=== PATIENT | female | born 1950 | race Caucasian/White ===

== ENCOUNTER 2024-08-12 06:55 | Inpatient (IN) | payer MEDICARE, SELFPAY ==
[2024-08-12] VITALS (45 sets, daily range): BP systolic 55–153; BP diastolic 35–93; PULSE 84–143; RESP 19–40; TEMP 36.6–38.4; O2SAT 85–100; BMI 22.1
--- NOTE | ~2024-08-12 | CT_ITS ---
EXAMINATION: CT brain wo con DATE: 08/12/2024 19:10 INDICATION: Septic shock . TECHNIQUE: Computed tomography (CT) of the head was performed without intravenous contrast. The mA wa s adjusted according to patient size. Iterative reconstruction technique was employed. The dose-lengt h product was 605.33 mGy-cm. COMPARISON: None. FINDINGS: No acute intracranial hemorrhage or extra-axial fluid collection. No hydrocephalus, mass, or herniation. No acute ischemic infarct. Unremarkable dural venous sinus attenuation. No acute osseous abnormality. Left craniotomy defect. Right mastoid effusion, the remaining aerated spaces are clear. Moderate atrophy and chronic white matter change. Atherosclerotic intracranial calcification. Bilater al lens replacements. Left frontal and temporal encephalomalacia. IMPRESSION: No acute intracranial process. Reviewed, dictated and finalized at location K. NT EXTERMINATOR
--- NOTE | ~2024-08-12 | XR_ITS ---
Portable chest x-ray Comparison: 08/16/2024 Clinical History: Respiratory failure Findings: There is complete white out of the left hemithorax. Right lung clear. Left IJ line in plac e. Cardiomediastinal silhouette is stable. Bones and soft tissues are unremarkable. Impression: Complete white out of the left hemithorax, likely combination of effusion, consolidation, and atelect asis based on prior radiographs. Left IJ line in place. Reviewed, dictated and finalized at location M. ERICAN SIGN LANGUAGE TEACHER Impression: Complete white out of the left hemithorax, likely combination of effusion, cons olidation, and atelectasis based on prior radiographs. Left IJ line in place.
--- NOTE | ~2024-08-12 | XR_ITS ---
Portable chest x-ray Comparison: 08/15/2024 Clinical History: Respiratory failure Findings: Left-sided IJ line is in place. There is reexpansion of the right upper lobe since prior e xam. Opbge-ij-euufsvil left pleural effusion present with extensive left lung consolidation. Cardiom ediastinal silhouette is stable. Bones and soft tissues are unremarkable. Impression: Rjudn-zc-xjlozend left pleural effusion with extensive left lung consolidation, suspicious for pneumo larry. Reexpansion of right upper lobe since prior exam. Stable support line. Reviewed, dictated and finalized at location M. IER AND SALESPERSON Impression: Oqopo-xx-fsoiokan left pleural effusion with extensive left lung consolidation, suspicious for pneumonia. Reexpansion of right upper lobe since prior exam. Stable support line.
--- NOTE | ~2024-08-12 | CT_ITS ---
Non-contrast CT scan of the Abdomen and Pelvis Clinical indication: Sepsis Technique: 2.5 mm axial scans were obtained through the abdomen and pelvis without intravenous or or al contrast. Dose reduction technique was used on this scan by utilizing automated exposure control a nd iterative reconstruction technique. The dose-length product (DLP) was 221.16 mGy-cm. Findings: Images through the lung bases reveal dense consolidation and volume loss of the visualized left lower lobe. Right lung base clear. There is no evidence of renal or ureteral calculi. The kidneys and the ureters are nondilated. The liver, spleen, pancreas, gallbladder, and adrenals appear normal. There is no aortic aneurysm. There is no evidence of bowel obstruction. Images through the pelvis were performed. There is no evidence of ascites or lymphadenopathy. There i s probably diffuse urinary bladder wall thickening despite decompression with Larsen catheter. Large u rinary bladder stone measures 2.5 cm in diameter, ovoid shaped. Impression: Dense consolidation and volume loss of the visualized left lower lobe. Findings are compatible with a telectasis versus possibly pneumonia. Consider dedicated contrast-enhanced chest CT to better evaluat e for any possibility of central obstructing lesion or other pulmonary/mediastinal pathology. Probable cystitis despite Larsen catheter in place. 2.5 cm oval urinary bladder stone. No definite CT evidence of pyelonephritis, but noncontrast CT scan is insensitive for this diagnosis. Reviewed, dictated and finalized at [facility]. LE CUT OFF SAW OPERATOR Impression: Dense consolidation and volume loss of the visualized left lower lobe. Findings are compatible with atelectasis versus possibly pneumonia. Consider dedicated contrast-enhanced chest CT to better evaluate for any possibility of central ob structing lesion or other pulmonary/mediastinal pathology. Probable cystitis despite Larsen catheter in place. 2.5 cm oval urinary bladder stone. No definite CT evidence of pyelonephritis, but noncontrast CT scan is insensiti ve for this diagnosis.
--- NOTE | ~2024-08-12 | XR_ITS ---
EXAMINATION: XR chest 1V portable DATE: 08/20/2024 06:25 INDICATION: Atelectasis. TECHNIQUE: A single frontal view of the chest was obtained on 2 radiographs. COMPARISON: Chest single view 08/19/2024, chest CT 08/12/2024 FINDINGS: There is mild atelectasis in right midlung zone. There are airspace opacities in left mid a nd lower lung zones. There may be a small left pleural effusion. No pneumothorax. The heart size is n ormal. A left internal jugular central venous catheter is seen with tip in the superior vena cava. IMPRESSION: 1. Mild atelectasis in right midlung zone. 2. Worsened airspace opacities in left mid and lower lung zones, consistent with atelectasis versus p neumonia. 3. Possible small left pleural effusion. Reviewed, dictated and finalized at location A. TINGS RESTORER IMPRESSION: 1. Mild atelectasis in right midlung zone. 2. Worsened airspace opacities in left mid and lower lung zones, consistent wit h atelectasis versus pneumonia. 3. Possible small left pleural effusion.
--- NOTE | ~2024-08-12 | US_ITS ---
EXAMINATION: US renal BI DATE: 08/12/2024 15:01 INDICATION: ACUTE KIDNEY INJURY, R/O HYDRO TECHNIQUE: Multiple grayscale and Doppler ultrasound images of the kidneys were obtained. COMPARISON: CT abdomen and pelvis, same date FINDINGS: The right kidney measures 9.6 x 5.1 x 6.3 cm. The left kidney measures 13.6 x 6.9 x 6.4 cm. The kidne ys demonstrate normal parenchymal echogenicity. There is no hydronephrosis. The bladder is decompress ed and therefore incompletely evaluated. Acoustic shadowing in the region of the bladder likely secon curtis to the bladder stone demonstrated in the prior CT. IMPRESSION: No hydronephrosis. Reviewed, dictated and finalized at location K. ICER IMPRESSION: No hydronephrosis.
--- NOTE | ~2024-08-12 | XR_ITS ---
Portable chest x-ray Comparison: 08/12/2024 Clinical History: Septic shock Findings: Left-sided central venous line is unchanged. Patient's arm obscures portions of the right hemithorax. There is extensive hazy airspace disease in the left upper lobe in particular. Cardiomed iastinal silhouette is probably stable. Bones and soft tissues are unremarkable. Impression: Extensive hazy left upper lobe airspace disease. Correlate for pneumonia or atypical pulmonary edema distribution. Stable right-sided central venous line. Right upper lobe obscured by the patient's arm. Reviewed, dictated and finalized at [facility]. ING SYSTEMS AND EQUIPMENT REPAIRER Impression: Extensive hazy left upper lobe airspace disease. Correlate for pneumonia or aty pical pulmonary edema distribution. Stable right-sided central venous line. Right upper lobe obscured by the patient's arm.
--- NOTE | ~2024-08-12 | XR_ITS ---
Portable chest x-ray Comparison: 08/12/2024 at 7:37 AM Clinical History: Line placed Findings: Left IJ line is in satisfactory position. Lungs remain clear. Possible COPD. No pneumothor ax. Cardiomediastinal silhouette is stable. Bones and soft tissues are unremarkable. Impression: Left-sided central venous line in place, as above. COPD. No pneumothorax. Reviewed, dictated and finalized at location M. CLERK Impression: Left-sided central venous line in place, as above. COPD. No pneumothorax.
--- NOTE | ~2024-08-12 | XR_ITS ---
EXAMINATION: XR chest 1V portable DATE: 08/18/2024 05:44 INDICATION: Respiratory failure TECHNIQUE: frontal view of the chest was obtained. COMPARISON: Chest radiograph dated 08/17/2024 FINDINGS: Near complete opacification of the left hemithorax with air bronchograms throughout the extensive con solidation. There is been slight improvement in aeration at the left apex. Right lung remains clear. No pneumothorax or right-sided pleural effusion. The left side of the cardiomediastinal silhouette re bonifacio obscured. Left internal jugular central venous catheter with distal tip at the cephalad superio r vena cava. IMPRESSION: 1. Extensive consolidation throughout the left hemithorax with slight improvement in aeration at the left apex likely combination of pneumonia and atelectasis possibly also with pleural effusion.. Reviewed, dictated and finalized at location A. ERLESS GRINDER TENDER IMPRESSION: 1. Extensive consolidation throughout the left hemithorax with slight improveme nt in aeration at the left apex likely combination of pneumonia and atelectasis possibly also with pleural effusion..
--- NOTE | ~2024-08-12 | XR_ITS ---
Portable chest x-ray Comparison: 08/13/2024 Clinical History: Pneumonia, lung collapse Findings: Left IJ line is in satisfactory position. There is right upper lobe collapse. There is ext ensive consolidation of the left perihilar region and left lower lobe with possible small left pleura l effusion. Cardiomediastinal silhouette is stable. Bones and soft tissues are unremarkable. Impression: Right upper lobe collapse. Central obstructing mass is not excluded. Extensive left perihilar and left lower lobe consolidation, suspicious for pneumonia. Possible small pleural effusion. Support line, as above. Reviewed, dictated and finalized at location M. TAL SOLUTION ARCHITECT Impression: Right upper lobe collapse. Central obstructing mass is not excluded. Extensive left perihilar and left lower lobe consolidation, suspicious for pneu monia. Possible small pleural effusion. Support line, as above.
--- NOTE | ~2024-08-12 | CT_ITS ---
EXAMINATION: CT diagnostic chest wo con DATE: 08/12/2024 19:10 INDICATION: Evaluate lung parenchyma/pneumonia TECHNIQUE: Computed tomography (CT) of the chest was performed with 100 mL Omnipaque-350 intravenous contrast. Automated exposure control and iterative reconstruction technique were employed. The dose-l ength product was 285.38 mGy-cm. COMPARISON: None. FINDINGS: CHEST: Exam limited by arm down positioning and motion artifact. Thoracic aorta: No significant dilation or calcification. Mild arch calcification. Lung parenchyma and airways: Complete left lung opacification with volume loss. Scattered areas of le ft-sided airway opacification. Thoracic inlet, axillae and chest wall: Left central line, terminating in the SVC. No thyroid or soft tissue mass. No axillary lymphadenopathy. Mediastinum: Calcified subcarinal node. Prominent prevascular and precarinal nodes, not strictly path ologic based on size criteria. No mass or lymphadenopathy. Heart and pericardium: Mild cardiomegaly. No pericardial effusion. Coronary artery calcifications: Moderate. Pleura: No effusion or mass. Upper abdomen: No significant finding. Thoracic bones: No acute osseous finding in the chest. IMPRESSION: Complete left lung opacification with volume loss, likely representing atelectasis. Consider mucous p lugging. Infection not excluded. No definite large obstructing mass is present, although this determination is difficult due to the la ck of contrast and above-mentioned limitations. Reviewed, dictated and finalized at location K. CIPAL IOS DEVELOPER IMPRESSION: Complete left lung opacification with volume loss, likely representing atelecta sis. Consider mucous plugging. Infection not excluded. No definite large obstructing mass is present, although this determination is d ifficult due to the lack of contrast and above-mentioned limitations.
--- NOTE | ~2024-08-12 | XR_ITS ---
EXAMINATION: XR chest 1V portable DATE: 08/19/2024 05:57 INDICATION: Respiratory failure TECHNIQUE: frontal view of the chest was obtained. COMPARISON: Chest radiograph dated 08/18/2024 FINDINGS: Marked improvement in the airspace opacities in the left lung with some residual retrocardiac consoli dation at the lower lung zone. New right upper lobe collapse with volume loss and complete opacificat ion likely related to mucous plugging. No pneumothorax or pleural effusion. Heart size is normal. Lef t internal jugular central venous catheter with distal tip at the cephalad superior vena cava. IMPRESSION: 1. Shifting pattern of atelectasis since the prior study with marked improvement of aeration of the l eft lung and with new right upper lobe collapse. 2. Residual consolidation at the left lung base which could represent atelectasis or pneumonia. Reviewed, dictated and finalized at location A. BOSS IMPRESSION: 1. Shifting pattern of atelectasis since the prior study with marked improvemen t of aeration of the left lung and with new right upper lobe collapse. 2. Residual consolidation at the left lung base which could represent atelectas is or pneumonia.
--- NOTE | ~2024-08-12 | XR_ITS ---
Portable chest x-ray Comparison: None Clinical History: Dyspnea Findings: Lungs are clear, without focal consolidation or pleural effusion. Cardiomediastinal silho uette is stable. Bones and soft tissues are unremarkable. Impression: Clear lungs. Reviewed, dictated and finalized at location M. MAKER Impression: Clear lungs.
--- NOTE | ~2024-08-12 | XR_ITS ---
Portable chest x-ray Comparison: 08/14/2024 Clinical History: Respiratory failure Findings: Left IJ line unchanged. Stable right upper lobe collapse. Stable extensive left lung conso lidation and probable small left pleural effusion. Cardiomediastinal silhouette is stable. Bones and soft tissues are unremarkable. Impression: No interval change. Stable right upper lobe collapse. Stable extensive left lung consolidation with small left pleural effusion. Stable support line. Reviewed, dictated and finalized at location . [employer] Impression: No interval change. Stable right upper lobe collapse. Stable extensive left lung consolidation with small left pleural effusion. Stable support line.
--- NOTE | 2024-08-12 07:04 | ECG_ITS ---
Test Date: 2024-08-12 07:02:22 Measurements Intervals [place] Rate: 146 P: 0 TN: 0 QRS: 19 QRSD: 84 T: 130 QT: 306 QTc: 478 Interpretive Statements ATRIAL FIBRILLATION WITH RAPID VENTRICULAR RESPONSE BASELINE ARTIFACT- I, II, III, AVR, AVL ,AVF, V1-V6 ABNORMAL ECG No previous ECG available for comparison Electronically Signed On 08-12-2024 07:57:43 PROCESS SAFETY MANAGER by Chris Starks D.O.
--- NOTE | 2024-08-12 07:18 | PC.NURSE ---
assumed care of pt. pt laying on stretcher, in distress at this time. dr holt at bedside. awaiting orders
[2024-08-12 07:24] LABS: Alveolar/Arterial O2 Gradient 474.8 mmHg; Carboxyhemoglobin 0.3 % THb (0-2.0); Fractional Inspired Oxygen 100 %; HCO3 ABG 14.3 mEq/l (22.0-26.0); Methemoglobin ABG 0.3 %THb (0-1.5); Oxygen Content ABG 18.3 %vol (16.0-22.0); Oxygen Saturation ABG 99.5 % (95.0-100.0); PO2 ABG 215.9 mmHg (80.0-100.0); PO2 FiO2 Ratio Arterial Blood 2.16 %; Reduced Hemoglobin 0.4 %THb (0-5.0); Total Hemoglobin 12.8 g/dL (12.0-18.0); pH ABG 7.426 (7.350-7.450)
[2024-08-12 07:26] LABS: Modified Allen's Test Pass; PCO2 ABG 22.3 mmHg (35.0-45.0); Site Drawn LEFT BRACHIAL
[2024-08-12 07:27] LABS: Device BIPAP; Expiratory Pressure 6 cmH2O; Inspiratory Pressure 12 cmH2O
--- NOTE | 2024-08-12 08:15 | PC.NURSE ---
spoke with David, son, to give update. states he messaged brothers to give update as well
[2024-08-12] MEDS: SODIUM CHLORIDE 0.9% IV 1,000 ML 999 ML IV CONT ×3 (08:27→09:48)
[2024-08-12] MEDS: NOREPINEPHRINE 8 MG/D5W 250 ML 8 MG/250 ML BAG 9.38 MG IV CONT (08:36)
[2024-08-12] MEDS: ACETAMINOPHEN 650 MG SUPPOSITORY RECTAL (08:36)
[2024-08-12 09:08] LABS: Hematocrit 31.5 % (37.0-47.0); Hemoglobin 10.5 g/dL (12.0-15.0); Mean Corpuscular HGB Conc 33.3 g/dl (32-36); Mean Corpuscular Hemoglobin 32.4 pg (26-34); Mean Corpuscular Volume 97.2 fl (80-100); Mean Platelet Volume 11.5 fl (7.4-10.4); Platelet Count Result 133 k/mm3 (150-375); Red Blood Count 3.24 M/mm3 (4.2-5.4); Red Cell Distribution Width 14.6 % (11.5-14.5)
[2024-08-12 09:16] LABS: Ammonia < 9 umol/L (9-30)
[2024-08-12 09:19] LABS: Lactic Acid Reflex 7.3 mmol/L (0.7-2.0); Magnesium 1.8 mg/dL (1.6-2.3)
[2024-08-12 09:21] LABS: Albumin Level 2.9 g/dL (3.5-5.1); Alkaline Phosphatase 92 U/L (38-126); Anion Gap 17 mmol/L (4-12); Aspartate Amino Transferase 45 U/L (14-36); Bilirubin,Total 0.8 mg/dL (0.2-1.3); Blood Urea Nitrogen 49 mg/dL (7-17); Calcium 7.9 mg/dL (8.4-10.2); Carbon Dioxide 19 mmol/L (22-30); Chloride 101 mmol/L (98-107); Estimated CRCL calculation 14 ml/min; Estimated Glomerular Filt Rate 16; Glucose 84 mg/dL (65-110); Lipase 28 U/L (23-300); Potassium 3.9 mmol/L (3.4-5.0); Sodium 137 mmol/L (137-145)
[2024-08-12 09:22] LABS: INR 1.6; Partial Thromboplastin Time 35.7 Seconds (22.3-36.8); Prothrombin Time 19.4 Seconds (11.1-14.7)
[2024-08-12 09:29] LABS: Band Neutrophils Percent 8 % (0-6); Lymphocytes Absolute Manual 0.45 K/mm3 (1.1-4.5); Monocytes Absolute Manual 1.35 K/mm3 (0.1-0.90); Monocytes Percent Manual 3 % (3-9); Neutrophils Percent Manual 88 % (46-73); Platelet Estimate Decreased (Adequate); Schistocytes None Seen; Total Cells Counted 100
[2024-08-12 09:30] LABS: Large Platelets Present
[2024-08-12 09:34] LABS: NT Pro B Type Natriuretic Pept 22000 pg/mL (19.9-100); Troponin I 0.493 ng/mL (0.000-0.034)
[2024-08-12 09:39] LABS: Alanine Aminotransferase 24 U/L (6-35)
[2024-08-12 09:45] LABS: Add Urine Microscopic? YES; Appearance Urine Turbid (Clear); Bacteria Urine 4+ /hpf; Bilirubin Urine 1+ (Negative); Blood Urine 3+ (Negative); Glucose Urine UA Negative (Negative); Ketones Urine Trace mg/dL (Negative); Leukocyte Esterase Ur 3+ LEU/UL (Negative); Need Manual Microscopic Need Manual; Nitrate Urine Negative (Negative); Non Pathogenic Casts 0-2; Protein Urine 4+ mg/dL (Negative); Specific Grav Ur 1.016 (1.001-1.035); Urobilinogen Urine 0.2 mg/dL (<2.0); WBC Urine >100 /hpf (0-3); pH Urine 6.5 (5.0-9.0)
[2024-08-12 09:48] LABS: Color Urine Other (Yellow); RBC Urine Noted /hpf (0-2)
--- NOTE | 2024-08-12 09:49 | PC.NURSE ---
phlebotomy at bedside to draw 2nd set blood cultures
[2024-08-12] MEDS: levoFLOXacin 750 MG/D5W 150 ML 750 MG/150 ML BAG 100 MG IVPB (10:02)
--- NOTE | 2024-08-12 10:14 | ED_ITS ---
HPI - Fever General Chief Complaint: Fever Stated Complaint: sepsis alert Time Seen by Provider: 08/12/24 07:03 Source: EMS and RN notes reviewed Mode of arrival: EMS Limitations: physical limitation (nonverbal) History of Present Illness HPI Narrative: This is a 73 year old nonverbal, chronic indwelling gonsalez catheter , chronic sacral decubitus ulcer who presents from nursing facility with fever and illness. Patient found to have oxygen saturation 80s per EMS so she was placed on NRB mask. Patient placed on BIPAP on arrival by nocturnal EDP. Patient unable to provide any history. MD elicited complaint: fever Related Data Home Medications Medication Instructions Recorded Confirmed acetaminophen 160 mg/5 mL oral 320 mg feeding tube Q6H PRN Fever 08/12/24 08/12/24 elixir atorvastatin 40 mg tablet 40 mg feeding tube HS 08/12/24 08/12/24 carbidopa 25 mg-levodopa 100 mg 2 tablet feeding tube TID 08/12/24 08/12/24 tablet clopidogrel 75 mg tablet 75 mg feeding tube DAILY 08/12/24 08/12/24 famotidine 20 mg tablet 20 mg feeding tube BID 08/12/24 08/12/24 levetiracetam 100 mg/mL oral 100 mg feeding tube Q12H 08/12/24 08/12/24 solution methimazole 10 mg tablet 10 mg feeding tube DAILY 08/12/24 08/12/24 metoprolol tartrate 25 mg tablet 25 mg feeding tube Q12H 08/12/24 08/12/24 multivitamin [id number]-awvphyzy-luuysxo 1 tablet PO DAILY 08/12/24 08/12/24 fumarate 18 mg-vitamin K 25 mcg tablet sertraline 50 mg tablet 50 mg feeding tube DAILY 08/12/24 08/12/24 Allergies Allergy/AdvReac Type Severity Reaction Status Date / Time cephalexin Allergy Unknown Verified 08/12/24 08:33 Sulfa (Sulfonamide Allergy Unknown Verified 08/12/24 08:33 Antibiotics) Review of Systems Review of Systems: ROS unobtainable: Yes unobtainable due to medical condition [facility] Past Medical History Medical History (Updated 08/12/24 @ 17:41 by Marysol Nguyen MD) Chronic indwelling Gonsalez catheter History of supraventricular tachycardia Hypertension Nonverbal Parkinson disease Sepsis Thyroid disorder Listed as hypothyroidism in [place] paperwork, however is on methimazole Surgical History Surgical History (Updated 08/12/24 @ 16:37 by Karey Manriquez APRN) History of brain surgery S/P percutaneous endoscopic gastrostomy (PEG) tube placement Social History Social History Smoking status: Unknown if ever smoked Spiritual care concerns: No Exam Const: General: diaphoretic and ill appearing Limitations: physical limitations Other: nonverbal HENMT: Head: normal to inspection Mouth: Yes Normal oral and palatal mucosa present, Yes lip normal and Yes moist mucous membranes Eyes: Pupils: Equal, round and reactive pupils present Chest: Chest palpation & inspection: normal inspection of the chest Resp: Effort & Inspection: labored Auscultation: clear to auscultation bilaterally Cardio: Rate: tachycardic Rhythm: abnormal rhythm Heart sounds: Murmur heart sound present GI: Inspection: distended GI Palp: Yes Soft to palpation, No Guarding due to palpation present (GI) and No Rigid due to palpation Auscultation: Hypoactive bowel sounds present Urinary Catheter: Urinary Catheter: urine cloudy Skin: Other: small stage 3 sacral decubitus ulcer with granulation tissue Neuro: Other: patient will look around, contracted Extrem: Other: contracted extremities Psych: Other: calm, patient will look around Course Reevaluation(s) Reevaluation #1: Patient presented in Septic shock. I placed CVL for sepsis and no venous access. She was started on levophed and then vasopressin. She was given 30 mg/kg IV bolus NS with minimal improvement . Rocephin initially ordered by she has allergy to cephalexin. levaquin ordered. Patient was on bipap for increased work of breathing. Considered intubation but patient needed resuscitation first given blood pressure in the 40s and 50s initially. I Spoke with son on the phone. Carlyle and he is POA. He states for now patient is full code. I discussed patient is critically ill and will be admitted to ICU. Date: 08/05/24 Time: 11:00 Consultations Consultation #1: I Discussed case with DR. Dwyer, patient contracted, nonverbal in septic shock. She has increased work of breath. He agrees with levaquin given cephalexin allergy for UTI. Also will add Vanc. I discussed intubation and he states he will assess patient in ICU and intubate if needed. Date: 08/12/24 Time: 12:15 Consultation #2: I Spoke with Tressa with hospitalist and she accepts patient to service in ICU Date: 08/12/24 Time: 12:38 Vital Signs Vital signs: Vital Signs Pulse Rate 143 H 08/12/24 06:55 Respiratory Rate 40 H 08/12/24 06:55 Blood Pressure 67/43 L 08/12/24 06:55 Pulse Oximetry 94 08/12/24 06:55 Oxygen Delivery Non-Rebreather Mask 08/12/24 06:55 Oxygen Flow Rate 15 08/12/24 06:55 Temperature 99.4 F 08/12/24 16:00 Pulse Rate 101 H 08/12/24 16:20 Respiratory Rate 29 H 08/12/24 17:07 Blood Pressure 93/60 L 08/12/24 16:20 Pulse Oximetry 100 08/12/24 17:07 Oxygen Delivery High Flow Therapy with Nasal Cannula 08/12/24 17:07 Oxygen Flow Rate 60 08/12/24 17:07 Fraction of Inspired Oxygen 80 08/12/24 17:07 Procedures Central Line Placement Left IJ: Central Line Date: 08/12/24 Central Line Time: 07:30 Performed Emergently - Given emergent patient condition, temporal constraints may have precluded informed consent.: Yes Time Out Performed: Yes Patient Placed on Monitor/Pulse Ox: Yes Max. Sterile Barrier Technique: Caps, large sterile sheet and hand hygiene Central Line Prep: 2% chlorhexidine scrub and sterile drapes applied Technique: US-Guided Local Anesthetic: lidocaine 1% Amount of anesthesia used (mL): 1 Ultrasound Used for Placement: Yes Central Line Lumen Inserted: triple Post Procedure: sutured in place, good blood return, all ports aspirated, flushed, capped and sterile dressing applied Post Procedure X-Ray: tip of catheter in good position and no pneumothorax seen Patient Tolerated Procedure: well MDM - Fever Differential Diagnosis Differential diagnosis: Likely cellulitis, fever of unknown origin, community acquired pneumonia, pyelonephritis, viral infection and sepsis Lab Data Attestation: I reviewed the patient's lab results. 08/12/24 08:58 08/12/24 08:58 Labs: Lab Results 08/12/24 08/12/24 08/12/24 Range/Units 07:22 08:58 09:56 WBC 45.0 H (4.5-10.0) K/mm3 RBC 3.24 L (4.2-5.4) M/mm3 Hgb 10.5 L (12.0-15.0) g/dL Hct 31.5 L (37.0-47.0) % MCV 97.2 (80-100) fl MCH 32.4 (26-34) pg MCHC 33.3 (32-36) g/dl RDW 14.6 H (11.5-14.5) % Plt Count 133 L (150-375) k/mm3 MPV 11.5 H (7.4-10.4) fl Immature Gran % (Auto) Not Reportable Neut % (Auto) Not Reportable Lymph % (Auto) Not Reportable [place] % (Auto) Not Reportable Eos % (Auto) Not Reportable Baso % (Auto) Not Reportable Lymph # (Auto) Not Reportable [place] # (Auto) Not Reportable Eos # (Auto) Not Reportable Baso # (Auto) Not Reportable Abs Immat Gran (auto) Not Reportable Absolute Neuts (auto) Not Reportable Absolute Nucleated RBC Not Reportable Total Counted 100 Neutrophils % (Manual) 88 H (46-73) % Band Neutrophils % 8 H (0-6) % Lymphocytes % (Manual) 1.0 L (18-44) % Monocytes % (Manual) 3 (3-9) % Nucleated RBC % Not Reportable Abs Neuts (Manual) 43.20 H (1.7-7.2) K/mm3 Abs Lymphs (Manual) 0.45 L (1.1-4.5) K/mm3 Abs Monocytes (Manual) 1.35 H (0.1-0.90) K/mm3 Platelet Estimate Decreased (Adequate) Large Platelets Present Schistocytes None seen PT 19.4 H (11.1-14.7) Seconds INR 1.6 APTT 35.7 (22.3-36.8) Seconds Methemoglobin 0.3 (0-1.5) %THb Expiratory Pressure 6 cmH2O Inspiratory Pressure 12 cmH2O Sodium 137 (137-145) mmol/L Potassium 3.9 (3.4-5.0) mmol/L Chloride 101 (98-107) mmol/L Carbon Dioxide 19 L (22-30) mmol/L Anion Gap 17 H (4-12) mmol/L BUN 49 H (7-17) mg/dL Creatinine 2.90 H (0.7-1.0) mg/dL Estim Creat Clear Calc 14 ml/min Estimated GFR 16 L (59 - ) Glucose 84 (65-110) mg/dL Lactic Acid 7.3 H* (0.7-2.0) mmol/L Calcium 7.9 L (8.4-10.2) mg/dL Magnesium 1.8 (1.6-2.3) mg/dL Total Bilirubin 0.8 (0.2-1.3) mg/dL AST 45 H (14-36) U/L ALT 24 (6-35) U/L Alkaline Phosphatase 92 (38-126) U/L Ammonia < 9 L (9-30) umol/L Troponin I 0.493 H* (0.000-0.034) ng/mL C-Reactive Protein 37.0 H (<1.0) mg/dL NT-Pro-B Natriuret Pep 26334 H (19.9-100) pg/mL Total Protein 6.0 L (6.3-8.2) g/dL Albumin 2.9 L (3.5-5.1) g/dL Lipase 28 (23-300) U/L Procalcitonin > 100.0 ng/mL Urine Color Other (Yellow) Urine Appearance Turbid H (Clear) Urine pH 6.5 (5.0-9.0) Ur Specific [place] 1.016 (1.001-1.035) Urine Protein 4+ H (Negative) mg/dL Urine Glucose (UA) Negative (Negative) mg/dL Urine Ketones Trace H (Negative) mg/dL Ur Blood (Man) 3+ H (Negative) Urine Nitrate Negative (Negative) Urine Bilirubin 1+ H (Negative) Urine Urobilinogen 0.2 (<2.0) mg/dL Add Ur Microanalysis Need manual Leukocyte Esterase Rfl 3+ H (Negative) BARBER/UL Urine RBC Noted (0-2) /hpf Urine WBC >100 H (0-3) /hpf Ur Squamous Epith Cells None seen (Few) /hpf Urine Bacteria 4+ H /hpf Urine Casts 0-2 ABG Data ABG results: 08/12/24 07:22 Puncture Site Left brachial ABG pH 7.426 ABG pCO2 22.3 L* ABG pO2 215.9 H ABG PO2/FiO2 Ratio 2.16 ABG HCO3 14.3 L ABG O2 Saturation 99.5 ABG O2 Content 18.3 ABG Base Excess -8.0 A-a Gradient 474.8 Oxyhemoglobin 99.0 Carboxyhemoglobin 0.3 Reduced Hemoglobin 0.4 Total Hemoglobin 12.8 O2 Delivery Device Bipap O2 Liters/Min Not Reportable FiO2 100 Imaging Data Radiologist's impression: ITS Impressions Chest X-Ray 08/12/24 08:56 Impression: Clear lungs. Chest X-Ray 08/12/24 09:01 Impression: Left-sided central venous line in place, as above. COPD. No pneumothorax. Abdomen/Pelvis CT 08/12/24 11:59 Impression: Dense consolidation and volume loss of the visualized left lower lobe. Findings are compatible with atelectasis versus possibly pneumonia. Consider dedicated contrast-enhanced chest CT to better evaluate for any possibility of central obstructing lesion or other pulmonary/mediastinal pathology. Probable cystitis despite Gonsalez catheter in place. 2.5 cm oval urinary bladder stone. No definite CT evidence of pyelonephritis, but noncontrast CT scan is insensitive for this diagnosis. ECG Data EKG #1: Attestation: I personally reviewed and interpreted this ECG as follows: ECG completion date: 08/12/24 ECG completion time: 07:02 EKG Interpretation: tachycardia (146), atrial fibrillation and NL axis Critical Care Time Critical Care Time Critical Care Time: Yes Total Critical Care Time: 90 Discharge Plan Discharge Clinical Impression: Severe sepsis with septic shock, UTI (urinary tract infection), Acute kidney injury Patient Disposition: Still a Patient Condition: Critical
[2024-08-12] MEDS: VASOPRESSIN INJ 100 UNITS in DEXTROSE 5% 95 ML IV CONT (10:22)
[2024-08-12 10:28] LABS: Squamous Epithelial Cell Urine None seen /hpf (Few)
[2024-08-12 12:04] LABS: Reflex Lactic Acid Yes or No Add Lactic
--- NOTE | 2024-08-12 12:49 | P.HP_ITS ---
H&P: HPI History of Present Illness Date/Time: 08/12/24 12:49 Chief Complaint: Fever Narrative: 73 y/o F presents here with fever, hypotension, and hypoxia with PMH of chronic indwelling Larsen, chronic sacral decubitus ulcer, nonverbal, hypertension, and Parkinson's. The patient presents here from [facility] via EMS for further evaluation of fever, hypotension, and hypoxia. HPI obtained through chart review and provider report, the patient is unable to contribute meaningfully given she is nonverbal. The patient was noted to have a fever of 100? F and a blood pressure of 60/30. EMS was called and upon their arrival it was noted that the patient's O2 saturation was in the 80s which was accompanied by tachypnea with a rate of 30-40 per minute. EMS placed a non-rebreather at 15L which increased her O2 saturation to 93%. She arrived with a temperature of 101.2? F, heart rate 143, respiratory rate 40, 94% on a non-rebreather, and initial blood pressure was 67/43. The patient was transitioned to BiPAP. She was given a 3L bolus and Tylenol for her fever. A left IJ central line was placed and norepinephrine was initiated. BP improved to a systolic of 80 and temp is now 99.8. She remains mildly tachycardic. Lab work is consistent with septic shock. Suspected source UTI and possible pneumonia. Initial VS at presentation: 101.2? F, HR 143, or 40, 167/43, and 94% on NRB. ED workup showed: WBC 45.0, hemoglobin 10.5 (no previous available for comparison), INR 1.6, creatinine 2.9 and GFR 16 (no previous available), lactic 7.3, calcium 7.9, troponin 0.493, CRP 37, BNP 15536, albumin 2.9, and UA significant for UTI. CT of the abdomen/pelvis showed dense consolidation or volume loss of the visualized left lower lobe, probable cystitis despite Larsen catheter in place, 2.5 cm oval urinary bladder stone, no definite evidence of pyelonephritis. CXR showed clear lungs. Review of Systems Review of Systems: ROS unobtainable: Yes unobtainable due to mental status (nonverbal) PMFSH Past Medical History Medical History (Updated 08/12/24 @ 16:40 by Karey Manriquez APRN) Chronic indwelling Larsen catheter History of supraventricular tachycardia Hypertension Nonverbal Parkinson disease Sepsis Thyroid disorder Listed as hypothyroidism in [place] paperwork, however is on methimazole Surgical History Surgical History (Updated 08/12/24 @ 16:37 by Karey Manriquez APRN) History of brain surgery S/P percutaneous endoscopic gastrostomy (PEG) tube placement Social History Social History Smoking status: Unknown if ever smoked Spiritual care concerns: No Meds Home Medications and Allergies Home Medications Medication Instructions Recorded Confirmed Type acetaminophen 160 mg/5 mL oral 320 mg feeding tube Q6H PRN Fever 08/12/24 08/12/24 History elixir atorvastatin 40 mg tablet 40 mg feeding tube HS 08/12/24 08/12/24 History carbidopa 25 mg-levodopa 100 mg 2 tablet feeding tube TID 08/12/24 08/12/24 History tablet clopidogrel 75 mg tablet 75 mg feeding tube DAILY 08/12/24 08/12/24 History famotidine 20 mg tablet 20 mg feeding tube BID 08/12/24 08/12/24 History levetiracetam 100 mg/mL oral 100 mg feeding tube Q12H 08/12/24 08/12/24 History solution methimazole 10 mg tablet 10 mg feeding tube DAILY 08/12/24 08/12/24 History metoprolol tartrate 25 mg tablet 25 mg feeding tube Q12H 08/12/24 08/12/24 History multivitamin g-emwzjsjx-wvfopvt 1 tablet PO DAILY 08/12/24 08/12/24 History fumarate 18 mg-vitamin K 25 mcg tablet sertraline 50 mg tablet 50 mg feeding tube DAILY 08/12/24 08/12/24 History Allergies Allergy/AdvReac Type Severity Reaction Status Date / Time cephalexin Allergy Unknown Verified 08/12/24 08:33 Sulfa (Sulfonamide Allergy Unknown Verified 08/12/24 08:33 Antibiotics) Vital Signs Vital Signs - 24 hr 08/12/24 06:55 08/12/24 08:20 08/12/24 08:30 Temperature Pulse Rate 143 H Respiratory Rate 40 H Blood Pressure 67/43 L Pulse Oximetry 94 95 Oxygen Delivery Non-Rebreather Mask BiPAP BiPAP Oxygen Flow Rate 15 08/12/24 08:36 08/12/24 09:18 08/12/24 09:20 Temperature 101.2 F H Pulse Rate 133 H 116 H 117 H Respiratory Rate 32 H Blood Pressure 55/35 L 65/46 L 65/46 L Pulse Oximetry 98 Oxygen Delivery Oxygen Flow Rate 08/12/24 09:30 08/12/24 09:33 08/12/24 09:36 Temperature 100.5 F H Pulse Rate 115 H 121 H 120 H Respiratory Rate 30 H Blood Pressure 69/39 L 69/41 L 66/42 L Pulse Oximetry 99 Oxygen Delivery Oxygen Flow Rate 08/12/24 09:39 08/12/24 09:46 08/12/24 09:49 Temperature 100.5 F H Pulse Rate 118 H Respiratory Rate Blood Pressure 66/49 L Pulse Oximetry Oxygen Delivery BiPAP Oxygen Flow Rate 08/12/24 10:03 08/12/24 10:07 08/12/24 10:16 Temperature 100.0 F H Pulse Rate 112 H 113 H 108 H Respiratory Rate 31 H Blood Pressure 76/42 L 85/51 L 81/46 L Pulse Oximetry 99 Oxygen Delivery Oxygen Flow Rate 08/12/24 10:22 08/12/24 10:26 08/12/24 10:36 Temperature 99.8 F H Pulse Rate 109 H 106 H 115 H Respiratory Rate 30 H 22 H Blood Pressure 85/55 L 98/65 L 103/57 L Pulse Oximetry 100 100 Oxygen Delivery Oxygen Flow Rate 08/12/24 11:08 08/12/24 07:05 08/12/24 10:52 Temperature Pulse Rate 114 H 127 H 120 H Respiratory Rate 28 H 29 H 30 H Blood Pressure 96/55 L Pulse Oximetry 99 98 Oxygen Delivery BiPAP BiPAP Oxygen Flow Rate 08/12/24 10:54 08/12/24 11:38 08/12/24 11:38 Temperature Pulse Rate 108 H 110 H Respiratory Rate 28 H 35 H Blood Pressure 88/56 L 92/52 L Pulse Oximetry 99 93 93 Oxygen Delivery Nasal Cannula Oxygen Flow Rate 4 08/12/24 11:31 08/12/24 12:16 08/12/24 12:17 Temperature Pulse Rate 111 H 112 H Respiratory Rate 35 H Blood Pressure 81/56 L 81/56 L Pulse Oximetry 94 85 L Oxygen Delivery Nasal Cannula Oxygen Flow Rate 4 08/12/24 12:28 Temperature Pulse Rate Respiratory Rate Blood Pressure Pulse Oximetry 91 Oxygen Delivery BiPAP Oxygen Flow Rate Exam Const: General: comfortable and no acute distress Other: , female, elderly, ill-appearing HENMT: Face/Nose/Sinus: Normal nares present Mouth: Yes dry mucous membranes Other: High-flow nasal cannula in place Eyes: General: appearance normal, both eyes and all related structures Sclera: sclerae normal Pupils: Equal, round and reactive pupils present EOM: EOMs intact bilaterally Resp: Effort & Inspection: normal respiratory effort Other: Diminished breath sounds on left, no adventitious lung sounds on right Cardio: Rate: tachycardic (110-115) Rhythm: regular rhythm Other: S1-S2 present without murmur, rub, ectopy GI: Other: Abdomen soft, nondistended. No particular expression or grimace with palpation. Bowel sounds are distant and hypoactive in all quadrants. Urinary Catheter: Urinary Catheter: patent and draining Skin: General skin exam: normal color and no rashes or lesions noted Other: Decubitus ulcer to buttocks Neuro: Other: Nonverbal. Brief eye opening to noxious stimuli. Contracture to right hand. Does not follow commands or answer questions. Extrem: General: normal to inspection Psych: Other: Poor insight and judgment. Flat affect. H&P: Results Labs Labs: Short CBC 08/12/24 Range/Units 08:58 WBC 45.0 H (4.5-10.0) K/mm3 Hgb 10.5 L (12.0-15.0) g/dL Hct 31.5 L (37.0-47.0) % Plt Count 133 L (150-375) k/mm3 [facility] 08/12/24 08:58 Sodium 137 Potassium 3.9 Chloride 101 Carbon Dioxide 19 L BUN 49 H Creatinine 2.90 H Glucose 84 Calcium 7.9 L Cardiac Enzymes 08/12/24 Range/Units 08:58 Troponin I 0.493 H* (0.000-0.034) ng/mL Liver Function 08/12/24 Range/Units 08:58 Total Bilirubin 0.8 (0.2-1.3) mg/dL AST 45 H (14-36) U/L ALT 24 (6-35) U/L Alkaline Phosphatase 92 (38-126) U/L Albumin 2.9 L (3.5-5.1) g/dL Urine 08/12/24 Range/Units 08:58 Urine Color Other (Yellow) Urine Appearance Turbid H (Clear) Urine pH 6.5 (5.0-9.0) Ur Specific [place] 1.016 (1.001-1.035) Urine Protein 4+ H (Negative) mg/dL Urine Glucose (UA) Negative (Negative) mg/dL Assessment and Plan Assessment and plan (1) Severe sepsis with septic shock: Code(s): A41.9 - Sepsis, unspecified organism; R65.21 - Severe sepsis with septic shock Status: Acute Assessment and Plan: - meets SIRS criteria: HR, RR, Temp. +Hypotension and Hypoxia. - lactic acid: 7.3 -> - lactic elevated, procalcitonin added - 30 mL/kg = 1800, 3L bolus given. - despite adequate fluid resuscitation the patient remained hypotensive, started on norepinephrine and vasopressin. Map goal >65 and systolic 100. If no improvement with to pressors, will add norepinephrine gtt. Albumin ordered. - add steroids, 100 mg Q8H of Solu-Cortef - suspected source: UTI, possible PNA - started on Vancomycin and Levaquin - blood cultures drawn on 08/12 - UA consistent with UTI, see below - CT abdomen/pelvis: 1. Dense consolidation and volume loss of the visualized left lower lobe. Findings are compatible with atelectasis versus possibly pneumonia. Consider dedicated contrast-enhanced chest CT to better evaluate for any possibility of central obstructing lesion or other pulmonary/mediastinal pathology. 2. Probable cystitis despite Larsen catheter in place. 2.5 cm oval urinary bladder stone. 3. No definite CT evidence of pyelonephritis, but noncontrast CT scan is insensitive for this diagnosis. - CT head and CT high res chest ordered - admission to the ICU, v belt builder consulted (2) UTI (urinary tract infection): Qualifiers: Hematuria presence: without hematuria Urinary tract infection type: acute cystitis Qualified Code(s): N30.00 - Acute cystitis without hematuria Code(s): N39.0 - Urinary tract infection, site not specified Status: Acute Assessment and Plan: - UA: Turbid, 4+ protein, trace ketones, 3+ blood, 1+ bilirubin, 3+ leuks, greater than 100 WBC, 4+ bacteria, no epithelial cells - UC pending - previous micro reviewed, none available - started on vancomycin and Levaquin - exchange Chava (3) COVID-19: Code(s): U07.1 - COVID-19 Status: Acute Assessment and Plan: - symptom onset: unknown - tested positive for COVID on: 08/12 - complicating comorbidities: - CXR: clear lungs - Remdesivir 200 mg IVPB x1 then 100 mg x4 for 5 total doses. - started on Solu-Cortef - CRP 37, add tocilizumab IVPB - prophylactic anticoagulation 5,000 units SQ Q8 - currently requiring 60 of HFNC - add ESR/CRP, PT/INR for AM labs (4) Acute kidney injury: Code(s): N17.9 - Acute kidney failure, unspecified Status: Acute Assessment and Plan: - electronic security technician 2.9 and GFR 16 - renal US - add CK and urine lytes - suspect SOFIA baby multifactorial including injury due to shock and end organ damage, pressors infusing and possibility of hypovolemia given diarrhea (3L bolus) - monitor I&Os - trend renal function (5) Diarrhea: Qualifiers: Diarrhea type: presumed infectious Qualified Code(s): R19.7 - Diarrhea, unspecified Code(s): R19.7 - Diarrhea, unspecified Status: Acute Assessment and Plan: - c. diff negative, stool culture pending - FMS placed (6) Pneumonia: Qualifiers: Laterality: left Lung location: lower lobe of lung Pneumonia type: due to unspecified organism Qualified Code(s): J18.9 - Pneumonia, unspecified organism Code(s): J18.9 - Pneumonia, unspecified organism Status: Acute Assessment and Plan: - CXR clear - CT abd/pelvis c/f Dense consolidation and volume loss of the visualized left lower lobe. Findings are compatible with atelectasis versus possibly pneumonia. Consider dedicated contrast-enhanced chest CT to better evaluate for any possibility of central obstructing lesion or other pulmonary/mediastinal pathology. CT chest high res ordered - complicating factors: Severe sepsis, COVID - started on vancomycin, remdesivir, and Levaquin - MRSA PCR pending - Viral PCR: + COVID - continue supplemental O2 Plan Diet: NPO GI Prophylaxis: Pantoprazole IVP DVT Prophylaxis: Heparin 5000 subQ q.8, SCDs Lines: Peripheral, left IJ Code Status: Full code Quality VTE Prophylaxis VTE prophylaxis: mechanical ordered and pharmacologic ordered Hospitalist MIPS Advance Care Plan I have confirmed that the patient's Advanced Care Plan is present, code status is documented, or surrogate decision maker is listed in patient medical record.: Yes Medication Reconciliation I have utilized all available resources to obtain, update and review the patients current medications (includes all prescriptions, OTC, herbals, cannabis, and nutritional supplements).: Yes
--- NOTE | 2024-08-12 13:30 | PC.NURSE ---
This patient, Ivon Andersen, was admitted to Intensive Care Unit-3. Patient/family oriented to hospital policies and general routines including ID bracelet, bed and alarms, visiting hours, pain management, procedures, bathroom and other care routines, personal items, smoking policy, room service/diet, and visiting hours. Information on how to activate the Rapid Response Team has been discussed. Patient/Family are encouraged to report perceived risks to care and to ask questions if they do not understand what they are told or what they should do.
[2024-08-12 13:33] LABS: Procalcitonin > 100.0 ng/mL
--- NOTE | 2024-08-12 13:33 | WPDCNINT ---
Assessment and Plan Assessment and plan (1) Severe sepsis with septic shock: Code(s): A41.9 - Sepsis, unspecified organism; R65.21 - Severe sepsis with septic shock Status: Acute Assessment and Plan: 08/12: Patient presented from the [facility] with hypoxia, fever -likely source urine and or pneumonia -she was hypotensive in the ER despite receiving 30 mL/kg IV fluids, left IJ central line was inserted, -currently on Levophed and vasopressin, will maintain MAP > 65 mmHg for adequate end organ perfusion -initial lactic acid was 7.3 on admission, repeat lactic acid in the ICU is 4.2 -will start stress dose steroids -08/12: Blood cultures have been obtained -08/12: Urine cultures have been obtained -08/12: C diff toxin has been ordered -patient has been started on vancomycin and levofloxacin (08/12) (2) UTI (urinary tract infection): Qualifiers: Urinary tract infection type: acute cystitis Hematuria presence: without hematuria Qualified Code(s): N30.00 - Acute cystitis without hematuria Code(s): N39.0 - Urinary tract infection, site not specified Status: Acute Assessment and Plan: UA reflective of UTI -urine cultures have been obtained -continue antibiotics as above (3) Pneumonia: Code(s): J18.9 - Pneumonia, unspecified organism Status: Acute Assessment and Plan: Patient was initially on BiPAP, patient is contracted and unable to probably pull the mask off if she has emesis, BiPAP likely contraindicated in such patients -placed patient on high-flow therapy, will wean FiO2 to maintain O2 sats greater than 92% -patient is full code, if respiratory status worsens may have to intubate her, -ABGs in the ER were okay Will obtain CT brain and Chest (4) Acute kidney injury: Code(s): N17.9 - Acute kidney failure, unspecified Status: Acute Assessment and Plan: Patient presented with septic shock, acute kidney injury with a creatinine of 2.90 on admission, baseline unknown -adequately fluid-resuscitated in the ER -currently on vasopressors -will obtain CK level, urine eosinophil, urine lytes -check renal ultrasound -continue to monitor urine output, electrolytes and renal function -albumin for volume expansion (5) Diarrhea: Code(s): R19.7 - Diarrhea, unspecified Status: Acute Assessment and Plan: Patient has had severe diarrhea -will send C diff toxin (6) COVID-19: Code(s): U07.1 - COVID-19 Status: Acute Assessment and Plan: Patient was tested positive for SARS-CoV-2 -currently on steroids -will add Remdesivir CRP is 37, pt does qualify for Tocilizumab, will order Plan DVT prophylaxis: Heparin SQ Stress ulcer prophylaxis: Protonix Nutrition: NPO Code Status: Full code Critical Care Time Spent: 51 minutes 08/12: Discussed with patient's son David who is the POA, he stated that the patient has had a brain surgery after she had a fall in the past and at the same time was diagnosed with Parkinson's. She has been nonverbal for the last 2 years and then developed contraction and footdrop. I also explained to him regarding her severe septic shock, likely secondary to pneumonia, UTI. He did state that she has had multiple UTIs over the last 2 years. He is aware that she is on 2 blood pressure support medications, antibiotics. -I also discussed with David the POA regarding code status, he wants patient is a full code, he is going to discuss with his family though Due to a high probability of clinically significant, life threatening deterioration, the patient required my highest level of preparedness to intervene emergently and I personally spent this critical care time directly and personally managing the patient. This critical care time included obtaining a history; examining the patient; pulse oximetry; ordering and review of studies; arranging urgent treatment with development of a management plan; evaluation of patient's response to treatment; frequent reassessment; and discussions with other providers. It was exclusive of separately billable procedures and treating other patients and teaching time. Please see Assessment and Plan section and the rest of the note for further information on patient assessment and treatment This dictation may have been done utilizing a voice recognition system. Attempts have been made to correct errors. However, there may be uncorrected grammatical, spelling, and recognitions errors present. Shift Production Associate Consult Note Consult date: 08/12/24 Reason for consult: Pneumonia, septic shock, acute kidney injury, chronic indwelling Larsen catheter, chronic pressure ulcers HPI: Ivon Andersen is a 73 year old female with significant past medical history of essential hypertension, Parkinson's disease, chronic sacral decubitus ulcers, indwelling Larsen catheter presented [facility] ED from [facility] on 08/12/2024 with complains of fevers and low oxygen saturation. In the ER patient was found to be hypotensive with systolics in the 60s, received 30 mL/kg IV fluids despite which patient was hypotensive, a left IJ central line was inserted and patient was started on Levophed and further required vasopressin to maintain adequate mean arterial pressure. Patient's WBC count is 45, 10% bands, hemoglobin 10.5, platelets 133. Sodium 137, potassium 3.9, CO2 19, BUN 49 and creatinine 2.90. Blood sugars 84. INR of 1.6, lactic acid 7.3, LFTs and bilirubin were within normal limits, ammonia < 9. UA was positive for nitrate, leukocyte esterase and many bacteria and urine wbc's. CT abdomen and pelvis showed dense consolidation and volume loss of the visualized left lower lobe, findings are compatible with atelectasis with possible pneumonia. Probable cystitis despite Larsen catheter in place, 2.5 cm oval urinary bladder stone. No evidence of pyelonephritis Patient received levofloxacin and vancomycin in the ER and was transferred to the ICU further management Patient seen and examined upon arrival ICU, was on BiPAP, patient is nonverbal and contracted, given her current situation I have asked the respiratory therapist to place her on a high-flow therapy, as she may not be able to pull out her mask if she has emesis on the BiPAP and is at high risk for aspiration. Larsen catheter in place, site significant amount of diarrhea. Patient's eyes are open, does not follow commands, does not answer questions, she is nonverbal at baseline. Review of Systems Review of Systems: ROS unobtainable: Yes unobtainable due to endotracheal tube, unobtainable due to medical condition and unobtainable due to mental status PMFSH Past Medical History Medical History Hypertension Parkinson disease Sepsis Surgical History Surgical History Surgical history unknown Social History Social History Smoking status: Smoker, status unknown Meds Home Medications and Allergies Allergies Allergy/AdvReac Type Severity Reaction Status Date / Time cephalexin Allergy Unknown Verified 08/12/24 08:33 Sulfa (Sulfonamide Allergy Unknown Verified 08/12/24 08:33 Antibiotics) Vital Signs Vital Signs - 24 hr 08/12/24 06:55 08/12/24 08:20 08/12/24 08:30 Temperature Pulse Rate 143 H Respiratory Rate 40 H Blood Pressure 67/43 L Pulse Oximetry 94 95 Oxygen Delivery Non-Rebreather Mask BiPAP BiPAP Oxygen Flow Rate 15 08/12/24 08:36 08/12/24 09:18 08/12/24 09:20 Temperature 101.2 F H Pulse Rate 133 H 116 H 117 H Respiratory Rate 32 H Blood Pressure 55/35 L 65/46 L 65/46 L Pulse Oximetry 98 Oxygen Delivery Oxygen Flow Rate 08/12/24 09:30 08/12/24 09:33 08/12/24 09:36 Temperature 100.5 F H Pulse Rate 115 H 121 H 120 H Respiratory Rate 30 H Blood Pressure 69/39 L 69/41 L 66/42 L Pulse Oximetry 99 Oxygen Delivery Oxygen Flow Rate 08/12/24 09:39 08/12/24 09:46 08/12/24 09:49 Temperature 100.5 F H Pulse Rate 118 H Respiratory Rate Blood Pressure 66/49 L Pulse Oximetry Oxygen Delivery BiPAP Oxygen Flow Rate 08/12/24 10:03 08/12/24 10:07 08/12/24 10:16 Temperature 100.0 F H Pulse Rate 112 H 113 H 108 H Respiratory Rate 31 H Blood Pressure 76/42 L 85/51 L 81/46 L Pulse Oximetry 99 Oxygen Delivery Oxygen Flow Rate 08/12/24 10:22 08/12/24 10:26 08/12/24 10:36 Temperature 99.8 F H Pulse Rate 109 H 106 H 115 H Respiratory Rate 30 H 22 H Blood Pressure 85/55 L 98/65 L 103/57 L Pulse Oximetry 100 100 Oxygen Delivery Oxygen Flow Rate 08/12/24 11:08 08/12/24 07:05 08/12/24 10:52 Temperature Pulse Rate 114 H 127 H 120 H Respiratory Rate 28 H 29 H 30 H Blood Pressure 96/55 L Pulse Oximetry 99 98 Oxygen Delivery BiPAP BiPAP Oxygen Flow Rate 08/12/24 10:54 08/12/24 11:38 08/12/24 11:38 Temperature Pulse Rate 108 H 110 H Respiratory Rate 28 H 35 H Blood Pressure 88/56 L 92/52 L Pulse Oximetry 99 93 93 Oxygen Delivery Nasal Cannula Oxygen Flow Rate 4 08/12/24 11:31 08/12/24 12:16 08/12/24 12:17 Temperature Pulse Rate 111 H 112 H Respiratory Rate 35 H Blood Pressure 81/56 L 81/56 L Pulse Oximetry 94 85 L Oxygen Delivery Nasal Cannula Oxygen Flow Rate 4 08/12/24 12:28 Temperature Pulse Rate Respiratory Rate Blood Pressure Pulse Oximetry 91 Oxygen Delivery BiPAP Oxygen Flow Rate Exam Narrative: General: Ill-appearing female currently in no acute distress HEENT:? Pupils equal and reactive, sclerae is clear Neck:? Supple, left IJ central line in place Respiratory:? Coarse breath sounds bilaterally, decreased at bases, no wheeze Cardiac:? tachycardia Abdomen:? Soft, nontender, nondistended, tympanic, hyperactive bowel sounds Extremities:? Trace edema bilaterally, dopplerable pedal pulses bilaterally Neuro:? Patient is nonverbal at baseline, her eyes are open, does not follow commands or answers questions Skin:? Decubitus ulcer on the buttocks Psych:? Unable to assess Results Labs 08/12/24 08:58 08/12/24 08:58 Labs: Short CBC 08/12/24 Range/Units 08:58 WBC 45.0 H (4.5-10.0) K/mm3 Hgb 10.5 L (12.0-15.0) g/dL Hct 31.5 L (37.0-47.0) % Plt Count 133 L (150-375) k/mm3 BMP 08/12/24 08:58 Sodium 137 Potassium 3.9 Chloride 101 Carbon Dioxide 19 L BUN 49 H Creatinine 2.90 H Glucose 84 Calcium 7.9 L Cardiac Enzymes 08/12/24 Range/Units 08:58 Troponin I 0.493 H* (0.000-0.034) ng/mL Liver Function 08/12/24 Range/Units 08:58 Total Bilirubin 0.8 (0.2-1.3) mg/dL AST 45 H (14-36) U/L ALT 24 (6-35) U/L Alkaline Phosphatase 92 (38-126) U/L Albumin 2.9 L (3.5-5.1) g/dL Urine 08/12/24 Range/Units 08:58 Urine Color Other (Yellow) Urine Appearance Turbid H (Clear) Urine pH 6.5 (5.0-9.0) Ur Specific Cushman 1.016 (1.001-1.035) Urine Protein 4+ H (Negative) mg/dL Urine Glucose (UA) Negative (Negative) mg/dL
[2024-08-12] MEDS: SODIUM BICARBONATE 8.4% 50 MEQ/50 ML SYRINGE IV PUSH (14:23)
[2024-08-12 14:29] LABS: Influenza A QL RT-PCR Negative (Negative); Influenza B QL RT-PCR Negative (Negative); RSV RNA, RT-PCR Negative (Negative); SARS-CoV-2 RNA PCR Positive (Negative)
[2024-08-12] MEDS: ALBUMIN HUMAN 25% 25 GM/100 ML 100 ML IVPB ×2 (14:30→17:10)
[2024-08-12] MEDS: PANTOPRAZOLE SODIUM IV 40 MG VIAL IV PUSH (14:31)
[2024-08-12] MEDS: HYDROCORTISONE SODIUM SUCCINATE 100 MG/2 ML VIAL IV PUSH ×2 (14:31→22:11)
[2024-08-12] MEDS: HEPARIN SODIUM 5,000 UNITS/ML VIAL 5000 UNITS SUB-Q ×2 (14:32→22:11)
[2024-08-12] MEDS: VANCOMYCIN 1,000 MG/NS 250 ML BAG 250 MG IVPB (14:35)
[2024-08-12] MEDS: CENTRAL LINE FLUSH 10 ML IV PUSH ×2 (14:36→22:12)
[2024-08-12] MEDS: SODIUM CHLORIDE 0.9% IV 1,000 ML 75 ML IV CONT (14:36)
[2024-08-12 14:44] LABS: Lactic Acid 4.2 mmol/L (0.7-2.0)
[2024-08-12 15:03] LABS: MRSA (PCR) NOT DETECTED (NOT DETECTE)
[2024-08-12 15:05] LABS: Toxigenic C. Diff NEGATIVE (NEGATIVE)
[2024-08-12] MEDS: TOCILIZUMAB IVPB (15:51)
[2024-08-12] MEDS: SODIUM CHLORIDE 0.9% IVPB (15:51)
[2024-08-12 15:57] LABS: Creatine Kinase 795 U/L (30-135)
[2024-08-12] MEDS: NOREPINEPHRINE 8 MG/D5W 250 ML 8 MG/250 ML BAG 35.63 MG IV CONT (16:20)
[2024-08-12 16:21] LABS: Eosinophil Urine Rare % (None Seen); Urine Eos QC 2nd Tech Confirmed
[2024-08-12] MEDS: REMDESIVIR 200 MG/NS 250 ML 200 MG/250 ML BAG 250 MG IVPB (16:21)
[2024-08-12 16:45] LABS: Creatinine Urine 52.9 mg/dL
[2024-08-12 16:49] LABS: Sodium Urine Random 54 meq/L
[2024-08-12 17:12] LABS: Glucose Point of Care 89 mg/dl (65-105)
[2024-08-12] MEDS: CARBIDOPA/LEVODOPA 25/100 MG TABLET 2 TABLET FEED TUBE (18:05)
--- NOTE | 2024-08-12 19:54 | PC.NURSE ---
Carmen Gardiner RT called and expressed concern that patient had Mucomyst ordered without a bronchodilator due to risk for spasms. Dr Dwyer was contacted and is agrees with order for DuoNeb with Mucomyst q6h.
[2024-08-12] MEDS: levETIRAcetam ORAL SOL 500 MG/5 ML UDC 100 MG FEED TUBE (20:03)
[2024-08-12 20:23] LABS: Lactic Acid Reflex 3.1 mmol/L (0.7-2.0)
[2024-08-12] MEDS: BUDESONIDE RESPULE NEB 0.5 MG/2 ML AMP (21:00)
[2024-08-12] MEDS: IPRATROPIUM 0.5 MG/ALBUTEROL SULFATE 2.5 MG AMPUL.NEB 3 ML INHALATION (21:00)
[2024-08-12] MEDS: ACETYLCYSTEINE 20% INHAL SOLN 800 MG/4 ML VIAL 200 MG INHALATION (21:22)
[2024-08-13] VITALS (45 sets, daily range): BP systolic 90–154; BP diastolic 60–126; PULSE 79–122; RESP 19–32; TEMP 37–37.4; O2SAT 92–100; BMI 22.1
[2024-08-13] MEDS: ALBUMIN HUMAN 25% 25 GM/100 ML 100 ML IVPB (00:10)
[2024-08-13 00:34] LABS: Hematocrit 29.7 % (37.0-47.0); Hemoglobin 10.1 g/dL (12.0-15.0); Immature Platelet Fraction Pct 11.2 % (0.9-11.2); Mean Corpuscular Hemoglobin 32.3 pg (26-34); Mean Corpuscular Volume 94.9 fl (80-100); Mean Platelet Volume 11.7 fl (7.4-10.4); Platelet Count Result 123 k/mm3 (150-375); Red Blood Count 3.13 M/mm3 (4.2-5.4); Red Cell Distribution Width 14.6 % (11.5-14.5)
[2024-08-13] MEDS: NOREPINEPHRINE 8 MG/D5W 250 ML 8 MG/250 ML BAG 30 MG IV CONT (00:43)
[2024-08-13 00:45] LABS: Partial Thromboplastin Time 44.9 Seconds (22.3-36.8)
[2024-08-13 00:47] LABS: Lactic Acid Reflex 3.1 mmol/L (0.7-2.0)
[2024-08-13 00:57] LABS: INR 1.7
[2024-08-13 01:06] LABS: Alanine Aminotransferase 12 U/L (6-35); Albumin Level 3.3 g/dL (3.5-5.1); Alkaline Phosphatase 92 U/L (38-126); Anion Gap 14 mmol/L (4-12); Aspartate Amino Transferase 73 U/L (14-36); Blood Urea Nitrogen 45 mg/dL (7-17); Calcium 7.5 mg/dL (8.4-10.2); Carbon Dioxide 22 mmol/L (22-30); Chloride 103 mmol/L (98-107); Creatine Kinase 813 U/L (30-135); Estimated CRCL calculation 22 ml/min; Estimated Glomerular Filt Rate 27; Glucose 148 mg/dL (65-110); Magnesium 1.8 mg/dL (1.6-2.3); Potassium 3.4 mmol/L (3.4-5.0); Sodium 139 mmol/L (137-145)
[2024-08-13 01:08] LABS: Band Neutrophils Percent 9 % (0-6); Metamyelocytes Percent 2 %; Monocytes Absolute Manual 0.28 K/mm3 (0.1-0.90); Monocytes Percent Manual 1 % (3-9); Myelocytes Percent 1 %; Neutrophils Absolute Manual 26.88 K/mm3 (1.7-7.2); Neutrophils Percent Manual 87 % (46-73); Total Cells Counted 100
[2024-08-13 01:10] LABS: Anisocytosis 1+; Giant Platelets Present; Platelet Clumps Present; Schistocytes None Seen
[2024-08-13 01:11] LABS: Platelet Estimate Decreased (Adequate)
[2024-08-13 02:28] LABS: CRP > 45.0 mg/dL (<1.0)
[2024-08-13] MEDS: IPRATROPIUM 0.5 MG/ALBUTEROL SULFATE 2.5 MG AMPUL.NEB 3 ML INHALATION ×4 (02:40→20:45)
[2024-08-13] MEDS: ACETYLCYSTEINE 20% INHAL SOLN 800 MG/4 ML VIAL 200 MG INHALATION ×4 (02:40→20:45)
[2024-08-13 02:55] LABS: Thyroid Stimulating Hormone 0.609 uIU/mL (0.465-4.680)
[2024-08-13 03:30] LABS: Reflex Lactic Acid Yes or No Add Lactic
[2024-08-13] MEDS: HYDROCORTISONE SODIUM SUCCINATE 100 MG/2 ML VIAL IV PUSH ×3 (05:49→21:00)
[2024-08-13] MEDS: HEPARIN SODIUM 5,000 UNITS/ML VIAL 5000 UNITS SUB-Q ×3 (05:49→21:00)
[2024-08-13] MEDS: CENTRAL LINE FLUSH 10 ML IV PUSH ×3 (05:49→21:02)
[2024-08-13 06:34] LABS: Lactic Acid 2.2 mmol/L (0.7-2.0)
[2024-08-13 06:38] LABS: Estimated CRCL calculation 28 ml/min; Estimated Glomerular Filt Rate 37
[2024-08-13 06:42] LABS: Base Excess ABG -2.9 mEq/l (+/-2.0); Carboxyhemoglobin 0.2 % THb (0-2.0); Fractional Inspired Oxygen 85 %; HCO3 ABG 20.8 mEq/l (22.0-26.0); Methemoglobin ABG 0.3 %THb (0-1.5); Oxygen Saturation ABG 90.8 % (95.0-100.0); Oxyhemoglobin 90.3 % THb (90.0-100.0); PCO2 ABG 32.5 mmHg (35.0-45.0); PO2 ABG 57.3 mmHg (80.0-100.0); PO2 FiO2 Ratio Arterial Blood 0.67 %; Reduced Hemoglobin 9.2 %THb (0-5.0); pH ABG 7.424 (7.350-7.450)
[2024-08-13 06:43] LABS: Device HIGH FLOW THERAPY; Modified Allen's Test Pass; Site Drawn LEFT BRACHIAL
[2024-08-13] MEDS: methiMAzole 10 MG TAB FEED TUBE (08:52)
[2024-08-13] MEDS: CARBIDOPA/LEVODOPA 25/100 MG TABLET 2 TABLET FEED TUBE ×3 (08:52→17:21)
[2024-08-13] MEDS: PANTOPRAZOLE SODIUM IV 40 MG VIAL IV PUSH (08:52)
--- NOTE | 2024-08-13 08:59 | WPDINTPN ---
Progress Note: A&P Assessment and Plan (1) Severe sepsis with septic shock: Code(s): A41.9 - Sepsis, unspecified organism; R65.21 - Severe sepsis with septic shock Status: Acute Assessment and Plan: 08/12: Patient presented from the long-term with hypoxia, fever -likely source urine and or pneumonia -she was hypotensive in the ER despite receiving 30 mL/kg IV fluids, left IJ central line was inserted, -off vasopressin -weaning Levophed, maintain MAP > 65 mmHg for adequate end organ perfusion -initial lactic acid was 7.3 on admission, -lactic acid is come down to 2.2 -continue stress dose steroid -08/12: Blood cultures growing Gram-negative bacilli -08/12: Urine cultures pending -08/12: C diff toxin is negative -patient has been started on vancomycin and levofloxacin (08/12) -chest x-ray this morning shows extensive his E left upper lobe airspace disease correlate for pneumonia or atypical pulmonary edema distribution -continue Mucomyst nebulizer and bronchodilators -will add Pulmozyme -chest PT with vest therapy -will place the good lung down 08/12/2024: CT chest Complete left lung opacification with volume loss, likely representing atelectasis. Consider mucous plugging. Infection not excluded. No definite large obstructing mass is present, although this determination is difficult due to the lack of contrast and above-mentioned limitations (2) UTI (urinary tract infection): Qualifiers: Urinary tract infection type: catheter-associated UTI Indwelling urinary catheter type: indwelling urethral catheter Encounter type: initial encounter Qualified Code(s): T83.511A - Infection and inflammatory reaction due to indwelling urethral catheter, initial encounter; N39.0 - Urinary tract infection, site not specified Code(s): N39.0 - Urinary tract infection, site not specified Status: Acute Assessment and Plan: UA reflective of UTI. According the son patient has had multiple UTIs in the past -urine cultures as above -continue antibiotics as above (3) Pneumonia: Qualifiers: Pneumonia type: due to unspecified organism Laterality: left Lung location: lower lobe of lung Qualified Code(s): J18.9 - Pneumonia, unspecified organism Code(s): J18.9 - Pneumonia, unspecified organism Status: Acute Assessment and Plan: Patient was initially on BiPAP, patient is contracted and unable to probably pull the mask off if she has emesis, BiPAP likely contraindicated in such patients -placed patient on high-flow therapy, will wean FiO2 to maintain O2 sats greater than 92% -patient is full code per patient's POA who is David the son, if respiratory status worsens may have to intubate her, -ABGs in the ER were okay (4) Acute kidney injury: Code(s): N17.9 - Acute kidney failure, unspecified Status: Acute Assessment and Plan: Patient presented with septic shock, acute kidney injury with a creatinine of 2.90 on admission, baseline unknown -adequately fluid-resuscitated in the ER -currently on vasopressors -CK levels are slightly elevated, patient received adequate amount of IV fluids -renal ultrasound did not show any hydronephrosis -urine lytes did not show prerenal picture, urine eosinophils were negative -patient did receive albumin for volume expansion -IV fluids were discontinued -urine output has been adequate creatinine improving -1.40 this morning -continue to monitor urine output, electrolytes and renal function (5) Diarrhea: Qualifiers: Diarrhea type: presumed infectious Qualified Code(s): R19.7 - Diarrhea, unspecified Code(s): R19.7 - Diarrhea, unspecified Status: Acute Assessment and Plan: Patient has had severe diarrhea -C diff toxin is negative, -stool cultures are pending (6) COVID-19: Code(s): U07.1 - COVID-19 Status: Acute Assessment and Plan: Patient was tested positive for SARS-CoV-2 -currently on steroids -continue Remdesivir CRP is 37, status post Tocilizumab on 08/12 Plan DVT prophylaxis: Heparin SQ Stress ulcer prophylaxis: Protonix Nutrition: NPO Code Status: Full code Critical Care Time Spent: 38 minutes 08/12: Discussed with patient's son David who is the POA, he stated that the patient has had a brain surgery after she had a fall in the past and at the same time was diagnosed with Parkinson's. She has been nonverbal for the last 2 years and then developed contraction and footdrop. I also explained to him regarding her severe septic shock, likely secondary to pneumonia, UTI. He did state that she has had multiple UTIs over the last 2 years. He is aware that she is on 2 blood pressure support medications, antibiotics. -I also discussed with David the POA regarding code status, he wants patient is a full code, he is going to discuss with his family though Due to a high probability of clinically significant, life threatening deterioration, the patient required my highest level of preparedness to intervene emergently and I personally spent this critical care time directly and personally managing the patient. This critical care time included obtaining a history; examining the patient; pulse oximetry; ordering and review of studies; arranging urgent treatment with development of a management plan; evaluation of patient's response to treatment; frequent reassessment; and discussions with other providers. It was exclusive of separately billable procedures and treating other patients and teaching time. Please see Assessment and Plan section and the rest of the note for further information on patient assessment and treatment This dictation may have been done utilizing a voice recognition system. Attempts have been made to correct errors. However, there may be uncorrected grammatical, spelling, and recognitions errors present. Subjective Date/time seen: 08/13/24 08:59 Interval history: Reason for consult: Pneumonia, septic shock, acute kidney injury, chronic indwelling Larsen catheter, chronic pressure ulcers, COVID positive 08/13/2024: Patient seen and examined the ICU, is on airborne, droplet and contact isolation COVID-19. Patient is on high-flow therapy, 60 L flow rate an 80% FiO2 with adequate O2 sats. Patient is tachypneic, opens her eyes but does not follow simple commands or answers questions. Patient is off vasopressin, Levophed is being weaned down. Urine output has been adequate, lactic acid 2.2 this morning, creatinine is down to 1.40 this morning (from 2.90 on admission). Patient is afebrile Review of Systems Review of Systems: ROS unobtainable: Yes unobtainable due to endotracheal tube, unobtainable due to medical condition and unobtainable due to mental status Exam Narrative: General: Ill-appearing female currently in no acute distress HEENT:? Pupils equal and reactive, sclerae is clear Neck:? Supple, left IJ central line in place Respiratory:? Coarse breath sounds bilaterally, decreased on left side, no wheezing, transmitted breath sounds in her neck but no stridor Cardiac:? tachycardia Abdomen:? Soft, nontender, nondistended, tympanic, hyperactive bowel sounds Extremities:? Trace edema bilaterally, dopplerable pedal pulses bilaterally Neuro:? Patient is nonverbal at baseline, her eyes are open, does not follow commands or answers questions Skin:? Decubitus ulcer on the buttocks Psych:? Unable to assess Objective Data Vital Signs Vital Signs: Vital Signs - 24 hr 08/12/24 09:18 08/12/24 09:20 08/12/24 09:30 Temperature 101.2 F H Pulse Rate 116 H 117 H 115 H Respiratory Rate 32 H Blood Pressure 65/46 L 65/46 L 69/39 L Pulse Oximetry 98 Oxygen Delivery Oxygen Flow Rate Fraction of Inspired Oxygen 08/12/24 09:33 08/12/24 09:36 08/12/24 09:39 Temperature 100.5 F H 100.5 F H Pulse Rate 121 H 120 H Respiratory Rate 30 H Blood Pressure 69/41 L 66/42 L Pulse Oximetry 99 Oxygen Delivery Oxygen Flow Rate Fraction of Inspired Oxygen 08/12/24 09:46 08/12/24 09:49 08/12/24 10:03 Temperature Pulse Rate 118 H 112 H Respiratory Rate Blood Pressure 66/49 L 76/42 L Pulse Oximetry Oxygen Delivery BiPAP Oxygen Flow Rate Fraction of Inspired Oxygen 08/12/24 10:07 08/12/24 10:16 08/12/24 10:22 Temperature 100.0 F H Pulse Rate 113 H 108 H 109 H Respiratory Rate 31 H Blood Pressure 85/51 L 81/46 L 85/55 L Pulse Oximetry 99 Oxygen Delivery Oxygen Flow Rate Fraction of Inspired Oxygen 08/12/24 10:26 08/12/24 10:36 08/12/24 11:08 Temperature 99.8 F H Pulse Rate 106 H 115 H 114 H Respiratory Rate 30 H 22 H 28 H Blood Pressure 98/65 L 103/57 L 96/55 L Pulse Oximetry 100 100 99 Oxygen Delivery Oxygen Flow Rate Fraction of Inspired Oxygen 08/12/24 10:52 08/12/24 10:54 08/12/24 11:38 Temperature Pulse Rate 120 H 108 H 110 H Respiratory Rate 30 H 28 H 35 H Blood Pressure 88/56 L 92/52 L Pulse Oximetry 98 99 93 Oxygen Delivery BiPAP Oxygen Flow Rate Fraction of Inspired Oxygen 08/12/24 11:38 08/12/24 11:31 08/12/24 12:16 Temperature Pulse Rate 111 H Respiratory Rate 35 H Blood Pressure 81/56 L Pulse Oximetry 93 94 85 L Oxygen Delivery Nasal Cannula Nasal Cannula Oxygen Flow Rate 4 4 Fraction of Inspired Oxygen 08/12/24 12:17 08/12/24 12:28 08/12/24 13:39 Temperature 99.3 F Pulse Rate 112 H 114 H Respiratory Rate 32 H Blood Pressure 81/56 L 111/50 L Pulse Oximetry 91 99 Oxygen Delivery BiPAP Oxygen Flow Rate Fraction of Inspired Oxygen 08/12/24 13:46 08/12/24 14:00 08/12/24 13:35 Temperature Pulse Rate 112 H 93 Respiratory Rate 28 H Blood Pressure 90/56 L 113/76 Pulse Oximetry 100 97 Oxygen Delivery High Flow Therapy with Na Oxygen Flow Rate 60 Fraction of Inspired Oxygen 90 08/12/24 14:00 08/12/24 14:00 08/12/24 13:45 Temperature Pulse Rate 112 H 117 H Respiratory Rate 28 H Blood Pressure 108/61 Pulse Oximetry 100 100 Oxygen Delivery High Flow Therapy with Na Oxygen Flow Rate 60 Fraction of Inspired Oxygen 90 08/12/24 14:00 08/12/24 14:15 08/12/24 14:30 Temperature 97.9 F 100.1 F H Pulse Rate 112 H 107 H 106 H Respiratory Rate 24 H 29 H 30 H Blood Pressure 112/52 L 90/56 L 99/60 L Pulse Oximetry 99 100 100 Oxygen Delivery Oxygen Flow Rate Fraction of Inspired Oxygen 08/12/24 14:45 08/12/24 15:00 08/12/24 15:15 Temperature 100.0 F H 99.9 F H 99.7 F H Pulse Rate 101 H 102 H 108 H Respiratory Rate 27 H 29 H 35 H Blood Pressure 104/63 94/64 L 103/56 L Pulse Oximetry 100 100 100 Oxygen Delivery Oxygen Flow Rate Fraction of Inspired Oxygen 08/12/24 13:45 08/12/24 16:20 08/12/24 16:00 Temperature Pulse Rate 118 H 101 H 98 Respiratory Rate 36 H Blood Pressure 93/60 L 99/55 L Pulse Oximetry 97 Oxygen Delivery BiPAP Oxygen Flow Rate Fraction of Inspired Oxygen 08/12/24 16:00 08/12/24 16:00 08/12/24 17:07 Temperature 99.4 F Pulse Rate 105 H Respiratory Rate 39 H 33 H 29 H Blood Pressure 93/60 L Pulse Oximetry 100 100 100 Oxygen Delivery High Flow Therapy with Na High Flow Therapy with Na Oxygen Flow Rate 60 60 Fraction of Inspired Oxygen 85 80 08/12/24 18:00 08/12/24 18:00 08/12/24 18:00 Temperature 99 F Pulse Rate 108 H 100 103 H Respiratory Rate 28 H Blood Pressure 103/62 103/62 103/62 Pulse Oximetry 99 Oxygen Delivery Oxygen Flow Rate Fraction of Inspired Oxygen 08/12/24 16:00 08/12/24 18:00 08/12/24 20:00 Temperature 98.9 F Pulse Rate 104 H 90 88 Respiratory Rate 26 H Blood Pressure 137/79 Pulse Oximetry 99 Oxygen Delivery Oxygen Flow Rate Fraction of Inspired Oxygen 08/12/24 21:00 08/12/24 21:29 08/12/24 20:00 Temperature Pulse Rate 103 H 87 91 Respiratory Rate 23 H 19 Blood Pressure 137/79 Pulse Oximetry Oxygen Delivery Oxygen Flow Rate Fraction of Inspired Oxygen 08/12/24 22:15 08/12/24 20:00 08/12/24 20:00 Temperature Pulse Rate 88 88 110 H Respiratory Rate 19 Blood Pressure 153/93 H Pulse Oximetry 99 Oxygen Delivery High Flow Therapy with Na Oxygen Flow Rate 60 Fraction of Inspired Oxygen 80 08/12/24 22:00 08/12/24 22:00 08/12/24 20:00 Temperature 99.5 F Pulse Rate 95 84 88 Respiratory Rate 33 H Blood Pressure 144/70 H 137/79 Pulse Oximetry 99 Oxygen Delivery Oxygen Flow Rate Fraction of Inspired Oxygen 08/12/24 22:00 08/12/24 23:30 08/13/24 00:00 Temperature 99.3 F Pulse Rate 84 103 H 98 Respiratory Rate 32 H Blood Pressure 144/70 H 136/88 140/95 H Pulse Oximetry 96 Oxygen Delivery Oxygen Flow Rate Fraction of Inspired Oxygen 08/13/24 00:00 08/13/24 00:00 08/13/24 00:00 Temperature Pulse Rate 98 98 90 Respiratory Rate 22 H Blood Pressure 140/95 H 140/95 H Pulse Oximetry 97 Oxygen Delivery High Flow Therapy with Na Oxygen Flow Rate 60 Fraction of Inspired Oxygen 85 08/13/24 00:43 08/13/24 02:40 08/13/24 03:00 Temperature Pulse Rate 99 111 H 122 H Respiratory Rate 24 H 20 Blood Pressure 124/75 Pulse Oximetry Oxygen Delivery Oxygen Flow Rate Fraction of Inspired Oxygen 08/13/24 01:00 08/13/24 02:00 08/13/24 04:00 Temperature Pulse Rate 98 107 H 99 Respiratory Rate Blood Pressure 112/71 128/72 134/82 Pulse Oximetry Oxygen Delivery Oxygen Flow Rate Fraction of Inspired Oxygen 08/13/24 05:45 08/13/24 00:00 08/13/24 02:00 Temperature Pulse Rate 94 94 108 H Respiratory Rate Blood Pressure 132/80 Pulse Oximetry Oxygen Delivery Oxygen Flow Rate Fraction of Inspired Oxygen 08/13/24 04:00 08/13/24 06:00 08/13/24 02:00 Temperature 98.6 F Pulse Rate 106 H 99 108 H Respiratory Rate 26 H Blood Pressure 128/72 Pulse Oximetry 92 Oxygen Delivery Oxygen Flow Rate Fraction of Inspired Oxygen 08/13/24 04:00 08/13/24 06:00 08/13/24 04:00 Temperature 98.8 F 99 F Pulse Rate 106 H 99 106 H Respiratory Rate 31 H 27 H 31 H Blood Pressure 134/82 133/88 Pulse Oximetry 92 97 92 Oxygen Delivery High Flow Therapy with Na Oxygen Flow Rate 60 Fraction of Inspired Oxygen 85 08/13/24 06:00 08/13/24 06:15 08/13/24 06:45 Temperature Pulse Rate 99 115 H 99 Respiratory Rate Blood Pressure 133/88 154/96 H 146/79 H Pulse Oximetry Oxygen Delivery Oxygen Flow Rate Fraction of Inspired Oxygen 08/13/24 08:10 08/13/24 08:18 08/13/24 08:20 Temperature Pulse Rate 106 H 105 H 106 H Respiratory Rate 28 H 30 H 28 H Blood Pressure Pulse Oximetry 100 Oxygen Delivery High Flow Therapy with Na Oxygen Flow Rate 59 Fraction of Inspired Oxygen 88 08/13/24 08:00 08/13/24 08:45 08/13/24 08:50 Temperature 99.2 F Pulse Rate 83 103 H 101 H Respiratory Rate 28 H Blood Pressure 127/74 142/85 H 134/81 Pulse Oximetry 97 Oxygen Delivery Oxygen Flow Rate Fraction of Inspired Oxygen 08/13/24 08:55 Temperature Pulse Rate 101 H Respiratory Rate Blood Pressure 127/79 Pulse Oximetry Oxygen Delivery Oxygen Flow Rate Fraction of Inspired Oxygen Intake/Output Intake/Output: Intake & Output 08/10/24 08/11/24 08/12/24 08/13/24 23:59 23:59 23:59 23:59 Intake Total 3671.6 1167.9 Output Total 775 900 Balance 2896.6 267.9 Meds/Results Medications: Active Medications Generic Name Dose Route Start Last Admin Trade Name Freq PRN Reason Stop Dose Admin Acetaminophen 650 mg 08/12/24 12:40 Acetaminophen 650 Mg Suppository RECTAL Q6H PRN Mild Pain (1-3) or Fever Acetaminophen 325 mg 08/12/24 16:44 Acetaminophen Elixir 325 Mg/10.15 Ml Udc FEED TUBE Q6H PRN Fever Acetylcysteine 200 mg 08/12/24 20:00 08/13/24 08:16 Acetylcysteine 20% Inhal Soln 800 Mg/4 Ml Vial INHALATION 200 mg Q6HRT ALENA Administration Albuterol/Ipratropium 3 ml 08/12/24 20:00 08/13/24 08:16 Ipratropium 0.5 Mg/Albuterol Sulfate 2.5 Mg Ampul.Neb 3 Ml INHALATION 3 ml Q6HRT ALENA Administration Carbidopa/Levodopa 2 tablet 08/12/24 17:00 08/13/24 08:52 Carbidopa/Levodopa 25/100 Mg Tablet FEED TUBE 2 tablet TID ALENA Administration Dornase Alcides 2.5 mg 08/13/24 08:00 Dornase Alcides Inh Soln 1 Mg/Ml 2.5 Ml Amp INHALATION 08/16/24 07:59 Q12HRT [facility] Heparin Sodium (Porcine) 5,000 units 08/12/24 14:00 08/13/24 05:49 Heparin Sodium 5,000 Units/Ml Vial SUB-Q 5,000 units Q8HR ALENA Administration Hydrocortisone Sodium Succinate 100 mg 08/12/24 14:00 08/13/24 05:49 Hydrocortisone Sodium Succinate 100 Mg/2 Ml Vial IV PUSH 100 mg Q8HR ALENA Administration Vasopressin 100 units/ 100 mls @ 0 mls/hr 08/12/24 09:40 08/13/24 00:00 Dextrose IV CONT 0 units/min .Q0M ALENA 0 mls/hr Titration Protocol Levofloxacin/Dextrose 500 mg in 100 mls @ 66.667 mls/hr 08/14/24 10:00 Levaquin 500 Mg/D5w 100 Ml IVPB Q48H [facility] Remdesivir 100 mg in 250 mls @ 250 mls/hr 08/13/24 22:00 IVPB 11/21/24 22:59 Q24H ALENA Norepinephrine Bitartrate 8 mg in 250 mls @ 22.5 mls/hr 08/12/24 16:00 08/13/24 08:55 Levophed 8 Mg/D5w 250 Ml IV CONT 9 mcg/min .Q11H7M ALENA 16.88 mls/hr Titration Protocol 12 MCG/MIN Levetiracetam 100 mg 08/12/24 21:00 08/12/24 20:03 Levetiracetam Oral Moira 500 Mg/5 Ml Udc FEED TUBE 100 mg Q12H ALENA Administration Methimazole 10 mg 08/13/24 09:00 08/13/24 08:52 Methimazole 10 Mg Tab FEED TUBE 10 mg DAILY ALENA Administration Pantoprazole Sodium 40 mg 08/12/24 13:15 08/13/24 08:52 Pantoprazole Sodium Iv 40 Mg Vial IV PUSH 40 mg QAM ALENA Administration Sodium Chloride 10 ml 08/12/24 14:00 08/13/24 05:49 Central Line Flush IV PUSH 10 ml Q8HR ALENA Administration Sodium Chloride 20 ml 08/12/24 08:16 Central Line Flush IV PUSH PRN PRN after blood draws Vancomycin HCl 1 each 08/12/24 15:21 Vancomycin For Acute Kidney Injury IVPB PRN PRN Vancomycin Protocol Radiology Results: ITS Impressions Abdomen/Pelvis CT 08/12/24 11:59 Impression: Dense consolidation and volume loss of the visualized left lower lobe. Findings are compatible with atelectasis versus possibly pneumonia. Consider dedicated contrast-enhanced chest CT to better evaluate for any possibility of central obstructing lesion or other pulmonary/mediastinal pathology. Probable cystitis despite Larsen catheter in place. 2.5 cm oval urinary bladder stone. No definite CT evidence of pyelonephritis, but noncontrast CT scan is insensitive for this diagnosis. Renal Ultrasound 08/12/24 15:05 IMPRESSION: No hydronephrosis. Head CT 08/12/24 19:13 IMPRESSION: No acute intracranial process. Chest CT 08/12/24 19:16 IMPRESSION: Complete left lung opacification with volume loss, likely representing atelectasis. Consider mucous plugging. Infection not excluded. No definite large obstructing mass is present, although this determination is difficult due to the lack of contrast and above-mentioned limitations. Chest X-Ray 11/18/24 06:17 Impression: Extensive hazy left upper lobe airspace disease. Correlate for pneumonia or atypical pulmonary edema distribution. Stable right-sided central venous line. Right upper lobe obscured by the patient's arm. Labs Labs: Laboratory Results - last 24 hr 08/12/24 08/12/24 08/12/24 08:58 09:56 13:47 WBC 45.0 H RBC 3.24 L Hgb 10.5 L Hct 31.5 L MCV 97.2 MCH 32.4 MCHC 33.3 RDW 14.6 H Plt Count 133 L MPV 11.5 H Immature Gran % (Auto) Not Reportable Neut % (Auto) Not Reportable Lymph % (Auto) Not Reportable [place] % (Auto) Not Reportable Eos % (Auto) Not Reportable Baso % (Auto) Not Reportable Lymph # (Auto) Not Reportable [place] # (Auto) Not Reportable Eos # (Auto) Not Reportable Baso # (Auto) Not Reportable Abs Immat Gran (auto) Not Reportable Absolute Neuts (auto) Not Reportable Absolute Nucleated RBC Not Reportable Total Counted 100 Neutrophils % (Manual) 88 H Band Neutrophils % 8 H Lymphocytes % (Manual) 1.0 L Monocytes % (Manual) 3 Metamyelocytes % Myelocytes % Nucleated RBC % Not Reportable Abs Neuts (Manual) 43.20 H Abs Lymphs (Manual) 0.45 L Abs Monocytes (Manual) 1.35 H Platelet Estimate Decreased Clumped Platelets Large Platelets Present Giant Platelets % Immature Plt Fraction Anisocytosis Schistocytes None seen PT 19.4 H INR 1.6 APTT 35.7 Puncture Site ABG pH ABG pCO2 ABG pO2 ABG PO2/FiO2 Ratio ABG HCO3 ABG O2 Saturation ABG O2 Content ABG Base Excess A-a Gradient Oxyhemoglobin Carboxyhemoglobin Methemoglobin Reduced Hemoglobin Total Hemoglobin O2 Delivery Device O2 Liters/Min FiO2 Sodium 137 Potassium 3.9 Chloride 101 Carbon Dioxide 19 L Anion Gap 17 H BUN 49 H Creatinine 2.90 H Estim Creat Clear Calc 14 Estimated GFR 16 L Glucose 84 POC Capillary Glucose Lactic Acid 7.3 H* Calcium 7.9 L Phosphorus Magnesium 1.8 Total Bilirubin 0.8 AST 45 H ALT 24 Alkaline Phosphatase 92 Ammonia < 9 L Total Creatine Kinase Troponin I 0.493 H* C-Reactive Protein 37.0 H NT-Pro-B Natriuret Pep 15319 H Total Protein 6.0 L Albumin 2.9 L Lipase 28 Procalcitonin > 100.0 TSH Urine Color Other Urine Appearance Turbid H Urine pH 6.5 Ur Specific [place] 1.016 Urine Protein 4+ H Urine Glucose (UA) Negative Urine Ketones Trace H Ur Blood (Man) 3+ H Urine Nitrate Negative Urine Bilirubin 1+ H Urine Urobilinogen 0.2 Add Ur Microanalysis Need manual Leukocyte Esterase Rfl 3+ H Urine RBC Noted Urine WBC >100 H Ur Squamous Epith Cells None seen Urine Bacteria 4+ H Urine Casts 0-2 Urine Eosinophils Ur Random Sodium Ur Random Potassium Urine Creatinine Nasal MRSA (PCR) Not detected C. difficile (PCR) Influenza A (RT-PCR) Negative Influenza B (RT-PCR) Negative RSV (RT-PCR) Negative SARS-CoV-2 RNA (RT-PCR) Positive A 08/12/24 08/12/24 08/12/24 14:14 15:42 15:50 WBC RBC Hgb Hct MCV MCH MCHC RDW Plt Count MPV Immature Gran % (Auto) Neut % (Auto) Lymph % (Auto) [place] % (Auto) Eos % (Auto) Baso % (Auto) Lymph # (Auto) [place] # (Auto) Eos # (Auto) Baso # (Auto) Abs Immat Gran (auto) Absolute Neuts (auto) Absolute Nucleated RBC Total Counted Neutrophils % (Manual) Band Neutrophils % Lymphocytes % (Manual) Monocytes % (Manual) Metamyelocytes % Myelocytes % Nucleated RBC % Abs Neuts (Manual) Abs Lymphs (Manual) Abs Monocytes (Manual) Platelet Estimate Clumped Platelets Large Platelets Giant Platelets % Immature Plt Fraction Anisocytosis Schistocytes PT INR APTT Puncture Site ABG pH ABG pCO2 ABG pO2 ABG PO2/FiO2 Ratio ABG HCO3 ABG O2 Saturation ABG O2 Content ABG Base Excess A-a Gradient Oxyhemoglobin Carboxyhemoglobin Methemoglobin Reduced Hemoglobin Total Hemoglobin O2 Delivery Device O2 Liters/Min FiO2 Sodium Potassium Chloride Carbon Dioxide Anion Gap BUN Creatinine Estim Creat Clear Calc Estimated GFR Glucose POC Capillary Glucose Lactic Acid 4.2 H* Calcium Phosphorus Magnesium Total Bilirubin AST ALT Alkaline Phosphatase Ammonia Total Creatine Kinase 795 H Troponin I C-Reactive Protein NT-Pro-B Natriuret Pep Total Protein Albumin Lipase Procalcitonin TSH Urine Color Urine Appearance Urine pH Ur Specific [place] Urine Protein Urine Glucose (UA) Urine Ketones Ur Blood (Man) Urine Nitrate Urine Bilirubin Urine Urobilinogen Add Ur Microanalysis Leukocyte Esterase Rfl Urine RBC Urine WBC Ur Squamous Epith Cells Urine Bacteria Urine Casts Urine Eosinophils Rare Ur Random Sodium 54 Ur Random Potassium 66.0 Urine Creatinine 52.9 Nasal MRSA (PCR) C. difficile (PCR) Negative Influenza A (RT-PCR) Influenza B (RT-PCR) RSV (RT-PCR) SARS-CoV-2 RNA (RT-PCR) 08/12/24 08/12/24 08/13/24 16:56 19:58 00:21 WBC 28.0 H RBC 3.13 L Hgb 10.1 L Hct 29.7 L MCV 94.9 MCH 32.3 MCHC 34.0 RDW 14.6 H Plt Count 123 L MPV 11.7 H Immature Gran % (Auto) Not Reportable Neut % (Auto) Not Reportable Lymph % (Auto) Not Reportable [place] % (Auto) Not Reportable Eos % (Auto) Not Reportable Baso % (Auto) Not Reportable Lymph # (Auto) Not Reportable [place] # (Auto) Not Reportable Eos # (Auto) Not Reportable Baso # (Auto) Not Reportable Abs Immat Gran (auto) Not Reportable Absolute Neuts (auto) Not Reportable Absolute Nucleated RBC Not Reportable Total Counted 100 Neutrophils % (Manual) 87 H Band Neutrophils % 9 H Lymphocytes % (Manual) Monocytes % (Manual) 1 L Metamyelocytes % 2 Myelocytes % 1 Nucleated RBC % Not Reportable Abs Neuts (Manual) 26.88 H Abs Lymphs (Manual) Abs Monocytes (Manual) 0.28 Platelet Estimate Decreased Clumped Platelets Present Large Platelets Giant Platelets Present % Immature Plt Fraction 11.2 Anisocytosis 1+ Schistocytes None seen PT 20.0 H INR 1.7 APTT 44.9 H Puncture Site ABG pH ABG pCO2 ABG pO2 ABG PO2/FiO2 Ratio ABG HCO3 ABG O2 Saturation ABG O2 Content ABG Base Excess A-a Gradient Oxyhemoglobin Carboxyhemoglobin Methemoglobin Reduced Hemoglobin Total Hemoglobin O2 Delivery Device O2 Liters/Min FiO2 Sodium 139 Potassium 3.4 Chloride 103 Carbon Dioxide 22 Anion Gap 14 H BUN 45 H Creatinine 1.80 H Estim Creat Clear Calc 22 Estimated GFR 27 L Glucose 148 H POC Capillary Glucose 89 Lactic Acid 3.1 H 3.1 H Calcium 7.5 L Phosphorus 5.0 H Magnesium 1.8 Total Bilirubin 1.0 AST 73 H ALT 12 Alkaline Phosphatase 92 Ammonia Total Creatine Kinase 813 H Troponin I C-Reactive Protein > 45.0 H NT-Pro-B Natriuret Pep Total Protein 6.0 L Albumin 3.3 L Lipase Procalcitonin TSH 0.609 Urine Color Urine Appearance Urine pH Ur Specific [place] Urine Protein Urine Glucose (UA) Urine Ketones Ur Blood (Man) Urine Nitrate Urine Bilirubin Urine Urobilinogen Add Ur Microanalysis Leukocyte Esterase Rfl Urine RBC Urine WBC Ur Squamous Epith Cells Urine Bacteria Urine Casts Urine Eosinophils Ur Random Sodium Ur Random Potassium Urine Creatinine Nasal MRSA (PCR) C. difficile (PCR) Influenza A (RT-PCR) Influenza B (RT-PCR) RSV (RT-PCR) SARS-CoV-2 RNA (RT-PCR) 08/13/24 08/13/24 06:02 06:36 WBC RBC Hgb Hct MCV MCH MCHC RDW Plt Count MPV Immature Gran % (Auto) Neut % (Auto) Lymph % (Auto) [place] % (Auto) Eos % (Auto) Baso % (Auto) Lymph # (Auto) [place] # (Auto) Eos # (Auto) Baso # (Auto) Abs Immat Gran (auto) Absolute Neuts (auto) Absolute Nucleated RBC Total Counted Neutrophils % (Manual) Band Neutrophils % Lymphocytes % (Manual) Monocytes % (Manual) Metamyelocytes % Myelocytes % Nucleated RBC % Abs Neuts (Manual) Abs Lymphs (Manual) Abs Monocytes (Manual) Platelet Estimate Clumped Platelets Large Platelets Giant Platelets % Immature Plt Fraction Anisocytosis Schistocytes PT INR APTT Puncture Site Left brachial ABG pH 7.424 ABG pCO2 32.5 L ABG pO2 57.3 L ABG PO2/FiO2 Ratio 0.67 ABG HCO3 20.8 L ABG O2 Saturation 90.8 L ABG O2 Content 14.0 L ABG Base Excess -2.9 A-a Gradient 515.0 Oxyhemoglobin 90.3 Carboxyhemoglobin 0.2 Methemoglobin 0.3 Reduced Hemoglobin 9.2 H Total Hemoglobin 11.0 L O2 Delivery Device High flow therapy O2 Liters/Min 60.0 FiO2 85 Sodium Potassium Chloride Carbon Dioxide Anion Gap BUN Creatinine 1.40 H Estim Creat Clear Calc 28 Estimated GFR 37 L Glucose POC Capillary Glucose Lactic Acid 2.2 H Calcium Phosphorus Magnesium Total Bilirubin AST ALT Alkaline Phosphatase Ammonia Total Creatine Kinase Troponin I C-Reactive Protein NT-Pro-B Natriuret Pep Total Protein Albumin Lipase Procalcitonin TSH Urine Color Urine Appearance Urine pH Ur Specific [place] Urine Protein Urine Glucose (UA) Urine Ketones Ur Blood (Man) Urine Nitrate Urine Bilirubin Urine Urobilinogen Add Ur Microanalysis Leukocyte Esterase Rfl Urine RBC Urine WBC Ur Squamous Epith Cells Urine Bacteria Urine Casts Urine Eosinophils Ur Random Sodium Ur Random Potassium Urine Creatinine Nasal MRSA (PCR) C. difficile (PCR) Influenza A (RT-PCR) Influenza B (RT-PCR) RSV (RT-PCR) SARS-CoV-2 RNA (RT-PCR) Quality VTE Prophylaxis VTE prophylaxis: mechanical ordered and pharmacologic ordered
[2024-08-13] MEDS: levETIRAcetam ORAL SOL 500 MG/5 ML UDC 100 MG FEED TUBE ×2 (10:29→21:00)
[2024-08-13] MEDS: DOXYCYCLINE 100 MG/NS 100 ML 100 MG/100 ML BAG IVPB ×2 (10:29→21:01)
[2024-08-13] MEDS: NOREPINEPHRINE 8 MG/D5W 250 ML 8 MG/250 ML BAG 13.13 MG IV CONT (11:39)
[2024-08-13] MEDS: MEROPENEM 1 GM/NS 100 ML 1 GM/100 ML BAG IVPB ×2 (11:42→22:17)
[2024-08-13] MEDS: DORNASE ALFA INH SOLN 1 MG/ML 2.5 ML AMP 2.5 MG INHALATION ×2 (13:56→20:53)
[2024-08-13 14:29] LABS: Thyroid Stimulating Hormone Reflex 0.471 uIU/mL (0.465-4.68)
[2024-08-13] MEDS: REMDESIVIR 100 MG/NS 250 ML 100 MG/250 ML BAG 250 MG IVPB (22:00)
[2024-08-14] VITALS (25 sets, daily range): BP systolic 91–120; BP diastolic 57–88; PULSE 77–109; RESP 21–29; TEMP 36.6–37.3; O2SAT 95–100
[2024-08-14] MEDS: ACETYLCYSTEINE 20% INHAL SOLN 800 MG/4 ML VIAL 200 MG INHALATION ×4 (02:52→19:36)
[2024-08-14] MEDS: IPRATROPIUM 0.5 MG/ALBUTEROL SULFATE 2.5 MG AMPUL.NEB 3 ML INHALATION ×4 (02:52→19:36)
[2024-08-14] MEDS: HEPARIN SODIUM 5,000 UNITS/ML VIAL 5000 UNITS SUB-Q ×2 (05:29→21:02)
[2024-08-14] MEDS: HYDROCORTISONE SODIUM SUCCINATE 100 MG/2 ML VIAL IV PUSH ×3 (05:29→21:02)
[2024-08-14] MEDS: CENTRAL LINE FLUSH 10 ML IV PUSH ×3 (05:30→21:02)
[2024-08-14 05:41] LABS: Base Excess ABG -1.8 mEq/l (+/-2.0); Carboxyhemoglobin 0.3 % THb (0-2.0); Fractional Inspired Oxygen 72 %; HCO3 ABG 21.7 mEq/l (22.0-26.0); Methemoglobin ABG 0.3 %THb (0-1.5); Oxygen Content ABG 13.5 %vol (16.0-22.0); Oxygen Saturation ABG 97.8 % (95.0-100.0); Oxyhemoglobin 96.9 % THb (90.0-100.0); PO2 ABG 98.1 mmHg (80.0-100.0); PO2 FiO2 Ratio Arterial Blood 1.36 %; Reduced Hemoglobin 2.5 %THb (0-5.0); Total Hemoglobin 9.8 g/dL (12.0-18.0); pH ABG 7.449 (7.350-7.450)
[2024-08-14 05:43] LABS: Device HIGH FLOW NASAL CANN; Modified Allen's Test Pass; Site Drawn LEFT RADIAL
[2024-08-14 05:45] LABS: Hematocrit 27.3 % (37.0-47.0); Hemoglobin 9.3 g/dL (12.0-15.0); Immature Platelet Fraction Pct 8.5 % (0.9-11.2); Mean Corpuscular HGB Conc 34.1 g/dl (32-36); Mean Corpuscular Hemoglobin 32.3 pg (26-34); Mean Corpuscular Volume 94.8 fl (80-100); Mean Platelet Volume 11.6 fl (7.4-10.4); Platelet Count Result 76 k/mm3 (150-375); Red Blood Count 2.88 M/mm3 (4.2-5.4); Red Cell Distribution Width 14.6 % (11.5-14.5); White Blood Count 12.6 K/mm3 (4.5-10.0)
[2024-08-14 06:01] LABS: Lactic Acid Reflex 1.2 mmol/L (0.7-2.0)
[2024-08-14 06:16] LABS: Alanine Aminotransferase 11 U/L (6-35); Albumin Level 2.9 g/dL (3.5-5.1); Alkaline Phosphatase 73 U/L (38-126); Anion Gap 10 mmol/L (4-12); Aspartate Amino Transferase 43 U/L (14-36); Bilirubin,Total 0.6 mg/dL (0.2-1.3); Blood Urea Nitrogen 47 mg/dL (7-17); CRP > 9.0 mg/dL (<1.0); Calcium 8.2 mg/dL (8.4-10.2); Carbon Dioxide 26 mmol/L (22-30); Chloride 108 mmol/L (98-107); Estimated CRCL calculation 48 ml/min; Estimated Glomerular Filt Rate > 60; Glucose 98 mg/dL (65-110); Magnesium 2.1 mg/dL (1.6-2.3); Potassium 2.6 mmol/L (3.4-5.0); Sodium 144 mmol/L (137-145)
[2024-08-14] MEDS: KCL 40 MEQ/WATER 100 ML 100 ML 25 ML IVPB (06:52)
[2024-08-14 06:59] LABS: Band Neutrophils Percent 11 % (0-6); Lymphocytes Absolute Manual 0.12 K/mm3 (1.1-4.5); Lymphocytes Percent Manual 1 % (18-44); Monocytes Absolute Manual 0.37 K/mm3 (0.1-0.90); Monocytes Percent Manual 3 % (3-9); Neutrophils Absolute Manual 12.09 K/mm3 (1.7-7.2); Neutrophils Percent Manual 85 % (46-73); Total Cells Counted 100
[2024-08-14 07:00] LABS: Anisocytosis 1+; Large Platelets Present; Platelet Estimate Decreased (Adequate); Schistocytes None Seen
[2024-08-14] MEDS: CARBIDOPA/LEVODOPA 25/100 MG TABLET 2 TABLET FEED TUBE ×3 (07:59→16:01)
[2024-08-14] MEDS: levETIRAcetam ORAL SOL 500 MG/5 ML UDC 100 MG FEED TUBE ×2 (07:59→20:54)
[2024-08-14] MEDS: methiMAzole 10 MG TAB FEED TUBE (07:59)
[2024-08-14] MEDS: PANTOPRAZOLE SODIUM IV 40 MG VIAL IV PUSH (07:59)
[2024-08-14] MEDS: DOXYCYCLINE 100 MG/NS 100 ML 100 MG/100 ML BAG IVPB ×2 (08:00→20:55)
[2024-08-14] MEDS: DORNASE ALFA INH SOLN 1 MG/ML 2.5 ML AMP 2.5 MG INHALATION ×2 (09:02→21:20)
[2024-08-14] MEDS: POTASSIUM CHLORIDE 20 MEQ PACKET (FOR LIQUID) 40 MEQ FEED TUBE (09:42)
--- NOTE | 2024-08-14 10:37 | P.PNINT_ITS ---
Progress Note: A&P Assessment and Plan (1) Severe sepsis with septic shock: Code(s): A41.9 - Sepsis, unspecified organism; R65.21 - Severe sepsis with septic shock Status: Acute Assessment and Plan: 08/12: Patient presented from the [facility] with hypoxia, fever Septic shock secondary to UTI and pneumonia -she was hypotensive in the ER despite receiving 30 mL/kg IV fluids, left IJ central line was inserted, -off vasopressin yesterday and now on Levophed weaned off overnight -off of further IV fluids -continue stress dose steroid -08/12: Blood cultures growing E coli, Klebsiella pneumoniae, Staphylococcus capitis and Proteus mirabilis -08/12: Urine cultures negative till now -08/12: C diff toxin is negative -patient has been started on vancomycin and levofloxacin (08/12) switched to meropenem and doxycycline -DC doxycycline continue meropenem 08/12/2024: CT chest Complete left lung opacification with volume loss, likely representing atelectasis. Consider mucous plugging. Infection not excluded. No definite large obstructing mass is present, although this determination is difficult due to the lack of contrast and above-mentioned limitations CT abdomen pelvis Dense consolidation and volume loss of the visualized left lower lobe. Findings are compatible with atelectasis versus possibly pneumonia. Consider dedicated contrast-enhanced chest CT to better evaluate for any possibility of central obstructing lesion or other pulmonary/mediastinal pathology. Probable cystitis despite Larsen catheter in place. 2.5 cm oval urinary bladder stone. No definite CT evidence of pyelonephritis, but noncontrast CT scan is insensitive for this diagnosis (2) Acute respiratory failure: Code(s): J96.00 - Acute respiratory failure, unspecified whether with hypoxia or hypercapnia Status: Acute Assessment and Plan: Acute respiratory failure secondary to pneumonia, atelectasis and COVID infection. Although imaging is more suggestive of bacterial pneumonia and mucus plugging rather than COVID pneumonia. Patient initially placed on BiPAP but BiPAP had to be removed as patient was deemed not a candidate for BiPAP 08/12 CT chest Complete left lung opacification with volume loss, likely representing atelectasis. Consider mucous plugging. Infection not excluded. No definite large obstructing mass is present, although this determination is difficult due to the lack of contrast and above-mentioned limitations Chest x-ray08/14 Impression: Right upper lobe collapse. Central obstructing mass is not excluded. Extensive left perihilar and left lower lobe consolidation, suspicious for pneumonia. Possible small pleural effusion. Support line, as above. -continue Mucomyst nebulizer and bronchodilators -continue Pulmozyme -chest PT with vest therapy -continue bronchodilators Will discuss with Pulmonary regarding option of bronchoscopy (3) UTI (urinary tract infection): Qualifiers: Urinary tract infection type: catheter-associated UTI Indwelling urinary catheter type: indwelling urethral catheter Encounter type: initial encounter Qualified Code(s): T83.511A - Infection and inflammatory reaction due to indwelling urethral catheter, initial encounter; N39.0 - Urinary tract infection, site not specified Code(s): N39.0 - Urinary tract infection, site not specified Status: Acute Assessment and Plan: UA reflective of UTI. According the son patient has had multiple UTIs in the past Large stone and bladder CT findings suggestive of cystitis Cultures as above Continue antibiotics as above (4) Pneumonia: Qualifiers: Pneumonia type: due to unspecified organism Laterality: left Lung location: lower lobe of lung Qualified Code(s): J18.9 - Pneumonia, unspecified organism Code(s): J18.9 - Pneumonia, unspecified organism Status: Acute Assessment and Plan: Patient was initially on BiPAP, patient is contracted and unable to probably pull the mask off if she has emesis, BiPAP likely contraindicated in such patients -placed patient on high-flow therapy, will wean FiO2 to maintain O2 sats greater than 92% -patient is full code per patient's POA who is David the son, if respiratory status worsens may have to intubate her, -ABGs in the ER were okay (5) Acute kidney injury: Code(s): N17.9 - Acute kidney failure, unspecified Status: Acute Assessment and Plan: Patient presented with septic shock, acute kidney injury with a creatinine of 2.90 on admission, baseline unknown -adequately fluid-resuscitated in the ER -creatinine has normalized -off vasopressors -CK levels are slightly elevated, patient received adequate amount of IV fluids -continue to monitor urine output, electrolytes and renal function (6) Diarrhea: Qualifiers: Diarrhea type: presumed infectious Qualified Code(s): R19.7 - Diarrhea, unspecified Code(s): R19.7 - Diarrhea, unspecified Status: Acute Assessment and Plan: Patient has had severe diarrhea -C diff toxin is negative, -stool cultures are pending (7) COVID-19: Code(s): U07.1 - COVID-19 Status: Acute Assessment and Plan: Patient was tested positive for SARS-CoV-2 although the imaging does not appear suggestive of COVID pneumonia She currently on hydrocortisone and Remdesivir CRP is 37, status post Tocilizumab on 08/12 (8) Electrolyte abnormality: Code(s): E87.8 - Other disorders of electrolyte and fluid balance, not elsewhere classified Status: Acute Assessment and Plan: Potassium replacement Plan DVT prophylaxis: Heparin SQ Stress ulcer prophylaxis: Protonix Nutrition: Start tube feeds Code Status: Full code 08/12: Dr. Dwyer discussed with patient's son David who is the POA, he stated that the patient has had a brain surgery after she had a fall in the past and at the same time was diagnosed with Parkinson's. She has been nonverbal for the last 2 years and then developed contraction and footdrop. I also explained to him regarding her severe septic shock, likely secondary to pneumonia, UTI. He did state that she has had multiple UTIs over the last 2 years. He is aware that she is on 2 blood pressure support medications, antibiotics. He also discussed with David the POA regarding code status, he wants patient is a full code, he is going to discuss with his family though Critical Care Time Spent: 38 minutes Due to a high probability of clinically significant, life threatening deterioration, the patient required my highest level of preparedness to intervene emergently and I personally spent this critical care time directly and personally managing the patient. This critical care time included obtaining a history; examining the patient; pulse oximetry; ordering and review of studies; arranging urgent treatment with development of a management plan; evaluation of patient's response to treatment; frequent reassessment; and discussions with other providers. It was exclusive of separately billable procedures and treating other patients and teaching time. Please see Assessment and Plan section and the rest of the note for further information on patient assessment and treatment This dictation may have been done utilizing a voice recognition system. Attempts have been made to correct errors. However, there may be uncorrected grammatical, spelling, and recognitions errors present. Subjective Date/time seen: 11/19/24 Overnight events reviewed with no significant change. Patient is Afebrile Levophed weaned off this morning Continues to be on Airvo at 65% FiO2 and 50 L flow. Continues to be nonverbal and unresponsive to examiner. She is awake and does not not follow any commands. Other Vitals acceptable Urine is adequate. Blood pressure is adequate. Sinus rhythm on the monitor. Interval history: Reason for consult: Pneumonia, septic shock, acute kidney injury, chronic indwelling Larsen catheter, chronic pressure ulcers, COVID positive Review of Systems Review of Systems: ROS unobtainable: Yes unobtainable due to medical condition and unobtainable due to mental status Exam Narrative: General: Ill-appearing female currently in no acute distress HEENT:? Pupils equal and reactive, sclerae is clear Neck:? Supple, left IJ central line in place Respiratory:? Coarse breath sounds bilaterally, decreased on left side, no wheezing, transmitted breath sounds in her neck but no stridor Cardiac:? Regular rate and rhythm Abdomen:? Soft, nontender, nondistended, tympanic, hyperactive bowel sounds Extremities:? Trace edema bilaterally, dopplerable pedal pulses bilaterally Neuro:? Patient is nonverbal at baseline, her eyes are open, does not follow commands or answers questions Skin:? Decubitus ulcer on the buttocks Psych:? Unable to assess Objective Data Vital Signs Vital Signs: Vital Signs - 24 hr 08/13/24 10:55 08/13/24 11:00 08/13/24 11:33 Temperature Pulse Rate 101 H 105 H 100 Respiratory Rate Blood Pressure 127/83 119/73 103/63 Pulse Oximetry Oxygen Delivery Oxygen Flow Rate Fraction of Inspired Oxygen 08/13/24 11:39 08/13/24 12:00 08/13/24 12:00 Temperature Pulse Rate 100 98 98 Respiratory Rate Blood Pressure 103/63 102/66 102/66 Pulse Oximetry Oxygen Delivery Oxygen Flow Rate Fraction of Inspired Oxygen 08/13/24 12:00 08/13/24 12:00 08/13/24 12:00 Temperature 37.2 C Pulse Rate 99 81 97 Respiratory Rate 23 H 19 Blood Pressure 102/66 Pulse Oximetry 100 99 Oxygen Delivery High Flow Therapy with Na Oxygen Flow Rate 60 Fraction of Inspired Oxygen 88 08/13/24 14:00 08/13/24 14:00 08/13/24 14:00 Temperature Pulse Rate 94 102 H 99 Respiratory Rate 26 H Blood Pressure 117/69 117/69 Pulse Oximetry 96 Oxygen Delivery Oxygen Flow Rate Fraction of Inspired Oxygen 08/13/24 14:00 08/13/24 16:00 08/13/24 16:00 Temperature 37.2 C Pulse Rate 99 98 89 Respiratory Rate 29 H 29 H Blood Pressure 117/69 123/79 Pulse Oximetry 97 96 Oxygen Delivery High Flow Therapy with Na Oxygen Flow Rate 60 Fraction of Inspired Oxygen 78 08/13/24 16:00 08/13/24 13:55 08/13/24 13:55 Temperature Pulse Rate 95 101 H 101 H Respiratory Rate 26 H 26 H Blood Pressure Pulse Oximetry 95 Oxygen Delivery High Flow Therapy with Na Oxygen Flow Rate 55 Fraction of Inspired Oxygen 75 08/13/24 14:05 08/13/24 17:20 08/13/24 17:36 Temperature Pulse Rate 104 H 87 101 H Respiratory Rate 28 H Blood Pressure 132/89 129/89 Pulse Oximetry Oxygen Delivery Oxygen Flow Rate Fraction of Inspired Oxygen 08/13/24 17:45 08/13/24 18:00 08/13/24 18:00 Temperature Pulse Rate 98 97 107 H Respiratory Rate 28 H 24 H Blood Pressure 117/82 117/71 Pulse Oximetry 97 99 Oxygen Delivery Oxygen Flow Rate Fraction of Inspired Oxygen 08/13/24 16:00 08/13/24 18:00 08/13/24 16:00 Temperature Pulse Rate 97 95 99 Respiratory Rate Blood Pressure 123/79 117/71 123/77 Pulse Oximetry Oxygen Delivery Oxygen Flow Rate Fraction of Inspired Oxygen 08/13/24 18:00 08/13/24 20:00 08/13/24 20:00 Temperature 37.3 C Pulse Rate 98 92 92 Respiratory Rate 25 H Blood Pressure 117/71 110/82 110/82 Pulse Oximetry 99 Oxygen Delivery Oxygen Flow Rate Fraction of Inspired Oxygen 08/13/24 20:45 08/13/24 21:00 08/13/24 20:46 Temperature Pulse Rate 97 100 97 Respiratory Rate 28 H Blood Pressure 127/78 141/126 H Pulse Oximetry 98 Oxygen Delivery High Flow Therapy with Na Oxygen Flow Rate 46 Fraction of Inspired Oxygen 80 08/13/24 20:46 08/13/24 20:53 08/13/24 21:05 Temperature Pulse Rate 98 93 Respiratory Rate 28 H 26 H Blood Pressure Pulse Oximetry 97 Oxygen Delivery High Flow Therapy with Na Oxygen Flow Rate 46 Fraction of Inspired Oxygen 80 08/13/24 21:05 08/13/24 20:00 08/13/24 20:00 Temperature Pulse Rate 90 90 Respiratory Rate 24 H Blood Pressure Pulse Oximetry 99 Oxygen Delivery High Flow Therapy with Na Oxygen Flow Rate 60 Fraction of Inspired Oxygen 80 08/13/24 22:00 08/13/24 22:00 08/13/24 22:00 Temperature 37.2 C Pulse Rate 91 93 88 Respiratory Rate 25 H Blood Pressure 101/76 101/66 Pulse Oximetry 98 Oxygen Delivery Oxygen Flow Rate Fraction of Inspired Oxygen 08/13/24 22:28 08/13/24 22:45 08/13/24 23:30 Temperature Pulse Rate 98 94 92 Respiratory Rate Blood Pressure 108/74 98/83 L 106/74 Pulse Oximetry Oxygen Delivery Oxygen Flow Rate Fraction of Inspired Oxygen 08/13/24 23:25 08/13/24 23:45 08/14/24 00:00 Temperature 37.2 C Pulse Rate 79 94 105 H Respiratory Rate 28 H 29 H Blood Pressure 90/60 L 103/58 L Pulse Oximetry 97 95 Oxygen Delivery High Flow Therapy with Na Oxygen Flow Rate 46 Fraction of Inspired Oxygen 80 08/14/24 00:00 08/14/24 00:00 08/14/24 00:00 Temperature Pulse Rate 105 H 100 Respiratory Rate Blood Pressure 103/58 L Pulse Oximetry 95 Oxygen Delivery High Flow Therapy with Na Oxygen Flow Rate 55 Fraction of Inspired Oxygen 72 08/14/24 02:00 08/14/24 02:20 08/14/24 02:00 Temperature 37.3 C Pulse Rate 79 99 79 Respiratory Rate 25 H Blood Pressure 104/67 110/88 104/67 Pulse Oximetry 98 Oxygen Delivery Oxygen Flow Rate Fraction of Inspired Oxygen 08/14/24 02:00 08/14/24 02:52 08/14/24 02:52 Temperature Pulse Rate 79 88 88 Respiratory Rate 25 H 25 H Blood Pressure Pulse Oximetry 96 Oxygen Delivery High Flow Therapy with Na Oxygen Flow Rate 46 Fraction of Inspired Oxygen 80 08/14/24 03:21 08/14/24 03:03 08/14/24 03:30 Temperature Pulse Rate 98 82 95 Respiratory Rate 27 H Blood Pressure 107/77 106/67 Pulse Oximetry Oxygen Delivery Oxygen Flow Rate Fraction of Inspired Oxygen 08/14/24 04:00 08/14/24 04:00 08/14/24 04:00 Temperature 37.1 C Pulse Rate 90 90 Respiratory Rate 27 H Blood Pressure 101/72 101/72 Pulse Oximetry 97 97 Oxygen Delivery High Flow Therapy with Na Oxygen Flow Rate 55 Fraction of Inspired Oxygen 72 08/14/24 05:38 08/14/24 06:00 08/14/24 06:00 Temperature 36.9 C Pulse Rate 89 89 Respiratory Rate 26 H Blood Pressure 105/65 105/65 Pulse Oximetry 98 97 Oxygen Delivery High Flow Therapy with Na Oxygen Flow Rate 55 Fraction of Inspired Oxygen 72 08/14/24 04:00 08/14/24 06:00 08/14/24 08:00 Temperature Pulse Rate 93 89 Respiratory Rate Blood Pressure Pulse Oximetry 95 Oxygen Delivery High Flow Therapy with Na Oxygen Flow Rate 55 Fraction of Inspired Oxygen 70 08/14/24 08:00 08/14/24 09:03 08/14/24 08:50 Temperature Pulse Rate 87 79 Respiratory Rate 23 H Blood Pressure 120/84 Pulse Oximetry 98 Oxygen Delivery High Flow Therapy with Na Oxygen Flow Rate 50 Fraction of Inspired Oxygen 65 08/14/24 09:06 08/14/24 08:00 08/14/24 08:00 Temperature Pulse Rate 77 92 87 Respiratory Rate 23 H 26 H Blood Pressure 120/84 Pulse Oximetry 99 Oxygen Delivery Oxygen Flow Rate Fraction of Inspired Oxygen Intake/Output Intake/Output: Intake & Output 08/11/24 08/12/24 08/13/24 08/14/24 23:59 23:59 23:59 23:59 Intake Total 3671.6 2125.7 41.7 Output Total 775 1725 705 Balance 2896.6 400.7 -663.3 Meds/Results Medications: Active Medications Generic Name Dose Route Start Last Admin Trade Name Freq PRN Reason Stop Dose Admin Acetaminophen 650 mg 08/12/24 12:40 Acetaminophen 650 Mg Suppository RECTAL Q6H PRN Mild Pain (1-3) or Fever Acetaminophen 325 mg 08/12/24 16:44 Acetaminophen Elixir 325 Mg/10.15 Ml Udc FEED TUBE Q6H PRN Fever Acetylcysteine 200 mg 08/12/24 20:00 08/14/24 09:02 Acetylcysteine 20% Inhal Soln 800 Mg/4 Ml Vial INHALATION 200 mg Q6HRT ALENA Administration Albuterol/Ipratropium 3 ml 08/12/24 20:00 08/14/24 09:02 Ipratropium 0.5 Mg/Albuterol Sulfate 2.5 Mg Ampul.Neb 3 Ml INHALATION 3 ml Q6HRT ALENA Administration Carbidopa/Levodopa 2 tablet 08/12/24 17:00 08/14/24 07:59 Carbidopa/Levodopa 25/100 Mg Tablet FEED TUBE 2 tablet TID ALENA Administration Dornase Alcides 2.5 mg 08/13/24 08:00 08/14/24 09:02 Dornase Alcides Inh Soln 1 Mg/Ml 2.5 Ml Amp INHALATION 08/16/24 07:59 2.5 mg Q12HRT ALENA Administration Heparin Sodium (Porcine) 5,000 units 08/12/24 14:00 08/14/24 05:29 Heparin Sodium 5,000 Units/Ml Vial SUB-Q 5,000 units Q8HR ALENA Administration Hydrocortisone Sodium Succinate 100 mg 08/12/24 14:00 08/14/24 05:29 Hydrocortisone Sodium Succinate 100 Mg/2 Ml Vial IV PUSH 100 mg Q8HR ALENA Administration Remdesivir 100 mg in 250 mls @ 250 mls/hr 08/13/24 22:00 08/13/24 23:00 IVPB 08/16/24 22:59 Infused Q24H ALENA Infusion Norepinephrine Bitartrate 8 mg in 250 mls @ 0 mls/hr 08/12/24 16:00 08/14/24 08:00 Levophed 8 Mg/D5w 250 Ml IV CONT 0 mcg/min .Q0M ALENA 0 mls/hr Titration Protocol 0 MCG/MIN Doxycycline Hyclate 100 mg in 100 mls @ 100 mls/hr 08/13/24 21:00 08/14/24 08:00 Vibramycin 100 Mg/Ns 100 Ml IVPB 100 mls/hr Q12H ALENA Administration Meropenem 1 gm in 100 mls @ 200 mls/hr 08/13/24 11:00 08/13/24 22:47 IVPB Infused Q12H ALENA Infusion Potassium Chloride 100 mls @ 25 mls/hr 08/14/24 06:44 08/14/24 06:52 Kcl 40 Meq/Water 100 Ml IVPB 08/14/24 10:43 25 mls/hr ONCE ONE Administration Levetiracetam 100 mg 08/12/24 21:00 08/14/24 07:59 Levetiracetam Oral Moira 500 Mg/5 Ml Udc FEED TUBE 100 mg Q12H ALENA Administration Methimazole 10 mg 08/13/24 09:00 08/14/24 07:59 Methimazole 10 Mg Tab FEED TUBE 10 mg DAILY ALENA Administration Pantoprazole Sodium 40 mg 08/12/24 13:15 08/14/24 07:59 Pantoprazole Sodium Iv 40 Mg Vial IV PUSH 40 mg QAM ALENA Administration Sodium Chloride 10 ml 08/12/24 14:00 08/14/24 05:30 Central Line Flush IV PUSH 10 ml Q8HR ALENA Administration Sodium Chloride 20 ml 08/12/24 08:16 Central Line Flush IV PUSH PRN PRN after blood draws Radiology Results: ITS Impressions Abdomen/Pelvis CT 08/12/24 11:59 Impression: Dense consolidation and volume loss of the visualized left lower lobe. Findings are compatible with atelectasis versus possibly pneumonia. Consider dedicated contrast-enhanced chest CT to better evaluate for any possibility of central obstructing lesion or other pulmonary/mediastinal pathology. Probable cystitis despite Larsen catheter in place. 2.5 cm oval urinary bladder stone. No definite CT evidence of pyelonephritis, but noncontrast CT scan is insen sitive for this diagnosis. Renal Ultrasound 08/12/24 15:05 IMPRESSION: No hydronephrosis. Head CT 08/12/24 19:13 IMPRESSION: No acute intracranial process. Chest CT 08/12/24 19:16 IMPRESSION: Complete left lung opacification with volume loss, likely representing atelectasis. Consider mucous plugging. Infection not excluded. No definite large obstructing mass is present, although this determination is difficult due to the lack of contrast and above-mentioned limitations. Chest X-Ray 08/14/24 06:15 Impression: Right upper lobe collapse. Central obstructing mass is not excluded. Extensive left perihilar and left lower lobe consolidation, suspicious for pneumonia. Possible small pleural effusion. Support line, as above. Labs Labs: Laboratory Results - last 24 hr 08/13/24 08/14/24 08/14/24 06:02 05:24 05:29 WBC 12.6 H RBC 2.88 L Hgb 9.3 L Hct 27.3 L MCV 94.8 MCH 32.3 MCHC 34.1 RDW 14.6 H Plt Count 76 L MPV 11.6 H Immature Gran % (Auto) Not Reportable Neut % (Auto) Not Reportable Lymph % (Auto) Not Reportable [place] % (Auto) Not Reportable Eos % (Auto) Not Reportable Baso % (Auto) Not Reportable Lymph # (Auto) Not Reportable [place] # (Auto) Not Reportable Eos # (Auto) Not Reportable Baso # (Auto) Not Reportable Abs Immat Gran (auto) Not Reportable Absolute Neuts (auto) Not Reportable Absolute Nucleated RBC Not Reportable Total Counted 100 Neutrophils % (Manual) 85 H Band Neutrophils % 11 H Lymphocytes % (Manual) 1 L Monocytes % (Manual) 3 Nucleated RBC % Not Reportable Abs Neuts (Manual) 12.09 H Abs Lymphs (Manual) 0.12 L Abs Monocytes (Manual) 0.37 Platelet Estimate Decreased Large Platelets Present % Immature Plt Fraction 8.5 Anisocytosis 1+ Schistocytes None seen Puncture Site Left radial ABG pH 7.449 ABG pCO2 32.0 L ABG pO2 98.1 ABG PO2/FiO2 Ratio 1.36 ABG HCO3 21.7 L ABG O2 Saturation 97.8 ABG O2 Content 13.5 L ABG Base Excess -1.8 A-a Gradient 381.0 Oxyhemoglobin 96.9 Carboxyhemoglobin 0.3 Methemoglobin 0.3 Reduced Hemoglobin 2.5 Total Hemoglobin 9.8 L O2 Delivery Device High flow nasal beatrice O2 Liters/Min 55.0 FiO2 72 Sodium 144 Potassium 2.6 L* Chloride 108 H Carbon Dioxide 26 Anion Gap 10 BUN 47 H Creatinine 0.80 Estim Creat Clear Calc 48 Estimated GFR > 60 Glucose 98 Lactic Acid 1.2 Calcium 8.2 L Phosphorus 3.0 Magnesium 2.1 Total Bilirubin 0.6 AST 43 H ALT 11 Alkaline Phosphatase 73 C-Reactive Protein > 9.0 H Total Protein 6.0 L Albumin 2.9 L TSH (Reflex) 0.471 Quality VTE Prophylaxis VTE prophylaxis: mechanical ordered and pharmacologic ordered
--- NOTE | 2024-08-14 11:17 | PCNFU ---
Nutrition Follow-Up Complete: Inadequate energy intake related to NPO, sepsis, covid as evidenced by current orders goal: Meet estimated protein energy needs Patient is progressing towards goal. We will continue current goal. Pt current nutrition is Jevity 1.5. Nutrition recommendation: Tube feeding started at 20 ml/hr advance by 10 ml q 4hours to goal rate at 55 ml/hr. Last recorded weight is 61.3 kg, up from 60.4 kg on admit. Bowel Motility: FMS Labs Reviewed: BUN 47, K 2.6, Alb 2.9, Hct 27.3, Hgb 9.3 Meds Noted:Remdesivir, Keppra, Protonix. Skin: Stage III-coccyx. Additional Notes: Patient has PEG. Shrimp Packer ordered tube feedings of Jevity 1.5 at 20 ml/hr advance by 10 ml q 4 hours to goal rate 55 ml/hr. Tube feedings providing 1815 kcal/77 gm protein/ 919 ml water. Flush 100 ml q 4 hours. Agree with diet orders. Recommend starting Bon BID for would healing. Monitoring diet orders, plan of care, meds, weights, labs, stool pattern. Daily in rounds, follow up Tuesdays and Fridays
[2024-08-14] MEDS: MEROPENEM 1 GM/NS 100 ML 1 GM/100 ML BAG IVPB ×2 (11:25→22:14)
[2024-08-14 11:48] LABS: Glucose Point of Care 93 mg/dl (65-105)
[2024-08-14 11:55] LABS: Anion Gap 7 mmol/L (4-12); Blood Urea Nitrogen 46 mg/dL (7-17); Calcium 8.5 mg/dL (8.4-10.2); Carbon Dioxide 26 mmol/L (22-30); Chloride 114 mmol/L (98-107); Estimated CRCL calculation 48 ml/min; Estimated Glomerular Filt Rate > 60; Glucose 88 mg/dL (65-110); Potassium 4.3 mmol/L (3.4-5.0); Sodium 147 mmol/L (137-145)
[2024-08-14 12:20] LABS: Chloride Rand Ur 63 mmol/L (32-290); Chloride/Creatinine Rand Ur 107 (38-318); Creatinine Random Urine 59 mg/dL (20-275)
[2024-08-14 17:56] LABS: Glucose Point of Care 124 mg/dl (65-105)
[2024-08-14] MEDS: REMDESIVIR 100 MG/NS 250 ML 100 MG/250 ML BAG 250 MG IVPB (22:14)
[2024-08-14 22:52] LABS: Magnesium 2.1 mg/dL (1.6-2.3)
[2024-08-15] VITALS (25 sets, daily range): BP systolic 81–143; BP diastolic 57–97; PULSE 72–108; RESP 18–31; TEMP 36.7–37.1; O2SAT 89–98
[2024-08-15] MEDS: IPRATROPIUM 0.5 MG/ALBUTEROL SULFATE 2.5 MG AMPUL.NEB 3 ML INHALATION ×4 (01:58→21:00)
[2024-08-15] MEDS: CENTRAL LINE FLUSH 10 ML IV PUSH ×3 (05:26→20:36)
[2024-08-15] MEDS: HYDROCORTISONE SODIUM SUCCINATE 100 MG/2 ML VIAL IV PUSH ×3 (05:26→20:30)
[2024-08-15] MEDS: HEPARIN SODIUM 5,000 UNITS/ML VIAL 5000 UNITS SUB-Q ×3 (05:26→20:30)
[2024-08-15 05:53] LABS: Hematocrit 28.7 % (37.0-47.0); Hemoglobin 9.6 g/dL (12.0-15.0); Immature Platelet Fraction Pct 8.4 % (0.9-11.2); Mean Corpuscular HGB Conc 33.4 g/dl (32-36); Mean Corpuscular Volume 95.7 fl (80-100); Mean Platelet Volume 12.2 fl (7.4-10.4); Platelet Count Result 89 k/mm3 (150-375); Red Cell Distribution Width 14.8 % (11.5-14.5); White Blood Count 13.2 K/mm3 (4.5-10.0)
[2024-08-15 06:01] LABS: Alanine Aminotransferase 12 U/L (6-35); Albumin Level 2.7 g/dL (3.5-5.1); Alkaline Phosphatase 84 U/L (38-126); Anion Gap 4 mmol/L (4-12); Aspartate Amino Transferase 29 U/L (14-36); Bilirubin,Total 0.6 mg/dL (0.2-1.3); Blood Urea Nitrogen 47 mg/dL (7-17); Calcium 8.3 mg/dL (8.4-10.2); Carbon Dioxide 27 mmol/L (22-30); Chloride 116 mmol/L (98-107); Estimated CRCL calculation 62 ml/min; Estimated Glomerular Filt Rate > 60; Glucose 201 mg/dL (65-110); Magnesium 2.1 mg/dL (1.6-2.3); Potassium 3.3 mmol/L (3.4-5.0); Sodium 147 mmol/L (137-145)
[2024-08-15] MEDS: ACETYLCYSTEINE 20% INHAL SOLN 800 MG/4 ML VIAL 200 MG INHALATION ×3 (08:34→21:00)
[2024-08-15] MEDS: DORNASE ALFA INH SOLN 1 MG/ML 2.5 ML AMP 2.5 MG INHALATION ×2 (08:45→21:00)
[2024-08-15] MEDS: levETIRAcetam ORAL SOL 500 MG/5 ML UDC 100 MG FEED TUBE ×2 (09:54→20:30)
[2024-08-15] MEDS: CARBIDOPA/LEVODOPA 25/100 MG TABLET 2 TABLET FEED TUBE ×3 (09:54→17:46)
[2024-08-15] MEDS: DOXYCYCLINE 100 MG/NS 100 ML 100 MG/100 ML BAG IVPB ×2 (09:54→20:28)
[2024-08-15] MEDS: methiMAzole 10 MG TAB FEED TUBE (09:55)
[2024-08-15] MEDS: PANTOPRAZOLE SODIUM IV 40 MG VIAL IV PUSH (09:56)
[2024-08-15] MEDS: POTASSIUM CHLORIDE 20 MEQ PACKET (FOR LIQUID) 40 MEQ FEED TUBE (09:56)
--- NOTE | 2024-08-15 10:22 | PCFNICU ---
ICU Rounding Note: Pt current nutrition is Jevity 1.5 @ 50ml/hr, goal rate of 55ml/hr. Nutrition recommendation: Advance to goal rate of 55ml/hr, Add ARLYN BID for wound healing Last recorded weight is 59.5 kg. Bowel Motility: +BM 08/15 Labs Reviewed: Hgb:9.6, HCT:28.7, NA:147, K:3.3, BUN:47, Cr:0.6, Glu:201 Meds Noted: levophed, doxy, heparin Skin: Stage III to coccyx Additional Notes: Pt continues on a tube feedings of Jevity 1.5 @ 50ml/hr, to advance to 55ml/hr goal rate. Pt tolerating well. Will add ARLYN for wound healing. Following daily in ICU rounds. Monitoring diet orders, plan of care, meds, weights, labs, stool pattern. Daily in rounds, follow up Tuesdays and Fridays.
--- NOTE | 2024-08-15 10:47 | WPDINTPN ---
Progress Note: A&P Assessment and Plan (1) Severe sepsis with septic shock: Code(s): A41.9 - Sepsis, unspecified organism; R65.21 - Severe sepsis with septic shock Status: Acute Assessment and Plan: 08/12: [facility], fever Septic shock secondary to UTI and pneumonia -she was hypotensive in the ER despite receiving 30 mL/kg IV fluids, left IJ central line was inserted, -off vasopressin yesterday and now on Levophed weaned off overnight -off of further IV fluids -continue stress dose steroid -08/12: Blood cultures growing E coli, Klebsiella pneumoniae, Staphylococcus capitis and Proteus mirabilis. All sensitive to meropenem -08/12: Urine cultures negative till now -08/12: C diff toxin is negative -patient has been started on vancomycin and levofloxacin (08/12) switched to meropenem and doxycycline -DC doxycycline continue meropenem - 08/15: Will send repeat blood cultures 08/12/2024: CT chest Complete left lung opacification with volume loss, likely representing atelectasis. Consider mucous plugging. Infection not excluded. No definite large obstructing mass is present, although this determination is difficult due to the lack of contrast and above-mentioned limitations CT abdomen pelvis Dense consolidation and volume loss of the visualized left lower lobe. Findings are compatible with atelectasis versus possibly pneumonia. Consider dedicated contrast-enhanced chest CT to better evaluate for any possibility of central obstructing lesion or other pulmonary/mediastinal pathology. Probable cystitis despite Larsen catheter in place. 2.5 cm oval urinary bladder stone. No definite CT evidence of pyelonephritis, but noncontrast CT scan is insensitive for this diagnosis (2) Acute respiratory failure: Code(s): J96.00 - Acute respiratory failure, unspecified whether with hypoxia or hypercapnia Status: Acute Assessment and Plan: Acute respiratory failure secondary to pneumonia, atelectasis and COVID infection. Although imaging is more suggestive of bacterial pneumonia and mucus plugging rather than COVID pneumonia. Patient initially placed on BiPAP but BiPAP had to be removed as patient was deemed not a candidate for BiPAP 08/12 CT chest Complete left lung opacification with volume loss, likely representing atelectasis. Consider mucous plugging. Infection not excluded. No definite large obstructing mass is present, although this determination is difficult due to the lack of contrast and above-mentioned limitations Chest x-ray08/14 Impression: Right upper lobe collapse. Central obstructing mass is not excluded. Extensive left perihilar and left lower lobe consolidation, suspicious for pneumonia. Possible small pleural effusion. Support line, as above. CXR 08/15 reviewed and shows persistent right upper lobe collapse -continue Mucomyst nebulizer and bronchodilators -continue Pulmozyme -chest PT with vest therapy -continue bronchodilators I spoke to Dr. Jaffe with Pulmonary regarding option of bronchoscopy and he feels the patient may need intubation for bronchoscopy. (3) UTI (urinary tract infection): Qualifiers: Encounter type: initial encounter Indwelling urinary catheter type: indwelling urethral catheter Urinary tract infection type: catheter-associated UTI Qualified Code(s): T83.511A - Infection and inflammatory reaction due to indwelling urethral catheter, initial encounter; N39.0 - Urinary tract infection, site not specified Code(s): N39.0 - Urinary tract infection, site not specified Status: Acute Assessment and Plan: UA reflective of UTI. According the son patient has had multiple UTIs in the past Large stone and bladder CT findings suggestive of cystitis Cultures as above Continue antibiotics as above (4) Pneumonia: Qualifiers: Laterality: left Lung location: lower lobe of lung Pneumonia type: due to unspecified organism Qualified Code(s): J18.9 - Pneumonia, unspecified organism Code(s): J18.9 - Pneumonia, unspecified organism Status: Acute Assessment and Plan: Patient was initially on BiPAP, patient is contracted and unable to probably pull the mask off if she has emesis, BiPAP likely contraindicated in such patients -placed patient on high-flow therapy, will wean FiO2 to maintain O2 sats greater than 92% -patient is full code per patient's POA who is David the son, if respiratory status worsens may have to intubate her, -ABGs in the ER were okay (5) Acute kidney injury: Code(s): N17.9 - Acute kidney failure, unspecified Status: Acute Assessment and Plan: Patient presented with septic shock, acute kidney injury with a creatinine of 2.90 on admission, baseline unknown -adequately fluid-resuscitated in the ER -creatinine has normalized -off vasopressors -CK levels are slightly elevated, patient received adequate amount of IV fluids -continue to monitor urine output, electrolytes and renal function (6) Diarrhea: Qualifiers: Diarrhea type: presumed infectious Qualified Code(s): R19.7 - Diarrhea, unspecified Code(s): R19.7 - Diarrhea, unspecified Status: Acute Assessment and Plan: Patient has had severe diarrhea -C diff toxin is negative, -stool cultures are pending (7) COVID-19: Code(s): U07.1 - COVID-19 Status: Acute Assessment and Plan: Patient was tested positive for SARS-CoV-2 although the imaging does not appear suggestive of COVID pneumonia She currently on hydrocortisone and Remdesivir CRP is 37, status post Tocilizumab on 08/12 (8) Electrolyte abnormality: Code(s): E87.8 - Other disorders of electrolyte and fluid balance, not elsewhere classified Status: Acute Assessment and Plan: Potassium replacement ordered Increase free water flush showed Plan DVT prophylaxis: Heparin SQ Stress ulcer prophylaxis: Protonix Nutrition: Start tube feeds Code Status: Full code 08/12: Dr. Dwyer discussed with patient's son David who is the POA, he stated that the patient has had a brain surgery after she had a fall in the past and at the same time was diagnosed with Parkinson's. She has been nonverbal for the last 2 years and then developed contraction and footdrop. I also explained to him regarding her severe septic shock, likely secondary to pneumonia, UTI. He did state that she has had multiple UTIs over the last 2 years. He is aware that she is on 2 blood pressure support medications, antibiotics. He also discussed with David the POA regarding code status, he wants patient is a full code, he is going to discuss with his family though 08/15 I spoke to patient's son David again today and updated him with patient's status including continued respiratory failure requiring significant amount of oxygen, pneumonia, atelectasis, UTI, bacteremia and current plan of care. I again revisited the topical goals of care and code status as to whether patient would want intubation at this point. Patient is 73-year-old nonverbal bedbound in jail with chronic indwelling Larsen catheter and feeding through PEG tube for last 2 years. He told me that he has not had time to discuss with his other brothers. I emphasized the importance of this discussion. I discussed options of DNR DNI. I offered to speak to other children if they were interested off or had any questions. Critical Care Time Spent: 40 minutes Due to a high probability of clinically significant, life threatening deterioration, the patient required my highest level of preparedness to intervene emergently and I personally spent this critical care time directly and personally managing the patient. This critical care time included obtaining a history; examining the patient; pulse oximetry; ordering and review of studies; arranging urgent treatment with development of a management plan; evaluation of patient's response to treatment; frequent reassessment; and discussions with other providers. It was exclusive of separately billable procedures and treating other patients and teaching time. Please see Assessment and Plan section and the rest of the note for further information on patient assessment and treatment This dictation may have been done utilizing a voice recognition system. Attempts have been made to correct errors. However, there may be uncorrected grammatical, spelling, and recognitions errors present. Subjective Date/time seen: 08/15/24 No significant change in patient's status. Patient continues to be on Airvo and was weaned down to 40 L and 50% this morning. She is off of pressors any other continuous infusions. She continues to be nonverbal and unresponsive. Continues to have tube feeds through her PEG tube. She is afebrile. Interval history: Reason for consult: Pneumonia, septic shock, acute kidney injury, chronic indwelling Larsen catheter, chronic pressure ulcers, COVID positive Review of Systems Review of Systems: ROS unobtainable: Yes unobtainable due to endotracheal tube, unobtainable due to medical condition and unobtainable due to mental status Exam Narrative: General: Ill-appearing female currently in no acute distress HEENT:? Pupils equal and reactive, sclerae is clear Neck:? Supple, left IJ central line in place Respiratory:? Coarse breath sounds bilaterally, decreased on left side, no wheezing, transmitted breath sounds in her neck but no stridor Cardiac:? Regular rate and rhythm Abdomen:? Soft, nontender, nondistended, tympanic, hyperactive bowel sounds Extremities:? Trace edema bilaterally, dopplerable pedal pulses bilaterally Neuro:? Patient is nonverbal at baseline, her eyes are open, does not follow commands or answers questions Skin:? Decubitus ulcer on the buttocks Psych:? Unable to assess Objective Data Vital Signs Vital Signs: Vital Signs - 24 hr 08/14/24 12:00 08/14/24 12:00 08/14/24 12:00 Temperature 36.7 C Pulse Rate 102 H 102 H Respiratory Rate 29 H Blood Pressure 100/67 Pulse Oximetry 100 100 Oxygen Delivery High Flow Therapy with Na Oxygen Flow Rate 50 Fraction of Inspired Oxygen 65 08/14/24 14:00 08/14/24 14:00 08/14/24 12:00 Temperature Pulse Rate 98 83 102 H Respiratory Rate 23 H Blood Pressure 95/81 L Pulse Oximetry 97 Oxygen Delivery Oxygen Flow Rate Fraction of Inspired Oxygen 08/14/24 14:00 08/14/24 16:00 08/14/24 16:00 Temperature 36.6 C Pulse Rate 90 102 H Respiratory Rate 26 H Blood Pressure 101/70 Pulse Oximetry 97 97 Oxygen Delivery High Flow Therapy with Na Oxygen Flow Rate 40 Fraction of Inspired Oxygen 60 08/14/24 16:00 08/14/24 14:30 08/14/24 14:45 Temperature Pulse Rate 97 82 86 Respiratory Rate 21 H 21 H Blood Pressure Pulse Oximetry Oxygen Delivery Oxygen Flow Rate Fraction of Inspired Oxygen 08/14/24 18:00 08/14/24 16:00 08/14/24 18:00 Temperature Pulse Rate 83 102 H 105 H Respiratory Rate Blood Pressure Pulse Oximetry Oxygen Delivery Oxygen Flow Rate Fraction of Inspired Oxygen 08/14/24 18:00 08/14/24 19:40 08/14/24 19:40 Temperature Pulse Rate 103 H 99 Respiratory Rate 26 H 29 H Blood Pressure 94/69 L Pulse Oximetry 98 97 Oxygen Delivery High Flow Therapy with Na Oxygen Flow Rate 45 Fraction of Inspired Oxygen 60 08/14/24 19:49 08/14/24 20:00 08/14/24 20:00 Temperature 36.9 C Pulse Rate 98 109 H Respiratory Rate 25 H 26 H Blood Pressure 96/66 L Pulse Oximetry 97 97 Oxygen Delivery High Flow Therapy with Na Oxygen Flow Rate 40 Fraction of Inspired Oxygen 65 08/14/24 20:00 08/14/24 22:00 08/14/24 20:00 Temperature 36.9 C Pulse Rate 109 H 80 109 H Respiratory Rate 27 H Blood Pressure 96/66 L 91/57 L Pulse Oximetry 98 Oxygen Delivery Oxygen Flow Rate Fraction of Inspired Oxygen 08/14/24 22:00 08/15/24 01:58 08/15/24 02:03 Temperature Pulse Rate 80 82 84 Respiratory Rate 31 H 25 H Blood Pressure Pulse Oximetry Oxygen Delivery Oxygen Flow Rate Fraction of Inspired Oxygen 08/15/24 00:00 08/15/24 00:00 08/15/24 02:00 Temperature 36.9 C 37.1 C Pulse Rate 96 94 85 Respiratory Rate 26 H 29 H Blood Pressure 81/61 L 96/69 L Pulse Oximetry 97 97 Oxygen Delivery Oxygen Flow Rate Fraction of Inspired Oxygen 08/15/24 00:00 08/15/24 02:00 08/14/24 22:00 Temperature Pulse Rate 90 80 Respiratory Rate Blood Pressure 91/57 L Pulse Oximetry Oxygen Delivery CPAP Oxygen Flow Rate Fraction of Inspired Oxygen 65 08/15/24 00:00 08/15/24 02:00 08/15/24 04:00 Temperature Pulse Rate 94 85 81 Respiratory Rate Blood Pressure 81/61 L 96/69 L Pulse Oximetry Oxygen Delivery Oxygen Flow Rate Fraction of Inspired Oxygen 08/15/24 04:00 08/15/24 04:00 08/15/24 06:00 Temperature 37.1 C 37.0 C Pulse Rate 80 85 Respiratory Rate 25 H 30 H Blood Pressure 88/57 L 116/68 Pulse Oximetry 98 97 Oxygen Delivery CPAP Oxygen Flow Rate Fraction of Inspired Oxygen 65 08/15/24 06:00 08/15/24 04:00 08/15/24 06:00 Temperature Pulse Rate 85 80 85 Respiratory Rate Blood Pressure 88/57 L 116/68 Pulse Oximetry Oxygen Delivery Oxygen Flow Rate Fraction of Inspired Oxygen 08/15/24 08:00 08/15/24 08:34 08/15/24 08:52 Temperature 37.0 C Pulse Rate 89 85 82 Respiratory Rate 30 H 26 H 26 H Blood Pressure 114/69 Pulse Oximetry 97 Oxygen Delivery Oxygen Flow Rate Fraction of Inspired Oxygen 08/15/24 08:34 08/15/24 09:32 Temperature Pulse Rate Respiratory Rate Blood Pressure Pulse Oximetry 97 94 Oxygen Delivery High Flow Therapy with Na High Flow Therapy with Na Oxygen Flow Rate 45 40 Fraction of Inspired Oxygen 60 50 Intake/Output Intake/Output: Intake & Output 08/12/24 08/13/24 08/14/24 08/15/24 23:59 23:59 23:59 23:59 Intake Total 3671.6 2125.7 914.7 660 Output Total 775 1725 1230 445 Balance 2896.6 400.7 -315.3 215 Meds/Results Medications: Active Medications Generic Name Dose Route Start Last Admin Trade Name Freq PRN Reason Stop Dose Admin Acetaminophen 650 mg 08/12/24 12:40 Acetaminophen 650 Mg Suppository RECTAL Q6H PRN Mild Pain (1-3) or Fever Acetaminophen 325 mg 08/12/24 16:44 Acetaminophen Elixir 325 Mg/10.15 Ml Udc FEED TUBE Q6H PRN Fever Acetylcysteine 200 mg 08/12/24 20:00 08/15/24 10:11 Acetylcysteine 20% Inhal Soln 800 Mg/4 Ml Vial INHALATION Not Given Q6HRT ALENA Albuterol/Ipratropium 3 ml 08/12/24 20:00 08/15/24 08:34 Ipratropium 0.5 Mg/Albuterol Sulfate 2.5 Mg Ampul.Neb 3 Ml INHALATION 3 ml Q6HRT ALENA Administration Carbidopa/Levodopa 2 tablet 08/12/24 17:00 08/15/24 09:54 Carbidopa/Levodopa 25/100 Mg Tablet FEED TUBE 2 tablet TID ALENA Administration Dornase Alcides 2.5 mg 08/13/24 08:00 08/15/24 08:45 Dornase Alcides Inh Soln 1 Mg/Ml 2.5 Ml Amp INHALATION 08/16/24 07:59 2.5 mg Q12HRT ALENA Administration Heparin Sodium (Porcine) 5,000 units 08/12/24 14:00 08/15/24 05:26 Heparin Sodium 5,000 Units/Ml Vial SUB-Q 5,000 units Q8HR ALENA Administration Hydrocortisone Sodium Succinate 100 mg 08/12/24 14:00 08/15/24 05:26 Hydrocortisone Sodium Succinate 100 Mg/2 Ml Vial IV PUSH 100 mg Q8HR ALENA Administration Remdesivir 100 mg in 250 mls @ 250 mls/hr 08/13/24 22:00 08/14/24 23:14 IVPB 08/16/24 22:59 Infused Q24H ALENA Infusion Norepinephrine Bitartrate 8 mg in 250 mls @ 0 mls/hr 08/12/24 16:00 08/15/24 06:00 Levophed 8 Mg/D5w 250 Ml IV CONT 0 mcg/min .Q0M ALENA 0 mls/hr Titration Protocol 0 MCG/MIN Doxycycline Hyclate 100 mg in 100 mls @ 100 mls/hr 08/13/24 21:00 08/15/24 09:54 Vibramycin 100 Mg/Ns 100 Ml IVPB 100 mls/hr Q12H ALENA Administration Meropenem 1 gm in 100 mls @ 200 mls/hr 08/13/24 11:00 08/14/24 22:44 IVPB Infused Q12H ALENA Infusion Levetiracetam 100 mg 08/12/24 21:00 08/15/24 09:54 Levetiracetam Oral Moira 500 Mg/5 Ml Udc FEED TUBE 100 mg Q12H ALENA Administration Methimazole 10 mg 08/13/24 09:00 08/15/24 09:55 Methimazole 10 Mg Tab FEED TUBE 10 mg DAILY ALENA Administration Pantoprazole Sodium 40 mg 08/12/24 13:15 08/15/24 09:56 Pantoprazole Sodium Iv 40 Mg Vial IV PUSH 40 mg QAM ALENA Administration Sodium Chloride 10 ml 08/12/24 14:00 08/15/24 05:26 Central Line Flush IV PUSH 10 ml Q8HR ALENA Administration Sodium Chloride 20 ml 08/12/24 08:16 Central Line Flush IV PUSH PRN PRN after blood draws Radiology Results: ITS Impressions Abdomen/Pelvis CT 08/12/24 11:59 Impression: Dense consolidation and volume loss of the visualized left lower lobe. Findings are compatible with atelectasis versus possibly pneumonia. Consider dedicated contrast-enhanced chest CT to better evaluate for any possibility of central obstructing lesion or other pulmonary/mediastinal pathology. Probable cystitis despite Larsen catheter in place. 2.5 cm oval urinary bladder stone. No definite CT evidence of pyelonephritis, but noncontrast CT scan is insensitive for this diagnosis. Renal Ultrasound 08/12/24 15:05 IMPRESSION: No hydronephrosis. Head CT 08/12/24 19:13 IMPRESSION: No acute intracranial process. Chest CT 08/12/24 19:16 IMPRESSION: Complete left lung opacification with volume loss, likely representing atelectasis. Consider mucous plugging. Infection not excluded. No definite large obstructing mass is present, although this determination is difficult due to the lack of contrast and above-mentioned limitations. Chest X-Ray 08/15/24 05:55 Impression: No interval change. Stable right upper lobe collapse. Stable extensive left lung consolidation with small left pleural effusion. Stable support line. Labs Labs: Laboratory Results - last 24 hr 08/12/24 08/14/24 08/14/24 15:50 11:26 11:28 WBC RBC Hgb Hct MCV MCH MCHC RDW Plt Count MPV % Immature Plt Fraction Sodium 147 H Potassium 4.3 Chloride 114 H Carbon Dioxide 26 Anion Gap 7 BUN 46 H Creatinine 0.80 Estim Creat Clear Calc 48 Estimated GFR > 60 Glucose 88 POC Capillary Glucose 93 Calcium 8.5 Magnesium Total Bilirubin AST ALT Alkaline Phosphatase Total Protein Albumin Ur Random Creatinine 59 Ur Random Chloride 63 U Random Chloride/Creat 107 08/14/24 08/14/24 08/15/24 17:47 22:22 05:45 WBC 13.2 H RBC 3.00 L Hgb 9.6 L Hct 28.7 L MCV 95.7 MCH 32.0 MCHC 33.4 RDW 14.8 H Plt Count 89 L MPV 12.2 H % Immature Plt Fraction 8.4 Sodium 147 H Potassium 3.3 L Chloride 116 H Carbon Dioxide 27 Anion Gap 4 BUN 47 H Creatinine 0.60 L Estim Creat Clear Calc 62 Estimated GFR > 60 Glucose 201 H POC Capillary Glucose 124 H Calcium 8.3 L Magnesium 2.1 2.1 Total Bilirubin 0.6 AST 29 ALT 12 Alkaline Phosphatase 84 Total Protein 5.0 L Albumin 2.7 L Ur Random Creatinine Ur Random Chloride U Random Chloride/Creat Quality VTE Prophylaxis VTE prophylaxis: mechanical ordered and pharmacologic ordered
[2024-08-15] MEDS: MEROPENEM 1 GM/NS 100 ML 1 GM/100 ML BAG IVPB ×2 (13:50→20:30)
[2024-08-15] MEDS: REMDESIVIR 100 MG/NS 250 ML 100 MG/250 ML BAG 250 MG IVPB (20:36)
[2024-08-15 21:38] LABS: Legionella pneumophila Ag Ur NOT DETECTED
[2024-08-16] VITALS (23 sets, daily range): BP systolic 112–146; BP diastolic 68–100; PULSE 71–101; RESP 21–32; TEMP 36.9–37.3; O2SAT 92–96
[2024-08-16] MEDS: IPRATROPIUM 0.5 MG/ALBUTEROL SULFATE 2.5 MG AMPUL.NEB 3 ML INHALATION ×4 (02:15→20:42)
[2024-08-16] MEDS: ACETYLCYSTEINE 20% INHAL SOLN 800 MG/4 ML VIAL 200 MG INHALATION ×4 (02:15→20:42)
[2024-08-16 03:48] LABS: Hematocrit 29.3 % (37.0-47.0); Hemoglobin 9.5 g/dL (12.0-15.0); Immature Platelet Fraction Pct 7.5 % (0.9-11.2); Mean Corpuscular HGB Conc 32.4 g/dl (32-36); Mean Corpuscular Hemoglobin 31.5 pg (26-34); Mean Platelet Volume 11.6 fl (7.4-10.4); Platelet Count Result 92 k/mm3 (150-375); Red Blood Count 3.02 M/mm3 (4.2-5.4); Red Cell Distribution Width 15.3 % (11.5-14.5); White Blood Count 10.2 K/mm3 (4.5-10.0)
[2024-08-16 03:56] LABS: Alanine Aminotransferase 16 U/L (6-35); Albumin Level 2.7 g/dL (3.5-5.1); Alkaline Phosphatase 85 U/L (38-126); Anion Gap 4 mmol/L (4-12); Aspartate Amino Transferase 20 U/L (14-36); Bilirubin,Total 0.4 mg/dL (0.2-1.3); Blood Urea Nitrogen 45 mg/dL (7-17); Calcium 8.4 mg/dL (8.4-10.2); Carbon Dioxide 28 mmol/L (22-30); Chloride 119 mmol/L (98-107); Estimated CRCL calculation 73 ml/min; Estimated Glomerular Filt Rate > 60; Glucose 179 mg/dL (65-110); Magnesium 1.7 mg/dL (1.6-2.3); Potassium 3.5 mmol/L (3.4-5.0); Sodium 151 mmol/L (137-145)
[2024-08-16] MEDS: MEROPENEM 1 GM/NS 100 ML 1 GM/100 ML BAG IVPB ×3 (05:11→21:01)
[2024-08-16] MEDS: HYDROCORTISONE SODIUM SUCCINATE 100 MG/2 ML VIAL IV PUSH ×3 (05:11→21:01)
[2024-08-16] MEDS: HEPARIN SODIUM 5,000 UNITS/ML VIAL 5000 UNITS SUB-Q ×3 (05:11→21:01)
[2024-08-16] MEDS: CENTRAL LINE FLUSH 10 ML IV PUSH ×3 (05:12→22:35)
[2024-08-16] MEDS: DEXTROSE 5% IN WATER 500 ML 100 ML IV CONT (09:28)
[2024-08-16] MEDS: PANTOPRAZOLE SODIUM IV 40 MG VIAL IV PUSH (09:29)
[2024-08-16] MEDS: methiMAzole 10 MG TAB FEED TUBE (09:29)
[2024-08-16] MEDS: levETIRAcetam ORAL SOL 500 MG/5 ML UDC 100 MG FEED TUBE ×2 (09:29→21:01)
[2024-08-16] MEDS: CARBIDOPA/LEVODOPA 25/100 MG TABLET 2 TABLET FEED TUBE ×3 (09:29→17:17)
--- NOTE | 2024-08-16 09:43 | WPDINTPN ---
Progress Note: A&P Assessment and Plan (1) Severe sepsis with septic shock: Code(s): A41.9 - Sepsis, unspecified organism; R65.21 - Severe sepsis with septic shock Status: Acute Assessment and Plan: 08/12: [facility], fever Septic shock secondary to UTI and pneumonia -she was hypotensive in the ER despite receiving 30 mL/kg IV fluids, left IJ central line was inserted, -off off all vasopressors -off of further IV fluids -continue stress dose steroid -08/12: Blood cultures growing E coli, Klebsiella pneumoniae, Staphylococcus capitis and Proteus mirabilis. All sensitive to meropenem. Which will be can -08/12: Urine cultures negative till now -08/12: C diff toxin is negative -patient has been started on vancomycin and levofloxacin (08/12) switched to meropenem and doxycycline -DC doxycycline continue meropenem - 08/15: Repeat blood culture sent 08/12/2024: CT chest Complete left lung opacification with volume loss, likely representing atelectasis. Consider mucous plugging. Infection not excluded. No definite large obstructing mass is present, although this determination is difficult due to the lack of contrast and above-mentioned limitations CT abdomen pelvis Dense consolidation and volume loss of the visualized left lower lobe. Findings are compatible with atelectasis versus possibly pneumonia. Consider dedicated contrast-enhanced chest CT to better evaluate for any possibility of central obstructing lesion or other pulmonary/mediastinal pathology. Probable cystitis despite Larsen catheter in place. 2.5 cm oval urinary bladder stone. No definite CT evidence of pyelonephritis, but noncontrast CT scan is insensitive for this diagnosis (2) Acute respiratory failure: Code(s): J96.00 - Acute respiratory failure, unspecified whether with hypoxia or hypercapnia Status: Acute Assessment and Plan: Acute respiratory failure secondary to pneumonia, atelectasis and COVID infection. Although imaging is more suggestive of bacterial pneumonia and mucus plugging rather than COVID pneumonia. Patient initially placed on BiPAP but BiPAP had to be removed as patient was deemed not a candidate for BiPAP 08/12 CT chest Complete left lung opacification with volume loss, likely representing atelectasis. Consider mucous plugging. Infection not excluded. No definite large obstructing mass is present, although this determination is difficult due to the lack of contrast and above-mentioned limitations Chest x-ray08/14 Impression: Right upper lobe collapse. Central obstructing mass is not excluded. Extensive left perihilar and left lower lobe consolidation, suspicious for pneumonia. Possible small pleural effusion. Support line, as above. CXR 08/15 reviewed and shows persistent right upper lobe collapse -continue I spoke to Dr. Jaffe with Pulmonary regarding option of bronchoscopy and he feels the patient may need intubation for bronchoscopy. 08/16 -chest x-ray reviewed and shows improvement in atelectasis on the right upper lobe. Although in consolidation of left lower lobe persists. - Continue Mucomyst nebulizer and bronchodilators -continue Pulmozyme -chest PT with vest therapy -continue bronchodilators (3) UTI (urinary tract infection): Qualifiers: Urinary tract infection type: catheter-associated UTI Indwelling urinary catheter type: indwelling urethral catheter Encounter type: initial encounter Qualified Code(s): T83.511A - Infection and inflammatory reaction due to indwelling urethral catheter, initial encounter; N39.0 - Urinary tract infection, site not specified Code(s): N39.0 - Urinary tract infection, site not specified Status: Acute Assessment and Plan: UA reflective of UTI. According the son patient has had multiple UTIs in the past Large stone and bladder CT findings suggestive of cystitis Cultures as above Continue antibiotics as above (4) Pneumonia: Qualifiers: Pneumonia type: due to unspecified organism Laterality: left Lung location: lower lobe of lung Qualified Code(s): J18.9 - Pneumonia, unspecified organism Code(s): J18.9 - Pneumonia, unspecified organism Status: Acute Assessment and Plan: Patient was initially on BiPAP, patient is contracted and unable to probably pull the mask off if she has emesis, BiPAP likely contraindicated in such patients -placed patient on high-flow therapy, will wean FiO2 to maintain O2 sats greater than 92% -patient is full code per patient's POA who is David the son, if respiratory status worsens may have to intubate her, (5) Acute kidney injury: Code(s): N17.9 - Acute kidney failure, unspecified Status: Acute Assessment and Plan: Patient presented with septic shock, acute kidney injury with a creatinine of 2.90 on admission, baseline unknown -adequately fluid-resuscitated in the ER -creatinine has normalized -off vasopressors -CK levels are slightly elevated, patient received adequate amount of IV fluids -continue to monitor urine output, electrolytes and renal function (6) Diarrhea: Qualifiers: Diarrhea type: presumed infectious Qualified Code(s): R19.7 - Diarrhea, unspecified Code(s): R19.7 - Diarrhea, unspecified Status: Acute Assessment and Plan: Patient has had severe diarrhea -C diff toxin is negative, -stool cultures are pending (7) COVID-19: Code(s): U07.1 - COVID-19 Status: Acute Assessment and Plan: Patient was tested positive for SARS-CoV-2 although the imaging does not appear suggestive of COVID pneumonia She currently on hydrocortisone and Remdesivir CRP is 37, status post Tocilizumab on 08/12 (8) Electrolyte abnormality: Code(s): E87.8 - Other disorders of electrolyte and fluid balance, not elsewhere classified Status: Acute Assessment and Plan: Potassium replacement ordered Increase free water flush Will give 500 mL of D5 water Plan DVT prophylaxis: Heparin SQ Stress ulcer prophylaxis: Protonix Nutrition: continue tube feeds Code Status: Full code 08/12: Dr. Dwyer discussed with patient's son David who is the POA, he stated that the patient has had a brain surgery after she had a fall in the past and at the same time was diagnosed with Parkinson's. She has been nonverbal for the last 2 years and then developed contraction and footdrop. I also explained to him regarding her severe septic shock, likely secondary to pneumonia, UTI. He did state that she has had multiple UTIs over the last 2 years. He is aware that she is on 2 blood pressure support medications, antibiotics. He also discussed with David the POA regarding code status, he wants patient is a full code, he is going to discuss with his family though 08/15 I spoke to patient's son David again today and updated him with patient's status including continued respiratory failure requiring significant amount of oxygen, pneumonia, atelectasis, UTI, bacteremia and current plan of care. I again revisited the topical goals of care and code status as to whether patient would want intubation at this point. Patient is 73-year-old nonverbal bedbound in jail with chronic indwelling Larsen catheter and feeding through PEG tube for last 2 years. He told me that he has not had time to discuss with his other brothers. I emphasized the importance of this discussion. I discussed options of DNR DNI. I offered to speak to other children if they were interested off or had any questions. 08/16 I spoke to patient's son David again today by phone. He told me that he had discussion with his brothers and father and they all believe the patient would not want resuscitation at this time considering her medical problems and current quality of life. He has requested the patient be made DNR with no resuscitation or CPR in the event of cardiac arrest however he would like patient to be intubated for respiratory issues so that the family can visit her 1 last time. He states the patient's would like to visit her 1 time before she passes away. Due to her COVID isolation he is unable to come right now. He feels that once his father is able to see her they may not want intubation in the event of respiratory failure. Critical Care Time Spent: 35 minutes Due to a high probability of clinically significant, life threatening deterioration, the patient required my highest level of preparedness to intervene emergently and I personally spent this critical care time directly and personally managing the patient. This critical care time included obtaining a history; examining the patient; pulse oximetry; ordering and review of studies; arranging urgent treatment with development of a management plan; evaluation of patient's response to treatment; frequent reassessment; and discussions with other providers. It was exclusive of separately billable procedures and treating other patients and teaching time. Please see Assessment and Plan section and the rest of the note for further information on patient assessment and treatment This dictation may have been done utilizing a voice recognition system. Attempts have been made to correct errors. However, there may be uncorrected grammatical, spelling, and recognitions errors present. Subjective Date/time seen: 08/16/24 09:43 Interval history: Reason for consult: Pneumonia, septic shock, acute kidney injury, chronic indwelling Larsen catheter, chronic pressure ulcers, COVID positive Review of Systems Review of Systems: ROS unobtainable: Yes unobtainable due to endotracheal tube, unobtainable due to medical condition and unobtainable due to mental status Exam Narrative: General: Ill-appearing female currently in no acute distress HEENT:? Pupils equal and reactive, sclerae is clear Neck:? Supple, left IJ central line in place Respiratory:? Coarse breath sounds bilaterally, decreased on left side, no wheezing, transmitted breath sounds in her neck but no stridor Cardiac:? Regular rate and rhythm Abdomen:? Soft, nontender, nondistended, tympanic, hyperactive bowel sounds Extremities:? Trace edema bilaterally, dopplerable pedal pulses bilaterally Neuro:? Patient is nonverbal at baseline, her eyes are open, does not follow commands or answers questions Skin:? Decubitus ulcer on the buttocks Psych:? Unable to assess Objective Data Vital Signs Vital Signs: Vital Signs - 24 hr 08/15/24 10:00 08/15/24 10:00 08/15/24 13:02 Temperature Pulse Rate 103 H 103 H 94 Respiratory Rate 22 H 25 H Blood Pressure 143/81 H Pulse Oximetry 95 Oxygen Delivery Oxygen Flow Rate Fraction of Inspired Oxygen 08/15/24 13:12 08/15/24 13:16 08/15/24 13:52 Temperature Pulse Rate 92 Respiratory Rate 25 H Blood Pressure Pulse Oximetry 97 89 L Oxygen Delivery High Flow Therapy with Na High Flow Therapy with Na Oxygen Flow Rate 40 40 Fraction of Inspired Oxygen 50 40 08/15/24 13:55 08/15/24 12:00 08/15/24 12:00 Temperature 36.7 C Pulse Rate 101 H 101 H Respiratory Rate 21 H Blood Pressure 124/94 H Pulse Oximetry 93 98 Oxygen Delivery High Flow Therapy with Na Oxygen Flow Rate 40 Fraction of Inspired Oxygen 50 08/15/24 14:00 08/15/24 12:00 08/15/24 14:00 Temperature 37.1 C 36.7 C Pulse Rate 101 H 101 H 101 H Respiratory Rate 25 H 18 Blood Pressure 119/79 124/94 H Pulse Oximetry 93 98 Oxygen Delivery Oxygen Flow Rate Fraction of Inspired Oxygen 08/15/24 16:00 08/15/24 18:00 08/15/24 18:00 Temperature 36.8 C Pulse Rate 74 80 80 Respiratory Rate 25 H 24 H Blood Pressure 112/73 119/79 Pulse Oximetry 93 94 Oxygen Delivery Oxygen Flow Rate Fraction of Inspired Oxygen 08/15/24 16:00 08/15/24 20:00 08/15/24 20:00 Temperature 36.8 C Pulse Rate 78 78 78 Respiratory Rate 24 H 24 H Blood Pressure 116/83 Pulse Oximetry 95 95 Oxygen Delivery High Flow Therapy with Na Oxygen Flow Rate 40 Fraction of Inspired Oxygen 50 08/15/24 20:00 08/15/24 21:07 08/15/24 21:00 Temperature Pulse Rate 108 H 86 Respiratory Rate 26 H Blood Pressure Pulse Oximetry 96 Oxygen Delivery High Flow Therapy with Na Oxygen Flow Rate 40 Fraction of Inspired Oxygen 55 08/15/24 21:16 08/15/24 22:00 08/15/24 22:00 Temperature 36.9 C Pulse Rate 80 102 H 72 Respiratory Rate 25 H 24 H Blood Pressure 128/97 H Pulse Oximetry 93 Oxygen Delivery Oxygen Flow Rate Fraction of Inspired Oxygen 08/16/24 00:00 08/16/24 00:00 08/16/24 00:00 Temperature 36.9 C Pulse Rate 72 101 H 101 H Respiratory Rate 24 H 24 H Blood Pressure 130/94 H Pulse Oximetry 93 94 Oxygen Delivery High Flow Therapy with Na Oxygen Flow Rate 40 Fraction of Inspired Oxygen 55 08/16/24 02:00 08/16/24 02:00 08/16/24 02:17 Temperature 37.1 C Pulse Rate 101 H 101 H 89 Respiratory Rate 24 H 30 H Blood Pressure 130/78 Pulse Oximetry 93 Oxygen Delivery Oxygen Flow Rate Fraction of Inspired Oxygen 08/16/24 02:27 08/16/24 03:58 08/16/24 04:00 Temperature 37.2 C Pulse Rate 82 82 83 Respiratory Rate 30 H 30 H 25 H Blood Pressure 135/76 Pulse Oximetry 93 92 Oxygen Delivery High Flow Therapy with Na Oxygen Flow Rate 40 Fraction of Inspired Oxygen 55 08/16/24 04:00 08/16/24 06:00 08/16/24 06:00 Temperature 37.3 C Pulse Rate 74 85 87 Respiratory Rate 25 H Blood Pressure 127/71 Pulse Oximetry 93 Oxygen Delivery Oxygen Flow Rate Fraction of Inspired Oxygen 08/16/24 07:55 08/16/24 07:55 08/16/24 08:14 Temperature Pulse Rate 92 83 Respiratory Rate 25 H 25 H Blood Pressure Pulse Oximetry 95 Oxygen Delivery High Flow Therapy with Na Oxygen Flow Rate 40 Fraction of Inspired Oxygen 54 Intake/Output Intake/Output: Intake & Output 08/13/24 08/14/24 08/15/24 08/16/24 23:59 23:59 23:59 23:59 Intake Total 2125.7 1014.7 2071 1106 Output Total 1725 1230 995 675 Balance 400.7 -215.3 1076 431 Meds/Results Medications: Active Medications Generic Name Dose Route Start Last Admin Trade Name Freq PRN Reason Stop Dose Admin Acetaminophen 650 mg 08/12/24 12:40 Acetaminophen 650 Mg Suppository RECTAL Q6H PRN Mild Pain (1-3) or Fever Acetaminophen 325 mg 08/12/24 16:44 Acetaminophen Elixir 325 Mg/10.15 Ml Udc FEED TUBE Q6H PRN Fever Acetylcysteine 200 mg 08/12/24 20:00 08/16/24 07:55 Acetylcysteine 20% Inhal Soln 800 Mg/4 Ml Vial INHALATION 200 mg Q6HRT ALENA Administration Albuterol/Ipratropium 3 ml 08/12/24 20:00 08/16/24 07:55 Ipratropium 0.5 Mg/Albuterol Sulfate 2.5 Mg Ampul.Neb 3 Ml INHALATION 3 ml Q6HRT ALENA Administration Carbidopa/Levodopa 2 tablet 08/12/24 17:00 08/16/24 09:29 Carbidopa/Levodopa 25/100 Mg Tablet FEED TUBE 2 tablet TID ALENA Administration Heparin Sodium (Porcine) 5,000 units 08/12/24 14:00 08/16/24 05:11 Heparin Sodium 5,000 Units/Ml Vial SUB-Q 5,000 units Q8HR ALENA Administration Hydrocortisone Sodium Succinate 100 mg 08/12/24 14:00 08/16/24 05:11 Hydrocortisone Sodium Succinate 100 Mg/2 Ml Vial IV PUSH 100 mg Q8HR ALENA Administration Remdesivir 100 mg in 250 mls @ 250 mls/hr 08/13/24 22:00 08/15/24 21:36 IVPB 08/16/24 22:59 Infused Q24H ALENA Infusion Meropenem 1 gm in 100 mls @ 200 mls/hr 08/15/24 13:00 08/16/24 05:41 IVPB Infused Q8HR ALENA Infusion Dextrose 500 mls @ 100 mls/hr 08/16/24 08:35 08/16/24 09:28 Dextrose 5% In Water IV CONT 08/16/24 13:34 100 mls/hr .Q5H ALENA Administration Levetiracetam 100 mg 08/12/24 21:00 08/16/24 09:29 Levetiracetam Oral Moira 500 Mg/5 Ml Udc FEED TUBE 100 mg Q12H ALENA Administration Methimazole 10 mg 08/13/24 09:00 08/16/24 09:29 Methimazole 10 Mg Tab FEED TUBE 10 mg DAILY ALENA Administration Pantoprazole Sodium 40 mg 08/12/24 13:15 08/16/24 09:29 Pantoprazole Sodium Iv 40 Mg Vial IV PUSH 40 mg QAM ALENA Administration Sodium Chloride 10 ml 08/12/24 14:00 08/16/24 05:12 Central Line Flush IV PUSH 10 ml Q8HR ALENA Administration Sodium Chloride 20 ml 08/12/24 08:16 Central Line Flush IV PUSH PRN PRN after blood draws Radiology Results: ITS Impressions Abdomen/Pelvis CT 08/12/24 11:59 Impression: Dense consolidation and volume loss of the visualized left lower lobe. Findings are compatible with atelectasis versus possibly pneumonia. Consider dedicated contrast-enhanced chest CT to better evaluate for any possibility of central obstructing lesion or other pulmonary/mediastinal pathology. Probable cystitis despite Larsen catheter in place. 2.5 cm oval urinary bladder stone. No definite CT evidence of pyelonephritis, but noncontrast CT scan is insensitive for this diagnosis. Renal Ultrasound 08/12/24 15:05 IMPRESSION: No hydronephrosis. Head CT 08/12/24 19:13 IMPRESSION: No acute intracranial process. Chest CT 08/12/24 19:16 IMPRESSION: Complete left lung opacification with volume loss, likely representing atelectasis. Consider mucous plugging. Infection not excluded. No definite large obstructing mass is present, although this determination is difficult due to the lack of contrast and above-mentioned limitations. Chest X-Ray 08/16/24 06:38 Impression: [id number] left pleural effusion with extensive left lung consolidation, suspicious for pneumonia. Reexpansion of right upper lobe since prior exam. Stable support line. Labs Labs: Laboratory Results - last 24 hr 08/12/24 08/16/24 15:50 03:41 WBC 10.2 H RBC 3.02 L Hgb 9.5 L Hct 29.3 L MCV 97.0 MCH 31.5 MCHC 32.4 RDW 15.3 H Plt Count 92 L MPV 11.6 H % Immature Plt Fraction 7.5 Sodium 151 H Potassium 3.5 Chloride 119 H Carbon Dioxide 28 Anion Gap 4 BUN 45 H Creatinine 0.50 L Estim Creat Clear Calc 73 Estimated GFR > 60 Glucose 179 H Calcium 8.4 Magnesium 1.7 Total Bilirubin 0.4 AST 20 ALT 16 Alkaline Phosphatase 85 Total Protein 5.0 L Albumin 2.7 L Ur L.pneumophila Ag Not detected Quality VTE Prophylaxis VTE prophylaxis: mechanical ordered and pharmacologic ordered
--- NOTE | 2024-08-16 11:02 | PCFNICU ---
ICU Rounding Note: Pt current nutrition is Jevity 1.5 at 55 ml/hr. Nutrition recommendation: Bon BID for would healing. Last recorded weight is 61.9 kg, up from 61.9 kg on admit. Bowel Motility: FMS Labs Reviewed: Glu 179,Cr 0.5, BUN 45, Na 151, Alb 2.7, Hct 29.3,Hgb 9.5 Meds Noted:Heparin,Keppra, Remdesivir Skin: Stage III-coccyx. Additional Notes: Patient current with tube feedings of Jevity 1.5 at 55ml/hr. Flush increased to 250 ml q 4 hours due to elevated Na lab. Tube feedings providing 1815 kcal/77 gm protein/919 ml water. Agree with diet orders. Discussions regarding code status and plan of care today. Patient made been made a Modified Code today and discussions between Prosthetic Lab Technician and family. Following daily in ICU rounds. Monitoring diet orders, plan of care, meds, weights, labs, stool pattern. Daily in rounds, follow up Tuesdays and Fridays.
[2024-08-16 17:53] LABS: Pneumococcal Antigen Urine NOT DETECTED
[2024-08-16] MEDS: REMDESIVIR 100 MG/NS 250 ML 100 MG/250 ML BAG 250 MG IVPB (21:04)
[2024-08-17] VITALS (27 sets, daily range): BP systolic 107–141; BP diastolic 61–91; PULSE 69–97; RESP 20–25; TEMP 37.1–37.4; O2SAT 90–94
[2024-08-17] MEDS: ACETYLCYSTEINE 20% INHAL SOLN 800 MG/4 ML VIAL 200 MG INHALATION ×4 (02:27→20:49)
[2024-08-17] MEDS: IPRATROPIUM 0.5 MG/ALBUTEROL SULFATE 2.5 MG AMPUL.NEB 3 ML INHALATION ×4 (02:28→20:49)
[2024-08-17] MEDS: MEROPENEM 1 GM/NS 100 ML 1 GM/100 ML BAG IVPB ×3 (04:52→21:19)
[2024-08-17] MEDS: HYDROCORTISONE SODIUM SUCCINATE 100 MG/2 ML VIAL IV PUSH (04:52)
[2024-08-17] MEDS: HEPARIN SODIUM 5,000 UNITS/ML VIAL 5000 UNITS SUB-Q ×3 (04:52→21:21)
[2024-08-17] MEDS: CENTRAL LINE FLUSH 10 ML IV PUSH ×3 (04:52→21:21)
[2024-08-17 05:09] LABS: Hemoglobin 9.3 g/dL (12.0-15.0); Immature Platelet Fraction Pct 8.6 % (0.9-11.2); Mean Corpuscular HGB Conc 33.2 g/dl (32-36); Mean Corpuscular Hemoglobin 31.6 pg (26-34); Mean Corpuscular Volume 95.2 fl (80-100); Platelet Count Result 101 k/mm3 (150-375); Red Blood Count 2.94 M/mm3 (4.2-5.4); White Blood Count 12.6 K/mm3 (4.5-10.0)
[2024-08-17 05:18] LABS: Alanine Aminotransferase 17 U/L (6-35); Albumin Level 2.5 g/dL (3.5-5.1); Alkaline Phosphatase 76 U/L (38-126); Anion Gap 5 mmol/L (4-12); Aspartate Amino Transferase 19 U/L (14-36); Bilirubin,Total 0.7 mg/dL (0.2-1.3); Blood Urea Nitrogen 35 mg/dL (7-17); Calcium 7.7 mg/dL (8.4-10.2); Carbon Dioxide 29 mmol/L (22-30); Chloride 113 mmol/L (98-107); Estimated CRCL calculation 89 ml/min; Estimated Glomerular Filt Rate > 60; Glucose 121 mg/dL (65-110); Magnesium 1.6 mg/dL (1.6-2.3); Potassium 3.3 mmol/L (3.4-5.0); Sodium 147 mmol/L (137-145)
--- NOTE | 2024-08-17 08:36 | WPDINTPN ---
Progress Note: A&P Assessment and Plan (1) Severe sepsis with septic shock: Code(s): A41.9 - Sepsis, unspecified organism; R65.21 - Severe sepsis with septic shock Status: Acute Assessment and Plan: 08/12: Patient [facility] from the [facility] with hypoxia, fever Septic shock secondary to UTI and pneumonia -she was hypotensive in the ER despite receiving 30 mL/kg IV fluids, left IJ central line was inserted, -off off all vasopressors -off of further IV fluids -continue stress dose steroid -08/12: Blood cultures growing E coli, Klebsiella pneumoniae, Staphylococcus capitis and Proteus mirabilis. All sensitive to meropenem. Which will be can -08/12: Urine cultures negative till now -08/12: C diff toxin is negative -patient has been started on vancomycin and levofloxacin (08/12) and was switched to switched to meropenem and doxycycline -DC doxycycline continue meropenem - 08/15: Repeat blood culture sent and negative till now 08/12/2024: CT chest Complete left lung opacification with volume loss, likely representing atelectasis. Consider mucous plugging. Infection not excluded. No definite large obstructing mass is present, although this determination is difficult due to the lack of contrast and above-mentioned limitations CT abdomen pelvis Dense consolidation and volume loss of the visualized left lower lobe. Findings are compatible with atelectasis versus possibly pneumonia. Consider dedicated contrast-enhanced chest CT to better evaluate for any possibility of central obstructing lesion or other pulmonary/mediastinal pathology. Probable cystitis despite Larsen catheter in place. 2.5 cm oval urinary bladder stone. No definite CT evidence of pyelonephritis, but noncontrast CT scan is insensitive for this diagnosis (2) Acute respiratory failure: Code(s): J96.00 - Acute respiratory failure, unspecified whether with hypoxia or hypercapnia Status: Acute Assessment and Plan: Acute respiratory failure secondary to pneumonia, atelectasis and COVID infection. Although imaging is more suggestive of bacterial pneumonia and mucus plugging rather than COVID pneumonia. Patient initially placed on BiPAP but BiPAP had to be removed as patient was deemed not a candidate for BiPAP 08/12 CT chest Complete left lung opacification with volume loss, likely representing atelectasis. Consider mucous plugging. Infection not excluded. No definite large obstructing mass is present, although this determination is difficult due to the lack of contrast and above-mentioned limitations Chest x-ray08/14 Impression: Right upper lobe collapse. Central obstructing mass is not excluded. Extensive left perihilar and left lower lobe consolidation, suspicious for pneumonia. Possible small pleural effusion. Support line, as above. CXR 08/15 reviewed and shows persistent right upper lobe collapse I spoke to Dr. Jaffe with Pulmonary regarding option of bronchoscopy and he feels the patient may need intubation for bronchoscopy. 08/16 -chest x-ray reviewed and shows improvement in atelectasis on the right upper lobe. Although in consolidation of left lower lobe persists. 08/17 -chest x-ray reviewed and shows recurrence of atelectasis in the left side. Patient is weak and debilitated she does have cough reflex but it is very weak and she is not able to cough secretions out. I have requested nursing staff to NT suction her frequently. I will continue chest physical therapy. Intubating at this point considering patient is maintaining a saturation and not in respiratory distress would not fix the long-term issue of her inability to clear secretions and once intubated she may not come off of ventilator since she does not follow commands or does not respond to the examiner. At this point considering the clinical situation I will continue with noninvasive and conservative measures with aggressive chest physical therapy, bronchodilators, frequent suctioning and Mucomyst (3) UTI (urinary tract infection): Qualifiers: Urinary tract infection type: catheter-associated UTI Indwelling urinary catheter type: indwelling urethral catheter Encounter type: initial encounter Qualified Code(s): T83.511A - Infection and inflammatory reaction due to indwelling urethral catheter, initial encounter; N39.0 - Urinary tract infection, site not specified Code(s): N39.0 - Urinary tract infection, site not specified Status: Acute Assessment and Plan: UA reflective of UTI. According the son patient has had multiple UTIs in the past Large stone and bladder CT findings suggestive of cystitis Cultures as above Continue antibiotics as above (4) Pneumonia: Qualifiers: Pneumonia type: due to unspecified organism Laterality: left Lung location: lower lobe of lung Qualified Code(s): J18.9 - Pneumonia, unspecified organism Code(s): J18.9 - Pneumonia, unspecified organism Status: Acute Assessment and Plan: Patient was initially on BiPAP, patient is contracted and unable to probably pull the mask off if she has emesis, BiPAP likely contraindicated in such patients -placed patient on high-flow therapy, will wean FiO2 to maintain O2 sats greater than 92% (5) Acute kidney injury: Code(s): N17.9 - Acute kidney failure, unspecified Status: Acute Assessment and Plan: Patient presented with septic shock, acute kidney injury with a creatinine of 2.90 on admission, baseline unknown -adequately fluid-resuscitated in the ER -creatinine has normalized -off vasopressors -CK levels are slightly elevated, patient received adequate amount of IV fluids -continue to monitor urine output, electrolytes and renal function (6) Diarrhea: Qualifiers: Diarrhea type: presumed infectious Qualified Code(s): R19.7 - Diarrhea, unspecified Code(s): R19.7 - Diarrhea, unspecified Status: Acute Assessment and Plan: Patient has had severe diarrhea -C diff toxin is negative, -stool cultures are negative (7) COVID-19: Code(s): U07.1 - COVID-19 Status: Acute Assessment and Plan: Patient was tested positive for SARS-CoV-2 although the imaging does not appear suggestive of COVID pneumonia She currently on hydrocortisone and Remdesivir Switch hydrocortisone to dexamethasone CRP is 37, status post Tocilizumab on 08/12 (8) Electrolyte abnormality: Code(s): E87.8 - Other disorders of electrolyte and fluid balance, not elsewhere classified Status: Acute Assessment and Plan: Potassium replacement ordered Continue increased free water flush Plan DVT prophylaxis: Heparin SQ Stress ulcer prophylaxis: Protonix Nutrition: continue tube feeds Code Status: Full code 08/12: Dr. Dwyer discussed with patient's son David who is the POA, he stated that the patient has had a brain surgery after she had a fall in the past and at the same time was diagnosed with Parkinson's. She has been nonverbal for the last 2 years and then developed contraction and footdrop. I also explained to him regarding her severe septic shock, likely secondary to pneumonia, UTI. He did state that she has had multiple UTIs over the last 2 years. He is aware that she is on 2 blood pressure support medications, antibiotics. He also discussed with David the POA regarding code status, he wants patient is a full code, he is going to discuss with his family though 08/15 I spoke to patient's son David again today and updated him with patient's status including continued respiratory failure requiring significant amount of oxygen, pneumonia, atelectasis, UTI, bacteremia and current plan of care. I again revisited the topical goals of care and code status as to whether patient would want intubation at this point. Patient is 73-year-old nonverbal bedbound in [facility] with chronic indwelling Larsen catheter and feeding through PEG tube for last 2 years. He told me that he has not had time to discuss with his other brothers. I emphasized the importance of this discussion. I discussed options of DNR DNI. I offered to speak to other children if they were interested off or had any questions. 08/16 I spoke to patient's son David again today by phone. He told me that he had discussion with his brothers and father and they all believe the patient would not want resuscitation at this time considering her medical problems and current quality of life. He has requested the patient be made DNR with no resuscitation or CPR in the event of cardiac arrest however he would like patient to be intubated for respiratory issues so that the family can visit her 1 last time. He states the patient's would like to visit her 1 time before she passes away. Due to her COVID isolation he is unable to come right now. He feels that once his father is able to see her they may not want intubation in the event of respiratory failure. Critical Care Time Spent: 32 minutes Due to a high probability of clinically significant, life threatening deterioration, the patient required my highest level of preparedness to intervene emergently and I personally spent this critical care time directly and personally managing the patient. This critical care time included obtaining a history; examining the patient; pulse oximetry; ordering and review of studies; arranging urgent treatment with development of a management plan; evaluation of patient's response to treatment; frequent reassessment; and discussions with other providers. It was exclusive of separately billable procedures and treating other patients and teaching time. Please see Assessment and Plan section and the rest of the note for further information on patient assessment and treatment This dictation may have been done utilizing a voice recognition system. Attempts have been made to correct errors. However, there may be uncorrected grammatical, spelling, and recognitions errors present. Subjective Date/time seen: 08/17/24 Overnight events reviewed. Afebrile Continues to be on Airvo at 40 L and 45% Not on a infusions No change in neurological status. Patient awake but unresponsive to commands and does not communicate. Tolerating tube feeds Vitals acceptable Interval history: Reason for consult: Pneumonia, septic shock, acute kidney injury, chronic indwelling Larsen catheter, chronic pressure ulcers, COVID positive Review of Systems Review of Systems: ROS unobtainable: Yes unobtainable due to endotracheal tube, unobtainable due to medical condition and unobtainable due to mental status Exam Narrative: General: Ill-appearing female currently in no acute distress HEENT:? Pupils equal and reactive, sclerae is clear Neck:? Supple, left IJ central line in place Respiratory:? Coarse breath sounds bilaterally, decreased on left side, no wheezing, t Cardiac:? Regular rate and rhythm Abdomen:? Soft, nontender, nondistended, tympanic, hyperactive bowel sounds Extremities:? Trace edema bilaterally, dopplerable pedal pulses bilaterally Neuro:? Patient is nonverbal at baseline, her eyes are open, does not follow commands or answers questions Skin:? Decubitus ulcer on the buttocks Psych:? Unable to assess Objective Data Vital Signs Vital Signs: Vital Signs - 24 hr 08/16/24 13:10 08/16/24 13:10 08/16/24 13:24 Temperature Pulse Rate 84 85 Respiratory Rate 23 H 22 H Blood Pressure Pulse Oximetry 96 Oxygen Delivery High Flow Therapy with Na Oxygen Flow Rate 40 Fraction of Inspired Oxygen 54 08/16/24 14:36 08/16/24 10:00 08/16/24 12:00 Temperature 37.0 C 36.9 C Pulse Rate 71 85 Respiratory Rate 23 H 31 H Blood Pressure 135/70 146/80 H Pulse Oximetry 94 95 96 Oxygen Delivery High Flow Therapy with Na Oxygen Flow Rate 40 Fraction of Inspired Oxygen 45 08/16/24 14:00 08/16/24 12:00 08/16/24 10:00 Temperature 36.9 C Pulse Rate 76 71 Respiratory Rate 21 H Blood Pressure 126/69 Pulse Oximetry 93 96 Oxygen Delivery High Flow Therapy with Na Oxygen Flow Rate 40 Fraction of Inspired Oxygen 45 08/16/24 12:00 08/16/24 14:00 08/16/24 16:00 Temperature Pulse Rate 82 76 72 Respiratory Rate Blood Pressure Pulse Oximetry Oxygen Delivery Oxygen Flow Rate Fraction of Inspired Oxygen 08/16/24 16:00 08/16/24 16:00 08/16/24 18:00 Temperature 37.0 C Pulse Rate 72 83 Respiratory Rate 23 H Blood Pressure 112/68 Pulse Oximetry 94 94 Oxygen Delivery High Flow Therapy with Na Oxygen Flow Rate 40 Fraction of Inspired Oxygen 45 08/16/24 18:00 08/16/24 20:00 08/16/24 20:00 Temperature 37.1 C 37.2 C Pulse Rate 74 82 82 Respiratory Rate 21 H 25 H 25 H Blood Pressure 122/80 136/74 Pulse Oximetry 92 92 92 Oxygen Delivery High Flow Therapy with Na Oxygen Flow Rate 40 Fraction of Inspired Oxygen 45 08/16/24 20:42 08/16/24 20:42 08/16/24 20:59 Temperature Pulse Rate 75 75 93 Respiratory Rate 25 H 25 H 24 H Blood Pressure Pulse Oximetry 92 Oxygen Delivery High Flow Therapy with Na Oxygen Flow Rate 40 Fraction of Inspired Oxygen 45 08/16/24 20:00 08/16/24 22:00 08/16/24 22:00 Temperature 37.3 C Pulse Rate 82 95 89 Respiratory Rate 24 H Blood Pressure 137/80 Pulse Oximetry 92 Oxygen Delivery Oxygen Flow Rate Fraction of Inspired Oxygen 08/16/24 23:31 08/17/24 00:00 08/17/24 00:00 Temperature 37.3 C Pulse Rate 74 72 72 Respiratory Rate 23 H 23 H Blood Pressure 137/79 Pulse Oximetry 92 92 Oxygen Delivery High Flow Therapy with Na Oxygen Flow Rate 40 Fraction of Inspired Oxygen 45 08/17/24 00:30 08/17/24 02:28 08/17/24 02:28 Temperature Pulse Rate 72 83 84 Respiratory Rate 23 H 25 H 25 H Blood Pressure Pulse Oximetry 92 92 Oxygen Delivery High Flow Therapy with Na High Flow Therapy with Na Oxygen Flow Rate 40 40 Fraction of Inspired Oxygen 45 45 08/17/24 02:40 08/17/24 02:00 08/17/24 02:00 Temperature 37.4 C Pulse Rate 90 82 83 Respiratory Rate 25 H 24 H Blood Pressure 125/75 Pulse Oximetry 92 Oxygen Delivery Oxygen Flow Rate Fraction of Inspired Oxygen 08/17/24 04:45 08/17/24 04:00 08/17/24 04:00 Temperature 37.3 C Pulse Rate 90 84 84 Respiratory Rate 25 H 25 H Blood Pressure 139/80 Pulse Oximetry 92 93 Oxygen Delivery High Flow Therapy with Na Oxygen Flow Rate 40 Fraction of Inspired Oxygen 45 08/17/24 06:00 08/17/24 06:00 08/17/24 07:45 Temperature 37.3 C Pulse Rate 71 72 79 Respiratory Rate 24 H 24 H Blood Pressure 128/66 Pulse Oximetry 91 91 Oxygen Delivery High Flow Therapy with Na Oxygen Flow Rate 40 Fraction of Inspired Oxygen 45 08/17/24 07:45 08/17/24 08:00 Temperature Pulse Rate 79 87 Respiratory Rate 24 H 24 H Blood Pressure Pulse Oximetry Oxygen Delivery Oxygen Flow Rate Fraction of Inspired Oxygen Intake/Output Intake/Output: Intake & Output 08/14/24 08/15/24 08/16/24 08/17/24 23:59 23:59 23:59 23:59 Intake Total 1014.7 2071 3228 1522 Output Total 7486 470 8172 700 Balance -215.3 1076 1928 822 Meds/Results Medications: Active Medications Generic Name Dose Route Start Last Admin Trade Name Freq PRN Reason Stop Dose Admin Acetaminophen 650 mg 08/12/24 12:40 Acetaminophen 650 Mg Suppository RECTAL Q6H PRN Mild Pain (1-3) or Fever Acetaminophen 325 mg 08/12/24 16:44 Acetaminophen Elixir 325 Mg/10.15 Ml Udc FEED TUBE Q6H PRN Fever Acetylcysteine 200 mg 08/12/24 20:00 08/17/24 07:42 Acetylcysteine 20% Inhal Soln 800 Mg/4 Ml Vial INHALATION 200 mg Q6HRT ALENA Administration Albuterol/Ipratropium 3 ml 08/12/24 20:00 08/17/24 07:41 Ipratropium 0.5 Mg/Albuterol Sulfate 2.5 Mg Ampul.Neb 3 Ml INHALATION 3 ml Q6HRT ALENA Administration Carbidopa/Levodopa 2 tablet 08/12/24 17:00 08/16/24 17:17 Carbidopa/Levodopa 25/100 Mg Tablet FEED TUBE 2 tablet TID ALENA Administration Dexamethasone Sodium Phosphate 6 mg 08/17/24 09:00 Dexamethasone Sod Phos Inj 10 Mg/Ml 1 Ml Vial IV PUSH 08/21/24 09:01 DAILY ALENA Heparin Sodium (Porcine) 5,000 units 08/12/24 14:00 08/17/24 04:52 Heparin Sodium 5,000 Units/Ml Vial SUB-Q 5,000 units Q8HR ALENA Administration Meropenem 1 gm in 100 mls @ 200 mls/hr 08/15/24 13:00 08/17/24 05:22 IVPB Infused Q8HR ALENA Infusion Magnesium Sulfate 2 gm in 50 mls @ 25 mls/hr 08/17/24 08:01 Magnesium Sulf 2 Gm/Water 50ml IVPB 08/17/24 10:00 ONCE ONE Calcium Gluconate 2,000 mg in 100 mls @ 100 mls/hr 08/17/24 08:01 Calcium Gluc 2,000 Mg/Ns 100ml IVPB 08/17/24 09:00 ONCE ONE Levetiracetam 100 mg 08/12/24 21:00 08/16/24 21:01 Levetiracetam Oral Moira 500 Mg/5 Ml Udc FEED TUBE 100 mg Q12H ALENA Administration Methimazole 10 mg 08/13/24 09:00 08/16/24 09:29 Methimazole 10 Mg Tab FEED TUBE 10 mg DAILY ALENA Administration Pantoprazole Sodium 40 mg 08/12/24 13:15 08/16/24 09:29 Pantoprazole Sodium Iv 40 Mg Vial IV PUSH 40 mg QAM ALENA Administration Sodium Chloride 10 ml 08/12/24 14:00 08/17/24 04:52 Central Line Flush IV PUSH 10 ml Q8HR ALENA Administration Sodium Chloride 20 ml 08/12/24 08:16 Central Line Flush IV PUSH PRN PRN after blood draws Radiology Results: ITS Impressions Abdomen/Pelvis CT 08/12/24 11:59 Impression: Dense consolidation and volume loss of the visualized left lower lobe. Findings are compatible with atelectasis versus possibly pneumonia. Consider dedicated contrast-enhanced chest CT to better evaluate for any possibility of central obstructing lesion or other pulmonary/mediastinal pathology. Probable cystitis despite Larsen catheter in place. 2.5 cm oval urinary bladder stone. No definite CT evidence of pyelonephritis, but noncontrast CT scan is insensitive for this diagnosis. Renal Ultrasound 08/12/24 15:05 IMPRESSION: No hydronephrosis. Head CT 08/12/24 19:13 IMPRESSION: No acute intracranial process. Chest CT 08/12/24 19:16 IMPRESSION: Complete left lung opacification with volume loss, likely representing atelectasis. Consider mucous plugging. Infection not excluded. No definite large obstructing mass is present, although this determination is difficult due to the lack of contrast and above-mentioned limitations. Chest X-Ray 08/17/24 06:31 Impression: Complete white out of the left hemithorax, likely combination of effusion, consolidation, and atelectasis based on prior radiographs. Left IJ line in place. Labs Labs: Laboratory Results - last 24 hr 08/12/24 08/17/24 15:50 04:58 WBC 12.6 H RBC 2.94 L Hgb 9.3 L Hct 28.0 L MCV 95.2 MCH 31.6 MCHC 33.2 RDW 15.0 H Plt Count 101 L MPV 12.0 H % Immature Plt Fraction 8.6 Sodium 147 H Potassium 3.3 L Chloride 113 H Carbon Dioxide 29 Anion Gap 5 BUN 35 H D Creatinine 0.40 L Estim Creat Clear Calc 89 Estimated GFR > 60 Glucose 121 H Calcium 7.7 L Magnesium 1.6 Total Bilirubin 0.7 AST 19 ALT 17 Alkaline Phosphatase 76 Total Protein 5.0 L Albumin 2.5 L Urine Pneumococcal Ag Not detected Quality VTE Prophylaxis VTE prophylaxis: mechanical ordered and pharmacologic ordered
[2024-08-17] MEDS: MAGNESIUM SULF 2 GM/WATER 50ML 2 GM/50 ML BAG IVPB (08:48)
[2024-08-17] MEDS: PANTOPRAZOLE SODIUM IV 40 MG VIAL IV PUSH (08:48)
[2024-08-17] MEDS: POTASSIUM BICARBONATE 25 MEQ TABEF 50 MEQ FEED TUBE (08:48)
[2024-08-17] MEDS: levETIRAcetam ORAL SOL 500 MG/5 ML UDC 100 MG FEED TUBE ×2 (08:48→21:22)
[2024-08-17] MEDS: methiMAzole 10 MG TAB FEED TUBE (08:49)
[2024-08-17] MEDS: CALCIUM GLUC 2,000 MG/NS 100ML 2,000 MG/100 ML BAG 100 MG IVPB (08:49)
[2024-08-17] MEDS: dexAMETHasone SOD PHOS INJ 10 MG/ML 1 ML VIAL 6 MG IV PUSH (08:49)
[2024-08-17] MEDS: CARBIDOPA/LEVODOPA 25/100 MG TABLET 2 TABLET FEED TUBE ×3 (08:49→16:29)
--- NOTE | 2024-08-17 10:19 | PCNFU ---
Nutrition Follow-Up Complete: Inadequate energy intake related to NPO, sepsis, covid as evidenced by current orders Meet estimated protein energy needs - meeting needs with tube feeding. This is home tube feeding rate, PEG Goal: Pt current nutrition is Jevity 1.5 @ 55 ml/h to provide 1815 kcal, 77 g protein, 919 ml free water. 250 ml flushes q 4 hours. 2419 ml total free water. Nutrition recommendation: Bon BID added to flushes for wound healing Last recorded weight is 61.7 kg. Bowel Motility: Liquid stool output per [facility] Labs Reviewed: Hgb 9.3, Hct 28.0, alb 2.5, Na 147, K+ 3.3, BUN 35, Cre 0.4, Glu 121 Meds Noted: No sedation. Keppra, herpatin, doxycycline Skin: Stage 3 coccyx Additional Notes: Tolerating tube feeding. Remains on Airvo. Not sedated. Nonverbal , contracted at baseline. Monitoring diet orders, plan of care, meds, weights, labs, stool pattern. Daily in rounds, follow up Tuesdays and Fridays
--- NOTE | 2024-08-17 14:43 | P.PNCROSS_ITS ---
Event Note Event Note Event Note: Patient came to visit patient. He was with his caregiver. I spoke to both of them and updated them with patient's status including respiratory failure, recurrent atelectasis, pneumonia, bacteremia, UTI along with his baseline nonverbal state. I also explained them her hospital course and current treatment plan. I answered all their questions. They wanted to visit the patient considering her poor prognosis and the fact that she may not survive. He also needed to seizure to get a closure before making any further decisions regarding goals of care. I explained to both than the patient is positive for COVID infection and they both have risk of catching infection if they go to the room even with a PPE and infection could be life threatening to hurt them. The caregiver told me that she and patient's are both vaccinated against COVID-19. Explained them that despite vaccination and PPE there is still risk of catching COVID infection by going into the room as patient is currently in isolation. And the infection, if severe, could be life-threatening. They both verbalized understanding of accepting the risk and agreed to proceed to visit patient. [facility] does not allow visits to patients with COVID infection but in this sce viniciusmer as patient's family is considering hospice and comfort measures and may not survive the hospitalization it was allowed under compassionate grounds.
[2024-08-18] VITALS (26 sets, daily range): BP systolic 96–132; BP diastolic 59–85; PULSE 65–92; RESP 19–33; TEMP 36.9–37.4; O2SAT 91–99
[2024-08-18] MEDS: ACETYLCYSTEINE 20% INHAL SOLN 800 MG/4 ML VIAL 200 MG INHALATION ×4 (03:10→19:33)
[2024-08-18] MEDS: IPRATROPIUM 0.5 MG/ALBUTEROL SULFATE 2.5 MG AMPUL.NEB 3 ML INHALATION ×4 (03:10→19:34)
[2024-08-18] MEDS: CENTRAL LINE FLUSH 10 ML IV PUSH ×3 (05:13→21:01)
[2024-08-18] MEDS: MEROPENEM 1 GM/NS 100 ML 1 GM/100 ML BAG IVPB ×3 (05:13→22:00)
[2024-08-18] MEDS: HEPARIN SODIUM 5,000 UNITS/ML VIAL 5000 UNITS SUB-Q ×3 (05:13→21:00)
[2024-08-18 06:32] LABS: Hematocrit 32.5 % (37.0-47.0); Hemoglobin 10.8 g/dL (12.0-15.0); Mean Corpuscular HGB Conc 33.2 g/dl (32-36); Mean Corpuscular Volume 96.4 fl (80-100); Platelet Count Result 108 k/mm3 (150-375); Red Blood Count 3.37 M/mm3 (4.2-5.4); Red Cell Distribution Width 14.9 % (11.5-14.5); White Blood Count 15.8 K/mm3 (4.5-10.0)
[2024-08-18 06:50] LABS: Alanine Aminotransferase 21 U/L (6-35); Albumin Level 2.6 g/dL (3.5-5.1); Alkaline Phosphatase 81 U/L (38-126); Anion Gap 3 mmol/L (4-12); Aspartate Amino Transferase 29 U/L (14-36); Bilirubin,Total 0.9 mg/dL (0.2-1.3); Blood Urea Nitrogen 30 mg/dL (7-17); Calcium 7.7 mg/dL (8.4-10.2); Carbon Dioxide 32 mmol/L (22-30); Chloride 109 mmol/L (98-107); Estimated CRCL calculation 113 ml/min; Estimated Glomerular Filt Rate > 60; Glucose 87 mg/dL (65-110); Potassium 3.8 mmol/L (3.4-5.0); Sodium 144 mmol/L (137-145)
--- NOTE | 2024-08-18 07:36 | P.PNINT_ITS ---
Progress Note: A&P Assessment and Plan (1) Severe sepsis with septic shock: Code(s): A41.9 - Sepsis, unspecified organism; R65.21 - Severe sepsis with septic shock Status: Acute Assessment and Plan: 08/12: Patient presented from the intermediate with hypoxia, fever Septic shock secondary to UTI and pneumonia -she was hypotensive in the ER despite receiving 30 mL/kg IV fluids, left IJ central line was inserted, -off off all vasopressors -off of further IV fluids -continue stress dose steroid -08/12: Blood cultures growing E coli, Klebsiella pneumoniae, Staphylococcus capitis and Proteus mirabilis. All sensitive to meropenem. Which will be can -08/12: Urine cultures negative till now -08/12: C diff toxin is negative -patient has been started on vancomycin and levofloxacin (08/12) and was switched to switched to meropenem and doxycycline -DC doxycycline continue meropenem - 08/15: Repeat blood culture sent and negative till now 08/12/2024: CT chest Complete left lung opacification with volume loss, likely representing atelectasis. Consider mucous plugging. Infection not excluded. No definite large obstructing mass is present, although this determination is difficult due to the lack of contrast and above-mentioned limitations CT abdomen pelvis Dense consolidation and volume loss of the visualized left lower lobe. Findings are compatible with atelectasis versus possibly pneumonia. Consider dedicated contrast-enhanced chest CT to better evaluate for any possibility of central obstructing lesion or other pulmonary/mediastinal pathology. Probable cystitis despite Larsen catheter in place. 2.5 cm oval urinary bladder stone. No definite CT evidence of pyelonephritis, but noncontrast CT scan is insensitive for this diagnosis (2) Acute respiratory failure: Code(s): J96.00 - Acute respiratory failure, unspecified whether with hypoxia or hypercapnia Status: Acute Assessment and Plan: Acute respiratory failure secondary to pneumonia, atelectasis and COVID infection. Although imaging is more suggestive of bacterial pneumonia and mucus plugging rather than COVID pneumonia. Patient initially placed on BiPAP but BiPAP had to be removed as patient was deemed not a candidate for BiPAP 08/12 CT chest Complete left lung opacification with volume loss, likely representing atelectasis. Consider mucous plugging. Infection not excluded. No definite large obstructing mass is present, although this determination is difficult due to the lack of contrast and above-mentioned limitations Chest x-ray08/14 Impression: Right upper lobe collapse. Central obstructing mass is not excluded. Extensive left perihilar and left lower lobe consolidation, suspicious for pneumonia. Possible small pleural effusion. Support line, as above. CXR 08/15 reviewed and shows persistent right upper lobe collapse I spoke to Dr. Jaffe with Pulmonary regarding option of bronchoscopy and he feels the patient may need intubation for bronchoscopy. 08/16 -chest x-ray reviewed and shows improvement in atelectasis on the right upper lobe. Although in consolidation of left lower lobe persists. 08/17 -chest x-ray reviewed and shows recurrence of atelectasis in the left side. Patient is weak and debilitated she does have cough reflex but it is very weak and she is not able to cough secretions out. I have requested nursing staff to NT suction her frequently. I will continue chest physical therapy. Intubating at this point considering patient is maintaining a saturation and not in respiratory distress would not fix the long-term issue of her inability to clear secretions and once intubated she may not come off of ventilator since she does not follow commands or does not respond to the examiner. At this point considering the clinical situation I will continue with noninvasive and conservative measures with aggressive chest physical therapy, bronchodilators, frequent suctioning and Mucomyst 08/18 -chest x-ray shows persistent atelectasis of the left side. Continue CPT, add schedule NT suctioning, bronchodilators, Mucomyst. I will discuss with patient's son regarding further plan of action. (3) UTI (urinary tract infection): Qualifiers: Urinary tract infection type: catheter-associated UTI Indwelling urinary catheter type: indwelling urethral catheter Encounter type: initial encounter Qualified Code(s): T83.511A - Infection and inflammatory reaction due to indwelling urethral catheter, initial encounter; N39.0 - Urinary tract infection, site not specified Code(s): N39.0 - Urinary tract infection, site not specified Status: Acute Assessment and Plan: UA reflective of UTI. According the son patient has had multiple UTIs in the past Large stone and bladder CT findings suggestive of cystitis Cultures as above Continue antibiotics as above (4) Pneumonia: Qualifiers: Pneumonia type: due to unspecified organism Laterality: left Lung location: lower lobe of lung Qualified Code(s): J18.9 - Pneumonia, unspecified organism Code(s): J18.9 - Pneumonia, unspecified organism Status: Acute Assessment and Plan: Patient was initially on BiPAP, patient is contracted and unable to probably pull the mask off if she has emesis, BiPAP likely contraindicated in such patients -placed patient on high-flow therapy, will wean FiO2 to maintain O2 sats greater than 92% (5) Acute kidney injury: Code(s): N17.9 - Acute kidney failure, unspecified Status: Acute Assessment and Plan: Patient presented with septic shock, acute kidney injury with a creatinine of 2.90 on admission, baseline unknown -adequately fluid-resuscitated in the ER -creatinine has normalized -off vasopressors -CK levels are slightly elevated, patient received adequate amount of IV fluids -continue to monitor urine output, electrolytes and renal function (6) Diarrhea: Qualifiers: Diarrhea type: presumed infectious Qualified Code(s): R19.7 - Diarrhea, unspecified Code(s): R19.7 - Diarrhea, unspecified Status: Acute Assessment and Plan: Patient has had severe diarrhea -C diff toxin is negative, -stool cultures are negative -diarrhea improved (7) COVID-19: Code(s): U07.1 - COVID-19 Status: Acute Assessment and Plan: Patient was tested positive for SARS-CoV-2 although the imaging does not appear suggestive of COVID pneumonia She currently on hydrocortisone and Remdesivir 08/17 Switch hydrocortisone to dexamethasone CRP is 37, status post Tocilizumab on 08/12 (8) Electrolyte abnormality: Code(s): E87.8 - Other disorders of electrolyte and fluid balance, not elsewhere classified Status: Acute Assessment and Plan: Continue current free water flush Plan DVT prophylaxis: Heparin SQ Stress ulcer prophylaxis: Protonix Nutrition: continue tube feeds Code Status: No CPR 08/12: Dr. Dwyer discussed with patient's son David who is the POA, he stated that the patient has had a brain surgery after she had a fall in the past and at the same time was diagnosed with Parkinson's. She has been nonverbal for the last 2 years and then developed contraction and footdrop. I also explained to him regarding her severe septic shock, likely secondary to pneumonia, UTI. He did state that she has had multiple UTIs over the last 2 years. He is aware that she is on 2 blood pressure support medications, antibiotics. He also discussed with David the POA regarding code status, he wants patient is a full code, he is going to discuss with his family though 08/15 I spoke to patient's son David again today and updated him with patient's status including continued respiratory failure requiring significant amount of oxygen, pneumonia, atelectasis, UTI, bacteremia and current plan of care. I again revisited the topical goals of care and code status as to whether patient would want intubation at this point. Patient is 73-year-old nonverbal bedbound in intermediate with chronic indwelling Larsen catheter and feeding through PEG tube for last 2 years. He told me that he has not had time to discuss with his other brothers. I emphasized the importance of this discussion. I discussed options of DNR DNI. I offered to speak to other children if they were interested off or had any questions. 08/16 I spoke to patient's son David again today by phone. He told me that he had discussion with his brothers and father and they all believe the patient would not want resuscitation at this time considering her medical problems and current quality of life. He has requested the patient be made DNR with no resuscitation or CPR in the event of cardiac arrest however he would like patient to be intubated for respiratory issues so that the family can visit her 1 last time. He states the patient's would like to visit her 1 time before she passes away. Due to her COVID isolation he is unable to come right now. He feels that once his father is able to see her they may not want intubation in the event of respiratory failure. 08/17 Patient came to visit patient. He was with his caregiver. I spoke to both of them and updated them with patient's status including respiratory failure, recurrent atelectasis, pneumonia, bacteremia, UTI along with his baseline nonverbal state. I also explained them her hospital course and current treatment plan. I answered all their questions. They wanted to visit the patient considering her poor prognosis and the fact that she may not survive. He also needed to seizure to get a closure before making any further decisions regarding goals of care. I explained to both than the patient is positive for COVID infection and they both have risk of catching infection if they go to the room even with a PPE and infection could be life threatening to hurt them. The caregiver told me that she and patient's are both vaccinated against COVID-19. Explained them that despite vaccination and PPE there is still risk of catching COVID infection by going into the room as patient is currently in isolation. And the infection, if severe, could be life-threatening. They both verbalized understanding of accepting the risk and agreed to proceed to visit patient. [facility] does not allow visits to patients with COVID infection but in this scenario as patient's family is considering hospice and comfort measures and may not survive the hospitalization it was allowed under compassionate grounds. Critical Care Time Spent: 32 minutes Due to a high probability of clinically significant, life threatening deterioration, the patient required my highest level of preparedness to intervene emergently and I personally spent this critical care time directly and personally managing the patient. This critical care time included obtaining a history; examining the patient; pulse oximetry; ordering and review of studies; arranging urgent treatment with development of a management plan; evaluation of patient's response to treatment; frequent reassessment; and discussions with other providers. It was exclusive of separately billable procedures and treating other patients and teaching time. Please see Assessment and Plan section and the rest of the note for further information on patient assessment and treatment This dictation may have been done utilizing a voice recognition system. Attempts have been made to correct errors. However, there may be uncorrected grammatical, spelling, and recognitions errors present. Subjective Date/time seen: 08/18/24 Overnight events reviewed. No major change overnight except increased oxygen requirement. Afebrile Continues to be on Airvo but now at 60 L and 70% Not on any in use infusions No change in neurological status. Patient awake but unresponsive to commands and does not communicate. Tolerating tube feeds Vitals acceptable Interval history: Reason for consult: Pneumonia, septic shock, acute kidney injury, chronic indwelling Larsen catheter, chronic pressure ulcers, COVID positive Review of Systems Review of Systems: ROS unobtainable: Yes unobtainable due to endotracheal tube, unobtainable due to medical condition and unobtainable due to mental status Exam Narrative: General: Ill-appearing female currently in no acute distress HEENT:? Pupils equal and reactive, sclerae is clear Neck:? Supple, left IJ central line in place Respiratory:? Coarse breath sounds bilaterally, decreased on left side, no wheezing, t Cardiac:? Regular rate and rhythm Abdomen:? Soft, nontender, nondistended, tympanic, hyperactive bowel sounds Extremities:? Trace edema bilaterally, dopplerable pedal pulses bilaterally Neuro:? Patient is nonverbal at baseline, her eyes are open, does not follow commands or answers questions Skin:? Decubitus ulcer on the buttocks Psych:? Unable to assess Objective Data Vital Signs Vital Signs: Vital Signs - 24 hr 08/17/24 07:45 08/17/24 07:45 08/17/24 08:00 Temperature Pulse Rate 79 79 87 Respiratory Rate 24 H 24 H 24 H Blood Pressure Pulse Oximetry 91 Oxygen Delivery High Flow Therapy with Na Oxygen Flow Rate 40 Fraction of Inspired Oxygen 45 08/17/24 08:00 08/17/24 09:07 08/17/24 08:00 Temperature 37.3 C Pulse Rate 80 80 79 Respiratory Rate 20 20 Blood Pressure 128/72 Pulse Oximetry 91 91 Oxygen Delivery High Flow Therapy with Na Oxygen Flow Rate 40 Fraction of Inspired Oxygen 45 08/17/24 10:00 08/17/24 10:00 08/17/24 11:11 Temperature 37.2 C Pulse Rate 77 78 81 Respiratory Rate 22 H 22 H Blood Pressure 141/72 H Pulse Oximetry 90 90 Oxygen Delivery High Flow Therapy with Na Oxygen Flow Rate 40 Fraction of Inspired Oxygen 45 08/17/24 12:00 08/17/24 12:00 08/17/24 13:48 Temperature 37.2 C Pulse Rate 79 79 79 Respiratory Rate 24 H 20 Blood Pressure 108/64 Pulse Oximetry 92 91 Oxygen Delivery High Flow Therapy with Na Oxygen Flow Rate 40 Fraction of Inspired Oxygen 45 08/17/24 13:48 08/17/24 14:00 08/17/24 14:00 Temperature 37.1 C Pulse Rate 79 80 78 Respiratory Rate 20 20 Blood Pressure 107/91 H Pulse Oximetry 91 Oxygen Delivery Oxygen Flow Rate Fraction of Inspired Oxygen 08/17/24 14:09 08/17/24 15:44 08/17/24 16:00 Temperature 37.2 C Pulse Rate 81 94 76 Respiratory Rate 20 20 23 H Blood Pressure 119/68 Pulse Oximetry 92 91 Oxygen Delivery High Flow Therapy with Na Oxygen Flow Rate 40 Fraction of Inspired Oxygen 45 08/17/24 16:00 08/17/24 18:00 08/17/24 18:00 Temperature 37.3 C Pulse Rate 75 72 70 Respiratory Rate 20 Blood Pressure 111/61 Pulse Oximetry 92 Oxygen Delivery Oxygen Flow Rate Fraction of Inspired Oxygen 08/17/24 20:00 08/17/24 20:00 08/17/24 20:49 Temperature 37.3 C Pulse Rate 76 76 97 Respiratory Rate 24 H 24 H 20 Blood Pressure 137/76 Pulse Oximetry 92 92 Oxygen Delivery High Flow Therapy with Na Oxygen Flow Rate 40 Fraction of Inspired Oxygen 45 08/17/24 21:03 08/17/24 21:05 08/17/24 21:23 Temperature Pulse Rate 97 97 97 Respiratory Rate 20 20 20 Blood Pressure Pulse Oximetry 91 91 Oxygen Delivery High Flow Therapy with Na High Flow Therapy with Na Oxygen Flow Rate 40 40 Fraction of Inspired Oxygen 45 65 08/17/24 20:00 08/17/24 22:00 08/17/24 22:00 Temperature 37.4 C Pulse Rate 75 69 69 Respiratory Rate 23 H Blood Pressure 132/67 Pulse Oximetry 94 Oxygen Delivery Oxygen Flow Rate Fraction of Inspired Oxygen 08/17/24 23:57 08/18/24 00:00 08/18/24 00:00 Temperature 37.3 C Pulse Rate 69 69 68 Respiratory Rate 23 H 24 H Blood Pressure 123/81 Pulse Oximetry 94 94 Oxygen Delivery High Flow Therapy with Na Oxygen Flow Rate 40 Fraction of Inspired Oxygen 65 08/18/24 02:00 08/18/24 02:00 08/18/24 03:10 Temperature 37.4 C Pulse Rate 72 74 78 Respiratory Rate 21 H 20 Blood Pressure 127/69 Pulse Oximetry 91 Oxygen Delivery Oxygen Flow Rate Fraction of Inspired Oxygen 08/18/24 03:34 08/18/24 04:35 08/18/24 04:00 Temperature 37.3 C Pulse Rate 77 77 80 Respiratory Rate 20 25 H Blood Pressure 131/77 Pulse Oximetry 92 92 92 Oxygen Delivery High Flow Therapy with Tr High Flow Therapy with Tr Oxygen Flow Rate 40 40 Fraction of Inspired Oxygen 67 67 08/18/24 05:26 08/18/24 04:00 08/18/24 06:00 Temperature Pulse Rate 77 77 80 Respiratory Rate 20 Blood Pressure Pulse Oximetry 92 Oxygen Delivery High Flow Therapy with Tr Oxygen Flow Rate 60 Fraction of Inspired Oxygen 70 08/18/24 06:00 Temperature 37.2 C Pulse Rate 77 Respiratory Rate 24 H Blood Pressure 132/85 Pulse Oximetry 93 Oxygen Delivery Oxygen Flow Rate Fraction of Inspired Oxygen Intake/Output Intake/Output: Intake & Output 11/20/24 11/21/24 11/22/24 11/23/24 23:59 23:59 23:59 23:59 Intake Total 2071 6038 3007 1254 Output Total 995 1300 1625 775 Balance 1076 8493 1382 479 Meds/Results Medications: Active Medications Generic Name Dose Route Start Last Admin Trade Name Freq PRN Reason Stop Dose Admin Acetaminophen 650 mg 08/12/24 12:40 Acetaminophen 650 Mg Suppository RECTAL Q6H PRN Mild Pain (1-3) or Fever Acetaminophen 325 mg 08/12/24 16:44 Acetaminophen Elixir 325 Mg/10.15 Ml Udc FEED TUBE Q6H PRN Fever Acetylcysteine 200 mg 08/12/24 20:00 08/18/24 03:10 Acetylcysteine 20% Inhal Soln 800 Mg/4 Ml Vial INHALATION 200 mg Q6HRT ALENA Administration Albuterol/Ipratropium 3 ml 08/12/24 20:00 08/18/24 03:10 Ipratropium 0.5 Mg/Albuterol Sulfate 2.5 Mg Ampul.Neb 3 Ml INHALATION 3 ml Q6HRT ALENA Administration Carbidopa/Levodopa 2 tablet 08/12/24 17:00 08/17/24 16:29 Carbidopa/Levodopa 25/100 Mg Tablet FEED TUBE 2 tablet TID ALENA Administration Dexamethasone Sodium Phosphate 6 mg 08/17/24 09:00 08/17/24 08:49 Dexamethasone Sod Phos Inj 10 Mg/Ml 1 Ml Vial IV PUSH 08/21/24 09:01 6 mg DAILY ALENA Administration Heparin Sodium (Porcine) 5,000 units 08/12/24 14:00 08/18/24 05:13 Heparin Sodium 5,000 Units/Ml Vial SUB-Q 5,000 units Q8HR ALENA Administration Meropenem 1 gm in 100 mls @ 200 mls/hr 08/15/24 13:00 08/18/24 05:13 IVPB 08/22/24 23:59 200 mls/hr Q8HR ALENA Administration Levetiracetam 100 mg 08/12/24 21:00 08/17/24 21:22 Levetiracetam Oral Moira 500 Mg/5 Ml Udc FEED TUBE 100 mg Q12H ALENA Administration Methimazole 10 mg 08/13/24 09:00 08/17/24 08:49 Methimazole 10 Mg Tab FEED TUBE 10 mg DAILY ALENA Administration Pantoprazole Sodium 40 mg 08/12/24 13:15 08/17/24 08:48 Pantoprazole Sodium Iv 40 Mg Vial IV PUSH 40 mg QAM ALENA Administration Sodium Chloride 10 ml 08/12/24 14:00 08/18/24 05:13 Central Line Flush IV PUSH 10 ml Q8HR ALENA Administration Sodium Chloride 20 ml 08/12/24 08:16 Central Line Flush IV PUSH PRN PRN after blood draws Radiology Results: ITS Impressions Abdomen/Pelvis CT 08/12/24 11:59 Impression: Dense consolidation and volume loss of the visualized left lower lobe. Findings are compatible with atelectasis versus possibly pneumonia. Consider dedicated contrast-enhanced chest CT to better evaluate for any possibility of central obstructing lesion or other pulmonary/mediastinal pathology. Probable cystitis despite Larsen catheter in place. 2.5 cm oval urinary bladder stone. No definite CT evidence of pyelonephritis, but noncontrast CT scan is insensitive for this diagnosis. Renal Ultrasound 08/12/24 15:05 IMPRESSION: No hydronephrosis. Head CT 08/12/24 19:13 IMPRESSION: No acute intracranial process. Chest CT 08/12/24 19:16 IMPRESSION: Complete left lung opacification with volume loss, likely representing atelectasis. Consider mucous plugging. Infection not excluded. No definite large obstructing mass is present, although this determination is difficult due to the lack of contrast and above-mentioned limitations. Chest X-Ray 08/18/24 06:28 IMPRESSION: 1. Extensive consolidation throughout the left hemithorax with slight improvement in aeration at the left apex likely combination of pneumonia and atelectasis possibly also with pleural effusion.. Labs Labs: Laboratory Results - last 24 hr 08/18/24 06:27 WBC 15.8 H RBC 3.37 L Hgb 10.8 L Hct 32.5 L MCV 96.4 MCH 32.0 MCHC 33.2 RDW 14.9 H Plt Count 108 L MPV 12.0 H Sodium 144 Potassium 3.8 Chloride 109 H Carbon Dioxide 32 H Anion Gap 3 L BUN 30 H Creatinine 0.30 L Estim Creat Clear Calc 113 Estimated GFR > 60 Glucose 87 Calcium 7.7 L Magnesium 2.0 Total Bilirubin 0.9 AST 29 ALT 21 Alkaline Phosphatase 81 Total Protein 5.0 L Albumin 2.6 L Quality VTE Prophylaxis VTE prophylaxis: mechanical ordered and pharmacologic ordered
[2024-08-18] MEDS: PANTOPRAZOLE SODIUM IV 40 MG VIAL IV PUSH (09:08)
[2024-08-18] MEDS: dexAMETHasone SOD PHOS INJ 10 MG/ML 1 ML VIAL 6 MG IV PUSH (09:08)
[2024-08-18] MEDS: levETIRAcetam ORAL SOL 500 MG/5 ML UDC 100 MG FEED TUBE ×2 (09:08→20:55)
[2024-08-18] MEDS: CARBIDOPA/LEVODOPA 25/100 MG TABLET 2 TABLET FEED TUBE ×3 (09:08→17:21)
[2024-08-18] MEDS: methiMAzole 10 MG TAB FEED TUBE (09:09)
--- NOTE | 2024-08-18 12:22 | WPDGICN ---
Assessment and Plan Assessment and plan (1) PEG tube malfunction: Code(s): K94.23 - Gastrostomy malfunction Status: Acute Assessment and Plan: Pre existent PEG tube clogged, easily pulled out of the patient. Replacement 16 F placed, balloon inflated and dressings placed. GI Consult Note Consult date/time: 08/18/24 12:22 Reason for consult: PEG malfunction HPI: Ivon Andersen is a 73 year old female who is currently intubated in the ICU for multiple acute and chronic exacerbated conditions. She is dependent on PEG feedings and the nurse called because her tube is clogged and could not be flushed despite multiple attempts. The reason the the consultation : PEG replacement. Review of Systems Review of Systems: All systems reviewed & are unremarkable except as noted in HPI and below PMFSH Past Medical History Medical History (Updated 08/18/24 @ 12:24 by Santiago Graham MD) Chronic indwelling Larsen catheter History of supraventricular tachycardia Hypertension Nonverbal Parkinson disease Sepsis Thyroid disorder Listed as hypothyroidism in [place] paperwork, however is on methimazole Surgical History Surgical History (Updated 08/12/24 @ 16:37 by Karey Manriquez APRN) History of brain surgery S/P percutaneous endoscopic gastrostomy (PEG) tube placement Social History Social History Smoking status: Unknown if ever smoked Spiritual care concerns: No Meds Home Medications and Allergies Home Medications Medication Instructions Recorded Confirmed Type acetaminophen 160 mg/5 mL oral 320 mg feeding tube Q6H PRN Fever 08/12/24 08/12/24 History elixir atorvastatin 40 mg tablet 40 mg feeding tube HS 08/12/24 08/12/24 History carbidopa 25 mg-levodopa 100 mg 2 tablet feeding tube TID 08/12/24 08/12/24 History tablet clopidogrel 75 mg tablet 75 mg feeding tube DAILY 08/12/24 08/12/24 History famotidine 20 mg tablet 20 mg feeding tube BID 08/12/24 08/12/24 History levetiracetam 100 mg/mL oral 100 mg feeding tube Q12H 08/12/24 08/12/24 History solution methimazole 10 mg tablet 10 mg feeding tube DAILY 08/12/24 08/12/24 History metoprolol tartrate 25 mg tablet 25 mg feeding tube Q12H 08/12/24 08/12/24 History multivitamin [id number] 1 tablet PO DAILY 08/12/24 08/12/24 History fumarate 18 mg-vitamin K 25 mcg tablet sertraline 50 mg tablet 50 mg feeding tube DAILY 08/12/24 08/12/24 History Allergies Allergy/AdvReac Type Severity Reaction Status Date / Time cephalexin Allergy Unknown Verified 08/12/24 08:33 Sulfa (Sulfonamide Allergy Unknown Verified 08/12/24 08:33 Antibiotics) Vital Signs Vital Signs - 24 hr 08/17/24 13:48 08/17/24 13:48 08/17/24 14:00 Temperature Pulse Rate 79 79 80 Respiratory Rate 20 20 Blood Pressure Pulse Oximetry 91 Oxygen Delivery High Flow Therapy with Na Oxygen Flow Rate 40 Fraction of Inspired Oxygen 45 08/17/24 14:00 08/17/24 14:09 08/17/24 15:44 Temperature 98.8 F Pulse Rate 78 81 94 Respiratory Rate 20 20 20 Blood Pressure 107/91 H Pulse Oximetry 91 92 Oxygen Delivery High Flow Therapy with Na Oxygen Flow Rate 40 Fraction of Inspired Oxygen 45 08/17/24 16:00 08/17/24 16:00 08/17/24 18:00 Temperature 98.9 F Pulse Rate 76 75 72 Respiratory Rate 23 H Blood Pressure 119/68 Pulse Oximetry 91 Oxygen Delivery Oxygen Flow Rate Fraction of Inspired Oxygen 08/17/24 18:00 08/17/24 20:00 08/17/24 20:00 Temperature 99.1 F 99.1 F Pulse Rate 70 76 76 Respiratory Rate 20 24 H 24 H Blood Pressure 111/61 137/76 Pulse Oximetry 92 92 92 Oxygen Delivery High Flow Therapy with Na Oxygen Flow Rate 40 Fraction of Inspired Oxygen 45 08/17/24 20:49 08/17/24 21:03 08/17/24 21:05 Temperature Pulse Rate 97 97 97 Respiratory Rate 20 20 20 Blood Pressure Pulse Oximetry 91 Oxygen Delivery High Flow Therapy with Na Oxygen Flow Rate 40 Fraction of Inspired Oxygen 45 08/17/24 21:23 08/17/24 20:00 08/17/24 22:00 Temperature Pulse Rate 97 75 69 Respiratory Rate 20 Blood Pressure Pulse Oximetry 91 Oxygen Delivery High Flow Therapy with Na Oxygen Flow Rate 40 Fraction of Inspired Oxygen 65 08/17/24 22:00 08/17/24 23:57 08/18/24 00:00 Temperature 99.3 F 99.2 F Pulse Rate 69 69 69 Respiratory Rate 23 H 23 H 24 H Blood Pressure 132/67 123/81 Pulse Oximetry 94 94 94 Oxygen Delivery High Flow Therapy with Na Oxygen Flow Rate 40 Fraction of Inspired Oxygen 65 08/18/24 00:00 08/18/24 02:00 08/18/24 02:00 Temperature 99.3 F Pulse Rate 68 72 74 Respiratory Rate 21 H Blood Pressure 127/69 Pulse Oximetry 91 Oxygen Delivery Oxygen Flow Rate Fraction of Inspired Oxygen 08/18/24 03:10 08/18/24 03:34 08/18/24 04:35 Temperature Pulse Rate 78 77 77 Respiratory Rate 20 20 Blood Pressure Pulse Oximetry 92 92 Oxygen Delivery High Flow Therapy with Tr High Flow Therapy with Tr Oxygen Flow Rate 40 40 Fraction of Inspired Oxygen 67 67 08/18/24 04:00 08/18/24 05:26 08/18/24 04:00 Temperature 99.2 F Pulse Rate 80 77 77 Respiratory Rate 25 H 20 Blood Pressure 131/77 Pulse Oximetry 92 92 Oxygen Delivery High Flow Therapy with Tr Oxygen Flow Rate 60 Fraction of Inspired Oxygen 70 08/18/24 06:00 08/18/24 06:00 08/18/24 07:43 Temperature 98.9 F Pulse Rate 80 77 Respiratory Rate 24 H Blood Pressure 132/85 Pulse Oximetry 93 95 Oxygen Delivery High Flow Therapy with Na Oxygen Flow Rate 60 Fraction of Inspired Oxygen 75 08/18/24 07:43 08/18/24 07:52 08/18/24 08:00 Temperature 99.1 F Pulse Rate 83 78 78 Respiratory Rate 21 H 20 23 H Blood Pressure 121/77 Pulse Oximetry 95 Oxygen Delivery Oxygen Flow Rate Fraction of Inspired Oxygen 08/18/24 10:00 08/18/24 10:57 Temperature 98.9 F Pulse Rate 75 Respiratory Rate 23 H Blood Pressure 101/62 Pulse Oximetry 97 98 Oxygen Delivery High Flow Therapy with Na Oxygen Flow Rate 60 Fraction of Inspired Oxygen 75 Exam Narrative: General: Ill-appearing female currently in no acute distress HEENT:? Pupils equal and reactive, sclerae is clear Neck:? Supple, left IJ central line in place Respiratory:? Coarse breath sounds bilaterally, decreased on left side, no wheezing, t Cardiac:? Regular rate and rhythm Abdomen:? Soft, nontender, nondistended, tympanic, hyperactive bowel sounds Extremities:? Trace edema bilaterally, dopplerable pedal pulses bilaterally Neuro:? Patient is nonverbal at baseline, her eyes are open, does not follow commands or answers questions Skin:? Decubitus ulcer on the buttocks Psych:? Unable to assess Results Labs 08/18/24 06:27 08/18/24 06:27 Labs: Short CBC 08/18/24 Range/Units 06:27 WBC 15.8 H (4.5-10.0) K/mm3 Hgb 10.8 L (12.0-15.0) g/dL Hct 32.5 L (37.0-47.0) % Plt Count 108 L (150-375) k/mm3 BMP 08/18/24 06:27 Sodium 144 Potassium 3.8 Chloride 109 H Carbon Dioxide 32 H BUN 30 H Creatinine 0.30 L Glucose 87 Calcium 7.7 L Liver Function 08/18/24 Range/Units 06:27 Total Bilirubin 0.9 (0.2-1.3) mg/dL AST 29 (14-36) U/L ALT 21 (6-35) U/L Alkaline Phosphatase 81 (38-126) U/L Albumin 2.6 L (3.5-5.1) g/dL
[2024-08-18 14:48] LABS: Glucose Point of Care 108 mg/dl (65-105)
--- NOTE | 2024-08-18 15:03 | PM.IMPN ---
Progress Note: A&P Assessment and Plan (1) Severe sepsis with septic shock: Code(s): A41.9 - Sepsis, unspecified organism; R65.21 - Severe sepsis with septic shock Status: Acute Assessment and Plan: 08/12: Patient presented from the senior living with hypoxia, fever Septic shock secondary to UTI and pneumonia -she was hypotensive in the ER despite receiving 30 mL/kg IV fluids, left IJ central line was inserted, -off off all vasopressors -off of further IV fluids -continue stress dose steroid -08/12: Blood cultures growing E coli, Klebsiella pneumoniae, Staphylococcus capitis and Proteus mirabilis. All sensitive to meropenem. Which will be can -08/12: Urine cultures negative till now -08/12: C diff toxin is negative -patient has been started on vancomycin and levofloxacin (08/12) and was switched to switched to meropenem and doxycycline -DC doxycycline continue meropenem - 08/15: Repeat blood culture sent and negative till now 08/12/2024: CT chest Complete left lung opacification with volume loss, likely representing atelectasis. Consider mucous plugging. Infection not excluded. No definite large obstructing mass is present, although this determination is difficult due to the lack of contrast and above-mentioned limitations CT abdomen pelvis Dense consolidation and volume loss of the visualized left lower lobe. Findings are compatible with atelectasis versus possibly pneumonia. Consider dedicated contrast-enhanced chest CT to better evaluate for any possibility of central obstructing lesion or other pulmonary/mediastinal pathology. Probable cystitis despite Larsen catheter in place. 2.5 cm oval urinary bladder stone. No definite CT evidence of pyelonephritis, but noncontrast CT scan is insensitive for this diagnosis (2) Acute respiratory failure: Code(s): J96.00 - Acute respiratory failure, unspecified whether with hypoxia or hypercapnia Status: Acute Assessment and Plan: Acute respiratory failure secondary to pneumonia, atelectasis and COVID infection. Although imaging is more suggestive of bacterial pneumonia and mucus plugging rather than COVID pneumonia. Patient initially placed on BiPAP but BiPAP had to be removed as patient was deemed not a candidate for BiPAP 08/12 CT chest Complete left lung opacification with volume loss, likely representing atelectasis. Consider mucous plugging. Infection not excluded. No definite large obstructing mass is present, although this determination is difficult due to the lack of contrast and above-mentioned limitations Chest x-ray08/14 Impression: Right upper lobe collapse. Central obstructing mass is not excluded. Extensive left perihilar and left lower lobe consolidation, suspicious for pneumonia. Possible small pleural effusion. Support line, as above. CXR 08/15 reviewed and shows persistent right upper lobe collapse I spoke to Dr. Jaffe with Pulmonary regarding option of bronchoscopy and he feels the patient may need intubation for bronchoscopy. 08/16 -chest x-ray reviewed and shows improvement in atelectasis on the right upper lobe. Although in consolidation of left lower lobe persists. 08/17 -chest x-ray reviewed and shows recurrence of atelectasis in the left side. Patient is weak and debilitated she does have cough reflex but it is very weak and she is not able to cough secretions out. I have requested nursing staff to NT suction her frequently. I will continue chest physical therapy. Intubating at this point considering patient is maintaining a saturation and not in respiratory distress would not fix the long-term issue of her inability to clear secretions and once intubated she may not come off of ventilator since she does not follow commands or does not respond to the examiner. At this point considering the clinical situation I will continue with noninvasive and conservative measures with aggressive chest physical therapy, bronchodilators, frequent suctioning and Mucomyst 08/18 -chest x-ray shows persistent atelectasis of the left side. Continue CPT, add schedule NT suctioning, bronchodilators, Mucomyst. I will discuss with patient's son regarding further plan of action. (3) UTI (urinary tract infection): Qualifiers: Encounter type: initial encounter Indwelling urinary catheter type: indwelling urethral catheter Urinary tract infection type: catheter-associated UTI Qualified Code(s): T83.511A - Infection and inflammatory reaction due to indwelling urethral catheter, initial encounter; N39.0 - Urinary tract infection, site not specified Code(s): N39.0 - Urinary tract infection, site not specified Status: Acute Assessment and Plan: UA reflective of UTI. According the son patient has had multiple UTIs in the past Large stone and bladder CT findings suggestive of cystitis Cultures as above Continue antibiotics as above (4) Pneumonia: Qualifiers: Laterality: left Lung location: lower lobe of lung Pneumonia type: due to unspecified organism Qualified Code(s): J18.9 - Pneumonia, unspecified organism Code(s): J18.9 - Pneumonia, unspecified organism Status: Acute Assessment and Plan: Patient was initially on BiPAP, patient is contracted and unable to probably pull the mask off if she has emesis, BiPAP likely contraindicated in such patients -placed patient on high-flow therapy, will wean FiO2 to maintain O2 sats greater than 92% (5) Acute kidney injury: Code(s): N17.9 - Acute kidney failure, unspecified Status: Acute Assessment and Plan: Patient presented with septic shock, acute kidney injury with a creatinine of 2.90 on admission, baseline unknown -adequately fluid-resuscitated in the ER -creatinine has normalized -off vasopressors -CK levels are slightly elevated, patient received adequate amount of IV fluids -continue to monitor urine output, electrolytes and renal function (6) Diarrhea: Qualifiers: Diarrhea type: presumed infectious Qualified Code(s): R19.7 - Diarrhea, unspecified Code(s): R19.7 - Diarrhea, unspecified Status: Acute Assessment and Plan: Patient has had severe diarrhea -C diff toxin is negative, -stool cultures are negative -diarrhea improved (7) COVID-19: Code(s): U07.1 - COVID-19 Status: Acute Assessment and Plan: Patient was tested positive for SARS-CoV-2 although the imaging does not appear suggestive of COVID pneumonia She currently on hydrocortisone and Remdesivir 08/17 Switch hydrocortisone to dexamethasone CRP is 37, status post Tocilizumab on 08/12 (8) Electrolyte abnormality: Code(s): E87.8 - Other disorders of electrolyte and fluid balance, not elsewhere classified Status: Acute Assessment and Plan: Continue current free water flush Subjective Date/time seen: 08/18/24 15:03 Interval history: Today her G-tube has been replaced by clinical data abstractor. Patient has poor prognosis. Exam Narrative: General: Ill-appearing female currently in no acute distress HEENT:? Pupils equal and reactive, sclerae is clear Neck:? Supple, left IJ central line in place Respiratory:? Coarse breath sounds bilaterally, decreased on left side, no wheezing, t Cardiac:? Regular rate and rhythm Abdomen:? Soft, nontender, nondistended, tympanic, hyperactive bowel sounds Extremities:? Trace edema bilaterally, dopplerable pedal pulses bilaterally Neuro:? Patient is nonverbal at baseline, her eyes are open, does not follow commands or answers questions Skin:? Decubitus ulcer on the buttocks Psych:? Unable to assess Const: General: comfortable and no acute distress Other: , female, elderly, ill-appearing HENMT: Face/Nose/Sinus: Normal nares present Mouth: Yes dry mucous membranes Other: High-flow nasal cannula in place Eyes: General: appearance normal, both eyes and all related structures Sclera: sclerae normal Pupils: Equal, round and reactive pupils present EOM: EOMs intact bilaterally Resp: Effort & Inspection: normal respiratory effort Other: Diminished breath sounds on left, no adventitious lung sounds on right Cardio: Rate: tachycardic (110-115) Rhythm: regular rhythm Other: S1-S2 present without murmur, rub, ectopy GI: Other: Abdomen soft, nondistended. No particular expression or grimace with palpation. Bowel sounds are distant and hypoactive in all quadrants. Urinary Catheter: Urinary Catheter: patent and draining Skin: General skin exam: normal color and no rashes or lesions noted Other: Decubitus ulcer to buttocks Neuro: Cranial nerves: Yes Equal, round and reactive pupils present Other: Nonverbal. Brief eye opening to noxious stimuli. Contracture to right hand. Does not follow commands or answer questions. Extrem: General: normal to inspection Psych: Other: Poor insight and judgment. Flat affect. Objective Data Vital Signs Vital Signs: Vital Signs - 24 hr 08/17/24 15:44 08/17/24 16:00 08/17/24 16:00 Temperature 98.9 F Pulse Rate 94 76 75 Respiratory Rate 20 23 H Blood Pressure 119/68 Pulse Oximetry 92 91 Oxygen Delivery High Flow Therapy with Na Oxygen Flow Rate 40 Fraction of Inspired Oxygen 45 08/17/24 18:00 08/17/24 18:00 08/17/24 20:00 Temperature 99.1 F 99.1 F Pulse Rate 72 70 76 Respiratory Rate 20 24 H Blood Pressure 111/61 137/76 Pulse Oximetry 92 92 Oxygen Delivery Oxygen Flow Rate Fraction of Inspired Oxygen 08/17/24 20:00 08/17/24 20:49 08/17/24 21:03 Temperature Pulse Rate 76 97 97 Respiratory Rate 24 H 20 20 Blood Pressure Pulse Oximetry 92 91 Oxygen Delivery High Flow Therapy with Na High Flow Therapy with Na Oxygen Flow Rate 40 40 Fraction of Inspired Oxygen 45 45 08/17/24 21:05 08/17/24 21:23 08/17/24 20:00 Temperature Pulse Rate 97 97 75 Respiratory Rate 20 20 Blood Pressure Pulse Oximetry 91 Oxygen Delivery High Flow Therapy with Na Oxygen Flow Rate 40 Fraction of Inspired Oxygen 65 08/17/24 22:00 08/17/24 22:00 08/17/24 23:57 Temperature 99.3 F Pulse Rate 69 69 69 Respiratory Rate 23 H 23 H Blood Pressure 132/67 Pulse Oximetry 94 94 Oxygen Delivery High Flow Therapy with Na Oxygen Flow Rate 40 Fraction of Inspired Oxygen 65 08/18/24 00:00 08/18/24 00:00 08/18/24 02:00 Temperature 99.2 F Pulse Rate 69 68 72 Respiratory Rate 24 H Blood Pressure 123/81 Pulse Oximetry 94 Oxygen Delivery Oxygen Flow Rate Fraction of Inspired Oxygen 08/18/24 02:00 08/18/24 03:10 08/18/24 03:34 Temperature 99.3 F Pulse Rate 74 78 77 Respiratory Rate 21 H 20 Blood Pressure 127/69 Pulse Oximetry 91 92 Oxygen Delivery High Flow Therapy with Tr Oxygen Flow Rate 40 Fraction of Inspired Oxygen 67 08/18/24 04:35 08/18/24 04:00 08/18/24 05:26 Temperature 99.2 F Pulse Rate 77 80 77 Respiratory Rate 20 25 H 20 Blood Pressure 131/77 Pulse Oximetry 92 92 92 Oxygen Delivery High Flow Therapy with Tr High Flow Therapy with Tr Oxygen Flow Rate 40 60 Fraction of Inspired Oxygen 67 70 08/18/24 04:00 08/18/24 06:00 08/18/24 06:00 Temperature 98.9 F Pulse Rate 77 80 77 Respiratory Rate 24 H Blood Pressure 132/85 Pulse Oximetry 93 Oxygen Delivery Oxygen Flow Rate Fraction of Inspired Oxygen 08/18/24 07:43 08/18/24 07:43 08/18/24 07:52 Temperature Pulse Rate 83 78 Respiratory Rate 21 H 20 Blood Pressure Pulse Oximetry 95 Oxygen Delivery High Flow Therapy with Na Oxygen Flow Rate 60 Fraction of Inspired Oxygen 75 08/18/24 08:00 08/18/24 10:00 08/18/24 10:57 Temperature 99.1 F 98.9 F Pulse Rate 78 75 Respiratory Rate 23 H 23 H Blood Pressure 121/77 101/62 Pulse Oximetry 95 97 98 Oxygen Delivery High Flow Therapy with Na Oxygen Flow Rate 60 Fraction of Inspired Oxygen 75 08/18/24 12:00 08/18/24 13:28 08/18/24 13:28 Temperature 98.8 F Pulse Rate 79 65 Respiratory Rate 22 H 24 H Blood Pressure 111/83 Pulse Oximetry 98 96 Oxygen Delivery High Flow Therapy with Na Oxygen Flow Rate 60 Fraction of Inspired Oxygen 75 08/18/24 13:38 08/18/24 14:00 Temperature 98.6 F Pulse Rate 80 76 Respiratory Rate 24 H 19 Blood Pressure 98/63 L Pulse Oximetry 99 Oxygen Delivery Oxygen Flow Rate Fraction of Inspired Oxygen Intake/Output Intake/Output: Intake & Output 08/15/24 08/16/24 08/17/24 08/18/24 23:59 23:59 23:59 23:59 Intake Total 2071 3228 3007 1254 Output Total 995 1300 1625 775 Balance 1076 1928 1382 479 Meds/Results Medications: Active Medications Generic Name Dose Route Start Last Admin Trade Name Freq PRN Reason Stop Dose Admin Acetaminophen 650 mg 08/12/24 12:40 Acetaminophen 650 Mg Suppository RECTAL Q6H PRN Mild Pain (1-3) or Fever Acetaminophen 325 mg 08/12/24 16:44 Acetaminophen Elixir 325 Mg/10.15 Ml Udc FEED TUBE Q6H PRN Fever Acetylcysteine 200 mg 08/12/24 20:00 08/18/24 13:26 Acetylcysteine 20% Inhal Soln 800 Mg/4 Ml Vial INHALATION 200 mg Q6HRT ALENA Administration Albuterol/Ipratropium 3 ml 08/12/24 20:00 08/18/24 13:26 Ipratropium 0.5 Mg/Albuterol Sulfate 2.5 Mg Ampul.Neb 3 Ml INHALATION 3 ml Q6HRT ALENA Administration Alteplase, Recombinant 2 mg 08/18/24 14:42 Alteplase 2 Mg Vial (Cathflo) IV PUSH ONCE PRN Line Occlusion Carbidopa/Levodopa 2 tablet 08/12/24 17:00 08/18/24 14:00 Carbidopa/Levodopa 25/100 Mg Tablet FEED TUBE 2 tablet TID ALENA Administration Dexamethasone Sodium Phosphate 6 mg 08/17/24 09:00 08/18/24 09:08 Dexamethasone Sod Phos Inj 10 Mg/Ml 1 Ml Vial IV PUSH 08/21/24 09:01 6 mg DAILY ALENA Administration Heparin Sodium (Porcine) 5,000 units 08/12/24 14:00 08/18/24 14:37 Heparin Sodium 5,000 Units/Ml Vial SUB-Q 5,000 units Q8HR ALENA Administration Meropenem 1 gm in 100 mls @ 200 mls/hr 08/15/24 13:00 08/18/24 05:13 IVPB 08/22/24 23:59 200 mls/hr Q8HR ALENA Administration Levetiracetam 100 mg 08/12/24 21:00 08/18/24 09:08 Levetiracetam Oral Moira 500 Mg/5 Ml Udc FEED TUBE 100 mg Q12H ALENA Administration Methimazole 10 mg 08/13/24 09:00 08/18/24 09:09 Methimazole 10 Mg Tab FEED TUBE 10 mg DAILY ALENA Administration Pantoprazole Sodium 40 mg 08/12/24 13:15 08/18/24 09:08 Pantoprazole Sodium Iv 40 Mg Vial IV PUSH 40 mg QAM ALENA Administration Sodium Chloride 10 ml 08/12/24 14:00 08/18/24 14:38 Central Line Flush IV PUSH 10 ml Q8HR ALENA Administration Sodium Chloride 20 ml 08/12/24 08:16 Central Line Flush IV PUSH PRN PRN after blood draws Radiology Results: ITS Impressions Abdomen/Pelvis CT 08/12/24 11:59 Impression: Dense consolidation and volume loss of the visualized left lower lobe. Findings are compatible with atelectasis versus possibly pneumonia. Consider dedicated contrast-enhanced chest CT to better evaluate for any possibility of central obstructing lesion or other pulmonary/mediastinal pathology. Probable cystitis despite Larsen catheter in place. 2.5 cm oval urinary bladder stone. No definite CT evidence of pyelonephritis, but noncontrast CT scan is insensitive for this diagnosis. Renal Ultrasound 08/12/24 15:05 IMPRESSION: No hydronephrosis. Head CT 08/12/24 19:13 IMPRESSION: No acute intracranial process. Chest CT 08/12/24 19:16 IMPRESSION: Complete left lung opacification with volume loss, likely representing atelectasis. Consider mucous plugging. Infection not excluded. No definite large obstructing mass is present, although this determination is difficult due to the lack of contrast and above-mentioned limitations. Chest X-Ray 08/18/24 06:28 IMPRESSION: 1. Extensive consolidation throughout the left hemithorax with slight improvement in aeration at the left apex likely combination of pneumonia and atelectasis possibly also with pleural effusion.. Labs Labs: Laboratory Results - last 24 hr 08/18/24 08/18/24 06:27 12:22 WBC 15.8 H RBC 3.37 L Hgb 10.8 L Hct 32.5 L MCV 96.4 MCH 32.0 MCHC 33.2 RDW 14.9 H Plt Count 108 L MPV 12.0 H Sodium 144 Potassium 3.8 Chloride 109 H Carbon Dioxide 32 H Anion Gap 3 L BUN 30 H Creatinine 0.30 L Estim Creat Clear Calc 113 Estimated GFR > 60 Glucose 87 POC Capillary Glucose 108 H Calcium 7.7 L Magnesium 2.0 Total Bilirubin 0.9 AST 29 ALT 21 Alkaline Phosphatase 81 Total Protein 5.0 L Albumin 2.6 L Hospitalist MIPS Advance Care Plan I have confirmed that the patient's Advanced Care Plan is present, code status is documented, or surrogate decision maker is listed in patient medical record.: Yes Medication Reconciliation I have utilized all available resources to obtain, update and review the patients current medications (includes all prescriptions, OTC, herbals, cannabis, and nutritional supplements).: Yes
[2024-08-19] VITALS (27 sets, daily range): BP systolic 94–122; BP diastolic 56–76; PULSE 65–92; RESP 15–30; TEMP 36.9–37.4; O2SAT 94–98
[2024-08-19] MEDS: IPRATROPIUM 0.5 MG/ALBUTEROL SULFATE 2.5 MG AMPUL.NEB 3 ML INHALATION ×4 (01:26→20:26)
[2024-08-19] MEDS: ACETYLCYSTEINE 20% INHAL SOLN 800 MG/4 ML VIAL 200 MG INHALATION ×4 (01:26→20:26)
[2024-08-19] MEDS: CENTRAL LINE FLUSH 10 ML IV PUSH ×3 (06:18→20:16)
[2024-08-19] MEDS: MEROPENEM 1 GM/NS 100 ML 1 GM/100 ML BAG IVPB ×3 (06:18→20:35)
[2024-08-19] MEDS: HEPARIN SODIUM 5,000 UNITS/ML VIAL 5000 UNITS SUB-Q ×3 (06:18→20:16)
[2024-08-19 06:32] LABS: Hematocrit 27.4 % (37.0-47.0); Hemoglobin 9.1 g/dL (12.0-15.0); Immature Platelet Fraction Pct 7.9 % (0.9-11.2); Mean Corpuscular HGB Conc 33.2 g/dl (32-36); Mean Corpuscular Hemoglobin 31.7 pg (26-34); Mean Corpuscular Volume 95.5 fl (80-100); Mean Platelet Volume 11.3 fl (7.4-10.4); Platelet Count Result 124 k/mm3 (150-375); Red Blood Count 2.87 M/mm3 (4.2-5.4); Red Cell Distribution Width 14.6 % (11.5-14.5); White Blood Count 16.4 K/mm3 (4.5-10.0)
[2024-08-19 06:41] LABS: Alanine Aminotransferase 18 U/L (6-35); Albumin Level 2.3 g/dL (3.5-5.1); Alkaline Phosphatase 90 U/L (38-126); Anion Gap 2 mmol/L (4-12); Aspartate Amino Transferase 24 U/L (14-36); Bilirubin,Total 0.7 mg/dL (0.2-1.3); Blood Urea Nitrogen 22 mg/dL (7-17); Calcium 7.5 mg/dL (8.4-10.2); Carbon Dioxide 34 mmol/L (22-30); Chloride 103 mmol/L (98-107); Estimated CRCL calculation 113 ml/min; Estimated Glomerular Filt Rate > 60; Glucose 97 mg/dL (65-110); Magnesium 1.7 mg/dL (1.6-2.3); Potassium 3.7 mmol/L (3.4-5.0); Sodium 139 mmol/L (137-145)
--- NOTE | 2024-08-19 08:11 | P.PNINT_ITS ---
Progress Note: A&P Assessment and Plan (1) Severe sepsis with septic shock: Code(s): A41.9 - Sepsis, unspecified organism; R65.21 - Severe sepsis with septic shock Status: Acute Assessment and Plan: 08/12: Patient presented from the shelter with hypoxia, fever Septic shock secondary to UTI and pneumonia -she was hypotensive in the ER despite receiving 30 mL/kg IV fluids, left IJ central line was inserted, -off off all vasopressors -off of further IV fluids -continue stress dose steroid -08/12: Blood cultures growing E coli, Klebsiella pneumoniae, Staphylococcus capitis and Proteus mirabilis. All sensitive to meropenem. Which will be can -08/12: Urine cultures negative till now -08/12: C diff toxin is negative -patient has been started on vancomycin and levofloxacin (08/12) and was switched to switched to meropenem and doxycycline -DC doxycycline continue meropenem - 08/15: Repeat blood culture sent and negative till now 08/12/2024: CT chest Complete left lung opacification with volume loss, likely representing atelectasis. Consider mucous plugging. Infection not excluded. No definite large obstructing mass is present, although this determination is difficult due to the lack of contrast and above-mentioned limitations CT abdomen pelvis Dense consolidation and volume loss of the visualized left lower lobe. Findings are compatible with atelectasis versus possibly pneumonia. Consider dedicated contrast-enhanced chest CT to better evaluate for any possibility of central obstructing lesion or other pulmonary/mediastinal pathology. Probable cystitis despite Larsen catheter in place. 2.5 cm oval urinary bladder stone. No definite CT evidence of pyelonephritis, but noncontrast CT scan is insensitive for this diagnosis (2) Acute respiratory failure: Code(s): J96.00 - Acute respiratory failure, unspecified whether with hypoxia or hypercapnia Status: Acute Assessment and Plan: Acute respiratory failure secondary to pneumonia, atelectasis and COVID infection. Although imaging is more suggestive of bacterial pneumonia and mucus plugging rather than COVID pneumonia. Patient initially placed on BiPAP but BiPAP had to be removed as patient was deemed not a candidate for BiPAP 08/12 CT chest Complete left lung opacification with volume loss, likely representing atelectasis. Consider mucous plugging. Infection not excluded. No definite large obstructing mass is present, although this determination is difficult due to the lack of contrast and above-mentioned limitations Chest x-ray08/14 Impression: Right upper lobe collapse. Central obstructing mass is not excluded. Extensive left perihilar and left lower lobe consolidation, suspicious for pneumonia. Possible small pleural effusion. Support line, as above. CXR 08/15 reviewed and shows persistent right upper lobe collapse I spoke to Dr. Jaffe with Pulmonary regarding option of bronchoscopy and he feels the patient may need intubation for bronchoscopy. 08/16 -chest x-ray reviewed and shows improvement in atelectasis on the right upper lobe. Although in consolidation of left lower lobe persists. 08/17 -chest x-ray reviewed and shows recurrence of atelectasis in the left side. Patient is weak and debilitated she does have cough reflex but it is very weak and she is not able to cough secretions out. I have requested nursing staff to NT suction her frequently. I will continue chest physical therapy. Intubating at this point considering patient is maintaining a saturation and not in respiratory distress would not fix the long-term issue of her inability to clear secretions and once intubated she may not come off of ventilator since she does not follow commands or does not respond to the examiner. At this point considering the clinical situation I will continue with noninvasive and conservative measures with aggressive chest physical therapy, bronchodilators, frequent suctioning and Mucomyst 08/18 -chest x-ray shows persistent atelectasis of the left side. 08/19-patient continues to require similar amount of oxygen although there is minimal improvement and she is down to 60%. Chest x-ray reviewed and shows improvement in atelectasis of left side but recurrence of atelectasis of right upper lobe. Continue CPT, frequent repositioning, scheduled NT suctioning, bronchodilators, Mucomyst. I will discuss with patient's son regarding further plan of action. (3) UTI (urinary tract infection): Qualifiers: Urinary tract infection type: catheter-associated UTI Indwelling urinary catheter type: indwelling urethral catheter Encounter type: initial encounter Qualified Code(s): T83.511A - Infection and inflammatory reaction due to indwelling urethral catheter, initial encounter; N39.0 - Urinary tract infection, site not specified Code(s): N39.0 - Urinary tract infection, site not specified Status: Acute Assessment and Plan: UA reflective of UTI. According the son patient has had multiple UTIs in the past Large stone and bladder CT findings suggestive of cystitis Cultures as above Continue antibiotics as above (4) Pneumonia: Qualifiers: Pneumonia type: due to unspecified organism Laterality: left Lung location: lower lobe of lung Qualified Code(s): J18.9 - Pneumonia, unspecified organism Code(s): J18.9 - Pneumonia, unspecified organism Status: Acute Assessment and Plan: Patient was initially on BiPAP, patient is contracted and unable to probably pull the mask off if she has emesis, BiPAP likely contraindicated in such patients -placed patient on high-flow therapy, will wean FiO2 to maintain O2 sats greater than 92% (5) Acute kidney injury: Code(s): N17.9 - Acute kidney failure, unspecified Status: Acute Assessment and Plan: Patient presented with septic shock, acute kidney injury with a creatinine of 2.90 on admission, baseline unknown -adequately fluid-resuscitated in the ER -creatinine has normalized -off vasopressors -CK levels are slightly elevated, patient received adequate amount of IV fluids -continue to monitor urine output, electrolytes and renal function (6) Diarrhea: Qualifiers: Diarrhea type: presumed infectious Qualified Code(s): R19.7 - Diarrhea, unspecified Code(s): R19.7 - Diarrhea, unspecified Status: Acute Assessment and Plan: Patient has had severe diarrhea -C diff toxin is negative, -stool cultures are negative -diarrhea improved (7) COVID-19: Code(s): U07.1 - COVID-19 Status: Acute Assessment and Plan: Patient was tested positive for SARS-CoV-2 although the imaging does not appear suggestive of COVID pneumonia She currently on hydrocortisone and Remdesivir 08/17 Switch hydrocortisone to dexamethasone CRP is 37, status post Tocilizumab on 08/12 (8) Electrolyte abnormality: Code(s): E87.8 - Other disorders of electrolyte and fluid balance, not elsewhere classified Status: Acute Assessment and Plan: Sodium now decreasing Continue with decreased free water flush Plan DVT prophylaxis: Heparin SQ Stress ulcer prophylaxis: Protonix Nutrition: continue tube feeds Code Status: No CPR 08/12: Dr. Dwyer discussed with patient's son David who is the POA, he stated that the patient has had a brain surgery after she had a fall in the past and at the same time was diagnosed with Parkinson's. She has been nonverbal for the last 2 years and then developed contraction and footdrop. I also explained to him regarding her severe septic shock, likely secondary to pneumonia, UTI. He did state that she has had multiple UTIs over the last 2 years. He is aware that she is on 2 blood pressure support medications, antibiotics. He also discussed with David the POA regarding code status, he wants patient is a full code, he is going to discuss with his family though 08/15 I spoke to patient's son David again today and updated him with patient's status including continued respiratory failure requiring significant amount of oxygen, pneumonia, atelectasis, UTI, bacteremia and current plan of care. I again revisited the topical goals of care and code status as to whether patient would want intubation at this point. Patient is 73-year-old nonverbal bedbound in shelter with chronic indwelling Larsen catheter and feeding through PEG tube for last 2 years. He told me that he has not had time to discuss with his other brothers. I emphasized the importance of this discussion. I discussed options of DNR DNI. I offered to speak to other children if they were interested off or had any questions. 08/16 I spoke to patient's son David again today by phone. He told me that he had discussion with his brothers and father and they all believe the patient would not want resuscitation at this time considering her medical problems and current quality of life. He has requested the patient be made DNR with no resuscitation or CPR in the event of cardiac arrest however he would like pat ient to be intubated for respiratory issues so that the family can visit her 1 last time. He states the patient's would like to visit her 1 time before she passes away. Due to her COVID isolation he is unable to come right now. He feels that once his father is able to see her they may not want intubation in the event of respiratory failure. 08/17 Patient came to visit patient. He was with his caregiver. I spoke to both of them and updated them with patient's status including respiratory failure, recurrent atelectasis, pneumonia, bacteremia, UTI along with his baseline nonverbal state. I also explained them her hospital course and current treatment plan. I answered all their questions. They wanted to visit the patient considering her poor prognosis and the fact that she may not survive. He also needed to seizure to get a closure before making any further decisions regarding goals of care. I explained to both than the patient is positive for COVID infection and they both have risk of catching infection if they go to the room even with a PPE and infection could be life threatening to hurt them. The caregiver told me that she and patient's are both vaccinated against COVID-19. Explained them that despite vaccination and PPE there is still risk of catching COVID infection by going into the room as patient is currently in isolation. And the infection, if severe, could be life-threatening. They both verbalized understanding of accepting the risk and agreed to proceed to visit patient. [facility] does not allow visits to patients with COVID infection but in this scenario as patient's family is considering hospice and comfort measures and may not survive the hospitalization it was allowed under compassionate grounds. Critical Care Time Spent: 32 minutes Due to a high probability of clinically significant, life threatening deterioration, the patient required my highest level of preparedness to intervene emergently and I personally spent this critical care time directly and personally managing the patient. This critical care time included obtaining a history; examining the patient; pulse oximetry; ordering and review of studies; arranging urgent treatment with development of a management plan; evaluation of patient's response to treatment; frequent reassessment; and discussions with other providers. It was exclusive of separately billable procedures and treating other patients and teaching time. Please see Assessment and Plan section and the rest of the note for further information on patient assessment and treatment This dictation may have been done utilizing a voice recognition system. Attempts have been made to correct errors. However, there may be uncorrected grammatical, spelling, and recognitions errors present. Subjective Date/time seen: 08/19/24 Overnight events reviewed. No major change overnight except increased oxygen requirement. Afebrile Continues to be on Airvo but now at 60 L and 60% Not on any in use infusions No change in neurological status. Patient awake but unresponsive to commands and does not communicate. Tolerating tube feeds Vitals acceptable Patient's PEG tube was changed by GI yesterday Interval history: Reason for consult: Pneumonia, septic shock, acute kidney injury, chronic indwelling Larsen catheter, chronic pressure ulcers, COVID positive Review of Systems Review of Systems: ROS unobtainable: Yes unobtainable due to medical condition and unobtainable due to mental status Exam Narrative: General: Ill-appearing female currently in no acute distress HEENT:? Pupils equal and reactive, sclerae is clear Neck:? Supple, left IJ central line in place Respiratory:? Coarse breath sounds bilaterally, decreased on left side, no wheezing, Cardiac:? Regular rate and rhythm Abdomen:? Soft, nontender, nondistended, tympanic, hyperactive bowel sounds, peg tube in place Extremities:? Trace edema bilaterally, dopplerable pedal pulses bilaterally Neuro:? Patient is nonverbal at baseline, her eyes are open, does not follow commands or answers questions Skin:? Decubitus ulcer on the buttocks Psych:? Unable to assess Objective Data Vital Signs Vital Signs: Vital Signs - 24 hr 08/18/24 10:00 08/18/24 10:57 08/18/24 12:00 Temperature 37.2 C 37.1 C Pulse Rate 75 79 Respiratory Rate 23 H 22 H Blood Pressure 101/62 111/83 Pulse Oximetry 97 98 98 Oxygen Delivery High Flow Therapy with Na Oxygen Flow Rate 60 Fraction of Inspired Oxygen 75 08/18/24 13:28 08/18/24 13:28 08/18/24 13:38 Temperature Pulse Rate 65 80 Respiratory Rate 24 H 24 H Blood Pressure Pulse Oximetry 96 Oxygen Delivery High Flow Therapy with Na Oxygen Flow Rate 60 Fraction of Inspired Oxygen 75 08/18/24 14:00 08/18/24 10:00 08/18/24 12:00 Temperature 37.0 C Pulse Rate 76 74 71 Respiratory Rate 19 Blood Pressure 98/63 L Pulse Oximetry 99 Oxygen Delivery Oxygen Flow Rate Fraction of Inspired Oxygen 08/18/24 14:00 08/18/24 16:54 08/18/24 16:54 Temperature Pulse Rate 68 77 Respiratory Rate 28 H Blood Pressure Pulse Oximetry 99 Oxygen Delivery High Flow Therapy with Na Oxygen Flow Rate 60 Fraction of Inspired Oxygen 75 08/18/24 16:00 08/18/24 12:00 08/18/24 16:00 Temperature 36.9 C Pulse Rate 70 Respiratory Rate 19 Blood Pressure 123/76 Pulse Oximetry 99 95 98 Oxygen Delivery High Flow Therapy with Na High Flow Therapy with Na Oxygen Flow Rate 60 60 Fraction of Inspired Oxygen 70 59 08/18/24 16:00 08/18/24 18:00 08/18/24 18:00 Temperature 36.9 C Pulse Rate 72 72 72 Respiratory Rate 25 H Blood Pressure 103/65 Pulse Oximetry 98 Oxygen Delivery Oxygen Flow Rate Fraction of Inspired Oxygen 08/18/24 19:34 08/18/24 19:34 08/18/24 19:44 Temperature Pulse Rate 85 85 Respiratory Rate 27 H 29 H Blood Pressure Pulse Oximetry 98 Oxygen Delivery High Flow Therapy with Na Oxygen Flow Rate 60 Fraction of Inspired Oxygen 75 08/18/24 20:00 08/18/24 20:00 08/18/24 19:00 Temperature 36.9 C Pulse Rate 71 75 Respiratory Rate 33 H Blood Pressure 104/63 Pulse Oximetry 98 98 Oxygen Delivery High Flow Therapy with Na Oxygen Flow Rate 60 Fraction of Inspired Oxygen 59 08/18/24 20:00 08/18/24 21:00 08/18/24 22:00 Temperature 37.1 C 37.2 C 37.2 C Pulse Rate 73 92 75 Respiratory Rate 21 H 24 H 24 H Blood Pressure 96/59 L 118/75 126/59 L Pulse Oximetry 98 98 97 Oxygen Delivery Oxygen Flow Rate Fraction of Inspired Oxygen 08/18/24 22:00 08/19/24 00:00 08/19/24 00:00 Temperature 37.2 C Pulse Rate 75 74 Respiratory Rate 20 Blood Pressure 103/57 L Pulse Oximetry 98 98 Oxygen Delivery High Flow Therapy with Na Oxygen Flow Rate 60 Fraction of Inspired Oxygen 59 08/19/24 00:00 08/19/24 01:27 08/19/24 01:36 Temperature Pulse Rate 75 78 74 Respiratory Rate 21 H 19 Blood Pressure Pulse Oximetry Oxygen Delivery Oxygen Flow Rate Fraction of Inspired Oxygen 08/19/24 02:00 08/19/24 02:00 08/19/24 04:00 Temperature 37.1 C 37.3 C Pulse Rate 76 76 80 Respiratory Rate 15 26 H Blood Pressure 122/62 107/56 L Pulse Oximetry 96 98 Oxygen Delivery Oxygen Flow Rate Fraction of Inspired Oxygen 08/19/24 04:00 08/19/24 04:00 08/19/24 06:22 Temperature 37.4 C Pulse Rate 84 85 Respiratory Rate 30 H Blood Pressure 121/76 Pulse Oximetry 97 95 Oxygen Delivery High Flow Therapy with Na Oxygen Flow Rate 60 Fraction of Inspired Oxygen 59 08/19/24 06:00 Temperature Pulse Rate 80 Respiratory Rate Blood Pressure Pulse Oximetry Oxygen Delivery Oxygen Flow Rate Fraction of Inspired Oxygen Intake/Output Intake/Output: Intake & Output 1108/17/24 08/18/24 08/19/24 23:59 23:59 23:59 23:59 Intake Total 1149 3364 6345 1231 Output Total 0450 1625 1725 1125 Balance 1928 1382 963 106 Meds/Results Medications: Active Medications Generic Name Dose Route Start Last Admin Trade Name Freq PRN Reason Stop Dose Admin Acetaminophen 650 mg 08/12/24 12:40 Acetaminophen 650 Mg Suppository RECTAL Q6H PRN Mild Pain (1-3) or Fever Acetaminophen 325 mg 08/12/24 16:44 Acetaminophen Elixir 325 Mg/10.15 Ml Udc FEED TUBE Q6H PRN Fever Acetylcysteine 200 mg 08/12/24 20:00 08/19/24 01:26 Acetylcysteine 20% Inhal Soln 800 Mg/4 Ml Vial INHALATION 200 mg Q6HRT ALENA Administration Albuterol/Ipratropium 3 ml 08/12/24 20:00 08/19/24 01:26 Ipratropium 0.5 Mg/Albuterol Sulfate 2.5 Mg Ampul.Neb 3 Ml INHALATION 3 ml Q6HRT ALENA Administration Alteplase, Recombinant 2 mg 08/18/24 14:42 Alteplase 2 Mg Vial (Cathflo) IV PUSH ONCE PRN Line Occlusion Carbidopa/Levodopa 2 tablet 08/12/24 17:00 08/18/24 17:21 Carbidopa/Levodopa 25/100 Mg Tablet FEED TUBE 2 tablet TID ALENA Administration Dexamethasone Sodium Phosphate 6 mg 08/17/24 09:00 08/18/24 09:08 Dexamethasone Sod Phos Inj 10 Mg/Ml 1 Ml Vial IV PUSH 08/21/24 09:01 6 mg DAILY ALENA Administration Heparin Sodium (Porcine) 5,000 units 08/12/24 14:00 08/19/24 06:18 Heparin Sodium 5,000 Units/Ml Vial SUB-Q 5,000 units Q8HR ALENA Administration Meropenem 1 gm in 100 mls @ 200 mls/hr 08/15/24 13:00 08/19/24 06:45 IVPB 08/22/24 23:59 Infused Q8HR ALENA Infusion Levetiracetam 100 mg 08/12/24 21:00 08/18/24 20:55 Levetiracetam Oral Moira 500 Mg/5 Ml Udc FEED TUBE 100 mg Q12H ALENA Administration Methimazole 10 mg 08/13/24 09:00 08/18/24 09:09 Methimazole 10 Mg Tab FEED TUBE 10 mg DAILY ALENA Administration Pantoprazole Sodium 40 mg 08/12/24 13:15 08/18/24 09:08 Pantoprazole Sodium Iv 40 Mg Vial IV PUSH 40 mg QAM ALENA Administration Sodium Chloride 10 ml 08/12/24 14:00 08/19/24 06:18 Central Line Flush IV PUSH 10 ml Q8HR ALENA Administration Sodium Chloride 20 ml 08/12/24 08:16 Central Line Flush IV PUSH PRN PRN after blood draws Radiology Results: ITS Impressions Abdomen/Pelvis CT 08/12/24 11:59 Impression: Dense consolidation and volume loss of the visualized left lower lobe. Findings are compatible with atelectasis versus possibly pneumonia. Consider dedicated contrast-enhanced chest CT to better evaluate for any possibility of central obstructing lesion or other pulmonary/mediastinal pathology. Probable cystitis despite Larsen catheter in place. 2.5 cm oval urinary bladder stone. No definite CT evidence of pyelonephritis, but noncontrast CT scan is insensitive for this diagnosis. Renal Ultrasound 08/12/24 15:05 IMPRESSION: No hydronephrosis. Head CT 08/12/24 19:13 IMPRESSION: No acute intracranial process. Chest CT 08/12/24 19:16 IMPRESSION: Complete left lung opacification with volume loss, likely representing atelectasis. Consider mucous plugging. Infection not excluded. No definite large obstructing mass is present, although this determination is difficult due to the lack of contrast and above-mentioned limitations. Chest X-Ray 08/19/24 06:38 IMPRESSION: 1. Shifting pattern of atelectasis since the prior study with marked improvement of aeration of the left lung and with new right upper lobe collapse. 2. Residual consolidation at the left lung base which could represent atelectasis or pneumonia. Labs Labs: Laboratory Results - last 24 hr 08/18/24 08/19/24 12:22 06:20 WBC 16.4 H RBC 2.87 L Hgb 9.1 L Hct 27.4 L MCV 95.5 MCH 31.7 MCHC 33.2 RDW 14.6 H Plt Count 124 L MPV 11.3 H % Immature Plt Fraction 7.9 Sodium 139 Potassium 3.7 Chloride 103 Carbon Dioxide 34 H Anion Gap 2 L BUN 22 H Creatinine 0.30 L Estim Creat Clear Calc 113 Estimated GFR > 60 Glucose 97 POC Capillary Glucose 108 H Calcium 7.5 L Magnesium 1.7 Total Bilirubin 0.7 AST 24 ALT 18 Alkaline Phosphatase 90 Total Protein 5.0 L Albumin 2.3 L Quality VTE Prophylaxis VTE prophylaxis: mechanical ordered and pharmacologic ordered
[2024-08-19] MEDS: CARBIDOPA/LEVODOPA 25/100 MG TABLET 2 TABLET FEED TUBE ×3 (08:59→16:29)
[2024-08-19] MEDS: methiMAzole 10 MG TAB FEED TUBE (08:59)
[2024-08-19] MEDS: PANTOPRAZOLE SODIUM IV 40 MG VIAL IV PUSH (08:59)
[2024-08-19] MEDS: levETIRAcetam ORAL SOL 500 MG/5 ML UDC 100 MG FEED TUBE ×2 (08:59→20:16)
[2024-08-19] MEDS: dexAMETHasone SOD PHOS INJ 10 MG/ML 1 ML VIAL 6 MG IV PUSH (08:59)
--- NOTE | 2024-08-19 15:07 | P.PNIM_ITS ---
Progress Note: A&P Assessment and Plan (1) Severe sepsis with septic shock: Code(s): A41.9 - Sepsis, unspecified organism; R65.21 - Severe sepsis with septic shock Status: Acute Assessment and Plan: 08/12: Patient presented from the correction with hypoxia, fever Septic shock secondary to UTI and pneumonia -she was hypotensive in the ER despite receiving 30 mL/kg IV fluids, left IJ central line was inserted, -off off all vasopressors -off of further IV fluids -continue stress dose steroid -08/12: Blood cultures growing E coli, Klebsiella pneumoniae, Staphylococcus capitis and Proteus mirabilis. All sensitive to meropenem. Which will be can -08/12: Urine cultures negative till now -08/12: C diff toxin is negative -patient has been started on vancomycin and levofloxacin (08/12) and was switched to switched to meropenem and doxycycline -DC doxycycline continue meropenem - 08/15: Repeat blood culture sent and negative till now 08/12/2024: CT chest Complete left lung opacification with volume loss, likely representing atelectasis. Consider mucous plugging. Infection not excluded. No definite large obstructing mass is present, although this determination is difficult due to the lack of contrast and above-mentioned limitations CT abdomen pelvis Dense consolidation and volume loss of the visualized left lower lobe. Findings are compatible with atelectasis versus possibly pneumonia. Consider dedicated contrast-enhanced chest CT to better evaluate for any possibility of central obstructing lesion or other pulmonary/mediastinal pathology. Probable cystitis despite Larsen catheter in place. 2.5 cm oval urinary bladder stone. No definite CT evidence of pyelonephritis, but noncontrast CT scan is insensitive for this diagnosis (2) Acute respiratory failure: Code(s): J96.00 - Acute respiratory failure, unspecified whether with hypoxia or hypercapnia Status: Acute Assessment and Plan: Acute respiratory failure secondary to pneumonia, atelectasis and COVID infection. Although imaging is more suggestive of bacterial pneumonia and mucus plugging rather than COVID pneumonia. Patient initially placed on BiPAP but BiPAP had to be removed as patient was deemed not a candidate for BiPAP 08/12 CT chest Complete left lung opacification with volume loss, likely representing atelectasis. Consider mucous plugging. Infection not excluded. No definite large obstructing mass is present, although this determination is difficult due to the lack of contrast and above-mentioned limitations Chest x-ray08/14 Impression: Right upper lobe collapse. Central obstructing mass is not excluded. Extensive left perihilar and left lower lobe consolidation, suspicious for pneumonia. Possible small pleural effusion. Support line, as above. CXR 08/15 reviewed and shows persistent right upper lobe collapse I spoke to Dr. Jaffe with Pulmonary regarding option of bronchoscopy and he feels the patient may need intubation for bronchoscopy. 08/16 -chest x-ray reviewed and shows improvement in atelectasis on the right upper lobe. Although in consolidation of left lower lobe persists. 08/17 -chest x-ray reviewed and shows recurrence of atelectasis in the left side. Patient is weak and debilitated she does have cough reflex but it is very weak and she is not able to cough secretions out. I have requested nursing staff to NT suction her frequently. I will continue chest physical therapy. Intubating at this point considering patient is maintaining a saturation and not in respiratory distress would not fix the long-term issue of her inability to clear secretions and once intubated she may not come off of ventilator since she does not follow commands or does not respond to the examiner. At this point considering the clinical situation I will continue with noninvasive and conservative measures with aggressive chest physical therapy, bronchodilators, frequent suctioning and Mucomyst 08/18 -chest x-ray shows persistent atelectasis of the left side. 08/19-patient continues to require similar amount of oxygen although there is minimal improvement and she is down to 60%. Chest x-ray reviewed and shows improvement in atelectasis of left side but recurrence of atelectasis of right upper lobe. Continue CPT, frequent repositioning, scheduled NT suctioning, bronchodilators, Mucomyst. I will discuss with patient's son regarding further plan of action. (3) UTI (urinary tract infection): Qualifiers: Encounter type: initial encounter Indwelling urinary catheter type: indwelling urethral catheter Urinary tract infection type: catheter-associated UTI Qualified Code(s): T83.511A - Infection and inflammatory reaction due to indwelling urethral catheter, initial encounter; N39.0 - Urinary tract infection, site not specified Code(s): N39.0 - Urinary tract infection, site not specified Status: Acute Assessment and Plan: UA reflective of UTI. According the son patient has had multiple UTIs in the past Large stone and bladder CT findings suggestive of cystitis Cultures as above Continue antibiotics as above (4) Pneumonia: Qualifiers: Laterality: left Lung location: lower lobe of lung Pneumonia type: due to unspecified organism Qualified Code(s): J18.9 - Pneumonia, unspecified organism Code(s): J18.9 - Pneumonia, unspecified organism Status: Acute Assessment and Plan: Patient was initially on BiPAP, patient is contracted and unable to probably pull the mask off if she has emesis, BiPAP likely contraindicated in such patients -placed patient on high-flow therapy, will wean FiO2 to maintain O2 sats greater than 92% (5) Acute kidney injury: Code(s): N17.9 - Acute kidney failure, unspecified Status: Acute Assessment and Plan: Patient presented with septic shock, acute kidney injury with a creatinine of 2.90 on admission, baseline unknown -adequately fluid-resuscitated in the ER -creatinine has normalized -off vasopressors -CK levels are slightly elevated, patient received adequate amount of IV fluids -continue to monitor urine output, electrolytes and renal function (6) Diarrhea: Qualifiers: Diarrhea type: presumed infectious Qualified Code(s): R19.7 - Diarrhea, unspecified Code(s): R19.7 - Diarrhea, unspecified Status: Acute Assessment and Plan: Patient has had severe diarrhea -C diff toxin is negative, -stool cultures are negative -diarrhea improved (7) COVID-19: Code(s): U07.1 - COVID-19 Status: Acute Assessment and Plan: Patient was tested positive for SARS-CoV-2 although the imaging does not appear suggestive of COVID pneumonia She currently on hydrocortisone and Remdesivir 08/17 Switch hydrocortisone to dexamethasone CRP is 37, status post Tocilizumab on 08/12 (8) Electrolyte abnormality: Code(s): E87.8 - Other disorders of electrolyte and fluid balance, not elsewhere classified Status: Acute Assessment and Plan: Sodium now decreasing Continue with decreased free water flush Subjective Date/time seen: 08/19/24 15:07 Interval history: As mentioned previously patient has poor prognosis. Multiple comorbid conditions. Review of Systems Review of Systems: ROS unobtainable: Yes unobtainable due to endotracheal tube, unobtainable due to medical condition and unobtainable due to mental status Exam 2 Narrative: General: Ill-appearing female currently in no acute distress HEENT:? Pupils equal and reactive, sclerae is clear Neck:? Supple, left IJ central line in place Respiratory:? Coarse breath sounds bilaterally, decreased on left side, no wheezing, Cardiac:? Regular rate and rhythm Abdomen:? Soft, nontender, nondistended, tympanic, hyperactive bowel sounds, peg tube in place Extremities:? Trace edema bilaterally, dopplerable pedal pulses bilaterally Neuro:? Patient is nonverbal at baseline, her eyes are open, does not follow commands or answers questions Skin:? Decubitus ulcer on the buttocks Psych:? Unable to assess Const: General: comfortable and no acute distress Other: , female, elderly, ill-appearing HENMT: Face/Nose/Sinus: Normal nares present Mouth: Yes dry mucous membranes Other: High-flow nasal cannula in place Eyes: General: appearance normal, both eyes and all related structures Sclera: sclerae normal Pupils: Equal, round and reactive pupils present EOM: EOMs intact bilaterally Resp: Effort & Inspection: normal respiratory effort Other: Diminished breath sounds on left, no adventitious lung sounds on right Cardio: Rate: tachycardic (110-115) Rhythm: regular rhythm Other: S1-S2 present without murmur, rub, ectopy GI: Other: Abdomen soft, nondistended. No particular expression or grimace with palpation. Bowel sounds are distant and hypoactive in all quadrants. Urinary Catheter: Urinary Catheter: patent and draining Skin: General skin exam: normal color and no rashes or lesions noted Other: Decubitus ulcer to buttocks Neuro: Cranial nerves: Yes Equal, round and reactive pupils present Other: Nonverbal. Brief eye opening to noxious stimuli. Contracture to right hand. Does not follow commands or answer questions. Extrem: General: normal to inspection Psych: Other: Poor insight and judgment. Flat affect. Objective Data Vital Signs Vital Signs: Vital Signs - 24 hr 08/18/24 16:54 08/18/24 16:54 08/18/24 16:00 Temperature 98.4 F Pulse Rate 77 70 Respiratory Rate 28 H 19 Blood Pressure 123/76 Pulse Oximetry 99 99 Oxygen Delivery High Flow Therapy with Na Oxygen Flow Rate 60 Fraction of Inspired Oxygen 75 08/18/24 16:00 08/18/24 16:00 08/18/24 18:00 Temperature Pulse Rate 72 72 Respiratory Rate Blood Pressure Pulse Oximetry 98 Oxygen Delivery High Flow Therapy with Na Oxygen Flow Rate 60 Fraction of Inspired Oxygen 59 08/18/24 18:00 08/18/24 19:34 08/18/24 19:34 Temperature 98.4 F Pulse Rate 72 85 Respiratory Rate 25 H 27 H Blood Pressure 103/65 Pulse Oximetry 98 98 Oxygen Delivery High Flow Therapy with Na Oxygen Flow Rate 60 Fraction of Inspired Oxygen 75 08/18/24 19:44 08/18/24 20:00 08/18/24 20:00 Temperature Pulse Rate 85 71 Respiratory Rate 29 H Blood Pressure Pulse Oximetry 98 Oxygen Delivery High Flow Therapy with Na Oxygen Flow Rate 60 Fraction of Inspired Oxygen 59 08/18/24 19:00 08/18/24 20:00 08/18/24 21:00 Temperature 98.4 F 98.7 F 98.9 F Pulse Rate 75 73 92 Respiratory Rate 33 H 21 H 24 H Blood Pressure 104/63 96/59 L 118/75 Pulse Oximetry 98 98 98 Oxygen Delivery Oxygen Flow Rate Fraction of Inspired Oxygen 08/18/24 22:00 08/18/24 22:00 08/19/24 00:00 Temperature 98.9 F 99.0 F Pulse Rate 75 75 74 Respiratory Rate 24 H 20 Blood Pressure 126/59 L 103/57 L Pulse Oximetry 97 98 Oxygen Delivery Oxygen Flow Rate Fraction of Inspired Oxygen 08/19/24 00:00 08/19/24 00:00 08/19/24 01:27 Temperature Pulse Rate 75 78 Respiratory Rate 21 H Blood Pressure Pulse Oximetry 98 Oxygen Delivery High Flow Therapy with Na Oxygen Flow Rate 60 Fraction of Inspired Oxygen 59 08/19/24 01:36 08/19/24 02:00 08/19/24 02:00 Temperature 98.7 F Pulse Rate 74 76 76 Respiratory Rate 19 15 Blood Pressure 122/62 Pulse Oximetry 96 Oxygen Delivery Oxygen Flow Rate Fraction of Inspired Oxygen 08/19/24 04:00 08/19/24 04:00 08/19/24 04:00 Temperature 99.1 F Pulse Rate 80 84 Respiratory Rate 26 H Blood Pressure 107/56 L Pulse Oximetry 98 97 Oxygen Delivery High Flow Therapy with Na Oxygen Flow Rate 60 Fraction of Inspired Oxygen 59 08/19/24 06:22 08/19/24 06:00 08/19/24 08:20 Temperature 99.3 F Pulse Rate 85 80 Respiratory Rate 30 H Blood Pressure 121/76 Pulse Oximetry 95 96 Oxygen Delivery High Flow Therapy with Na Oxygen Flow Rate 60 Fraction of Inspired Oxygen 60 08/19/24 08:20 08/19/24 08:40 08/19/24 08:00 Temperature 99 F Pulse Rate 81 82 82 Respiratory Rate 22 H 19 22 H Blood Pressure 102/64 Pulse Oximetry 96 Oxygen Delivery Oxygen Flow Rate Fraction of Inspired Oxygen 08/19/24 09:28 08/19/24 08:00 08/19/24 08:00 Temperature Pulse Rate 84 Respiratory Rate Blood Pressure Pulse Oximetry 94 97 Oxygen Delivery High Flow Therapy with Na High Flow Therapy with Na Oxygen Flow Rate 60 60 Fraction of Inspired Oxygen 55 58 08/19/24 10:00 08/19/24 10:00 08/19/24 12:00 Temperature 99.1 F 99.4 F Pulse Rate 81 89 77 Respiratory Rate 22 H 25 H Blood Pressure 105/68 114/61 Pulse Oximetry 95 95 Oxygen Delivery Oxygen Flow Rate Fraction of Inspired Oxygen 08/19/24 12:00 08/19/24 13:20 08/19/24 12:00 Temperature Pulse Rate 77 Respiratory Rate Blood Pressure Pulse Oximetry 96 97 Oxygen Delivery High Flow Therapy with Na High Flow Therapy with Na Oxygen Flow Rate 60 60 Fraction of Inspired Oxygen 47 44 08/19/24 13:50 08/19/24 13:50 08/19/24 14:15 Temperature Pulse Rate 73 72 Respiratory Rate 19 20 Blood Pressure Pulse Oximetry 96 Oxygen Delivery High Flow Therapy with Na Oxygen Flow Rate 50 Fraction of Inspired Oxygen 45 08/19/24 14:24 Temperature Pulse Rate Respiratory Rate Blood Pressure Pulse Oximetry 95 Oxygen Delivery High Flow Therapy with Na Oxygen Flow Rate 50 Fraction of Inspired Oxygen 45 Intake/Output Intake/Output: Intake & Output 08/16/24 08/17/24 08/18/24 08/19/24 23:59 23:59 23:59 23:59 Intake Total 0891 3007 2688 1231 Output Total 1300 1625 1725 1125 Balance 1928 1382 963 106 Meds/Results Medications: Active Medications Generic Name Dose Route Start Last Admin Trade Name Freq PRN Reason Stop Dose Admin Acetaminophen 650 mg 08/12/24 12:40 Acetaminophen 650 Mg Suppository RECTAL Q6H PRN Mild Pain (1-3) or Fever Acetaminophen 325 mg 08/12/24 16:44 Acetaminophen Elixir 325 Mg/10.15 Ml Udc FEED TUBE Q6H PRN Fever Acetylcysteine 200 mg 08/12/24 20:00 08/19/24 13:49 Acetylcysteine 20% Inhal Soln 800 Mg/4 Ml Vial INHALATION 200 mg Q6HRT ALENA Administration Albuterol/Ipratropium 3 ml 08/12/24 20:00 08/19/24 13:49 Ipratropium 0.5 Mg/Albuterol Sulfate 2.5 Mg Ampul.Neb 3 Ml INHALATION 3 ml Q6HRT ALENA Administration Alteplase, Recombinant 2 mg 08/18/24 14:42 Alteplase 2 Mg Vial (Cathflo) IV PUSH ONCE PRN Line Occlusion Carbidopa/Levodopa 2 tablet 08/12/24 17:00 08/19/24 12:07 Carbidopa/Levodopa 25/100 Mg Tablet FEED TUBE 2 tablet TID ALENA Administration Dexamethasone Sodium Phosphate 6 mg 08/17/24 09:00 08/19/24 08:59 Dexamethasone Sod Phos Inj 10 Mg/Ml 1 Ml Vial IV PUSH 08/21/24 09:01 6 mg DAILY ALENA Administration Heparin Sodium (Porcine) 5,000 units 08/12/24 14:00 08/19/24 13:21 Heparin Sodium 5,000 Units/Ml Vial SUB-Q 5,000 units Q8HR ALENA Administration Meropenem 1 gm in 100 mls @ 200 mls/hr 08/15/24 13:00 08/19/24 13:21 IVPB 08/22/24 23:59 200 mls/hr Q8HR ALENA Administration Levetiracetam 100 mg 08/12/24 21:00 08/19/24 08:59 Levetiracetam Oral Moira 500 Mg/5 Ml Udc FEED TUBE 100 mg Q12H ALENA Administration Methimazole 10 mg 08/13/24 09:00 08/19/24 08:59 Methimazole 10 Mg Tab FEED TUBE 10 mg DAILY ALENA Administration Pantoprazole Sodium 40 mg 08/12/24 13:15 08/19/24 08:59 Pantoprazole Sodium Iv 40 Mg Vial IV PUSH 40 mg QAM ALENA Administration Sodium Chloride 10 ml 08/12/24 14:00 08/19/24 13:21 Central Line Flush IV PUSH 10 ml Q8HR AELNA Administration Sodium Chloride 20 ml 08/12/24 08:16 Central Line Flush IV PUSH PRN PRN after blood draws Radiology Results: ITS Impressions Abdomen/Pelvis CT 08/12/24 11:59 Impression: Dense consolidation and volume loss of the visualized left lower lobe. Findings are compatible with atelectasis versus possibly pneumonia. Consider dedicated contrast-enhanced chest CT to better evaluate for any possibility of central obstructing lesion or other pulmonary/mediastinal pathology. Probable cystitis despite Larsen catheter in place. 2.5 cm oval urinary bladder stone. No definite CT evidence of pyelonephritis, but noncontrast CT scan is insensitive for this diagnosis. Renal Ultrasound 08/12/24 15:05 IMPRESSION: No hydronephrosis. Head CT 08/12/24 19:13 IMPRESSION: No acute intracranial process. Chest CT 08/12/24 19:16 IMPRESSION: Complete left lung opacification with volume loss, likely representing atelectasis. Consider mucous plugging. Infection not excluded. No definite large obstructing mass is present, although this determination is difficult due to the lack of contrast and above-mentioned limitations. Chest X-Ray 08/19/24 06:38 IMPRESSION: 1. Shifting pattern of atelectasis since the prior study with marked improvement of aeration of the left lung and with new right upper lobe collapse. 2. Residual consolidation at the left lung base which could represent atelectasis or pneumonia. Labs Labs: Laboratory Results - last 24 hr 08/19/24 06:20 WBC 16.4 H RBC 2.87 L Hgb 9.1 L Hct 27.4 L MCV 95.5 MCH 31.7 MCHC 33.2 RDW 14.6 H Plt Count 124 L MPV 11.3 H % Immature Plt Fraction 7.9 Sodium 139 Potassium 3.7 Chloride 103 Carbon Dioxide 34 H Anion Gap 2 L BUN 22 H Creatinine 0.30 L Estim Creat Clear Calc 113 Estimated GFR > 60 Glucose 97 Calcium 7.5 L Magnesium 1.7 Total Bilirubin 0.7 AST 24 ALT 18 Alkaline Phosphatase 90 Total Protein 5.0 L Albumin 2.3 L Quality VTE Prophylaxis VTE prophylaxis: mechanical ordered and pharmacologic ordered Hospitalist [facility] Advance Care Plan I have confirmed that the patient's Advanced Care Plan is present, code status is documented, or surrogate decision maker is listed in patient medical record.: Yes Medication Reconciliation I have utilized all available resources to obtain, update and review the patients current medications (includes all prescriptions, OTC, herbals, cannabis, and nutritional supplements).: Yes
[2024-08-20] VITALS (26 sets, daily range): BP systolic 105–149; BP diastolic 52–98; PULSE 69–96; RESP 17–25; TEMP 36.8–37.4; O2SAT 89–98
[2024-08-20] MEDS: IPRATROPIUM 0.5 MG/ALBUTEROL SULFATE 2.5 MG AMPUL.NEB 3 ML INHALATION ×4 (02:39→20:58)
[2024-08-20] MEDS: ACETYLCYSTEINE 20% INHAL SOLN 800 MG/4 ML VIAL 200 MG INHALATION ×4 (02:39→20:58)
[2024-08-20] MEDS: HEPARIN SODIUM 5,000 UNITS/ML VIAL 5000 UNITS SUB-Q ×3 (05:13→21:39)
[2024-08-20] MEDS: MEROPENEM 1 GM/NS 100 ML 1 GM/100 ML BAG IVPB ×3 (05:13→21:38)
[2024-08-20] MEDS: CENTRAL LINE FLUSH 20 ML IV PUSH (05:17)
[2024-08-20] MEDS: CENTRAL LINE FLUSH 10 ML IV PUSH ×3 (05:17→23:36)
[2024-08-20 05:28] LABS: Basophils Percent Auto 0.3 % (0.2-1.2); Eosinophils Absolute Auto 0.3 K/mm3 (0-0.3); Eosinophils Percent Auto 1.8 % (0-4.4); Hematocrit 26.9 % (37.0-47.0); Hemoglobin 8.9 g/dL (12.0-15.0); Immature Granulocyte Absolute 0.77 K/mm3 (0.00-0.031); Immature Granulocyte Percent A 5.3 % (0-0.5); Immature Platelet Fraction Pct 7.2 % (0.9-11.2); Lymphocytes Absolute Auto 2.94 K/mm3 (0.9-3.2); Lymphocytes Percent Auto 20.2 % (18.3-44.2); Mean Corpuscular HGB Conc 33.1 g/dl (32-36); Mean Corpuscular Hemoglobin 31.7 pg (26-34); Mean Corpuscular Volume 95.7 fl (80-100); Mean Platelet Volume 11.1 fl (7.4-10.4); Monocytes Absolute Auto 0.8 K/mm3 (0.1-0.6); Monocytes Percent Auto 5.4 % (2.6-8.5); Neutrophils Absolute Auto 9.8 K/mm3 (1.3-6.7); Platelet Count Result 122 k/mm3 (150-375); Red Blood Count 2.81 M/mm3 (4.2-5.4); Red Cell Distribution Width 14.5 % (11.5-14.5); White Blood Count 14.6 K/mm3 (4.5-10.0)
[2024-08-20 05:35] LABS: Alanine Aminotransferase 21 U/L (6-35); Albumin Level 2.4 g/dL (3.5-5.1); Alkaline Phosphatase 83 U/L (38-126); Anion Gap 1 mmol/L (4-12); Aspartate Amino Transferase 26 U/L (14-36); Bilirubin,Total 0.6 mg/dL (0.2-1.3); Blood Urea Nitrogen 18 mg/dL (7-17); Calcium 7.9 mg/dL (8.4-10.2); Carbon Dioxide 34 mmol/L (22-30); Chloride 103 mmol/L (98-107); Estimated CRCL calculation 89 ml/min; Estimated Glomerular Filt Rate > 60; Glucose 85 mg/dL (65-110); Potassium 3.6 mmol/L (3.4-5.0); Sodium 138 mmol/L (137-145)
[2024-08-20] MEDS: levETIRAcetam ORAL SOL 500 MG/5 ML UDC 100 MG FEED TUBE ×2 (08:34→20:06)
[2024-08-20] MEDS: POTASSIUM CHLORIDE 20 MEQ PACKET (FOR LIQUID) 40 MEQ FEED TUBE (08:34)
[2024-08-20] MEDS: CARBIDOPA/LEVODOPA 25/100 MG TABLET 2 TABLET FEED TUBE ×3 (08:34→17:51)
[2024-08-20] MEDS: methiMAzole 10 MG TAB FEED TUBE (08:34)
[2024-08-20] MEDS: PANTOPRAZOLE SODIUM IV 40 MG VIAL IV PUSH (08:34)
[2024-08-20] MEDS: dexAMETHasone SOD PHOS INJ 10 MG/ML 1 ML VIAL 6 MG IV PUSH (08:34)
--- NOTE | 2024-08-20 09:46 | P.PNINT_ITS ---
Progress Note: A&P Assessment and Plan (1) Severe sepsis with septic shock: Code(s): A41.9 - Sepsis, unspecified organism; R65.21 - Severe sepsis with septic shock Status: Acute Assessment and Plan: 08/12: [facility] with hypoxia, fever Septic shock secondary to UTI and pneumonia -she was hypotensive in the ER despite receiving 30 mL/kg IV fluids, left IJ central line was inserted, -off off all vasopressors -off of further IV fluids -continue stress dose steroid -08/12: Blood cultures growing E coli, Klebsiella pneumoniae, Staphylococcus capitis and Proteus mirabilis. All sensitive to meropenem. Which will be can -08/12: Urine cultures negative till now -08/12: C diff toxin is negative -patient has been started on vancomycin and levofloxacin (08/12) and was switched to switched to meropenem and doxycycline -DC doxycycline continue meropenem - 08/15: Repeat blood culture sent and negative till now -08/20 plan to continue meropenem for 10 days 08/12/2024: CT chest Complete left lung opacification with volume loss, likely representing atelectasis. Consider mucous plugging. Infection not excluded. No definite large obstructing mass is present, although this determination is difficult due to the lack of contrast and above-mentioned limitations CT abdomen pelvis Dense consolidation and volume loss of the visualized left lower lobe. Findings are compatible with atelectasis versus possibly pneumonia. Consider dedicated contrast-enhanced chest CT to better evaluate for any possibility of central obstructing lesion or other pulmonary/mediastinal pathology. Probable cystitis despite Larsen catheter in place. 2.5 cm oval urinary bladder stone. No definite CT evidence of pyelonephritis, but noncontrast CT scan is insensitive for this diagnosis (2) Acute respiratory failure: Code(s): J96.00 - Acute respiratory failure, unspecified whether with hypoxia or hypercapnia Status: Acute Assessment and Plan: Acute respiratory failure secondary to pneumonia, atelectasis and COVID infection. Although imaging is more suggestive of bacterial pneumonia and mucus plugging rather than COVID pneumonia. Patient initially placed on BiPAP but BiPAP had to be removed as patient was deemed not a candidate for BiPAP 08/12 CT chest Complete left lung opacification with volume loss, likely representing atelectasis. Consider mucous plugging. Infection not excluded. No definite large obstructing mass is present, although this determination is difficult due to the lack of contrast and above-mentioned limitations Chest x-ray08/14 Impression: Right upper lobe collapse. Central obstructing mass is not excluded. Extensive left perihilar and left lower lobe consolidation, suspicious for pneumonia. Possible small pleural effusion. Support line, as above. CXR 08/15 reviewed and shows persistent right upper lobe collapse I spoke to Dr. Jaffe with Pulmonary regarding option of bronchoscopy and he feels the patient may need intubation for bronchoscopy. 08/16 -chest x-ray reviewed and shows improvement in atelectasis on the right upper lobe. Although in consolidation of left lower lobe persists. 08/17 -chest x-ray reviewed and shows recurrence of atelectasis in the left side. Patient is weak and debilitated she does have cough reflex but it is very weak and she is not able to cough secretions out. I have requested nursing staff to NT suction her frequently. I will continue chest physical therapy. Intubating at this point considering patient is maintaining a saturation and not in respiratory distress would not fix the long-term issue of her inability to clear secretions and once intubated she may not come off of ventilator since she does not follow commands or does not respond to the examiner. At this point considering the clinical situation I will continue with noninvasive and conservative measures with aggressive chest physical therapy, bronchodilators, frequent suctioning and Mucomyst 08/18 -chest x-ray shows persistent atelectasis of the left side. 08/19-patient continues to require similar amount of oxygen although there is minimal improvement and she is down to 60%. 08/20 Chest x-ray reviewed and shows improvement in atelectasis. Continue CPT, frequent repositioning, scheduled NT suctioning, bronchodilators, Mucomyst. (3) UTI (urinary tract infection): Qualifiers: Encounter type: initial encounter Indwelling urinary catheter type: indwelling urethral catheter Urinary tract infection type: catheter-associated UTI Qualified Code(s): T83.511A - Infection and inflammatory reaction due to indwelling urethral catheter, initial encounter; N39.0 - Urinary tract infection, site not specified Code(s): N39.0 - Urinary tract infection, site not specified Status: Acute Assessment and Plan: UA reflective of UTI. According the son patient has had multiple UTIs in the past Large stone and bladder CT findings suggestive of cystitis Cultures as above Continue antibiotics as above (4) Pneumonia: Qualifiers: Laterality: left Lung location: lower lobe of lung Pneumonia type: due to unspecified organism Qualified Code(s): J18.9 - Pneumonia, unspecified organism Code(s): J18.9 - Pneumonia, unspecified organism Status: Acute Assessment and Plan: Patient was initially on BiPAP, patient is contracted and unable to probably pull the mask off if she has emesis, BiPAP likely contraindicated in such patients -placed patient on high-flow therapy, will wean FiO2 to maintain O2 sats greater than 92% (5) Acute kidney injury: Code(s): N17.9 - Acute kidney failure, unspecified Status: Acute Assessment and Plan: Patient presented with septic shock, acute kidney injury with a creatinine of 2.90 on admission, baseline unknown -adequately fluid-resuscitated in the ER -creatinine has normalized -off vasopressors -CK levels are slightly elevated, patient received adequate amount of IV fluids -continue to monitor urine output, electrolytes and renal function (6) Diarrhea: Qualifiers: Diarrhea type: presumed infectious Qualified Code(s): R19.7 - Diarrhea, unspecified Code(s): R19.7 - Diarrhea, unspecified Status: Acute Assessment and Plan: Patient has had severe diarrhea -C diff toxin is negative, -stool cultures are negative -diarrhea improved (7) COVID-19: Code(s): U07.1 - COVID-19 Status: Acute Assessment and Plan: Patient was tested positive for SARS-CoV-2 although the imaging does not appear suggestive of COVID pneumonia She currently on hydrocortisone and Remdesivir 08/17 Switch hydrocortisone to dexamethasone CRP is 37, status post Tocilizumab on 08/12 (8) Electrolyte abnormality: Code(s): E87.8 - Other disorders of electrolyte and fluid balance, not elsewhere classified Status: Acute Assessment and Plan: Sodium now decreasing Continue with decreased free water flush Plan DVT prophylaxis: Heparin SQ Stress ulcer prophylaxis: Protonix Nutrition: continue tube feeds Code Status: No CPR 08/12: Dr. Dwyer discussed with patient's son David who is the POA, he stated that the patient has had a brain surgery after she had a fall in the past and at the same time was diagnosed with Parkinson's. She has been nonverbal for the last 2 years and then developed contraction and footdrop. I also explained to him regarding her severe septic shock, likely secondary to pneumonia, UTI. He did state that she has had multiple UTIs over the last 2 years. He is aware that she is on 2 blood pressure support medications, antibiotics. He also discussed with David the POA regarding code status, he wants patient is a full code, he is going to discuss with his family though 08/15 I spoke to patient's son David again today and updated him with patient's status including continued respiratory failure requiring significant amount of oxygen, pneumonia, atelectasis, UTI, bacteremia and current plan of care. I again revisited the topical goals of care and code status as to whether patient would want intubation at this point. Patient is 73-year-old nonverbal bedbound in [facility] with chronic indwelling Larsen catheter and feeding through PEG tube for last 2 years. He told me that he has not had time to discuss with his other brothers. I emphasized the importance of this discussion. I discussed options of DNR DNI. I offered to speak to other children if they were interested off or had any questions. 08/16 I spoke to patient's son David again today by phone. He told me that he had discussion with his brothers and father and they all believe the patient would not want resuscitation at this time considering her medical problems and current quality of life. He has requested the patient be made DNR with no resuscitation or CPR in the event of cardiac arrest however he would like patient to be intubated for respiratory issues so that the family can visit her 1 last time. He states the patient's would like to visit her 1 time before she passes away. Due to her COVID isolation he is unable to come right now. He feels that once his father is able to see her they may not want intubation in the event of respiratory failure. 08/17 Patient came to visit patient. He was with his caregiver. I spoke to both of them and updated them with patient's status including respiratory failure, recurrent atelectasis, pneumonia, bacteremia, UTI along with his baseline nonverbal state. I also explained them her hospital course and current treatment plan. I answered all their questions. They wanted to visit the patient considering her poor prognosis and the fact that she may not survive. He also needed to seizure to get a closure before making any further decisions regarding goals of care. I explained to both than the patient is positive for COVID infection and they both have risk of catching infection if they go to the room even with a PPE and infection could be life threatening to hurt them. The caregiver told me that she and patient's are both vaccinated against COVID-19. Explained them that despite vaccination and PPE there is still risk of catching COVID infection by going into the room as patient is currently in isolation. And the infection, if severe, could be life-threatening. They both verbalized understanding of accepting the risk and agreed to proceed to visit patient. [facility] does not allow visits to patients with COVID infection but in this scenario as patient's family is considering hospice and comfort measures and may not survive the hospitalization it was allowed under compassionate grounds. Critical Care Time Spent: 32 minutes Due to a high probability of clinically significant, life threatening deterioration, the patient required my highest level of preparedness to intervene emergently and I personally spent this critical care time directly and personally managing the patient. This critical care time included obtaining a history; examining the patient; pulse oximetry; ordering and review of studies; arranging urgent treatment with development of a management plan; evaluation of patient's response to treatment; frequent reassessment; and discussions with other providers. It was exclusive of separately billable procedures and treating other patients and teaching time. Please see Assessment and Plan section and the rest of the note for further information on patient assessment and treatment This dictation may have been done utilizing a voice recognition system. Attempts have been made to correct errors. However, there may be uncorrected grammatical, spelling, and recognitions errors present. Subjective Date/time seen: 08/20/24 Overnight events reviewed. No major change overnight Afebrile Continues to be on Airvo but now at 35 L and 40% Not on any continues infusions No change in neurological status. Patient awake but unresponsive to commands and does not communicate. Tolerating tube feeds other Vitals acceptable Good urine output Interval history: Reason for consult: Pneumonia, septic shock, acute kidney injury, chronic indwelling Larsen catheter, chronic pressure ulcers, COVID positive Review of Systems Review of Systems: ROS unobtainable: Yes unobtainable due to medical condition and unobtainable due to mental status Exam Narrative: General: Ill-appearing female currently in no acute distress HEENT:? Pupils equal and reactive, sclerae is clear Neck:? Supple, left IJ central line in place Respiratory:? Coarse breath sounds bilaterally, decreased on left side, no wheezing, Cardiac:? Regular rate and rhythm Abdomen:? Soft, nontender, nondistended, tympanic, hyperactive bowel sounds, peg tube in place Extremities:? Trace edema bilaterally, dopplerable pedal pulses bilaterally Neuro:? Patient is nonverbal at baseline, her eyes are open, does not follow commands or answers questions Skin:? Decubitus ulcer on the buttocks Psych:? Unable to assess Objective Data Vital Signs Vital Signs: Vital Signs - 24 hr 08/19/24 10:00 08/19/24 10:00 08/19/24 12:00 Temperature 37.3 C 37.4 C Pulse Rate 81 89 77 Respiratory Rate 22 H 25 H Blood Pressure 105/68 114/61 Pulse Oximetry 95 95 Oxygen Delivery Oxygen Flow Rate Fraction of Inspired Oxygen 08/19/24 12:00 08/19/24 13:20 08/19/24 12:00 Temperature Pulse Rate 77 Respiratory Rate Blood Pressure Pulse Oximetry 96 97 Oxygen Delivery High Flow Therapy with Na High Flow Therapy with Na Oxygen Flow Rate 60 60 Fraction of Inspired Oxygen 47 44 08/19/24 13:50 08/19/24 13:50 08/19/24 14:15 Temperature Pulse Rate 73 72 Respiratory Rate 19 20 Blood Pressure Pulse Oximetry 96 Oxygen Delivery High Flow Therapy with Na Oxygen Flow Rate 50 Fraction of Inspired Oxygen 45 08/19/24 14:24 08/19/24 14:00 08/19/24 16:00 Temperature 36.9 C 36.9 C Pulse Rate 72 70 Respiratory Rate 21 H 20 Blood Pressure 116/62 94/60 L Pulse Oximetry 95 97 97 Oxygen Delivery High Flow Therapy with Na Oxygen Flow Rate 50 Fraction of Inspired Oxygen 45 08/19/24 16:00 08/19/24 14:00 08/19/24 16:00 Temperature Pulse Rate 72 70 Respiratory Rate Blood Pressure Pulse Oximetry 97 Oxygen Delivery High Flow Therapy with Na Oxygen Flow Rate 50 Fraction of Inspired Oxygen 45 08/19/24 18:00 08/19/24 18:00 08/19/24 20:14 Temperature 36.9 C 37.1 C Pulse Rate 71 70 71 Respiratory Rate 19 23 H Blood Pressure 107/63 118/67 Pulse Oximetry 96 95 Oxygen Delivery Oxygen Flow Rate Fraction of Inspired Oxygen 08/19/24 20:00 08/19/24 20:26 08/19/24 20:49 Temperature Pulse Rate 69 80 85 Respiratory Rate 23 H 20 21 H Blood Pressure Pulse Oximetry 96 Oxygen Delivery High Flow Therapy with Na Oxygen Flow Rate 50 Fraction of Inspired Oxygen 45 08/19/24 20:49 08/19/24 20:00 08/19/24 20:24 Temperature Pulse Rate 92 73 Respiratory Rate Blood Pressure Pulse Oximetry 96 Oxygen Delivery High Flow Therapy with Na Oxygen Flow Rate 50 Fraction of Inspired Oxygen 45 08/19/24 22:12 08/19/24 22:00 08/20/24 00:00 Temperature 37.1 C Pulse Rate 68 65 70 Respiratory Rate 22 H 23 H Blood Pressure 105/73 123/75 Pulse Oximetry 96 97 Oxygen Delivery Oxygen Flow Rate Fraction of Inspired Oxygen 08/20/24 00:00 08/20/24 00:40 08/20/24 02:00 Temperature Pulse Rate 75 78 76 Respiratory Rate 20 Blood Pressure Pulse Oximetry 96 Oxygen Delivery High Flow Therapy with Na Oxygen Flow Rate 40 Fraction of Inspired Oxygen 45 08/20/24 02:00 08/20/24 02:39 08/20/24 00:30 Temperature Pulse Rate 73 78 Respiratory Rate 22 H 24 H Blood Pressure 114/78 Pulse Oximetry 98 97 Oxygen Delivery High Flow Therapy with Na Oxygen Flow Rate 40 Fraction of Inspired Oxygen 45 08/20/24 02:48 08/20/24 03:51 08/20/24 03:51 Temperature 36.9 C Pulse Rate 69 73 73 Respiratory Rate 22 H 20 20 Blood Pressure 143/66 H Pulse Oximetry 96 96 Oxygen Delivery High Flow Therapy with Na Oxygen Flow Rate 35 Fraction of Inspired Oxygen 44 08/20/24 04:00 08/20/24 05:34 08/20/24 06:00 Temperature Pulse Rate 70 74 85 Respiratory Rate 21 H Blood Pressure Pulse Oximetry 98 Oxygen Delivery High Flow Therapy with Na Oxygen Flow Rate 35 Fraction of Inspired Oxygen 39 08/20/24 06:00 08/20/24 08:00 08/20/24 09:05 Temperature 37.0 C 37.0 C Pulse Rate 69 84 Respiratory Rate 17 25 H Blood Pressure 125/57 L 149/98 H Pulse Oximetry 96 97 93 Oxygen Delivery High Flow Therapy with Na Oxygen Flow Rate 35 Fraction of Inspired Oxygen 40 08/20/24 09:05 08/20/24 08:00 08/20/24 08:00 Temperature Pulse Rate 80 84 84 Respiratory Rate 24 H 25 H Blood Pressure Pulse Oximetry 97 Oxygen Delivery High Flow Therapy with Na Oxygen Flow Rate 35 Fraction of Inspired Oxygen 39 08/20/24 09:14 Temperature Pulse Rate 74 Respiratory Rate 24 H Blood Pressure Pulse Oximetry Oxygen Delivery Oxygen Flow Rate Fraction of Inspired Oxygen Intake/Output Intake/Output: Intake & Output 08/17/24 08/18/24 08/19/24 08/20/24 23:59 23:59 23:59 23:59 Intake Total 3007 2688 2573 982 Output Total 1625 1725 6005 1250 Balance 1382 963 -1002 -268 Meds/Results Medications: Active Medications Generic Name Dose Route Start Last Admin Trade Name Freq PRN Reason Stop Dose Admin Acetaminophen 650 mg 08/12/24 12:40 Acetaminophen 650 Mg Suppository RECTAL Q6H PRN Mild Pain (1-3) or Fever Acetaminophen 325 mg 08/12/24 16:44 Acetaminophen Elixir 325 Mg/10.15 Ml Udc FEED TUBE Q6H PRN Fever Acetylcysteine 200 mg 08/12/24 20:00 08/20/24 09:04 Acetylcysteine 20% Inhal Soln 800 Mg/4 Ml Vial INHALATION 200 mg Q6HRT ALENA Administration Albuterol/Ipratropium 3 ml 08/12/24 20:00 08/20/24 09:04 Ipratropium 0.5 Mg/Albuterol Sulfate 2.5 Mg Ampul.Neb 3 Ml INHALATION 3 ml Q6HRT ALENA Administration Alteplase, Recombinant 2 mg 08/18/24 14:42 Alteplase 2 Mg Vial (Cathflo) IV PUSH ONCE PRN Line Occlusion Carbidopa/Levodopa 2 tablet 08/12/24 17:00 08/20/24 08:34 Carbidopa/Levodopa 25/100 Mg Tablet FEED TUBE 2 tablet TID ALENA Administration Dexamethasone Sodium Phosphate 6 mg 08/17/24 09:00 08/20/24 08:34 Dexamethasone Sod Phos Inj 10 Mg/Ml 1 Ml Vial IV PUSH 08/21/24 09:01 6 mg DAILY ALENA Administration Heparin Sodium (Porcine) 5,000 units 08/12/24 14:00 08/20/24 05:13 Heparin Sodium 5,000 Units/Ml Vial SUB-Q 5,000 units Q8HR ALENA Administration Meropenem 1 gm in 100 mls @ 200 mls/hr 08/15/24 13:00 08/20/24 05:56 IVPB 08/22/24 23:59 Infused Q8HR ALENA Infusion Levetiracetam 100 mg 08/12/24 21:00 08/20/24 08:34 Levetiracetam Oral Moira 500 Mg/5 Ml Udc FEED TUBE 100 mg Q12H ALENA Administration Methimazole 10 mg 08/13/24 09:00 08/20/24 08:34 Methimazole 10 Mg Tab FEED TUBE 10 mg DAILY ALENA Administration Pantoprazole Sodium 40 mg 08/12/24 13:15 08/20/24 08:34 Pantoprazole Sodium Iv 40 Mg Vial IV PUSH 40 mg QAM ALENA Administration Sodium Chloride 10 ml 08/12/24 14:00 08/20/24 05:17 Central Line Flush IV PUSH 10 ml Q8HR ALENA Administration Sodium Chloride 20 ml 08/12/24 08:16 08/20/24 05:17 Central Line Flush IV PUSH 20 ml PRN PRN Administration after blood draws Radiology Results: ITS Impressions Abdomen/Pelvis CT 08/12/24 11:59 Impression: Dense consolidation and volume loss of the visualized left lower lobe. Findings are compatible with atelectasis versus possibly pneumonia. Consider dedicated contrast-enhanced chest CT to better evaluate for any possibility of central obstructing lesion or other pulmonary/mediastinal pathology. Probable cystitis despite Larsen catheter in place. 2.5 cm oval urinary bladder stone. No definite CT evidence of pyelonephritis, but noncontrast CT scan is insensitive for this diagnosis. Renal Ultrasound 08/12/24 15:05 IMPRESSION: No hydronephrosis. Head CT 08/12/24 19:13 IMPRESSION: No acute intracranial process. Chest CT 08/12/24 19:16 IMPRESSION: Complete left lung opacification with volume loss, likely representing atelectasis. Consider mucous plugging. Infection not excluded. No definite large obstructing mass is present, although this determination is difficult due to the lack of contrast and above-mentioned limitations. Chest X-Ray 08/20/24 06:28 IMPRESSION: 1. Mild atelectasis in right midlung zone. 2. Worsened airspace opacities in left mid and lower lung zones, consistent with atelectasis versus pneumonia. 3. Possible small left pleural effusion. Labs Labs: Laboratory Results - last 24 hr 08/20/24 05:18 WBC 14.6 H RBC 2.81 L Hgb 8.9 L Hct 26.9 L MCV 95.7 MCH 31.7 MCHC 33.1 RDW 14.5 Plt Count 122 L MPV 11.1 H Immature Gran % (Auto) 5.3 H Neut % (Auto) 67.0 Lymph % (Auto) 20.2 [place] % (Auto) 5.4 Eos % (Auto) 1.8 Baso % (Auto) 0.3 Lymph # (Auto) 2.94 [place] # (Auto) 0.8 H Eos # (Auto) 0.3 Baso # (Auto) 0.0 Abs Immat Gran (auto) 0.77 H Absolute Neuts (auto) 9.8 H Absolute Nucleated RBC 0.000 Nucleated RBC % 0.0 % Immature Plt Fraction 7.2 Sodium 138 Potassium 3.6 Chloride 103 Carbon Dioxide 34 H Anion Gap 1 L BUN 18 H Creatinine 0.40 L Estim Creat Clear Calc 89 Estimated GFR > 60 Glucose 85 Calcium 7.9 L Total Bilirubin 0.6 AST 26 ALT 21 Alkaline Phosphatase 83 Total Protein 5.0 L Albumin 2.4 L Quality VTE Prophylaxis VTE prophylaxis: mechanical ordered and pharmacologic ordered
--- NOTE | 2024-08-20 10:39 | PCFNICU ---
ICU Rounding Note: Pt current nutrition is Jevity 1.5 @ 55 ml/h goal rate, providing 1815 kcal (100% EER), 77 g protein (100% estimated protein needs), 920 ml free water. Nutrition recommendation: Add Bon BID mixed with flushed for additional 90 kcal and 2.5 g protein to support wounds Last recorded weight is 63.2 kg. Bowel Motility: Liquid stool output per FMS Labs Reviewed: Hgb 8.9, Hct 26.9, Alb 2.4, BUN 18, Cre 0.4 Meds Noted: mayi [place] Skin: Stage 3 pressure ulcer to coccyx. Spoke to RN who said it is not open and looks more like deep tissue injury Additional Notes: Adding Bon to flushes BID Following daily in ICU rounds. Monitoring diet orders, plan of care, meds, weights, labs, stool pattern. Daily in rounds, follow up Tuesdays and Fridays.
--- NOTE | 2024-08-20 16:20 | P.PNIM_ITS ---
Progress Note: A&P Assessment and Plan (1) Severe sepsis with septic shock: Code(s): A41.9 - Sepsis, unspecified organism; R65.21 - Severe sepsis with septic shock Status: Acute Assessment and Plan: 08/12: Patient presented from the retirement with hypoxia, fever Septic shock secondary to UTI and pneumonia -she was hypotensive in the ER despite receiving 30 mL/kg IV fluids, left IJ central line was inserted, -off off all vasopressors -off of further IV fluids -continue stress dose steroid -08/12: Blood cultures growing E coli, Klebsiella pneumoniae, Staphylococcus capitis and Proteus mirabilis. All sensitive to meropenem. Which will be can -08/12: Urine cultures negative till now -08/12: C diff toxin is negative -patient has been started on vancomycin and levofloxacin (08/12) and was switched to switched to meropenem and doxycycline -DC doxycycline continue meropenem - 08/15: Repeat blood culture sent and negative till now 08/12/2024: CT chest Complete left lung opacification with volume loss, likely representing atelectasis. Consider mucous plugging. Infection not excluded. No definite large obstructing mass is present, although this determination is difficult due to the lack of contrast and above-mentioned limitations CT abdomen pelvis Dense consolidation and volume loss of the visualized left lower lobe. Findings are compatible with atelectasis versus possibly pneumonia. Consider dedicated contrast-enhanced chest CT to better evaluate for any possibility of central obstructing lesion or other pulmonary/mediastinal pathology. Probable cystitis despite Larsen catheter in place. 2.5 cm oval urinary bladder stone. No definite CT evidence of pyelonephritis, but noncontrast CT scan is insensitive for this diagnosis (2) Acute respiratory failure: Code(s): J96.00 - Acute respiratory failure, unspecified whether with hypoxia or hypercapnia Status: Acute Assessment and Plan: Acute respiratory failure secondary to pneumonia, atelectasis and COVID infection. Although imaging is more suggestive of bacterial pneumonia and mucus plugging rather than COVID pneumonia. Patient initially placed on BiPAP but BiPAP had to be removed as patient was deemed not a candidate for BiPAP 08/12 CT chest Complete left lung opacification with volume loss, likely representing atelectasis. Consider mucous plugging. Infection not excluded. No definite large obstructing mass is present, although this determination is difficult due to the lack of contrast and above-mentioned limitations Chest x-ray08/14 Impression: Right upper lobe collapse. Central obstructing mass is not excluded. Extensive left perihilar and left lower lobe consolidation, suspicious for pneumonia. Possible small pleural effusion. Support line, as above. CXR 08/15 reviewed and shows persistent right upper lobe collapse Continuous [employer] spoke to Dr. Jaffe with Pulmonary regarding option of bronchoscopy and he feels the patient may need intubation for bronchoscopy. 08/16 -chest x-ray reviewed and shows improvement in atelectasis on the right upper lobe. Although in consolidation of left lower lobe persists. 08/17 -chest x-ray reviewed and shows recurrence of atelectasis in the left side. Patient is weak and debilitated she does have cough reflex but it is very weak and she is not able to cough secretions out. Continuous [employer]visor have requested nursing staff to NT suction her frequently. We will continue chest physical therapy. Intubating at this point considering patient is maintaining a saturation and not in respiratory distress would not fix the long-term issue of her inability to clear secretions and once intubated she may not come off of ventilator since she does not follow commands or does not respond to the examiner. At this point considering the clinical situation will continue with noninvasive and conservative measures with aggressive chest physical therapy, bronchodilators, frequent suctioning and Mucomyst 08/18 -chest x-ray shows persistent atelectasis of the left side. 08/19-patient continues to require similar amount of oxygen although there is minimal improvement and she is down to 60%. Chest x-ray reviewed and shows improvement in atelectasis of left side but recurrence of atelectasis of right upper lobe. Continue CPT, frequent repositioning, scheduled NT suctioning, bronchodilators, Mucomyst. Need to discuss with patient's son regarding further plan of action. (3) UTI (urinary tract infection): Qualifiers: Encounter type: initial encounter Indwelling urinary catheter type: indwelling urethral catheter Urinary tract infection type: catheter-associated UTI Qualified Code(s): T83.511A - Infection and inflammatory reaction due to indwelling urethral catheter, initial encounter; N39.0 - Urinary tract infection, site not specified Code(s): N39.0 - Urinary tract infection, site not specified Status: Acute Assessment and Plan: UA reflective of UTI. According the son patient has had multiple UTIs in the past Large stone and bladder CT findings suggestive of cystitis Cultures as above Continue antibiotics as above (4) Pneumonia: Qualifiers: Laterality: left Lung location: lower lobe of lung Pneumonia type: due to unspecified organism Qualified Code(s): J18.9 - Pneumonia, unspecified organism Code(s): J18.9 - Pneumonia, unspecified organism Status: Acute Assessment and Plan: Patient was initially on BiPAP, patient is contracted and unable to probably pull the mask off if she has emesis, BiPAP likely contraindicated in such patients -placed patient on high-flow therapy, will wean FiO2 to maintain O2 sats greater than 92% (5) Acute kidney injury: Code(s): N17.9 - Acute kidney failure, unspecified Status: Acute Assessment and Plan: Patient presented with septic shock, acute kidney injury with a creatinine of 2.90 on admission, baseline unknown -adequately fluid-resuscitated in the ER -creatinine has normalized -off vasopressors -CK levels are slightly elevated, patient received adequate amount of IV fluids -continue to monitor urine output, electrolytes and renal function (6) Diarrhea: Qualifiers: Diarrhea type: presumed infectious Qualified Code(s): R19.7 - Diarrhea, unspecified Code(s): R19.7 - Diarrhea, unspecified Status: Acute Assessment and Plan: Patient has had severe diarrhea -C diff toxin is negative, -stool cultures are negative -diarrhea improved (7) COVID-19: Code(s): U07.1 - COVID-19 Status: Acute Assessment and Plan: Patient was tested positive for SARS-CoV-2 although the imaging does not appear suggestive of COVID pneumonia She currently on hydrocortisone and Remdesivir 08/17 Switch hydrocortisone to dexamethasone CRP is 37, status post Tocilizumab on 08/12 (8) Electrolyte abnormality: Code(s): E87.8 - Other disorders of electrolyte and fluid balance, not elsewhere classified Status: Acute Assessment and Plan: Sodium now decreasing Continue with decreased free water flush Subjective Date/time seen: 08/20/24 16:20 Interval history: No acute events overnight. Patient still modified code, in the event of acute respiratory distress patient still needs to be intubated. Currently high-flow nasal cannula 40 L and 55% O2. Patient is downgraded from ICU. Review of Systems Review of Systems: ROS unobtainable: Yes unobtainable due to endotracheal tube, unobtainable due to medical condition and unobtainable due to mental status Exam Narrative: General: Ill-appearing female currently in no acute distress HEENT:? Pupils equal and reactive, sclerae is clear Neck:? Supple, left IJ central line in place Respiratory:? Coarse breath sounds bilaterally, decreased on left side, no wheezing, Cardiac:? Regular rate and rhythm Abdomen:? Soft, nontender, nondistended, tympanic, hyperactive bowel sounds, peg tube in place Extremities:? Trace edema bilaterally, dopplerable pedal pulses bilaterally Neuro:? Patient is nonverbal at baseline, her eyes are open, does not follow commands or answers questions Skin:? Decubitus ulcer on the buttocks Psych:? Unable to assess Const: General: comfortable and no acute distress Other: , female, elderly, ill-appearing HENMT: Face/Nose/Sinus: Normal nares present Mouth: Yes dry mucous membranes Other: High-flow nasal cannula in place Eyes: General: appearance normal, both eyes and all related structures Sclera: sclerae normal Pupils: Equal, round and reactive pupils present EOM: EOMs intact bilaterally Resp: Effort & Inspection: normal respiratory effort Other: Diminished breath sounds on left, no adventitious lung sounds on right Cardio: Rate: tachycardic (110-115) Rhythm: regular rhythm Other: S1-S2 present without murmur, rub, ectopy GI: Other: Abdomen soft, nondistended. No particular expression or grimace with palpation. Bowel sounds are distant and hypoactive in all quadrants. Urinary Catheter: Urinary Catheter: patent and draining Skin: General skin exam: normal color and no rashes or lesions noted Other: Decubitus ulcer to buttocks Neuro: Cranial nerves: Yes Equal, round and reactive pupils present Other: Nonverbal. Brief eye opening to noxious stimuli. Contracture to right hand. Does not follow commands or answer questions. Extrem: General: normal to inspection Psych: Other: Poor insight and judgment. Flat affect. Objective Data Vital Signs Vital Signs: Vital Signs - 24 hr 08/19/24 18:00 08/19/24 18:00 08/19/24 20:14 Temperature 98.5 F 98.7 F Pulse Rate 71 70 71 Respiratory Rate 19 23 H Blood Pressure 107/63 118/67 Pulse Oximetry 96 95 Oxygen Delivery Oxygen Flow Rate Fraction of Inspired Oxygen 08/19/24 20:00 08/19/24 20:26 08/19/24 20:49 Temperature Pulse Rate 69 80 85 Respiratory Rate 23 H 20 21 H Blood Pressure Pulse Oximetry 96 Oxygen Delivery High Flow Therapy with Na Oxygen Flow Rate 50 Fraction of Inspired Oxygen 45 08/19/24 20:49 08/19/24 20:00 08/19/24 20:24 Temperature Pulse Rate 92 73 Respiratory Rate Blood Pressure Pulse Oximetry 96 Oxygen Delivery High Flow Therapy with Na Oxygen Flow Rate 50 Fraction of Inspired Oxygen 45 08/19/24 22:12 08/19/24 22:00 08/20/24 00:00 Temperature 98.7 F Pulse Rate 68 65 70 Respiratory Rate 22 H 23 H Blood Pressure 105/73 123/75 Pulse Oximetry 96 97 Oxygen Delivery Oxygen Flow Rate Fraction of Inspired Oxygen 08/20/24 00:00 08/20/24 00:40 08/20/24 02:00 Temperature Pulse Rate 75 78 76 Respiratory Rate 20 Blood Pressure Pulse Oximetry 96 Oxygen Delivery High Flow Therapy with Na Oxygen Flow Rate 40 Fraction of Inspired Oxygen 45 08/20/24 02:00 08/20/24 02:39 08/20/24 00:30 Temperature Pulse Rate 73 78 Respiratory Rate 22 H 24 H Blood Pressure 114/78 Pulse Oximetry 98 97 Oxygen Delivery High Flow Therapy with Na Oxygen Flow Rate 40 Fraction of Inspired Oxygen 45 08/20/24 02:48 08/20/24 03:51 08/20/24 03:51 Temperature 98.5 F Pulse Rate 69 73 73 Respiratory Rate 22 H 20 20 Blood Pressure 143/66 H Pulse Oximetry 96 96 Oxygen Delivery High Flow Therapy with Na Oxygen Flow Rate 35 Fraction of Inspired Oxygen 44 08/20/24 04:00 08/20/24 05:34 08/20/24 06:00 Temperature Pulse Rate 70 74 85 Respiratory Rate 21 H Blood Pressure Pulse Oximetry 98 Oxygen Delivery High Flow Therapy with Na Oxygen Flow Rate 35 Fraction of Inspired Oxygen 39 08/20/24 06:00 08/20/24 08:00 08/20/24 09:05 Temperature 98.6 F 98.6 F Pulse Rate 69 84 Respiratory Rate 17 25 H Blood Pressure 125/57 L 149/98 H Pulse Oximetry 96 97 93 Oxygen Delivery High Flow Therapy with Na Oxygen Flow Rate 35 Fraction of Inspired Oxygen 40 08/20/24 09:05 08/20/24 08:00 08/20/24 08:00 Temperature Pulse Rate 80 84 84 Respiratory Rate 24 H 25 H Blood Pressure Pulse Oximetry 97 Oxygen Delivery High Flow Therapy with Na Oxygen Flow Rate 35 Fraction of Inspired Oxygen 39 08/20/24 09:14 08/20/24 10:00 08/20/24 10:00 Temperature 98.3 F Pulse Rate 74 87 75 Respiratory Rate 24 H 24 H Blood Pressure 122/62 Pulse Oximetry 89 L Oxygen Delivery Oxygen Flow Rate Fraction of Inspired Oxygen 08/20/24 10:30 08/20/24 12:00 08/20/24 12:00 Temperature 98.6 F Pulse Rate 72 Respiratory Rate 21 H Blood Pressure 105/52 L Pulse Oximetry 97 91 92 Oxygen Delivery High Flow Therapy with Na High Flow Therapy with Na Oxygen Flow Rate 40 40 Fraction of Inspired Oxygen 56 56 08/20/24 12:00 08/20/24 14:00 08/20/24 14:38 Temperature 98.4 F Pulse Rate 73 80 84 Respiratory Rate 20 22 H Blood Pressure 105/61 Pulse Oximetry 91 Oxygen Delivery Oxygen Flow Rate Fraction of Inspired Oxygen 08/20/24 14:53 08/20/24 14:00 Temperature Pulse Rate 75 80 Respiratory Rate 22 H Blood Pressure Pulse Oximetry Oxygen Delivery Oxygen Flow Rate Fraction of Inspired Oxygen Intake/Output Intake/Output: Intake & Output 08/17/24 08/18/24 08/19/24 08/20/24 23:59 23:59 23:59 23:59 Intake Total 3007 2688 2573 982 Output Total 1625 1725 3575 1250 Balance 1382 963 -1002 -268 Meds/Results Medications: Active Medications Generic Name Dose Route Start Last Admin Trade Name Freq PRN Reason Stop Dose Admin Acetaminophen 650 mg 08/12/24 12:40 Acetaminophen 650 Mg Suppository RECTAL Q6H PRN Mild Pain (1-3) or Fever Acetaminophen 325 mg 08/12/24 16:44 Acetaminophen Elixir 325 Mg/10.15 Ml Udc FEED TUBE Q6H PRN Fever Acetylcysteine 200 mg 08/12/24 20:00 08/20/24 14:37 Acetylcysteine 20% Inhal Soln 800 Mg/4 Ml Vial INHALATION 200 mg Q6HRT ALENA Administration Albuterol/Ipratropium 3 ml 08/12/24 20:00 08/20/24 14:37 Ipratropium 0.5 Mg/Albuterol Sulfate 2.5 Mg Ampul.Neb 3 Ml INHALATION 3 ml Q6HRT ALENA Administration Alteplase, Recombinant 2 mg 08/18/24 14:42 Alteplase 2 Mg Vial (Cathflo) IV PUSH ONCE PRN Line Occlusion Carbidopa/Levodopa 2 tablet 08/12/24 17:00 08/20/24 12:33 Carbidopa/Levodopa 25/100 Mg Tablet FEED TUBE 2 tablet TID ALENA Administration Dexamethasone Sodium Phosphate 6 mg 08/17/24 09:00 08/20/24 08:34 Dexamethasone Sod Phos Inj 10 Mg/Ml 1 Ml Vial IV PUSH 08/21/24 09:01 6 mg DAILY ALENA Administration Heparin Sodium (Porcine) 5,000 units 08/12/24 14:00 08/20/24 14:37 Heparin Sodium 5,000 Units/Ml Vial SUB-Q 5,000 units Q8HR ALENA Administration Meropenem 1 gm in 100 mls @ 200 mls/hr 08/15/24 13:00 08/20/24 14:37 IVPB 08/22/24 23:59 100 mls/hr Q8HR ALENA Administration Levetiracetam 100 mg 08/12/24 21:00 08/20/24 08:34 Levetiracetam Oral Moira 500 Mg/5 Ml Udc FEED TUBE 100 mg Q12H ALENA Administration Methimazole 10 mg 08/13/24 09:00 08/20/24 08:34 Methimazole 10 Mg Tab FEED TUBE 10 mg DAILY ALENA Administration Pantoprazole Sodium 40 mg 08/12/24 13:15 08/20/24 08:34 Pantoprazole Sodium Iv 40 Mg Vial IV PUSH 40 mg QAM ALENA Administration Sodium Chloride 10 ml 08/12/24 14:00 08/20/24 14:39 Central Line Flush IV PUSH 10 ml Q8HR ALENA Administration Sodium Chloride 20 ml 08/12/24 08:16 08/20/24 05:17 Central Line Flush IV PUSH 20 ml PRN PRN Administration after blood draws Radiology Results: ITS Impressions Abdomen/Pelvis CT 08/12/24 11:59 Impression: Dense consolidation and volume loss of the visualized left lower lobe. Findings are compatible with atelectasis versus possibly pneumonia. Consider dedicated contrast-enhanced chest CT to better evaluate for any possibility of central obstructing lesion or other pulmonary/mediastinal pathology. Probable cystitis despite Larsen catheter in place. 2.5 cm oval urinary bladder stone. No definite CT evidence of pyelonephritis, but noncontrast CT scan is insensitive for this diagnosis. Renal Ultrasound 08/12/24 15:05 IMPRESSION: No hydronephrosis. Head CT 08/12/24 19:13 IMPRESSION: No acute intracranial process. Chest CT 08/12/24 19:16 IMPRESSION: Complete left lung opacification with volume loss, likely representing atelectasis. Consider mucous plugging. Infection not excluded. No definite large obstructing mass is present, although this determination is difficult due to the lack of contrast and above-mentioned limitations. Chest X-Ray 08/20/24 06:28 IMPRESSION: 1. Mild atelectasis in right midlung zone. 2. Worsened airspace opacities in left mid and lower lung zones, consistent with atelectasis versus pneumonia. 3. Possible small left pleural effusion. Labs Labs: Laboratory Results - last 24 hr 08/20/24 05:18 WBC 14.6 H RBC 2.81 L Hgb 8.9 L Hct 26.9 L MCV 95.7 MCH 31.7 MCHC 33.1 RDW 14.5 Plt Count 122 L MPV 11.1 H Immature Gran % (Auto) 5.3 H Neut % (Auto) 67.0 Lymph % (Auto) 20.2 [place] % (Auto) 5.4 Eos % (Auto) 1.8 Baso % (Auto) 0.3 Lymph # (Auto) 2.94 [place] # (Auto) 0.8 H Eos # (Auto) 0.3 Baso # (Auto) 0.0 Abs Immat Gran (auto) 0.77 H Absolute Neuts (auto) 9.8 H Absolute Nucleated RBC 0.000 Nucleated RBC % 0.0 % Immature Plt Fraction 7.2 Sodium 138 Potassium 3.6 Chloride 103 Carbon Dioxide 34 H Anion Gap 1 L BUN 18 H Creatinine 0.40 L Estim Creat Clear Calc 89 Estimated GFR > 60 Glucose 85 Calcium 7.9 L Total Bilirubin 0.6 AST 26 ALT 21 Alkaline Phosphatase 83 Total Protein 5.0 L Albumin 2.4 L Quality VTE Prophylaxis VTE prophylaxis: mechanical ordered and pharmacologic ordered Hospitalist [facility] Advance Care Plan I have confirmed that the patient's Advanced Care Plan is present, code status is documented, or surrogate decision maker is listed in patient medical record.: Yes Medication Reconciliation I have utilized all available resources to obtain, update and review the patients current medications (includes all prescriptions, OTC, herbals, cannabis, and nutritional supplements).: Yes
--- NOTE | 2024-08-20 20:23 | PC.NURSE ---
Notified pt's son/POA, David ([phone]), that pt will be transffering to IMU room 207. Pt will be on camera for safety purposes. Verbalized understanding.
[2024-08-21] VITALS (22 sets, daily range): BP systolic 93–138; BP diastolic 49–88; PULSE 69–98; RESP 14–24; TEMP 36.9–37.9; O2SAT 94–100
[2024-08-21] MEDS: ACETYLCYSTEINE 20% INHAL SOLN 800 MG/4 ML VIAL 200 MG INHALATION ×4 (01:42→20:58)
[2024-08-21] MEDS: IPRATROPIUM 0.5 MG/ALBUTEROL SULFATE 2.5 MG AMPUL.NEB 3 ML INHALATION ×4 (01:42→20:58)
[2024-08-21] MEDS: MEROPENEM 1 GM/NS 100 ML 1 GM/100 ML BAG IVPB ×3 (05:18→20:54)
[2024-08-21] MEDS: HEPARIN SODIUM 5,000 UNITS/ML VIAL 5000 UNITS SUB-Q ×3 (05:18→20:56)
[2024-08-21] MEDS: CENTRAL LINE FLUSH 10 ML IV PUSH ×3 (05:18→20:57)
[2024-08-21 05:19] LABS: Hemoglobin 9.5 g/dL (12.0-15.0); Immature Platelet Fraction Pct 8.5 % (0.9-11.2); Mean Corpuscular HGB Conc 32.8 g/dl (32-36); Mean Corpuscular Hemoglobin 31.4 pg (26-34); Mean Corpuscular Volume 95.7 fl (80-100); Mean Platelet Volume 11.1 fl (7.4-10.4); Platelet Count Result 131 k/mm3 (150-375); Red Blood Count 3.03 M/mm3 (4.2-5.4); Red Cell Distribution Width 14.9 % (11.5-14.5); White Blood Count 13.1 K/mm3 (4.5-10.0)
[2024-08-21 05:29] LABS: Alanine Aminotransferase 24 U/L (6-35); Albumin Level 2.8 g/dL (3.5-5.1); Alkaline Phosphatase 97 U/L (38-126); Anion Gap 1 mmol/L (4-12); Aspartate Amino Transferase 32 U/L (14-36); Bilirubin,Total 0.7 mg/dL (0.2-1.3); Blood Urea Nitrogen 22 mg/dL (7-17); Calcium 8.3 mg/dL (8.4-10.2); Carbon Dioxide 32 mmol/L (22-30); Chloride 102 mmol/L (98-107); Estimated CRCL calculation 89 ml/min; Estimated Glomerular Filt Rate > 60; Glucose 73 mg/dL (65-110); Potassium 4.1 mmol/L (3.4-5.0); Sodium 135 mmol/L (137-145)
[2024-08-21] MEDS: CARBIDOPA/LEVODOPA 25/100 MG TABLET 2 TABLET FEED TUBE ×3 (09:15→17:23)
[2024-08-21] MEDS: methiMAzole 10 MG TAB FEED TUBE (09:15)
[2024-08-21] MEDS: levETIRAcetam ORAL SOL 500 MG/5 ML UDC FEED TUBE ×2 (09:16→20:56)
[2024-08-21] MEDS: PANTOPRAZOLE SODIUM IV 40 MG VIAL IV PUSH (09:16)
[2024-08-21] MEDS: dexAMETHasone SOD PHOS INJ 10 MG/ML 1 ML VIAL 6 MG IV PUSH (09:16)
--- NOTE | 2024-08-21 10:05 | PCNFU ---
Nutrition Follow-Up Complete: Inadequate energy intake related to NPO, sepsis, covid as evidenced by current orders goal: Meet estimated protein energy needs Patient is meeting goal. No new goal. Pt current nutrition is Jevity 1.5 at 55 ml/hr with Bon BID. Last recorded weight is 61 kg, stable Bowel Motility: FMS Labs Reviewed:Cr 0.4, BUN 22, Na 135, Alb 2.58, Hct 29.0,Hgb 9.5 Meds Noted: Heparin, Protonix, Keppra. Skin: spoke with wound care. Deep Tissue reported. Bon added today. Additional Notes: Patient remains on tube feedings via PEG of Jevity 1.5 at 55 ml/hr and tolerating per nursing. Bon BID to start via flush for wound healing. Flush remains at 100 ml q 4 hours. Total Nutrition: 1975 kcal/82 gm protein/920 ml water. Agree with diet orders. Monitoring diet orders, plan of care, meds, weights, labs, stool pattern. Daily in rounds, follow up Tuesdays and Fridays
[2024-08-21 12:29] LABS: Glucose Point of Care 143 mg/dl (65-105)
[2024-08-21] MEDS: SODIUM CHLORIDE 0.9% IV 500 ML 10 ML (13:39)
--- NOTE | 2024-08-21 15:50 | P.PNIM_ITS ---
Progress Note: A&P Assessment and Plan (1) Severe sepsis with septic shock: Code(s): A41.9 - Sepsis, unspecified organism; R65.21 - Severe sepsis with septic shock Status: Acute Assessment and Plan: 08/12: Patient presented from the [place] [facility] with hypoxia, fever Septic shock secondary to UTI and pneumonia -she was hypotensive in the ER despite receiving 30 mL/kg IV fluids, left IJ central line was inserted, -off off all vasopressors -off of further IV fluids -continue stress dose steroid -08/12: Blood cultures growing E coli, Klebsiella pneumoniae, Staphylococcus capitis and Proteus mirabilis. All sensitive to meropenem. Which will be can -08/12: Urine cultures negative till now -08/12: C diff toxin is negative -patient has been started on vancomycin and levofloxacin (08/12) and was switched to switched to meropenem and doxycycline -DC doxycycline continue meropenem - 08/15: Repeat blood culture sent and negative till now - Patient to complete antibiotics tomorrow 08/12/2024: CT chest Complete left lung opacification with volume loss, likely representing atelectasis. Consider mucous plugging. Infection not excluded. No definite large obstructing mass is present, although this determination is difficult due to the lack of contrast and above-mentioned limitations CT abdomen pelvis Dense consolidation and volume loss of the visualized left lower lobe. Findings are compatible with atelectasis versus possibly pneumonia. Consider dedicated contrast-enhanced chest CT to better evaluate for any possibility of central obstructing lesion or other pulmonary/mediastinal pathology. Probable cystitis despite Larsen catheter in place. 2.5 cm oval urinary bladder stone. No definite CT evidence of pyelonephritis, but noncontrast CT scan is insensitive for this diagnosis (2) Acute respiratory failure: Code(s): J96.00 - Acute respiratory failure, unspecified whether with hypoxia or hypercapnia Status: Acute Assessment and Plan: Acute respiratory failure secondary to pneumonia, atelectasis and COVID infection. Although imaging is more suggestive of bacterial pneumonia and mucus plugging rather than COVID pneumonia. Patient initially placed on BiPAP but BiPAP had to be removed as patient was deemed not a candidate for BiPAP 08/12 CT chest Complete left lung opacification with volume loss, likely representing atelectasis. Consider mucous plugging. Infection not excluded. No definite large obstructing mass is present, although this determination is difficult due to the lack of contrast and above-mentioned limitations Chest x-ray08/14 Impression: Right upper lobe collapse. Central obstructing mass is not excluded. Extensive left perihilar and left lower lobe consolidation, suspicious for pneumonia. Possible small pleural effusion. Support line, as above. CXR 08/15 reviewed and shows persistent right upper lobe collapse Quarter Seamer spoke to Dr. Jaffe with Pulmonary regarding option of bronchoscopy and he feels the patient may need intubation for bronchoscopy. 08/16 -chest x-ray reviewed and shows improvement in atelectasis on the right upper lobe. Although in consolidation of left lower lobe persists. 08/17 -chest x-ray reviewed and shows recurrence of atelectasis in the left side. Patient is weak and debilitated she does have cough reflex but it is very weak and she is not able to cough secretions out. Quarter Seamer have requested nursing staff to NT suction her frequently. We will continue chest physical therapy. Intubating at this point considering patient is maintaining a saturation and not in respiratory distress would not fix the long-term issue of her inability to clear secretions and once intubated she may not come off of ventilator since she does not follow commands or does not respond to the examiner. At this point considering the clinical situation will continue with noninvasive and conservative measures with aggressive chest physical therapy, bronchodilators, frequent suctioning and Mucomyst 08/18 -chest x-ray shows persistent atelectasis of the left side. 08/19-patient continues to require similar amount of oxygen although there is minimal improvement and she is down to 60%. Chest x-ray reviewed and shows i mprovement in atelectasis of left side but recurrence of atelectasis of right upper lobe. Continue CPT, frequent repositioning, scheduled NT suctioning, bronchodilators, Mucomyst. Need to discuss with patient's son regarding further plan of action. (3) UTI (urinary tract infection): Qualifiers: Urinary tract infection type: catheter-associated UTI Indwelling urinary catheter type: indwelling urethral catheter Encounter type: initial encounter Qualified Code(s): T83.511A - Infection and inflammatory reaction due to indwelling urethral catheter, initial encounter; N39.0 - Urinary tract infection, site not specified Code(s): N39.0 - Urinary tract infection, site not specified Status: Acute Assessment and Plan: UA reflective of UTI. According the son patient has had multiple UTIs in the past Large stone and bladder CT findings suggestive of cystitis Cultures as above Continue antibiotics as above (4) Pneumonia: Qualifiers: Pneumonia type: due to unspecified organism Laterality: left Lung location: lower lobe of lung Qualified Code(s): J18.9 - Pneumonia, unspecified organism Code(s): J18.9 - Pneumonia, unspecified organism Status: Acute Assessment and Plan: Patient was initially on BiPAP, patient is contracted and unable to probably pull the mask off if she has emesis, BiPAP likely contraindicated in such patients -placed patient on high-flow therapy, will wean FiO2 to maintain O2 sats greater than 92% (5) Acute kidney injury: Code(s): N17.9 - Acute kidney failure, unspecified Status: Acute Assessment and Plan: Patient presented with septic shock, acute kidney injury with a creatinine of 2.90 on admission, baseline unknown -adequately fluid-resuscitated in the ER -creatinine has normalized -off vasopressors -CK levels are slightly elevated, patient received adequate amount of IV fluids -continue to monitor urine output, electrolytes and renal function (6) Diarrhea: Qualifiers: Diarrhea type: presumed infectious Qualified Code(s): R19.7 - Diarrhea, unspecified Code(s): R19.7 - Diarrhea, unspecified Status: Acute Assessment and Plan: Patient has had severe diarrhea -C diff toxin is negative, -stool cultures are negative -diarrhea improved (7) COVID-19: Code(s): U07.1 - COVID-19 Status: Acute Assessment and Plan: Patient was tested positive for SARS-CoV-2 although the imaging does not appear suggestive of COVID pneumonia She currently on hydrocortisone and Remdesivir 08/17 Switch hydrocortisone to dexamethasone CRP is 37, status post Tocilizumab on 08/12 (8) Electrolyte abnormality: Code(s): E87.8 - Other disorders of electrolyte and fluid balance, not elsewhere classified Status: Acute Assessment and Plan: Sodium now decreasing Continue with decreased free water flush Plan DVT prophylaxis on Sq Lovenox Subjective Date/time seen: 08/21/24 15:50 Interval history: Patient comfortable at bedside Oxygen titrated down to 30% from 40% Review of Systems Review of Systems: ROS unobtainable: Yes unobtainable due to endotracheal tube, unobtainable due to medical condition and unobtainable due to mental status Exam Narrative: General: Ill-appearing female currently in no acute distress HEENT:? Pupils equal and reactive, sclerae is clear Neck:? Supple, left IJ central line in place Respiratory:? Coarse breath sounds bilaterally, decreased on left side, no wheezing, Cardiac:? Regular rate and rhythm Abdomen:? Soft, nontender, nondistended, tympanic, hyperactive bowel sounds, peg tube in place Extremities:? Trace edema bilaterally, dopplerable pedal pulses bilaterally Neuro:? Patient is nonverbal at baseline, her eyes are open, does not follow commands or answers questions Skin:? Decubitus ulcer on the buttocks Psych:? Unable to assess Const: General: comfortable and no acute distress Other: , female, elderly, ill-appearing HENMT: Face/Nose/Sinus: Normal nares present Mouth: Yes dry mucous membranes Other: High-flow nasal cannula in place Eyes: General: appearance normal, both eyes and all related structures Sclera: sclerae normal Pupils: Equal, round and reactive pupils present EOM: EOMs intact bilaterally Resp: Effort & Inspection: normal respiratory effort Other: Diminished breath sounds on left, no adventitious lung sounds on right Cardio: Rate: tachycardic (110-115) Rhythm: regular rhythm Other: S1-S2 present without murmur, rub, ectopy GI: Other: Abdomen soft, nondistended. No particular expression or grimace with palpation. Bowel sounds are distant and hypoactive in all quadrants. Urinary Catheter: Urinary Catheter: patent and draining Skin: General skin exam: normal color and no rashes or lesions noted Other: Decubitus ulcer to buttocks Neuro: Cranial nerves: Yes Equal, round and reactive pupils present Other: Nonverbal. Brief eye opening to noxious stimuli. Contracture to right hand. Does not follow commands or answer questions. Extrem: General: normal to inspection Psych: Other: Poor insight and judgment. Flat affect. Objective Data Vital Signs Vital Signs: Vital Signs - 24 hr 08/20/24 16:00 08/20/24 16:00 08/20/24 16:00 Temperature 98.7 F Pulse Rate 75 75 Respiratory Rate 24 H Blood Pressure 115/54 L Pulse Oximetry 94 94 Oxygen Delivery High Flow Therapy with Na Oxygen Flow Rate 40 Fraction of Inspired Oxygen 56 08/20/24 18:00 08/20/24 18:00 08/20/24 20:00 Temperature 98.8 F 99.4 F Pulse Rate 76 76 85 Respiratory Rate 21 H 21 H Blood Pressure 120/72 109/68 Pulse Oximetry 95 97 Oxygen Delivery Oxygen Flow Rate Fraction of Inspired Oxygen 08/20/24 20:00 08/20/24 20:58 08/20/24 20:58 Temperature Pulse Rate 85 95 95 Respiratory Rate 20 20 Blood Pressure Pulse Oximetry 98 Oxygen Delivery High Flow Therapy with Na Oxygen Flow Rate 40 Fraction of Inspired Oxygen 56 08/20/24 20:00 08/20/24 21:16 08/20/24 21:16 Temperature Pulse Rate 96 Respiratory Rate 20 Blood Pressure Pulse Oximetry 97 98 Oxygen Delivery High Flow Therapy with Na Oxygen Flow Rate 40 Fraction of Inspired Oxygen 56 08/20/24 23:10 08/20/24 22:00 08/20/24 22:00 Temperature 99.2 F Pulse Rate 78 94 74 Respiratory Rate 21 H 22 H Blood Pressure 122/65 Pulse Oximetry 98 98 Oxygen Delivery High Flow Therapy with Na Oxygen Flow Rate 40 Fraction of Inspired Oxygen 56 08/21/24 00:05 08/21/24 01:42 08/21/24 01:55 Temperature 99.0 F Pulse Rate 96 97 98 Respiratory Rate 19 20 20 Blood Pressure 138/88 Pulse Oximetry 97 Oxygen Delivery Oxygen Flow Rate Fraction of Inspired Oxygen 08/21/24 02:00 08/21/24 04:00 08/21/24 04:00 Temperature 98.4 F Pulse Rate 95 84 77 Respiratory Rate 18 Blood Pressure 138/82 Pulse Oximetry 98 Oxygen Delivery Oxygen Flow Rate Fraction of Inspired Oxygen 08/21/24 06:00 08/21/24 08:12 08/21/24 09:00 Temperature 99.3 F Pulse Rate 69 78 Respiratory Rate 14 Blood Pressure 114/64 Pulse Oximetry 99 99 Oxygen Delivery High Flow Therapy with Na Oxygen Flow Rate 40 Fraction of Inspired Oxygen 56 08/21/24 09:00 08/21/24 09:34 08/21/24 09:58 Temperature Pulse Rate 92 96 Respiratory Rate 20 20 Blood Pressure Pulse Oximetry 94 Oxygen Delivery High Flow Therapy with Na Oxygen Flow Rate 30 Fraction of Inspired Oxygen 40 08/21/24 08:00 08/21/24 12:00 08/21/24 12:00 Temperature 100.3 F H Pulse Rate 74 83 85 Respiratory Rate 16 Blood Pressure 93/49 L Pulse Oximetry 97 Oxygen Delivery Oxygen Flow Rate Fraction of Inspired Oxygen 08/21/24 14:08 08/21/24 14:08 08/21/24 14:28 Temperature Pulse Rate 82 80 Respiratory Rate 20 20 Blood Pressure Pulse Oximetry 94 Oxygen Delivery High Flow Therapy with Na Oxygen Flow Rate 30 Fraction of Inspired Oxygen 40 08/21/24 14:00 Temperature Pulse Rate 91 Respiratory Rate Blood Pressure Pulse Oximetry Oxygen Delivery Oxygen Flow Rate Fraction of Inspired Oxygen Intake/Output Intake/Output: Intake & Output 08/18/24 08/19/24 08/20/24 08/21/24 23:59 23:59 23:59 23:59 Intake Total 2688 2573 2158 816 Output Total 1720 2752 3108 3346 Balance 311 -5424 -[phone] -9496 Meds/Results Medications: Active Medications Generic Name Dose Route Start Last Admin Trade Name Freq PRN Reason Stop Dose Admin Acetaminophen 650 mg 08/12/24 12:40 Acetaminophen 650 Mg Suppository RECTAL Q6H PRN Mild Pain (1-3) or Fever Acetaminophen 325 mg 08/12/24 16:44 Acetaminophen Elixir 325 Mg/10.15 Ml Udc FEED TUBE Q6H PRN Fever Acetylcysteine 200 mg 08/12/24 20:00 08/21/24 14:07 Acetylcysteine 20% Inhal Soln 800 Mg/4 Ml Vial INHALATION 200 mg Q6HRT ALENA Administration Albuterol/Ipratropium 3 ml 08/12/24 20:00 08/21/24 14:07 Ipratropium 0.5 Mg/Albuterol Sulfate 2.5 Mg Ampul.Neb 3 Ml INHALATION 3 ml Q6HRT ALENA Administration Alteplase, Recombinant 2 mg 08/18/24 14:42 Alteplase 2 Mg Vial (Cathflo) IV PUSH ONCE PRN Line Occlusion Carbidopa/Levodopa 2 tablet 08/12/24 17:00 08/21/24 13:40 Carbidopa/Levodopa 25/100 Mg Tablet FEED TUBE 2 tablet TID ALENA Administration Dextrose 12.5 gm 08/21/24 05:47 Dextrose 50% 25 Gm/50 Ml Syringe IV PUSH PRN PRN Hypoglycemia Protocol Glucagon 1 mg 08/21/24 05:47 Glucagon For Inj 1 Mg Vial IM PRN PRN Hypoglycemia Protocol Glucose 15 gm 08/21/24 05:47 Glucose Oral Gel 15 Gm Of Glucse In 37.5 Gm Tube PO PRN PRN Hypoglycemia Protocol Heparin Sodium (Porcine) 5,000 units 08/12/24 14:00 08/21/24 13:39 Heparin Sodium 5,000 Units/Ml Vial SUB-Q 5,000 units Q8HR ALENA Administration Meropenem 1 gm in 100 mls @ 200 mls/hr 08/15/24 13:00 08/21/24 13:40 IVPB 08/22/24 23:59 200 mls/hr Q8HR ALENA Administration Dextrose 1,000 mls @ 100 mls/hr 08/21/24 05:47 Dextrose 5% 1,000 Ml IVPB PRN PRN Hypoglycemia Protocol Levetiracetam 500 mg 08/21/24 09:00 08/21/24 09:16 Levetiracetam Oral Moira 500 Mg/5 Ml Udc FEED TUBE 500 mg Q12H ALENA Administration Methimazole 10 mg 08/13/24 09:00 08/21/24 09:15 Methimazole 10 Mg Tab FEED TUBE 10 mg DAILY ALNEA Administration Sodium Chloride 10 ml 08/12/24 14:00 08/21/24 13:39 Central Line Flush IV PUSH 10 ml Q8HR ALENA Administration Sodium Chloride 20 ml 08/12/24 08:16 08/20/24 05:17 Central Line Flush IV PUSH 20 ml PRN PRN Administration after blood draws Radiology Results: ITS Impressions Abdomen/Pelvis CT 08/12/24 11:59 Impression: Dense consolidation and volume loss of the visualized left lower lobe. Findings are compatible with atelectasis versus possibly pneumonia. Consider dedicated contrast-enhanced chest CT to better evaluate for any possibility of central obstructing lesion or other pulmonary/mediastinal pathology. Probable cystitis despite Larsen catheter in place. 2.5 cm oval urinary bladder stone. No definite CT evidence of pyelonephritis, but noncontrast CT scan is insensitive for this diagnosis. Renal Ultrasound 08/12/24 15:05 IMPRESSION: No hydronephrosis. Head CT 08/12/24 19:13 IMPRESSION: No acute intracranial process. Chest CT 08/12/24 19:16 IMPRESSION: Complete left lung opacification with volume loss, likely representing atelectasis. Consider mucous plugging. Infection not excluded. No definite large obstructing mass is present, although this determination is difficult due to the lack of contrast and above-mentioned limitations. Chest X-Ray 08/20/24 06:28 IMPRESSION: 1. Mild atelectasis in right midlung zone. 2. Worsened airspace opacities in left mid and lower lung zones, consistent with atelectasis versus pneumonia. 3. Possible small left pleural effusion. Labs Labs: Laboratory Results - last 24 hr 08/21/24 08/21/24 05:12 12:24 WBC 13.1 H RBC 3.03 L Hgb 9.5 L Hct 29.0 L MCV 95.7 MCH 31.4 MCHC 32.8 RDW 14.9 H Plt Count 131 L MPV 11.1 H % Immature Plt Fraction 8.5 Sodium 135 L Potassium 4.1 Chloride 102 Carbon Dioxide 32 H Anion Gap 1 L BUN 22 H Creatinine 0.40 L Estim Creat Clear Calc 89 Estimated GFR > 60 Glucose 73 POC Capillary Glucose 143 H Calcium 8.3 L Total Bilirubin 0.7 AST 32 ALT 24 Alkaline Phosphatase 97 Total Protein 6.0 L Albumin 2.8 L Quality VTE Prophylaxis VTE prophylaxis: mechanical ordered and pharmacologic ordered
[2024-08-21 17:28] LABS: Glucose Point of Care 168 mg/dl (65-105)
[2024-08-22] VITALS (24 sets, daily range): BP systolic 94–119; BP diastolic 48–66; PULSE 72–107; RESP 18–24; TEMP 37.1–37.3; O2SAT 91–100
[2024-08-22 00:26] LABS: Glucose Point of Care 117 mg/dl (65-105)
[2024-08-22] MEDS: IPRATROPIUM 0.5 MG/ALBUTEROL SULFATE 2.5 MG AMPUL.NEB 3 ML INHALATION ×4 (02:33→20:15)
[2024-08-22] MEDS: ACETYLCYSTEINE 20% INHAL SOLN 800 MG/4 ML VIAL 200 MG INHALATION ×4 (02:33→20:16)
[2024-08-22] MEDS: MEROPENEM 1 GM/NS 100 ML 1 GM/100 ML BAG IVPB ×3 (05:12→22:15)
[2024-08-22] MEDS: HEPARIN SODIUM 5,000 UNITS/ML VIAL 5000 UNITS SUB-Q (05:13)
[2024-08-22] MEDS: CENTRAL LINE FLUSH 10 ML IV PUSH ×3 (05:13→20:06)
[2024-08-22 05:45] LABS: Basophils Percent Auto 0.3 % (0.2-1.2); Eosinophils Absolute Auto 0.1 K/mm3 (0-0.3); Eosinophils Percent Auto 0.4 % (0-4.4); Hematocrit 27.5 % (37.0-47.0); Immature Granulocyte Absolute 0.37 K/mm3 (0.00-0.031); Immature Granulocyte Percent A 3.2 % (0-0.5); Immature Platelet Fraction Pct 7.5 % (0.9-11.2); Lymphocytes Absolute Auto 2.51 K/mm3 (0.9-3.2); Lymphocytes Percent Auto 21.5 % (18.3-44.2); Mean Corpuscular HGB Conc 32.7 g/dl (32-36); Mean Corpuscular Volume 97.9 fl (80-100); Mean Platelet Volume 11.4 fl (7.4-10.4); Monocytes Absolute Auto 0.9 K/mm3 (0.1-0.6); Monocytes Percent Auto 7.6 % (2.6-8.5); Neutrophils Absolute Auto 7.8 K/mm3 (1.3-6.7); Nucleated Red Blood Cells Perc 0.2 % (0.0-0.2); Platelet Count Result 134 k/mm3 (150-375); Red Blood Count 2.81 M/mm3 (4.2-5.4); Red Cell Distribution Width 15.5 % (11.5-14.5); White Blood Count 11.7 K/mm3 (4.5-10.0)
[2024-08-22 05:53] LABS: Alanine Aminotransferase 32 U/L (6-35); Albumin Level 2.8 g/dL (3.5-5.1); Alkaline Phosphatase 89 U/L (38-126); Anion Gap -1 mmol/L (4-12); Aspartate Amino Transferase 30 U/L (14-36); Bilirubin,Total 0.6 mg/dL (0.2-1.3); Blood Urea Nitrogen 33 mg/dL (7-17); Calcium 8.2 mg/dL (8.4-10.2); Carbon Dioxide 33 mmol/L (22-30); Chloride 105 mmol/L (98-107); Estimated CRCL calculation 113 ml/min; Estimated Glomerular Filt Rate > 60; Glucose 69 mg/dL (65-110); Lactic Acid Reflex 1.3 mmol/L (0.7-2.0); Potassium 3.6 mmol/L (3.4-5.0); Sodium 137 mmol/L (137-145)
[2024-08-22] MEDS: ENOXAPARIN 40 MG/0.4 ML SYRINGE SUB-Q (08:47)
[2024-08-22] MEDS: levETIRAcetam ORAL SOL 500 MG/5 ML UDC FEED TUBE ×2 (08:48→20:06)
[2024-08-22] MEDS: CARBIDOPA/LEVODOPA 25/100 MG TABLET 2 TABLET FEED TUBE ×3 (08:48→17:26)
[2024-08-22] MEDS: methiMAzole 10 MG TAB FEED TUBE (08:48)
[2024-08-22 13:21] LABS: Glucose Point of Care 108 mg/dl (65-105)
--- NOTE | 2024-08-22 14:00 | P.PNIM_ITS ---
Progress Note: A&P Assessment and Plan (1) Severe sepsis with septic shock: Code(s): A41.9 - Sepsis, unspecified organism; R65.21 - Severe sepsis with septic shock Status: Acute Assessment and Plan: 08/12: Patient presented from the alf with hypoxia, fever Septic shock secondary to UTI and pneumonia -she was hypotensive in the ER despite receiving 30 mL/kg IV fluids, left IJ central line was inserted, -off off all vasopressors -off of further IV fluids -continue stress dose steroid -08/12: Blood cultures growing E coli, Klebsiella pneumoniae, Staphylococcus capitis and Proteus mirabilis. All sensitive to meropenem. Which will be can -08/12: Urine cultures negative till now -08/12: C diff toxin is negative -patient has been started on vancomycin and levofloxacin (08/12) and was switched to switched to meropenem and doxycycline -DC doxycycline continue meropenem - 08/15: Repeat blood culture sent and negative till now - Patient to complete antibiotics tomorrow 08/12/2024: CT chest Complete left lung opacification with volume loss, likely representing atelectasis. Consider mucous plugging. Infection not excluded. No definite large obstructing mass is present, although this determination is difficult due to the lack of contrast and above-mentioned limitations CT abdomen pelvis Dense consolidation and volume loss of the visualized left lower lobe. Findings are compatible with atelectasis versus possibly pneumonia. Consider dedicated contrast-enhanced chest CT to better evaluate for any possibility of central obstructing lesion or other pulmonary/mediastinal pathology. Probable cystitis despite Larsen catheter in place. 2.5 cm oval urinary bladder stone. No definite CT evidence of pyelonephritis, but noncontrast CT scan is insensitive for this diagnosis (2) Acute respiratory failure: Code(s): J96.00 - Acute respiratory failure, unspecified whether with hypoxia or hypercapnia Status: Acute Assessment and Plan: Acute respiratory failure secondary to pneumonia, atelectasis and COVID infection. Although imaging is more suggestive of bacterial pneumonia and mucus plugging rather than COVID pneumonia. Patient initially placed on BiPAP but BiPAP had to be removed as patient was deemed not a candidate for BiPAP 08/12 CT chest Complete left lung opacification with volume loss, likely representing atelectasis. Consider mucous plugging. Infection not excluded. No definite large obstructing mass is present, although this determination is difficult due to the lack of contrast and above-mentioned limitations Chest x-ray08/14 Impression: Right upper lobe collapse. Central obstructing mass is not excluded. Extensive left perihilar and left lower lobe consolidation, suspicious for pneumonia. Possible small pleural effusion. Support line, as above. CXR 08/15 reviewed and shows persistent right upper lobe collapse oxygen improving and patient now on 4 liters oxygen completing Meropenem today continue monitoring (3) UTI (urinary tract infection): Qualifiers: Urinary tract infection type: catheter-associated UTI Indwelling urinary catheter type: indwelling urethral catheter Encounter type: initial encounter Qualified Code(s): T83.511A - Infection and inflammatory reaction due to indwelling urethral catheter, initial encounter; N39.0 - Urinary tract infection, site not specified Code(s): N39.0 - Urinary tract infection, site not specified Status: Acute Assessment and Plan: UA reflective of UTI. According the son patient has had multiple UTIs in the past CT findings suggestive of cystitis and 2.5 cm oval urinary bladder stone. Urine culture positive for ESBL e coli On Meropenem Urology consulted (4) Pneumonia: Qualifiers: Pneumonia type: due to unspecified organism Laterality: left Lung location: lower lobe of lung Qualified Code(s): J18.9 - Pneumonia, unspecified organism Code(s): J18.9 - Pneumonia, unspecified organism Status: Acute Assessment and Plan: Patient was initially on BiPAP, patient is contracted and unable to probably pull the mask off if she has emesis, BiPAP likely contraindicated in such patients -placed patient on high-flow therapy, will wean FiO2 to maintain O2 sats greater than 92% Completing Meropenem today (5) Acute kidney injury: Code(s): N17.9 - Acute kidney failure, unspecified Status: Acute Assessment and Plan: Patient presented with septic shock, acute kidney injury with a creatinine of 2.90 on admission, baseline unknown -adequately fluid-resuscitated in the ER -creatinine has normalized -off vasopressors resolved Cr 0.3 (6) Diarrhea: Qualifiers: Diarrhea type: presumed infectious Qualified Code(s): R19.7 - Diarrhea, unspecified Code(s): R19.7 - Diarrhea, unspecified Status: Acute Assessment and Plan: Patient has had severe diarrhea -C diff toxin is negative, -stool cultures are negative -diarrhea improved (7) COVID-19: Code(s): U07.1 - COVID-19 Status: Acute Assessment and Plan: Patient was tested positive for SARS-CoV-2 although the imaging does not appear suggestive of COVID pneumonia She currently on hydrocortisone and Remdesivir 08/17 Switch hydrocortisone to dexamethasone CRP is 37, status post Tocilizumab on 08/12 (8) Electrolyte abnormality: Code(s): E87.8 - Other disorders of electrolyte and fluid balance, not elsewhere classified Status: Acute Assessment and Plan: Sodium now decreasing Continue with decreased free water flush Plan DVT prophylaxis on Sq Lovenox Subjective Date/time seen: 08/22/24 14:00 Interval history: Patient comfortable at bedside now on 4 liters oxygen Review of Systems Review of Systems: ROS unobtainable: Yes unobtainable due to endotracheal tube, unobtainable due to medical condition and unobtainable due to mental status Exam 2 Narrative: General: Ill-appearing female currently in no acute distress HEENT:? Pupils equal and reactive, sclerae is clear Neck:? Supple, left IJ central line in place Respiratory:? Coarse breath sounds bilaterally, decreased on left side, no wheezing, Cardiac:? Regular rate and rhythm Abdomen:? Soft, nontender, nondistended, tympanic, hyperactive bowel sounds, peg tube in place Extremities:? Trace edema bilaterally, dopplerable pedal pulses bilaterally Neuro:? Patient is nonverbal at baseline, her eyes are open, does not follow commands or answers questions Skin:? Decubitus ulcer on the buttocks Psych:? Unable to assess Const: General: comfortable and no acute distress Other: , female, elderly, ill-appearing HENMT: Face/Nose/Sinus: Normal nares present Mouth: Yes dry mucous membranes Other: High-flow nasal cannula in place Eyes: General: appearance normal, both eyes and all related structures Sclera: sclerae normal Pupils: Equal, round and reactive pupils present EOM: EOMs intact bilaterally Resp: Effort & Inspection: normal respiratory effort Other: Diminished breath sounds on left, no adventitious lung sounds on right Cardio: Rate: tachycardic (110-115) Rhythm: regular rhythm Other: S1-S2 present without murmur, rub, ectopy GI: Other: Abdomen soft, nondistended. No particular expression or grimace with palpation. Bowel sounds are distant and hypoactive in all quadrants. Urinary Catheter: Urinary Catheter: patent and draining Skin: General skin exam: normal color and no rashes or lesions noted Other: Decubitus ulcer to buttocks Neuro: Cranial nerves: Yes Equal, round and reactive pupils present Other: Nonverbal. Brief eye opening to noxious stimuli. Contracture to right hand. Does not follow commands or answer questions. Extrem: General: normal to inspection Psych: Other: Poor insight and judgment. Flat affect. Objective Data Vital Signs Vital Signs: Vital Signs - 24 hr 08/21/24 14:08 08/21/24 14:08 08/21/24 14:28 Temperature Pulse Rate 82 80 Respiratory Rate 20 20 Blood Pressure Pulse Oximetry 94 Oxygen Delivery High Flow Therapy with Na Oxygen Flow Rate 30 Fraction of Inspired Oxygen 40 08/21/24 16:00 08/21/24 16:00 08/21/24 18:00 Temperature 99.7 F H Pulse Rate 89 89 90 Respiratory Rate 24 H Blood Pressure 93/60 L Pulse Oximetry 99 Oxygen Delivery Oxygen Flow Rate Fraction of Inspired Oxygen 08/21/24 20:00 08/21/24 20:00 08/21/24 20:58 Temperature 99.1 F Pulse Rate 96 78 Respiratory Rate 20 20 Blood Pressure 107/59 L Pulse Oximetry 100 98 Oxygen Delivery High Flow Therapy with Na Oxygen Flow Rate 30 Fraction of Inspired Oxygen 40 08/21/24 21:44 08/21/24 21:15 08/21/24 20:00 Temperature Pulse Rate 73 82 Respiratory Rate 20 Blood Pressure Pulse Oximetry 97 Oxygen Delivery High Flow Therapy with Na Oxygen Flow Rate 30 Fraction of Inspired Oxygen 40 08/21/24 22:00 08/22/24 00:00 08/22/24 00:00 Temperature Pulse Rate 75 72 Respiratory Rate Blood Pressure Pulse Oximetry 91 Oxygen Delivery High Flow Therapy with Na Oxygen Flow Rate 30 Fraction of Inspired Oxygen 40 08/22/24 00:27 08/22/24 02:00 08/22/24 02:35 Temperature 98.8 F Pulse Rate 87 75 89 Respiratory Rate 20 20 Blood Pressure 119/63 Pulse Oximetry 100 Oxygen Delivery Oxygen Flow Rate Fraction of Inspired Oxygen 08/22/24 04:09 08/22/24 04:00 08/22/24 04:00 Temperature 98.7 F Pulse Rate 93 93 Respiratory Rate 20 Blood Pressure 116/53 L Pulse Oximetry 97 97 Oxygen Delivery High Flow Therapy with Na Oxygen Flow Rate 30 Fraction of Inspired Oxygen 40 08/22/24 06:00 08/22/24 07:49 08/22/24 07:49 Temperature Pulse Rate 78 80 Respiratory Rate 18 Blood Pressure Pulse Oximetry 96 Oxygen Delivery High Flow Therapy with Na Oxygen Flow Rate 30 Fraction of Inspired Oxygen 40 08/22/24 08:02 08/22/24 08:30 08/22/24 08:00 Temperature Pulse Rate 77 96 Respiratory Rate 18 Blood Pressure Pulse Oximetry 95 Oxygen Delivery High Flow Therapy with Na Oxygen Flow Rate 25 Fraction of Inspired Oxygen 35 08/22/24 10:00 08/22/24 12:00 08/22/24 12:00 Temperature 98.7 F Pulse Rate 94 78 95 Respiratory Rate 20 Blood Pressure 94/48 L Pulse Oximetry 100 Oxygen Delivery Oxygen Flow Rate Fraction of Inspired Oxygen 08/22/24 08:00 08/22/24 13:45 08/22/24 13:34 Temperature 98.8 F Pulse Rate 88 82 Respiratory Rate 22 H 18 Blood Pressure 109/52 L Pulse Oximetry 99 97 Oxygen Delivery High Flow Therapy with Na Oxygen Flow Rate 25 Fraction of Inspired Oxygen 35 08/22/24 13:45 08/22/24 13:55 Temperature Pulse Rate 84 Respiratory Rate 18 Blood Pressure Pulse Oximetry 97 Oxygen Delivery Nasal Cannula Oxygen Flow Rate 4 Fraction of Inspired Oxygen 36 Intake/Output Intake/Output: Intake & Output 08/19/24 08/20/24 08/21/24 08/22/24 23:59 23:59 23:59 23:59 Intake Total 2573 2158 1776 718 Output Total 3575 3100 2400 800 [employer] [facility] [phone] Meds/Results Medications: Active Medications Generic Name Dose Route Start Last Admin Trade Name Freq PRN Reason Stop Dose Admin Acetaminophen 650 mg 08/12/24 12:40 Acetaminophen 650 Mg Suppository RECTAL Q6H PRN Mild Pain (1-3) or Fever Acetaminophen 325 mg 08/12/24 16:44 Acetaminophen Elixir 325 Mg/10.15 Ml Udc FEED TUBE Q6H PRN Fever Acetylcysteine 200 mg 08/12/24 20:00 08/22/24 13:45 Acetylcysteine 20% Inhal Soln 800 Mg/4 Ml Vial INHALATION 200 mg Q6HRT ALENA Administration Albuterol/Ipratropium 3 ml 08/12/24 20:00 08/22/24 13:45 Ipratropium 0.5 Mg/Albuterol Sulfate 2.5 Mg Ampul.Neb 3 Ml INHALATION 3 ml Q6HRT ALENA Administration Alteplase, Recombinant 2 mg 08/18/24 14:42 Alteplase 2 Mg Vial (Cathflo) IV PUSH ONCE PRN Line Occlusion Carbidopa/Levodopa 2 tablet 08/12/24 17:00 08/22/24 08:48 Carbidopa/Levodopa 25/100 Mg Tablet FEED TUBE 2 tablet TID ALENA Administration Dextrose 12.5 gm 08/21/24 05:47 Dextrose 50% 25 Gm/50 Ml Syringe IV PUSH PRN PRN Hypoglycemia Protocol Enoxaparin Sodium 40 mg 08/22/24 09:00 08/22/24 08:47 Enoxaparin 40 Mg/0.4 Ml Syringe SUB-Q 40 mg DAILY ALENA Administration Glucagon 1 mg 08/21/24 05:47 Glucagon For Inj 1 Mg Vial IM PRN PRN Hypoglycemia Protocol Glucose 15 gm 08/21/24 05:47 Glucose Oral Gel 15 Gm Of Glucse In 37.5 Gm Tube PO PRN PRN Hypoglycemia Protocol Heparin Sodium (Porcine) 5,000 units 08/12/24 14:00 08/22/24 05:13 Heparin Sodium 5,000 Units/Ml Vial SUB-Q 5,000 units Q8HR ALENA Administration Meropenem 1 gm in 100 mls @ 200 mls/hr 08/15/24 13:00 08/22/24 05:42 IVPB 08/22/24 23:59 Infused Q8HR ALENA Infusion Dextrose 1,000 mls @ 100 mls/hr 08/21/24 05:47 Dextrose 5% 1,000 Ml IVPB PRN PRN Hypoglycemia Protocol Levetiracetam 500 mg 08/21/24 09:00 08/22/24 08:48 Levetiracetam Oral Moira 500 Mg/5 Ml Udc FEED TUBE 500 mg Q12H ALENA Administration Methimazole 10 mg 08/13/24 09:00 08/22/24 08:48 Methimazole 10 Mg Tab FEED TUBE 10 mg DAILY ALENA Administration Sodium Chloride 10 ml 08/12/24 14:00 08/22/24 05:13 Central Line Flush IV PUSH 10 ml Q8HR ALENA Administration Sodium Chloride 20 ml 08/12/24 08:16 08/20/24 05:17 Central Line Flush IV PUSH 20 ml PRN PRN Administration after blood draws Radiology Results: ITS Impressions Abdomen/Pelvis CT 08/12/24 11:59 Impression: Dense consolidation and volume loss of the visualized left lower lobe. Findings are compatible with atelectasis versus possibly pneumonia. Consider dedicated contrast-enhanced chest CT to better evaluate for any possibility of central obstructing lesion or other pulmonary/mediastinal pathology. Probable cystitis despite Larsen catheter in place. 2.5 cm oval urinary bladder stone. No definite CT evidence of pyelonephritis, but noncontrast CT scan is insensitive for this diagnosis. Renal Ultrasound 08/12/24 15:05 IMPRESSION: No hydronephrosis. Head CT 08/12/24 19:13 IMPRESSION: No acute intracranial process. Chest CT 08/12/24 19:16 IMPRESSION: Complete left lung opacification with volume loss, likely representing atelectasis. Consider mucous plugging. Infection not excluded. No definite large obstructing mass is present, although this determination is difficult due to the lack of contrast and above-mentioned limitations. Chest X-Ray 08/20/24 06:28 IMPRESSION: 1. Mild atelectasis in right midlung zone. 2. Worsened airspace opacities in left mid and lower lung zones, consistent with atelectasis versus pneumonia. 3. Possible small left pleural effusion. Labs Labs: Laboratory Results - last 24 hr 08/21/24 08/21/24 08/22/24 16:49 23:53 05:18 WBC 11.7 H RBC 2.81 L Hgb 9.0 L Hct 27.5 L MCV 97.9 MCH 32.0 MCHC 32.7 RDW 15.5 H Plt Count 134 L MPV 11.4 H Immature Gran % (Auto) 3.2 H Neut % (Auto) 67.0 Lymph % (Auto) 21.5 Kings % (Auto) 7.6 Eos % (Auto) 0.4 Baso % (Auto) 0.3 Lymph # (Auto) 2.51 Kings # (Auto) 0.9 H Eos # (Auto) 0.1 Baso # (Auto) 0.0 Abs Immat Gran (auto) 0.37 H Absolute Neuts (auto) 7.8 H Absolute Nucleated RBC 0.020 H Nucleated RBC % 0.2 % Immature Plt Fraction 7.5 Sodium 137 Potassium 3.6 Chloride 105 Carbon Dioxide 33 H Anion Gap -1 L BUN 33 H D Creatinine 0.30 L Estim Creat Clear Calc 113 Estimated GFR > 60 Glucose 69 POC Capillary Glucose 168 H 117 H Lactic Acid 1.3 Calcium 8.2 L Total Bilirubin 0.6 AST 30 ALT 32 Alkaline Phosphatase 89 Total Protein 5.0 L Albumin 2.8 L 08/22/24 13:14 WBC RBC Hgb Hct MCV MCH MCHC RDW Plt Count MPV Immature Gran % (Auto) Neut % (Auto) Lymph % (Auto) Kings % (Auto) Eos % (Auto) Baso % (Auto) Lymph # (Auto) Kings # (Auto) Eos # (Auto) Baso # (Auto) Abs Immat Gran (auto) Absolute Neuts (auto) Absolute Nucleated RBC Nucleated RBC % % Immature Plt Fraction Sodium Potassium Chloride Carbon Dioxide Anion Gap BUN Creatinine Estim Creat Clear Calc Estimated GFR Glucose POC Capillary Glucose 108 H Lactic Acid Calcium Total Bilirubin AST ALT Alkaline Phosphatase Total Protein Albumin Quality VTE Prophylaxis VTE prophylaxis: mechanical ordered and pharmacologic ordered
--- NOTE | 2024-08-22 16:02 | P.CONUR_ITS ---
Assessment and Plan Assessment and plan (1) UTI (urinary tract infection): Qualifiers: Urinary tract infection type: catheter-associated UTI Indwelling urinary catheter type: indwelling urethral catheter Encounter type: initial encounter Qualified Code(s): T83.511A - Infection and inflammatory reaction due to indwelling urethral catheter, initial encounter; N39.0 - Urinary tract in fection, site not specified Code(s): N39.0 - Urinary tract infection, site not specified Status: Acute (2) Severe sepsis with septic shock: Code(s): A41.9 - Sepsis, unspecified organism; R65.21 - Severe sepsis with septic shock Status: Acute (3) Bladder stone: Code(s): N21.0 - Calculus in bladder Status: Acute Plan this is a 73-year-old female with multiple medical comorbidities managed with indwelling Larsen catheter found to have 2cm bladder stone -- continue antibiotics per primary team -- continue indwelling Larsen catheter with monthly catheter changes -- elective laser lithalopaxy may be considered in the future once patient is clinically stabilized. Urology Consult Note HPI Date Seen: 08/22/24 Requesting Physician: Estephanie Kinney MD Primary Care Provider: Urbano Gonsalez, Consult Narrative Narrative: Ivon Andersen is a 73 year old female snf resident managed with an indwelling catheter. The patient was admitted to the hospital on August 12, 2024 which she is found to have sepsis. Blood cultures positive for multiple organisms. Urine culture grew mixed bacteria. Patient was found on CT scan imaging August 12, 2024 to have a 2cm bladder stone. There is no hydronephrosis. Patient has clinically improved. She is now out of the ICU step-down unit. She is in isolation for COVID infection. her urine has been clear according to the nursing staff history taken from hospital chart and discussion with patient's nurse PMFSH Past Medical History Medical History (Updated 08/22/24 @ 16:06 by Luz Dickson MD) Bladder stone Chronic indwelling Larsen catheter History of supraventricular tachycardia Hypertension Nonverbal Parkinson disease Sepsis Thyroid disorder Listed as hypothyroidism in [place] paperwork, however is on methimazole Surgical History Surgical History (Updated 08/12/24 @ 16:37 by Karey Manriquez APRN) History of brain surgery S/P percutaneous endoscopic gastrostomy (PEG) tube placement Social History Social History Smoking status: Unknown if ever smoked Spiritual care concerns: No Meds Home Medications and Allergies Home Medications Medication Instructions Recorded Confirmed Type acetaminophen 160 mg/5 mL oral 320 mg feeding tube Q6H PRN Fever 08/12/24 08/12/24 History elixir atorvastatin 40 mg tablet 40 mg feeding tube HS 08/12/24 08/12/24 History carbidopa 25 mg-levodopa 100 mg 2 tablet feeding tube TID 08/12/24 08/12/24 History tablet clopidogrel 75 mg tablet 75 mg feeding tube DAILY 08/12/24 08/12/24 History famotidine 20 mg tablet 20 mg feeding tube BID 08/12/24 08/12/24 History levetiracetam 100 mg/mL oral 500 mg feeding tube Q12H 08/12/24 08/21/24 History solution methimazole 10 mg tablet 10 mg feeding tube DAILY 08/12/24 08/12/24 History metoprolol tartrate 25 mg tablet 25 mg feeding tube Q12H 08/12/24 08/12/24 History multivitamin [id number] 1 tablet PO DAILY 08/12/24 08/12/24 History fumarate 18 mg-vitamin K 25 mcg tablet sertraline 50 mg tablet 50 mg feeding tube DAILY 08/12/24 08/12/24 History Allergies Allergy/AdvReac Type Severity Reaction Status Date / Time cephalexin Allergy Unknown Verified 08/12/24 08:33 Sulfa (Sulfonamide Allergy Unknown Verified 08/12/24 08:33 Antibiotics) Vital Signs Vital Signs - 24 hr 08/21/24 18:00 08/21/24 20:00 08/21/24 20:00 Temperature 37.3 C Pulse Rate 90 96 Respiratory Rate 20 Blood Pressure 107/59 L Pulse Oximetry 100 98 Oxygen Delivery High Flow Therapy with Na Oxygen Flow Rate 30 Fraction of Inspired Oxygen 40 08/21/24 20:58 08/21/24 21:44 08/21/24 21:15 Temperature Pulse Rate 78 73 Respiratory Rate 20 20 Blood Pressure Pulse Oximetry 97 Oxygen Delivery High Flow Therapy with Na Oxygen Flow Rate 30 Fraction of Inspired Oxygen 40 08/21/24 20:00 08/21/24 22:00 08/22/24 00:00 Temperature Pulse Rate 82 75 72 Respiratory Rate Blood Pressure Pulse Oximetry Oxygen Delivery Oxygen Flow Rate Fraction of Inspired Oxygen 08/22/24 00:00 08/22/24 00:27 08/22/24 02:00 Temperature 37.1 C Pulse Rate 87 75 Respiratory Rate 20 Blood Pressure 119/63 Pulse Oximetry 91 100 Oxygen Delivery High Flow Therapy with Na Oxygen Flow Rate 30 Fraction of Inspired Oxygen 40 08/22/24 02:35 08/22/24 04:09 08/22/24 04:00 Temperature 37.1 C Pulse Rate 89 93 93 Respiratory Rate 20 20 Blood Pressure 116/53 L Pulse Oximetry 97 Oxygen Delivery Oxygen Flow Rate Fraction of Inspired Oxygen 08/22/24 04:00 08/22/24 06:00 08/22/24 07:49 Temperature Pulse Rate 78 Respiratory Rate Blood Pressure Pulse Oximetry 97 96 Oxygen Delivery High Flow Therapy with Na High Flow Therapy with Na Oxygen Flow Rate 30 30 Fraction of Inspired Oxygen 40 40 08/22/24 07:49 08/22/24 08:02 08/22/24 08:30 Temperature Pulse Rate 80 77 Respiratory Rate 18 18 Blood Pressure Pulse Oximetry 95 Oxygen Delivery High Flow Therapy with Na Oxygen Flow Rate 25 Fraction of Inspired Oxygen 35 08/22/24 08:00 08/22/24 10:00 08/22/24 12:00 Temperature Pulse Rate 96 94 78 Respiratory Rate Blood Pressure Pulse Oximetry Oxygen Delivery Oxygen Flow Rate Fraction of Inspired Oxygen 08/22/24 12:00 08/22/24 08:00 08/22/24 13:45 Temperature 37.1 C 37.1 C Pulse Rate 95 88 82 Respiratory Rate 20 22 H 18 Blood Pressure 94/48 L 109/52 L Pulse Oximetry 100 99 Oxygen Delivery Oxygen Flow Rate Fraction of Inspired Oxygen 08/22/24 13:34 08/22/24 13:45 08/22/24 13:55 Temperature Pulse Rate 84 Respiratory Rate 18 Blood Pressure Pulse Oximetry 97 97 Oxygen Delivery High Flow Therapy with Na Nasal Cannula Oxygen Flow Rate 25 4 Fraction of Inspired Oxygen 35 36 Exam Narrative: patient is resting comfortably. Her breathing is unlabored. Larsen catheter in place with clear yellow urine Results Labs 08/22/24 05:18 08/22/24 05:18 Labs: Short CBC 08/22/24 Range/Units 05:18 WBC 11.7 H (4.5-10.0) K/mm3 Hgb 9.0 L (12.0-15.0) g/dL Hct 27.5 L (37.0-47.0) % Plt Count 134 L (150-375) k/mm3 [facility] 08/22/24 05:18 Sodium 137 Potassium 3.6 Chloride 105 Carbon Dioxide 33 H BUN 33 H D Creatinine 0.30 L Glucose 69 Calcium 8.2 L Liver Function 08/22/24 Range/Units 05:18 Total Bilirubin 0.6 (0.2-1.3) mg/dL AST 30 (14-36) U/L ALT 32 (6-35) U/L Alkaline Phosphatase 89 (38-126) U/L Albumin 2.8 L (3.5-5.1) g/dL Date of Service: 08/12/24 Procedure(s): CT abdomen pelvis wo con Accession Number(s): [id number] cc: Sunshine, Urbano GILMORE; Marysol Nguyen MD~ Non-contrast CT scan of the Abdomen and Pelvis Clinical indication: Sepsis Technique: 2.5 mm axial scans were obtained through the abdomen and pelvis without intravenous or oral contrast. Dose reduction technique was used on this scan by utilizing automated exposure control and iterative reconstruction technique. The dose-length product (DLP) was 221.16 mGy-cm. Findings: Images through the lung bases reveal dense consolidation and volume loss of the visualized left lower lobe. Right lung base clear. There is no evidence of renal or ureteral calculi. The kidneys and the ureters are nondilated. The liver, spleen, pancreas, gallbladder, and adrenals appear normal. There is no aortic aneurysm. There is no evidence of bowel obstruction. Images through the pelvis were performed. There is no evidence of ascites or lymphadenopathy. There is probably diffuse urinary bladder wall thickening despite decompression with Larsen catheter. Large urinary bladder stone measures 2.5 cm in diameter, ovoid shaped. Impression: Dense consolidation and volume loss of the visualized left lower lobe. Findings are compatible with atelectasis versus possibly pneumonia. Consider dedicated contrast-enhanced chest CT to better evaluate for any possibility of central obstructing lesion or other pulmonary/mediastinal pathology. Probable cystitis despite Larsen catheter in place. 2.5 cm oval urinary bladder stone. No definite CT evidence of pyelonephritis, but noncontrast CT scan is insensitive for this diagnosis. Reviewed, dictated and finalized at location [facility]
[2024-08-22 18:05] LABS: Glucose Point of Care 107 mg/dl (65-105)
[2024-08-22 23:35] LABS: Glucose Point of Care 134 mg/dl (65-105)
[2024-08-23] VITALS (19 sets, daily range): BP systolic 97–134; BP diastolic 47–80; PULSE 85–108; RESP 14–20; TEMP 36.1–38.1; O2SAT 92–100
[2024-08-23] MEDS: ACETYLCYSTEINE 20% INHAL SOLN 800 MG/4 ML VIAL 200 MG INHALATION ×4 (01:04→21:06)
[2024-08-23] MEDS: IPRATROPIUM 0.5 MG/ALBUTEROL SULFATE 2.5 MG AMPUL.NEB 3 ML INHALATION ×4 (01:04→21:06)
[2024-08-23] MEDS: CENTRAL LINE FLUSH 10 ML IV PUSH ×3 (04:19→22:26)
[2024-08-23] MEDS: ACETAMINOPHEN ELIXIR 325 MG/10.15 ML UDC FEED TUBE (04:43)
[2024-08-23 04:48] LABS: Basophils Percent Auto 0.3 % (0.2-1.2); Eosinophils Absolute Auto 0.1 K/mm3 (0-0.3); Eosinophils Percent Auto 0.6 % (0-4.4); Hemoglobin 9.3 g/dL (12.0-15.0); Immature Granulocyte Absolute 0.24 K/mm3 (0.00-0.031); Immature Granulocyte Percent A 2.4 % (0-0.5); Immature Platelet Fraction Pct 6.8 % (0.9-11.2); Lymphocytes Absolute Auto 1.64 K/mm3 (0.9-3.2); Lymphocytes Percent Auto 16.2 % (18.3-44.2); Mean Corpuscular HGB Conc 33.2 g/dl (32-36); Mean Corpuscular Hemoglobin 32.5 pg (26-34); Mean Corpuscular Volume 97.9 fl (80-100); Mean Platelet Volume 11.3 fl (7.4-10.4); Monocytes Absolute Auto 0.7 K/mm3 (0.1-0.6); Monocytes Percent Auto 7.1 % (2.6-8.5); Neutrophils Absolute Auto 7.4 K/mm3 (1.3-6.7); Neutrophils Percent Auto 73.4 % (45.5-73.1); Platelet Count Result 123 k/mm3 (150-375); Red Blood Count 2.86 M/mm3 (4.2-5.4); Red Cell Distribution Width 15.8 % (11.5-14.5); White Blood Count 10.1 K/mm3 (4.5-10.0)
[2024-08-23 04:59] LABS: Alanine Aminotransferase 30 U/L (6-35); Albumin Level 2.8 g/dL (3.5-5.1); Alkaline Phosphatase 88 U/L (38-126); Anion Gap 3 mmol/L (4-12); Aspartate Amino Transferase 27 U/L (14-36); Bilirubin,Total 0.6 mg/dL (0.2-1.3); Blood Urea Nitrogen 32 mg/dL (7-17); Calcium 8.3 mg/dL (8.4-10.2); Carbon Dioxide 31 mmol/L (22-30); Chloride 102 mmol/L (98-107); Estimated CRCL calculation 113 ml/min; Estimated Glomerular Filt Rate > 60; Glucose 107 mg/dL (65-110); Potassium 3.8 mmol/L (3.4-5.0); Sodium 136 mmol/L (137-145)
[2024-08-23] MEDS: methiMAzole 10 MG TAB FEED TUBE (08:47)
[2024-08-23] MEDS: levETIRAcetam ORAL SOL 500 MG/5 ML UDC FEED TUBE ×2 (08:47→20:54)
[2024-08-23] MEDS: CARBIDOPA/LEVODOPA 25/100 MG TABLET 2 TABLET FEED TUBE ×3 (08:48→17:36)
[2024-08-23] MEDS: ENOXAPARIN 40 MG/0.4 ML SYRINGE SUB-Q (08:48)
[2024-08-23 12:36] LABS: Glucose Point of Care 126 mg/dl (65-105)
--- NOTE | 2024-08-23 15:02 | PM.IMPN ---
Progress Note: A&P Assessment and Plan (1) Severe sepsis with septic shock: Code(s): A41.9 - Sepsis, unspecified organism; R65.21 - Severe sepsis with septic shock Status: Acute Assessment and Plan: 08/12: Patient presented from the shelter with hypoxia, fever Septic shock secondary to UTI and pneumonia -she was hypotensive in the ER despite receiving 30 mL/kg IV fluids, left IJ central line was inserted, -off off all vasopressors -off of further IV fluids -continue stress dose steroid -08/12: Blood cultures growing E coli, Klebsiella pneumoniae, Staphylococcus capitis and Proteus mirabilis. All sensitive to meropenem. Which will be can -08/12: Urine cultures negative till now -08/12: C diff toxin is negative -patient has been started on vancomycin and levofloxacin (08/12) and was switched to switched to meropenem and doxycycline -DC doxycycline continue meropenem - 08/15: Repeat blood culture sent and negative till now - Patient completed antibiotics vital signs stable 08/12/2024: CT chest Complete left lung opacification with volume loss, likely representing atelectasis. Consider mucous plugging. Infection not excluded. No definite large obstructing mass is present, although this determination is difficult due to the lack of contrast and above-mentioned limitations CT abdomen pelvis Dense consolidation and volume loss of the visualized left lower lobe. Findings are compatible with atelectasis versus possibly pneumonia. Consider dedicated contrast-enhanced chest CT to better evaluate for any possibility of central obstructing lesion or other pulmonary/mediastinal pathology. Probable cystitis despite Larsen catheter in place. 2.5 cm oval urinary bladder stone. No definite CT evidence of pyelonephritis, but noncontrast CT scan is insensitive for this diagnosis (2) Acute respiratory failure: Code(s): J96.00 - Acute respiratory failure, unspecified whether with hypoxia or hypercapnia Status: Acute Assessment and Plan: Acute respiratory failure secondary to pneumonia, atelectasis and COVID infection. Although imaging is more suggestive of bacterial pneumonia and mucus plugging rather than COVID pneumonia. Patient initially placed on BiPAP but BiPAP had to be removed as patient was deemed not a candidate for BiPAP 08/12 CT chest Complete left lung opacification with volume loss, likely representing atelectasis. Consider mucous plugging. Infection not excluded. No definite large obstructing mass is present, although this determination is difficult due to the lack of contrast and above-mentioned limitations Chest x-ray08/14 Impression: Right upper lobe collapse. Central obstructing mass is not excluded. Extensive left perihilar and left lower lobe consolidation, suspicious for pneumonia. Possible small pleural effusion. Support line, as above. CXR 08/15 reviewed and shows persistent right upper lobe collapse patient now on room air Completed meropenem (3) UTI (urinary tract infection): Qualifiers: Urinary tract infection type: catheter-associated UTI Indwelling urinary catheter type: indwelling urethral catheter Encounter type: initial encounter Qualified Code(s): T83.511A - Infection and inflammatory reaction due to indwelling urethral catheter, initial encounter; N39.0 - Urinary tract infection, site not specified Code(s): N39.0 - Urinary tract infection, site not specified Status: Acute Assessment and Plan: UA reflective of UTI. According the son patient has had multiple UTIs in the past CT findings suggestive of cystitis and 2.5 cm oval urinary bladder stone. Urine culture positive for ESBL e coli On Meropenem Urology eval noted, planning for Lithalopaxy (4) Pneumonia: Qualifiers: Pneumonia type: due to unspecified organism Laterality: left Lung location: lower lobe of lung Qualified Code(s): J18.9 - Pneumonia, unspecified organism Code(s): J18.9 - Pneumonia, unspecified organism Status: Acute Assessment and Plan: Patient was initially on BiPAP, patient is contracted and unable to probably pull the mask off if she has emesis, BiPAP likely contraindicated in such patients -placed patient on high-flow therapy, will wean FiO2 to maintain O2 sats greater than 92% Completed Meropenem (5) Acute kidney injury: Code(s): N17.9 - Acute kidney failure, unspecified Status: Acute Assessment and Plan: Patient presented with septic shock, acute kidney injury with a creatinine of 2.90 on admission, baseline unknown -adequately fluid-resuscitated in the ER -creatinine has normalized -off vasopressors resolved Cr 0.3 (6) Diarrhea: Qualifiers: Diarrhea type: presumed infectious Qualified Code(s): R19.7 - Diarrhea, unspecified Code(s): R19.7 - Diarrhea, unspecified Status: Acute Assessment and Plan: Patient has had severe diarrhea -C diff toxin is negative, -stool cultures are negative -diarrhea resolved (7) COVID-19: Code(s): U07.1 - COVID-19 Status: Acute Assessment and Plan: Patient was tested positive for SARS-CoV-2 although the imaging does not appear suggestive of COVID pneumonia She currently on hydrocortisone and Remdesivir 08/17 Switch hydrocortisone to dexamethasone CRP is 37, status post Tocilizumab on 08/12 (8) Electrolyte abnormality: Code(s): E87.8 - Other disorders of electrolyte and fluid balance, not elsewhere classified Status: Acute Assessment and Plan: Sodium now decreasing Continue with decreased free water flush Plan DVT prophylaxis on Sq Lovenox Subjective Date/time seen: 08/23/24 15:02 Interval history: Patient comfortable at bedside now on room air Review of Systems Review of Systems: ROS unobtainable: Yes unobtainable due to endotracheal tube, unobtainable due to medical condition and unobtainable due to mental status Exam Narrative: General: Ill-appearing female currently in no acute distress HEENT:? Pupils equal and reactive, sclerae is clear Neck:? Supple, left IJ central line in place Respiratory:? Coarse breath sounds bilaterally, decreased on left side, no wheezing, Cardiac:? Regular rate and rhythm Abdomen:? Soft, nontender, nondistended, tympanic, hyperactive bowel sounds, peg tube in place Extremities:? Trace edema bilaterally, dopplerable pedal pulses bilaterally Neuro:? Patient is nonverbal at baseline, her eyes are open, does not follow commands or answers questions Skin:? Decubitus ulcer on the buttocks Psych:? Unable to assess Const: General: comfortable and no acute distress Other: , female, elderly, ill-appearing HENMT: Face/Nose/Sinus: Normal nares present Mouth: Yes dry mucous membranes Other: High-flow nasal cannula in place Eyes: General: appearance normal, both eyes and all related structures Sclera: sclerae normal Pupils: Equal, round and reactive pupils present EOM: EOMs intact bilaterally Resp: Effort & Inspection: normal respiratory effort Other: Diminished breath sounds on left, no adventitious lung sounds on right Cardio: Rate: tachycardic (110-115) Rhythm: regular rhythm Other: S1-S2 present without murmur, rub, ectopy GI: Other: Abdomen soft, nondistended. No particular expression or grimace with palpation. Bowel sounds are distant and hypoactive in all quadrants. Urinary Catheter: Urinary Catheter: patent and draining Skin: General skin exam: normal color and no rashes or lesions noted Other: Decubitus ulcer to buttocks Neuro: Cranial nerves: Yes Equal, round and reactive pupils present Other: Nonverbal. Brief eye opening to noxious stimuli. Contracture to right hand. Does not follow commands or answer questions. Extrem: General: normal to inspection Psych: Other: Poor insight and judgment. Flat affect. Objective Data Vital Signs Vital Signs: Vital Signs - 24 hr 08/22/24 16:00 08/22/24 18:00 08/22/24 20:00 Temperature 99.2 F 98.8 F Pulse Rate 102 H 100 99 Respiratory Rate 24 H 20 Blood Pressure 106/65 103/66 Pulse Oximetry 97 96 Oxygen Delivery Oxygen Flow Rate 08/22/24 20:16 08/22/24 20:16 08/22/24 20:32 Temperature Pulse Rate 95 100 Respiratory Rate 18 18 Blood Pressure Pulse Oximetry 95 Oxygen Delivery Room Air Oxygen Flow Rate 08/22/24 20:00 08/22/24 20:00 08/22/24 22:00 Temperature Pulse Rate 106 H 107 H Respiratory Rate Blood Pressure Pulse Oximetry 95 Oxygen Delivery Room Air Oxygen Flow Rate 08/22/24 23:43 08/23/24 00:00 08/23/24 01:04 Temperature 99.1 F Pulse Rate 101 H 99 Respiratory Rate 20 14 Blood Pressure 103/57 L Pulse Oximetry 95 94 Oxygen Delivery Room Air Oxygen Flow Rate 08/23/24 01:18 08/23/24 00:00 08/23/24 02:00 Temperature Pulse Rate 103 H 101 H 108 H Respiratory Rate 14 Blood Pressure Pulse Oximetry Oxygen Delivery Oxygen Flow Rate 08/23/24 04:00 08/23/24 04:43 08/23/24 04:00 Temperature 100.6 F H 100.6 F H Pulse Rate 102 H Respiratory Rate 18 Blood Pressure 134/74 Pulse Oximetry 92 94 Oxygen Delivery Room Air Oxygen Flow Rate 08/23/24 04:00 08/23/24 06:00 08/23/24 05:43 Temperature 98.8 F Pulse Rate 106 H 85 Respiratory Rate Blood Pressure Pulse Oximetry Oxygen Delivery Oxygen Flow Rate 08/23/24 06:57 08/23/24 06:57 08/23/24 07:10 Temperature Pulse Rate 94 94 96 Respiratory Rate 16 16 16 Blood Pressure Pulse Oximetry 94 Oxygen Delivery Nasal Cannula Oxygen Flow Rate 4 08/23/24 08:00 08/23/24 08:00 08/23/24 08:00 Temperature 98.9 F Pulse Rate 91 93 Respiratory Rate 18 Blood Pressure 97/60 L Pulse Oximetry 95 94 Oxygen Delivery Room Air Oxygen Flow Rate 08/23/24 10:00 08/23/24 12:00 08/23/24 12:50 Temperature 98.7 F Pulse Rate 92 88 96 Respiratory Rate 20 16 Blood Pressure 104/47 L Pulse Oximetry 99 Oxygen Delivery Oxygen Flow Rate 08/23/24 13:00 Temperature Pulse Rate 97 Respiratory Rate 16 Blood Pressure Pulse Oximetry Oxygen Delivery Oxygen Flow Rate Intake/Output Intake/Output: Intake & Output 08/20/24 08/21/24 08/22/24 08/23/24 23:59 23:59 23:59 23:59 Intake Total 2158 1776 918 837 Output Total 3100 2400 1350 1125 [facility] [phone] Meds/Results Medications: Active Medications Generic Name Dose Route Start Last Admin Trade Name Freq PRN Reason Stop Dose Admin Acetaminophen 650 mg 08/12/24 12:40 Acetaminophen 650 Mg Suppository RECTAL Q6H PRN Mild Pain (1-3) or Fever Acetaminophen 325 mg 08/12/24 16:44 08/23/24 04:43 Acetaminophen Elixir 325 Mg/10.15 Ml Udc FEED TUBE 325 mg Q6H PRN Administration Fever Acetylcysteine 200 mg 08/12/24 20:00 08/23/24 12:50 Acetylcysteine 20% Inhal Soln 800 Mg/4 Ml Vial INHALATION 200 mg Q6HRT ALENA Administration Albuterol/Ipratropium 3 ml 08/12/24 20:00 08/23/24 12:50 Ipratropium 0.5 Mg/Albuterol Sulfate 2.5 Mg Ampul.Neb 3 Ml INHALATION 3 ml Q6HRT ALENA Administration Alteplase, Recombinant 2 mg 08/18/24 14:42 Alteplase 2 Mg Vial (Cathflo) IV PUSH ONCE PRN Line Occlusion Carbidopa/Levodopa 2 tablet 08/12/24 17:00 08/23/24 13:50 Carbidopa/Levodopa 25/100 Mg Tablet FEED TUBE 2 tablet TID ALENA Administration Dextrose 12.5 gm 08/21/24 05:47 Dextrose 50% 25 Gm/50 Ml Syringe IV PUSH PRN PRN Hypoglycemia Protocol Enoxaparin Sodium 40 mg 08/22/24 09:00 08/23/24 08:48 Enoxaparin 40 Mg/0.4 Ml Syringe SUB-Q 40 mg DAILY ALENA Administration Glucagon 1 mg 08/21/24 05:47 Glucagon For Inj 1 Mg Vial IM PRN PRN Hypoglycemia Protocol Glucose 15 gm 08/21/24 05:47 Glucose Oral Gel 15 Gm Of Glucse In 37.5 Gm Tube PO PRN PRN Hypoglycemia Protocol Dextrose 1,000 mls @ 100 mls/hr 08/21/24 05:47 Dextrose 5% 1,000 Ml IVPB PRN PRN Hypoglycemia Protocol Levetiracetam 500 mg 08/21/24 09:00 08/23/24 08:47 Levetiracetam Oral Moira 500 Mg/5 Ml Udc FEED TUBE 500 mg Q12H ALNEA Administration Methimazole 10 mg 08/13/24 09:00 08/23/24 08:47 Methimazole 10 Mg Tab FEED TUBE 10 mg DAILY ALENA Administration Sodium Chloride 10 ml 08/12/24 14:00 08/23/24 13:50 Central Line Flush IV PUSH 10 ml Q8HR ALENA Administration Sodium Chloride 20 ml 08/12/24 08:16 08/20/24 05:17 Central Line Flush IV PUSH 20 ml PRN PRN Administration after blood draws Radiology Results: ITS Impressions Abdomen/Pelvis CT 08/12/24 11:59 Impression: Dense consolidation and volume loss of the visualized left lower lobe. Findings are compatible with atelectasis versus possibly pneumonia. Consider dedicated contrast-enhanced chest CT to better evaluate for any possibility of central obstructing lesion or other pulmonary/mediastinal pathology. Probable cystitis despite Larsen catheter in place. 2.5 cm oval urinary bladder stone. No definite CT evidence of pyelonephritis, but noncontrast CT scan is insensitive for this diagnosis. Renal Ultrasound 08/12/24 15:05 IMPRESSION: No hydronephrosis. Head CT 08/12/24 19:13 IMPRESSION: No acute intracranial process. Chest CT 08/12/24 19:16 IMPRESSION: Complete left lung opacification with volume loss, likely representing atelectasis. Consider mucous plugging. Infection not excluded. No definite large obstructing mass is present, although this determination is difficult due to the lack of contrast and above-mentioned limitations. Chest X-Ray 08/20/24 06:28 IMPRESSION: 1. Mild atelectasis in right midlung zone. 2. Worsened airspace opacities in left mid and lower lung zones, consistent with atelectasis versus pneumonia. 3. Possible small left pleural effusion. Labs Labs: Laboratory Results - last 24 hr 08/22/24 08/22/24 08/23/24 17:43 23:20 04:35 WBC 10.1 H RBC 2.86 L Hgb 9.3 L Hct 28.0 L MCV 97.9 MCH 32.5 MCHC 33.2 RDW 15.8 H Plt Count 123 L MPV 11.3 H Immature Gran % (Auto) 2.4 H Neut % (Auto) 73.4 H Lymph % (Auto) 16.2 L [place] % (Auto) 7.1 Eos % (Auto) 0.6 Baso % (Auto) 0.3 Lymph # (Auto) 1.64 [place] # (Auto) 0.7 H Eos # (Auto) 0.1 Baso # (Auto) 0.0 Abs Immat Gran (auto) 0.24 H Absolute Neuts (auto) 7.4 H Absolute Nucleated RBC 0.000 Nucleated RBC % 0.0 % Immature Plt Fraction 6.8 Sodium 136 L Potassium 3.8 Chloride 102 Carbon Dioxide 31 H Anion Gap 3 L BUN 32 H Creatinine 0.30 L Estim Creat Clear Calc 113 Estimated GFR > 60 Glucose 107 POC Capillary Glucose 107 H 134 H Calcium 8.3 L Magnesium 2.0 Total Bilirubin 0.6 AST 27 ALT 30 Alkaline Phosphatase 88 Total Protein 5.0 L Albumin 2.8 L 08/23/24 12:19 WBC RBC Hgb Hct MCV MCH MCHC RDW Plt Count MPV Immature Gran % (Auto) Neut % (Auto) Lymph % (Auto) [place] % (Auto) Eos % (Auto) Baso % (Auto) Lymph # (Auto) [place] # (Auto) Eos # (Auto) Baso # (Auto) Abs Immat Gran (auto) Absolute Neuts (auto) Absolute Nucleated RBC Nucleated RBC % % Immature Plt Fraction Sodium Potassium Chloride Carbon Dioxide Anion Gap BUN Creatinine Estim Creat Clear Calc Estimated GFR Glucose POC Capillary Glucose 126 H Calcium Magnesium Total Bilirubin AST ALT Alkaline Phosphatase Total Protein Albumin Quality VTE Prophylaxis VTE prophylaxis: mechanical ordered and pharmacologic ordered
--- NOTE | 2024-08-23 15:22 | PC.NURSE ---
report given to farooq, pt moved to room [id number]
[2024-08-24] VITALS (7 sets, daily range): BP systolic 110–122; BP diastolic 65–68; PULSE 76–109; RESP 18–20; TEMP 36.3; O2SAT 95–97
[2024-08-24] MEDS: ACETYLCYSTEINE 20% INHAL SOLN 800 MG/4 ML VIAL 200 MG INHALATION ×3 (02:11→14:50)
[2024-08-24] MEDS: IPRATROPIUM 0.5 MG/ALBUTEROL SULFATE 2.5 MG AMPUL.NEB 3 ML INHALATION ×3 (02:11→14:50)
[2024-08-24] MEDS: CENTRAL LINE FLUSH 10 ML IV PUSH ×2 (05:26→14:03)
[2024-08-24 06:27] LABS: Glucose Point of Care 84 mg/dl (65-105)
[2024-08-24] MEDS: levETIRAcetam ORAL SOL 500 MG/5 ML UDC FEED TUBE (09:57)
[2024-08-24] MEDS: ENOXAPARIN 40 MG/0.4 ML SYRINGE SUB-Q (09:57)
[2024-08-24] MEDS: methiMAzole 10 MG TAB FEED TUBE (09:57)
[2024-08-24] MEDS: CARBIDOPA/LEVODOPA 25/100 MG TABLET 2 TABLET FEED TUBE ×2 (09:57→14:03)
[2024-08-24] MEDS: ACETAMINOPHEN ELIXIR 325 MG/10.15 ML UDC FEED TUBE (09:58)
--- NOTE | 2024-08-24 10:27 | PCNFU ---
Nutrition Follow-Up Complete: Inadequate energy intake related to NPO, sepsis, covid as evidenced by current orders Goal: Meet estimated protein energy needs Patient is progressing towards goal. No new goal. Pt current nutrition is Jevity 1.5 at 55 ml/hr with Bon BID. Last recorded weight is 69.1 kg, up from 60.4kg on admit. Bowel Motility: FMS Labs Reviewed:Cr 0.3, BUN 32, Na 136 Meds Noted:Lovenox, Keppra Skin: Deep Tissue Additional Notes: Patient current with PEG tube. Tube feeding of Jevity 1.5 at 55 ml/hr and tolerating per nursing. Tube feedings providing 1815 kcal/77 gm protein/920 ml water. Flush 100 ml q 4 hours. Tube feedings meeting 100% kcal needs at 30 kcal/kg and 75% kcal needs at 1.8-2.0 gm/kg. Protein Modular of Bon BID for wound healing via flush. Agree with diet orders. Monitoring diet orders, plan of care, meds, weights, labs, stool pattern. Daily in rounds, follow up Tuesdays and Fridays
[2024-08-24 12:54] LABS: Glucose Point of Care 108 mg/dl (65-105)
--- NOTE | 2024-08-24 14:48 | PM.DS ---
DS: Admitting Diagnosis Discharge Date 08/24/24 Admitting Diagnosis Fever DS: Discharge Diagnosis Discharge Diagnosis (1) Bladder stone: Code(s): N21.0 - Calculus in bladder Status: Acute (2) Acute respiratory failure: Code(s): J96.00 - Acute respiratory failure, unspecified whether with hypoxia or hypercapnia Status: Acute (3) Pneumonia: Qualifiers: Pneumonia type: due to unspecified organism Laterality: left Lung location: lower lobe of lung Qualified Code(s): J18.9 - Pneumonia, unspecified organism Code(s): J18.9 - Pneumonia, unspecified organism Status: Acute DS: Summary Hospital Course Hospital Course: 73 y/o F presents here with fever, hypotension, and hypoxia with PMH of chronic indwelling Larsen, chronic sacral decubitus ulcer, nonverbal, hypertension, and Parkinson's. The patient presents here from [facility] via EMS for further evaluation of fever, hypotension, and hypoxia. HPI obtained through chart review and provider report, the patient is unable to contribute meaningfully given she is nonverbal. The patient was noted to have a fever of 100? F and a blood pressure of 60/30. EMS was called and upon their arrival it was noted that the patient's O2 saturation was in the 80s which was accompanied by tachypnea with a rate of 30-40 per minute. EMS placed a non-rebreather at 15L which increased her O2 saturation to 93%. She arrived with a temperature of 101.2? F, heart rate 143, respiratory rate 40, 94% on a non-rebreather, and initial blood pressure was 67/43. The patient was transitioned to BiPAP. She was given a 3L bolus and Tylenol for her fever. A left IJ central line was placed and norepinephrine was initiated. BP improved to a systolic of 80 and temp is now 99.8. She remains mildly tachycardic. Lab work is consistent with septic shock. Suspected source UTI and possible pneumonia. Initial VS at presentation: 101.2? F, HR 143, or 40, 167/43, and 94% on NRB. ED workup showed: WBC 45.0, hemoglobin 10.5 (no previous available for comparison), INR 1.6, creatinine 2.9 and GFR 16 (no previous available), lactic 7.3, calcium 7.9, troponin 0.493, CRP 37, BNP 32108, albumin 2.9, and UA significant for UTI. CT of the abdomen/pelvis showed dense consolidation or volume loss of the visualized left lower lobe, probable cystitis despite Larsen catheter in place, 2.5 cm oval urinary bladder stone, no definite evidence of pyelonephritis. CXR showed clear lungs. Patient was admitted to ICU and and managed with levophed, and IVF. stabilized and transferred to the floor. She was managed for pneumonia with Meropenem and DOxycycline and she completed antibiotics. Initially required oxygen and was successfully weaned to room air. SHe was also managed for Covid with Remdesivir and steroid which she completed. SOFIA which resolved with resolution of sepsis. Patient was managed for UTI and urine culture was positive for E coli and Proteus mirabilis, ESBL. Patient was treated with meropenem and has completed antibiotics. Urology was consulted for bladder stone, due to evaluated noted to follow-up outpatient for further Intervention. Patient also had diarrheah which resolved. C diff negative. Topical management Assessment and Plan (1) Severe sepsis with septic shock: Code(s): A41.9 - Sepsis, unspecified organism; R65.21 - Severe sepsis with septic shock Status: Acute Assessment and Plan: 08/12: Patient presented from the long term with hypoxia, fever Septic shock secondary to UTI and pneumonia -she was hypotensive in the ER despite receiving 30 mL/kg IV fluids, left IJ central line was inserted, -off off all vasopressors -off of further IV fluids -continue stress dose steroid -08/12: Blood cultures growing E coli, Klebsiella pneumoniae, Staphylococcus capitis and Proteus mirabilis. All sensitive to meropenem. Which will be can -08/12: Urine cultures negative till now -08/12: C diff toxin is negative -patient has been started on vancomycin and levofloxacin (08/12) and was switched to switched to meropenem and doxycycline -DC doxycycline continue meropenem - 08/15: Repeat blood culture sent and negative till now - Patient completed antibiotics vital signs stable 08/12/2024: CT chest Complete left lung opacification with volume loss, likely representing atelectasis. Consider mucous plugging. Infection not excluded. No definite large obstructing mass is present, although this determination is difficult due to the lack of contrast and above-mentioned limitations CT abdomen pelvis Dense consolidation and volume loss of the visualized left lower lobe. Findings are compatible with atelectasis versus possibly pneumonia. Consider dedicated contrast-enhanced chest CT to better evaluate for any possibility of central obstructing lesion or other pulmonary/mediastinal pathology. Probable cystitis despite Larsen catheter in place. 2.5 cm oval urinary bladder stone. No definite CT evidence of pyelonephritis, but noncontrast CT scan is insensitive for this diagnosis (2) Acute respiratory failure: Code(s): J96.00 - Acute respiratory failure, unspecified whether with hypoxia or hypercapnia Status: Acute Assessment and Plan: Acute respiratory failure secondary to pneumonia, atelectasis and COVID infection. Although imaging is more suggestive of bacterial pneumonia and mucus plugging rather than COVID pneumonia. Patient initially placed on BiPAP but BiPAP had to be removed as patient was deemed not a candidate for BiPAP 08/12 CT chest Complete left lung opacification with volume loss, likely representing atelectasis. Consider mucous plugging. Infection not excluded. No definite large obstructing mass is present, although this determination is difficult due to the lack of contrast and above-mentioned limitations Chest x-ray08/14 Impression: Right upper lobe collapse. Central obstructing mass is not excluded. Extensive left perihilar and left lower lobe consolidation, suspicious for pneumonia. Possible small pleural effusion. Support line, as above. CXR 08/15 reviewed and shows persistent right upper lobe collapse patient now on room air Completed meropenem (3) UTI (urinary tract infection): Qualifiers: Urinary tract infection type: catheter-associated UTI Indwelling urinary catheter type: indwelling urethral catheter Encounter type: initial encounter Qualified Code(s): T83.511A - Infection and inflammatory reaction due to indwelling urethral catheter, initial encounter; N39.0 - Urinary tract infection, site not specified Code(s): N39.0 - Urinary tract infection, site not specified Status: Acute Assessment and Plan: UA reflective of UTI. According the son patient has had multiple UTIs in the past CT findings suggestive of cystitis and 2.5 cm oval urinary bladder stone. Urine culture positive for ESBL e coli On Meropenem Urology eval noted, planning for Lithalopaxy (4) Pneumonia: Qualifiers: Pneumonia type: due to unspecified organism Laterality: left Lung location: lower lobe of lung Qualified Code(s): J18.9 - Pneumonia, unspecified organism Code(s): J18.9 - Pneumonia, unspecified organism Status: Acute Assessment and Plan: Patient was initially on BiPAP, patient is contracted and unable to probably pull the mask off if she has emesis, BiPAP likely contraindicated in such patients -placed patient on high-flow therapy, will wean FiO2 to maintain O2 sats greater than 92% Completed Meropenem (5) Acute kidney injury: Code(s): N17.9 - Acute kidney failure, unspecified Status: Acute Assessment and Plan: Patient presented with septic shock, acute kidney injury with a creatinine of 2.90 on admission, baseline unknown -adequately fluid-resuscitated in the ER -creatinine has normalized -off vasopressors resolved Cr 0.3 (6) Diarrhea: Qualifiers: Diarrhea type: presumed infectious Qualified Code(s): R19.7 - Diarrhea, unspecified Code(s): R19.7 - Diarrhea, unspecified Status: Acute Assessment and Plan: Patient has had severe diarrhea -C diff toxin is negative, -stool cultures are negative -diarrhea resolved (7) COVID-19: Code(s): U07.1 - COVID-19 Status: Acute Assessment and Plan: Patient was tested positive for SARS-CoV-2 although the imaging does not appear suggestive of COVID pneumonia She currently on hydrocortisone and Remdesivir 08/17 Switch hydrocortisone to dexamethasone CRP is 37, status post Tocilizumab on 08/12 (8) Electrolyte abnormality: Code(s): E87.8 - Other disorders of electrolyte and fluid balance, not elsewhere classified Status: Acute Assessment and Plan: Sodium now decreasing Continue with decreased free water flush Time Spent with Patient Time attestation: Total time spent providing and/or coordinating discharge services: DS: Data Data Completed and Pending Labs on day of discharge: Labs from last 24 hours 08/24/24 08/24/24 12:49 01:08 POC Capillary Glucose 108 H 84 Discharge Plan Discharge Attending physician on discharge: Estephanie Kinney Consulting providers: Cathy Dwyer Etai Discharging Clinician: Estephanie Kinney Anticipated Discharge Date/Time: 08/24/24 14:42 Patient Disposition: [facility] Living Activity: as tolerated Diet: as tolerated Discharge Instructions: Follow up with urology Call their office below and make an appointment Primary Office Specialty: Urology Office Address: Urology [facility]' Address Info: [address]; [place]. [address] [facility] [address] Follow up with primary care provider in 3-5 days Patient Instructions: Antibiotic Form Stand Alone Forms: General Discharge Information Follow-up/Referrals: SunshineUrbano MD [Primary Care Provider] - (Follow with PCP in 3-5 days.) Luz Dickson MD [Physician] - (Follow with Neurology as instructed.) Discharge Medications: Continued atorvastatin 40 mg tablet 40 mg feeding tube HS clopidogrel 75 mg tablet 75 mg feeding tube DAILY famotidine 20 mg tablet 20 mg feeding tube BID acetaminophen 160 mg/5 mL Elixir 320 mg feeding tube Q6H PRN (Reason: Fever) methimazole 10 mg tablet 10 mg feeding tube DAILY carbidopa-levodopa 25-100 mg tablet 2 tablet feeding tube TID sertraline 50 mg tablet 50 mg feeding tube DAILY levetiracetam 100 mg/mL solution 500 mg feeding tube Q12H Rx Instructions: 100 mg/ml- 5 ml BID metoprolol tartrate 25 mg tablet 25 mg feeding tube Q12H Adult Multivitamin with Iron 18 mg iron-25 mcg Tablet 1 tablet PO DAILY Date of admission: 08/12/24 12:40 Primary Care Provider: SunshineUrbano Admitting Provider: Estephanei Kinney Attending physician on admission: Estepahnie Kinney Condition: Critical
== END 2024-08-24 16:40 | DRG 981 ==
LOC: ANHED 10:02 → ANHICU 12:46 → ANHIMU 08-21 01:00 → ANH3MED 08-23 15:11
PROVIDERS: General Practice; Internal Medicine; Student in an Organized Health Care Education/Training Program; Admitting Provider Internal Medicine; Emergency Provider General Practice; PCP Internal Medicine; Visit Provider Internal Medicine
DX: T83.511A Infection and inflammatory reaction due to indwelling urethral catheter, initial encounter (principal); A41.1 Sepsis due to other specified staphylococcus; J18.9 Pneumonia, unspecified organism; R65.21 Severe sepsis with septic shock; U07.1 COVID-19; J96.00 Acute respiratory failure, unspecified whether with hypoxia or hypercapnia; A41.51 Sepsis due to Escherichia coli [E. coli]; A41.59 Other Gram-negative sepsis; N30.00 Acute cystitis without hematuria; N17.9 Acute kidney failure, unspecified; Z16.12 Extended spectrum beta lactamase (ESBL) resistance; K94.23 Gastrostomy malfunction; Z66 Do not resuscitate; B96.20 Unspecified Escherichia coli [E. coli] as the cause of diseases classified elsewhere; B96.4 Proteus (mirabilis) (morganii) as the cause of diseases classified elsewhere; E07.9 Disorder of thyroid, unspecified; E87.8 Other disorders of electrolyte and fluid balance, not elsewhere classified; G20.A1 Parkinson's disease without dyskinesia, without mention of fluctuations; I10 Essential (primary) hypertension; L89.309 Pressure ulcer of unspecified buttock, unspecified stage; N21.0 Calculus in bladder; R19.7 Diarrhea, unspecified; R47.9 Unspecified speech disturbances; Z74.01 Bed confinement status; Z79.02 Long term (current) use of antithrombotics/antiplatelets
CPT/HCPCS: 36415; 36556; 36600; 70450; 71045; 71250; 74176; 76775; 80048; 80053; 81001; 82140; 82375; 82436; 82550; 82565; 82570; 82805; 82948; 83050; 83605; 83690; 83735; 83880; 84100; 84133; 84145; 84300; 84443; 84484; 85018; 85025; 85027; 85055; 85610; 85730; 85999; 86140; 87040; 87045; 87077; 87086; 87088; 87181; 87186; 87427; 87449; 87493; 87637; 87641; 87899; 93005; 94640; 94669; 96361; 96365; 96366; 96367; 99291; A9270; C1751; J0248; J0613; J1100; J1644; J1650; J1720; J1956; J2185; J2405; J2470; J3370; J3475; J3480; J7030; J7040; J7060; J7639; P9047; Q0249

== ENCOUNTER 2024-10-16 12:41 | Emergency (ER) | payer MEDICARE, SELFPAY ==
--- NOTE | ~2024-10-16 | XR_ITS ---
XR abdomen gastric tube insert 10/16/2024 13:14 Indication: G-tube replacement. Procedure: AP supine view of the abdomen Comparison: No prior studies for comparison. Findings: Contrast was administered via G-tube. There is contrast outlining the gastric folds. No mariola dence for extravasation of contrast. Nonobstructive bowel gas pattern. Calcifications in the pelvis a re believed to be phleboliths. Impression: 1: Gastric tube in expected position. Reviewed, dictated and finalized at location A. 3D TECHNOLOGIST Impression: 1: Gastric tube in expected position.
[2024-10-16 12:51] VITALS: BP 132/66; PULSE 74; RESP 18; TEMP 36.6; O2SAT 100
--- NOTE | 2024-10-16 12:59 | ED_ITS ---
HPI - General Adult General Chief complaint: Recheck/Abnormal Lab/Rx Stated complaint: g-tube out Time Seen by Provider: 10/16/24 12:48 History of Present Illness HPI narrative: Patient is a 74-year-old female who presents emergency department with chief complaint of pulled G-tube out. Patient is normally noncommunicative and is contracted and apparently was getting a shower today and her G-tube got pulled out the staff at the facility placed a 16 Kittitian Larsen in the G-tube site and transported patient to the emergency department Related Data Home Medications ?Medication ?Instructions ?Recorded ?Confirmed ?Last Taken ?Type acetaminophen 160 mg/5 mL oral 320 mg feeding tube Q6H PRN Fever 08/12/24 08/12/24 Unknown History elixir atorvastatin 40 mg tablet 40 mg feeding tube HS 08/12/24 08/12/24 Unknown History carbidopa 25 mg-levodopa 100 mg 2 tablet feeding tube TID 08/12/24 08/12/24 Unknown History tablet clopidogrel 75 mg tablet 75 mg feeding tube DAILY 08/12/24 08/12/24 Unknown History famotidine 20 mg tablet 20 mg feeding tube BID 08/12/24 08/12/24 Unknown History levetiracetam 100 mg/mL oral 500 mg feeding tube Q12H 08/12/24 08/21/24 Unknown History solution methimazole 10 mg tablet 10 mg feeding tube DAILY 08/12/24 08/12/24 Unknown History metoprolol tartrate 25 mg tablet 25 mg feeding tube Q12H 08/12/24 08/12/24 Unknown History multivitamin [id number] 1 tablet PO DAILY 08/12/24 08/12/24 Unknown History fumarate 18 mg-vitamin K 25 mcg tablet sertraline 50 mg tablet 50 mg feeding tube DAILY 08/12/24 08/12/24 Unknown History Allergies Allergy/AdvReac Type Severity Reaction Status Date / Time cephalexin Allergy Unknown Verified 08/12/24 08:33 Sulfa (Sulfonamide Allergy Unknown Verified 08/12/24 08:33 Antibiotics) Review of Systems Review of Systems: A 10 system review of systems was completed on the patient and is negative except for what is stated in the HPI. Nursing and ancillary documentation was reviewed. [facility] Past Medical History Medical History Bladder stone Thyroid disorder Listed as hypothyroidism in OR paperwork, however is on methimazole Nonverbal Chronic indwelling Larsen catheter History of supraventricular tachycardia Sepsis Parkinson disease Hypertension Surgical History Surgical History S/P percutaneous endoscopic gastrostomy (PEG) tube placement History of brain surgery Social History Social History Smoking status: Unknown if ever smoked Spiritual care concerns: No Exam Narrative: GENERAL: Chronically ill, then-nourished, and in no acute distress. Contracted HEAD: Normocephalic, atraumatic. EYES: PERRLA and EOMI. ENT: Nares clear, no rhinorrhea or epistaxis. Mucous membranes moist. NECK: Supple. CHEST: Clear to auscultation. No respiratory distress. HEART: Regular rate and rhythm. No murmur heard. Normal peripheral pulses. ABDOMEN: Soft, nontender, nondistended, normal active bowel sounds. Larsen catheter in ostomy site EXTREMITIES: Normal range of motion. No edema. Contracted extremities SKIN: Warm, dry, no rash. NEURO: No focal deficits. Alert and oriented to baseline. PSYCH: Normal mood and affect. Course Vital Signs Vital signs: Vital Signs Temperature 36.6 C 10/16/24 12:51 Pulse Rate 74 10/16/24 12:51 Respiratory Rate 18 10/16/24 12:51 Blood Pressure 132/66 10/16/24 12:51 Pulse Oximetry 100 10/16/24 12:51 Temperature 36.6 C 10/16/24 12:51 Pulse Rate 74 10/16/24 12:51 Respiratory Rate 18 10/16/24 12:51 Blood Pressure 132/66 10/16/24 12:51 Pulse Oximetry 100 10/16/24 12:51 Procedures Feeding Tube Replacement Feeding Tube #1: Feeding Tube Placement Date: 10/16/24 Feeding Tube Placement Time: 13:01 Type of Tube: gastrostomy Insertion Site Prior to Procedure: clean Tube Used for Reinsertion: Bard Kittitian Tube Size (F): 16 Balloon size (mL): 5 Verification of Placement: auscultation, KUB and gastrografin injection Tube Secured by: tape/dressing Patient Tolerated Procedure: well and no complications Medical Decision Making Vital Signs Vital Signs: Vital Signs Temperature 36.6 C 10/16/24 12:51 Pulse Rate 74 10/16/24 12:51 Respiratory Rate 18 10/16/24 12:51 Blood Pressure 132/66 10/16/24 12:51 Pulse Oximetry 100 10/16/24 12:51 Temperature 36.6 C 10/16/24 12:51 Pulse Rate 74 10/16/24 12:51 Respiratory Rate 18 10/16/24 12:51 Blood Pressure 132/66 10/16/24 12:51 Pulse Oximetry 100 10/16/24 12:51 Discharge Plan Discharge Clinical Impression: PEG tube malfunction Patient Disposition: [facility] Condition: Stable Instructions: Antibiotic Form, How to Use and Care for Your PEG Tube (DC) Patient Language: Japanese Prescriptions: No Action atorvastatin 40 mg tablet 40 mg feeding tube HS clopidogrel 75 mg tablet 75 mg feeding tube DAILY famotidine 20 mg tablet 20 mg feeding tube BID acetaminophen 160 mg/5 mL Elixir 320 mg feeding tube Q6H PRN (Reason: Fever) methimazole 10 mg tablet 10 mg feeding tube DAILY carbidopa-levodopa 25-100 mg tablet 2 tablet feeding tube TID sertraline 50 mg tablet 50 mg feeding tube DAILY levetiracetam 100 mg/mL solution 500 mg feeding tube Q12H Rx Instructions: 100 mg/ml- 5 ml BID metoprolol tartrate 25 mg tablet 25 mg feeding tube Q12H kjiyjhvs-gkq-xhle-vitamin K 18 mg iron-25 mcg Tablet 1 tablet PO DAILY Follow-up/Referrals: Sunshine,MD Urbano [Primary Care Provider] - Time of Disposition: 13:02
== END 2024-10-16 14:43 ==
PROVIDERS: Emergency Provider Emergency Medicine; PCP Internal Medicine
DX: Z43.1 Encounter for attention to gastrostomy (principal); G20.A1 Parkinson's disease without dyskinesia, without mention of fluctuations; I10 Essential (primary) hypertension; E07.9 Disorder of thyroid, unspecified; Z87.442 Personal history of urinary calculi; Z79.899 Other long term (current) drug therapy
CPT/HCPCS: 43762; 99283

== ENCOUNTER 2025-03-29 16:05 | Inpatient (IN) | payer MEDICARE, SELFPAY ==
[2025-03-29] VITALS (18 sets, daily range): BP systolic 83–138; BP diastolic 65–84; PULSE 102–126; RESP 21–39; TEMP 36.6–37.9; O2SAT 94–100; BMI 26.4
--- NOTE | ~2025-03-29 | XR_ITS ---
XR chest 1V portable Ordering provider: Sukhdeep Rollins MD History: 74 years Female with . dyspnea; possible sepsis . Comparison: August 20, 2024 FINDINGS: MEDIASTINUM: The cardiac silhouette is slightly enlarged. Prominent annamaria. LUNGS: Opacity seen in the right apical area which may be focal pneumonia versus a mass. Opacificatio n also seen in the right upper lobe suggestive of pneumonia. Underlying bilateral interstitial thicke bobby which is suggestive of pulmonary edema. No effusions or pneumothorax. OTHER: No free air under the diaphragm. IMPRESSION: Cardiomegaly with cardiac decompensation and pulmonary edema. Right apical opacities suggestive of a mass. CT evaluation advised. Highly suggestive right upper lobe pneumonia. Reviewed, dictated and finalized at location A.
--- NOTE | ~2025-03-29 | XR_ITS ---
EXAMINATION: XR chest 1V portable Exam Date/Time: 03/31/2025 15:39 CDT HISTORY: respiratory failure Comparison: 03/29/2025. RESULT: Lines, tubes, and devices: None. Lungs and pleura: Rightward rotation. Mild diffuse reticular opacities. Hazy segmental opacities in the right lung base. Marked lateral costophrenic angle blunting. The masslike opacification in the ri ght apical lung is partially obscured by rotation. Cardiomediastinal silhouette: Stable. Other: No acute osseous or upper abdominal finding. IMPRESSION: Segmental atelectasis/consolidation in the right lung base. Mild interstitial edema. Large right pleu ral effusion. Reviewed, dictated and finalized at location K. IMPRESSION: Segmental atelectasis/consolidation in the right lung base. Mild interstitial e sweetie. Large right pleural effusion.
--- NOTE | ~2025-03-29 | CT_ITS ---
EXAM: CTA chest PE protocol - 04/01/2025 11:50 CDT History: 74 years old Female with Hypoxia/Tachycardia/Tachypnea/lung mass TECHNIQUE: CTA of the chest with contrast, according to pulmonary embolism protocol. Reformatted cor onal, sagittal, and 3-D MIP images were obtained. 100 cc of Optiray 350 were used for the study. Auto matic exposure control was used for this study. COMPARISON: None available. FINDINGS: EXAM QUALITY: Adequate visualization of the pulmonary arteries to the lobar level. PULMONARY ARTERIAL VASCULATURE: No evidence of pulmonary embolism in main and lobar pulmonary arterie s. Limited evaluation for segmental and peripheral pulmonary arteries due to suboptimal contrast bolu s timing. VISUALIZED LOWER NECK: Thyroid gland appears normal. No supraclavicular lymphadenopathy. AIRWAYS: Patent centrally. LUNGS and PLEURA: Diffuse tree-in-bud and airspace opacities are seen in the right lung. Mild to mode rate right pleural effusion causing compressive atelectasis.No pneumothorax. MEDIASTINUM and AMISHA: No hilar or mediastinal lymphadenopathy. No mediastinal mass is seen. Esophagus appears normal. HEART AND PERICARDIUM: Cardiac chambers are normal in size. No pericardial fluid or thickening is pre sent. VASCULATURE: Thoracic aorta and pulmonary arteries are normal in caliber. CHEST WALL: No supraclavicular or axillary lymphadenopathy. MUSCULOSKELETAL: Multilevel degenerative changes of the thoracic spine. UPPER ABDOMEN: Unremarkable. Reflux of intravenous contrast in the hepatic veins, concerning for poss ible right heart failure. IMPRESSION: 1. No evidence of pulmonary embolism in main and lobar pulmonary arteries. 2. Diffuse tree-in-bud and airspace opacities are seen in the right lung. Findings are concerning fo r pneumonia. Short-term follow-up chest radiograph is recommended after appropriate clinical therapy. 3. Mild to moderate right pleural effusion causing compressive atelectasis.No pneumothorax. Reviewed, dictated and finalized at location A. IMPRESSION: 1. No evidence of pulmonary embolism in main and lobar pulmonary arteries. 2. Diffuse tree-in-bud and airspace opacities are seen in the right lung. Find ings are concerning for pneumonia. Short-term follow-up chest radiograph is rec ommended after appropriate clinical therapy. 3. Mild to moderate right pleural effusion causing compressive atelectasis.No pneumothorax.
--- NOTE | ~2025-03-29 | XR_ITS ---
Portable chest x-ray Comparison: 03/31/2025 Clinical History: Pleural effusion Findings: Right hemithorax partially obscured by the patient's contracted arm. Probable small to mod erate right pleural effusion. Left lung appears clear. Cardiomediastinal silhouette is stable. Bones and soft tissues are unremarkable. Impression: Probable small to moderate right pleural effusion, decreased from prior exam. Left lung clear. Reviewed, dictated and finalized at location . Impression: Probable small to moderate right pleural effusion, decreased from prior exam. Left lung clear.
--- NOTE | 2025-03-29 16:24 | ECG_ITS ---
Test Date: 2025-03-29 17:06:55 Measurements Intervals [place] Rate: 124 P: 49 CA: 152 QRS: 7 QRSD: 77 T: 61 QT: 314 QTc: 452 Interpretive Statements SINUS TACHYCARDIA LOW QRS VOLTAGE [QRS DEFLECTION < 0.5/1.0 mV IN LIMB/CHEST LEADS] ANTEROSEPTAL MYOCARDIAL INFARCTION , OF INDETERMINATE AGE [40+ ms Q WAVE IN V1-V4] Compared to ECG 08/12/2024 07:02:22 Atrial fibrillation no longer present Electronically Signed On 03-30-2025 13:57:36 CDT by Brandyn Overton M.D.
--- NOTE | 2025-03-29 16:26 | ED.GENADULT ---
HPI - General Adult General Chief complaint: Shortness of Breath/Dyspnea Stated complaint: SOB Time Seen by Provider: 03/29/25 16:17 History of Present Illness HPI narrative: Patient 74-year-old female who presents emergency department chief complaint of shortness of breath. Patient is resident of a local nursing facility and has baseline nonverbal and gets G-tube feeds the patient was found to be hypoxic and short of breath the patient received breathing treatments EN route Related Data Home Medications ?Medication ?Instructions ?Recorded ?Confirmed ?Last Taken ?Type acetaminophen 160 mg/5 mL oral 320 mg feeding tube Q6H PRN Fever 08/12/24 10/17/24 Unknown History elixir atorvastatin 40 mg tablet 40 mg feeding tube HS 08/12/24 10/17/24 Unknown History carbidopa 25 mg-levodopa 100 mg 2 tablet feeding tube TID 08/12/24 10/17/24 Unknown History tablet clopidogrel 75 mg tablet 75 mg feeding tube DAILY 08/12/24 10/17/24 Unknown History famotidine 20 mg tablet 20 mg feeding tube BID 08/12/24 10/17/24 Unknown History levetiracetam 100 mg/mL oral 500 mg feeding tube Q12H 08/12/24 10/17/24 Unknown History solution methimazole 10 mg tablet 10 mg feeding tube DAILY 08/12/24 10/17/24 Unknown History metoprolol tartrate 25 mg tablet 25 mg feeding tube Q12H 08/12/24 10/17/24 Unknown History multivitamin m-miikadfu-fbcpbgr 1 tablet PO DAILY 08/12/24 10/17/24 Unknown History fumarate 18 mg-vitamin K 25 mcg tablet sertraline 50 mg tablet 50 mg feeding tube DAILY 08/12/24 10/17/24 Unknown History Allergies Allergy/AdvReac Type Severity Reaction Status Date / Time cephalexin Allergy Unknown Verified 10/18/24 07:18 Sulfa (Sulfonamide Allergy Unknown Verified 10/18/24 07:18 Antibiotics) Review of Systems Review of Systems: A 10 system review of systems was completed on the patient and is negative except for what is stated in the HPI. Nursing and ancillary documentation was reviewed. [facility] Past Medical History Medical History (Updated 03/29/25 @ 18:13 by Sukhdeep Rollins MD) Bladder stone Thyroid disorder Listed as hypothyroidism in [place] paperwork, however is on methimazole Nonverbal Chronic indwelling Larsen catheter History of supraventricular tachycardia Sepsis Parkinson disease Hypertension Surgical History Surgical History S/P percutaneous endoscopic gastrostomy (PEG) tube placement History of brain surgery Social History Social History Smoking status: Unknown if ever smoked Alcohol intake: unknown Substance use: unknown Spiritual care concerns: No Exam Narrative: GENERAL: Ill-appearing, well-nourished, and in mild acute distress. HEAD: Normocephalic, atraumatic. EYES: PERRLA and EOMI. ENT: Nares clear, no rhinorrhea or epistaxis. Mucous membranes moist. NECK: Supple. CHEST: Coarse breath sounds to auscultation. No respiratory distress. HEART: Regular rate and rhythm. No murmur heard. Normal peripheral pulses. ABDOMEN: Soft, nontender, nondistended, normal active bowel sounds. EXTREMITIES: Normal range of motion. No edema. SKIN: Warm, dry, no rash. Warm to touch NEURO: No focal deficits. Alert and oriented to baseline. PSYCH: Normal mood and affect. Course Vital Signs Vital signs: Vital Signs Temperature 37.9 C H 03/29/25 16:09 Pulse Rate 120 H 03/29/25 16:09 Respiratory Rate 29 H 03/29/25 16:09 Blood Pressure 100/70 03/29/25 16:09 Pulse Oximetry 94 03/29/25 16:09 Oxygen Delivery Nasal Cannula 03/29/25 16:09 Oxygen Flow Rate 3 03/29/25 16:09 Temperature 36.6 C 03/29/25 18:08 Pulse Rate 121 H 03/29/25 18:08 Respiratory Rate 30 H 03/29/25 18:08 Blood Pressure 138/84 03/29/25 18:08 Pulse Oximetry 98 03/29/25 18:09 Oxygen Delivery BiPAP 03/29/25 18:09 Oxygen Flow Rate 3 03/29/25 16:21 Medical Decision Making MDM Narrative Medical decision making narrative: Differential diagnosis includes pneumonia, UTI, sepsis, Laboratory studies were obtained showed white count of 23.9 lactate was elevated the patient received IV fluids for resuscitation in the emergency department she also was febrile procalcitonin was normal chest x-ray shows evidence of infiltrate urinalysis currently pending the patient was started on Zosyn vancomycin and Levaquin also given there is a possibility of an underlying mass in the lung a CT diagnostic chest will be ordered Awaiting to upstairs patient started to become short of breath again had required BiPAP Vital Signs Vital Signs: Vital Signs Temperature 37.9 C H 03/29/25 16:09 Pulse Rate 120 H 03/29/25 16:09 Respiratory Rate 29 H 03/29/25 16:09 Blood Pressure 100/70 03/29/25 16:09 Pulse Oximetry 94 03/29/25 16:09 Oxygen Delivery Nasal Cannula 03/29/25 16:09 Oxygen Flow Rate 3 03/29/25 16:09 Temperature 36.6 C 03/29/25 18:08 Pulse Rate 121 H 03/29/25 18:08 Respiratory Rate 30 H 03/29/25 18:08 Blood Pressure 138/84 03/29/25 18:08 Pulse Oximetry 98 03/29/25 18:09 Oxygen Delivery BiPAP 03/29/25 18:09 Oxygen Flow Rate 3 03/29/25 16:21 Lab Data 03/29/25 16:48 03/29/25 16:48 Labs: Lab Results 03/29/25 03/29/25 Range/Units 16:48 17:13 WBC 23.9 H (4.5-10.0) K/mm3 RBC 4.29 (4.2-5.4) M/mm3 Hgb 13.3 (12.0-15.0) g/dL Hct 40.6 (37.0-47.0) % MCV 94.6 (80-100) fl MCH 31.0 (26-34) pg MCHC 32.8 (32-36) g/dl RDW 12.9 (11.5-14.5) % Plt Count 302 (150-375) k/mm3 MPV 9.8 (7.4-10.4) fl Immature Gran % (Auto) Not Reportable Neut % (Auto) Not Reportable Lymph % (Auto) Not Reportable Harney % (Auto) Not Reportable Eos % (Auto) Not Reportable Baso % (Auto) Not Reportable Lymph # (Auto) Not Reportable Harney # (Auto) Not Reportable Eos # (Auto) Not Reportable Baso # (Auto) Not Reportable Abs Immat Gran (auto) Not Reportable Absolute Neuts (auto) Not Reportable Absolute Nucleated RBC Not Reportable Total Counted 100 Neutrophils % (Manual) 86 H (46-73) % Band Neutrophils % 3 (0-6) % Lymphocytes % (Manual) 3.0 L (18-44) % Monocytes % (Manual) 8 (3-9) % Nucleated RBC % Not Reportable Abs Neuts (Manual) 21.27 H (1.3-6.7) K/mm3 Abs Lymphs (Manual) 0.71 L (1.1-4.5) K/mm3 Abs Monocytes (Manual) 1.91 H (0.1-0.90) K/mm3 Platelet Estimate Adequate (Adequate) Schistocytes None seen PT 13.9 (11.1-14.7) Seconds INR 1.1 APTT 32.4 (22.3-36.8) Seconds Sodium 137 (137-145) mmol/L Potassium 4.2 (3.4-5.0) mmol/L Chloride 99 (98-107) mmol/L Carbon Dioxide 25 (22-30) mmol/L Anion Gap 13 H (4-12) mmol/L BUN 13 (7-17) mg/dL Creatinine 0.45 L (0.7-1.0) mg/dL Estim Creat Clear Calc 78 ml/min Estimated GFR > 60 (59 - ) Glucose 140 H (65-110) mg/dL Lactic Acid 3.8 H (0.7-2.0) mmol/L Calcium 9.0 (8.4-10.2) mg/dL Magnesium 2.0 (1.6-2.3) mg/dL Total Bilirubin 0.3 (0.2-1.3) mg/dL AST 32 (14-36) U/L ALT 29 (6-35) U/L Alkaline Phosphatase 124 (38-126) U/L Troponin I 0.527 H* (0.000-0.034) ng/mL NT-Pro-B Natriuret Pep 256 H (19.9-100) pg/mL Total Protein 7.7 (6.3-8.2) g/dL Albumin 4.0 (3.5-5.1) g/dL Lipase 83 (23-300) U/L Procalcitonin 0.1 ng/mL Urine Color Yellow (Yellow) Urine Appearance Cloudy H (Clear) Urine pH 6.0 (5.0-9.0) Ur Specific [place] 1.022 (1.001-1.035) Urine Protein 3+ H (Negative) mg/dL Urine Glucose (UA) Negative (Negative) mg/dL Urine Ketones Negative (Negative) mg/dL Ur Blood (Man) 2+ H (Negative) Urine Nitrate Negative (Negative) Urine Bilirubin Negative (Negative) Urine Urobilinogen 1.0 (<2.0) mg/dL Add Ur Microanalysis Reviewed Leukocyte Esterase Rfl 2+ H (Negative) BARBER/UL Urine RBC 21-50 H (0-2) /hpf Urine WBC >100 H (0-3) /hpf Ur Squamous Epith Cells Few (Few) /hpf Urine Bacteria 4+ H /hpf Urine Casts 6-10 Influenza A (RT-PCR) Negative (Negative) Influenza B (RT-PCR) Negative (Negative) RSV (RT-PCR) Negative (Negative) SARS-CoV-2 RNA (RT-PCR) Negative (Negative) ABG Data ABG results: 03/29/25 16:55 Puncture Site Left radial ABG pH 7.481 H ABG pCO2 29.7 L ABG pO2 158.9 H ABG PO2/FiO2 Ratio 4.97 ABG HCO3 21.7 L ABG O2 Saturation 99.2 ABG O2 Content 19.2 ABG Base Excess -0.7 A-a Gradient 34.5 Oxyhemoglobin 98.1 Total Hemoglobin 13.7 O2 Delivery Device Nasal cannula O2 Liters/Min 3.0 FiO2 32 Critical Care Time Critical Care Time Critical Care Time: Yes Total Critical Care Time: 35 Discharge Plan Discharge Clinical Impression: Pneumonia, Sepsis, Acute UTI, Respiratory failure, Elevated troponin Patient Disposition: Still a Patient Condition: Stable Patient Language: [place] Prescriptions: No Action atorvastatin 40 mg tablet 40 mg feeding tube HS clopidogrel 75 mg tablet 75 mg feeding tube DAILY famotidine 20 mg tablet 20 mg feeding tube BID acetaminophen 160 mg/5 mL Elixir 320 mg feeding tube Q6H PRN (Reason: Fever) methimazole 10 mg tablet 10 mg feeding tube DAILY carbidopa-levodopa 25-100 mg tablet 2 tablet feeding tube TID sertraline 50 mg tablet 50 mg feeding tube DAILY levetiracetam 100 mg/mL solution 500 mg feeding tube Q12H Rx Instructions: 100 mg/ml- 5 ml BID metoprolol tartrate 25 mg tablet 25 mg feeding tube Q12H hyfrscto-svp-knru-vitamin K 18 mg iron-25 mcg Tablet 1 tablet PO DAILY amoxicillin-pot clavulanate 875-125 mg tablet 1 tablet PO Q12H 6 Days Qty: 12 0RF Follow-up/Referrals: Sunshine,MD Urbano [Primary Care Provider] - Time of Disposition: 17:33
[2025-03-29] MEDS: IPRATROPIUM 0.5 MG/ALBUTEROL SULFATE 2.5 MG AMPUL.NEB 3 ML INHALATION ×3 (16:37→21:47)
--- NOTE | 2025-03-29 16:42 | PCRCNOTE ---
Pt. is very contracted on right side and R.N. is drawing blood on left side; will have to wait to draw ABG.
[2025-03-29 16:55] LABS: Hematocrit 40.6 % (37.0-47.0); Hemoglobin 13.3 g/dL (12.0-15.0); Mean Corpuscular HGB Conc 32.8 g/dl (32-36); Mean Corpuscular Hemoglobin 31.0 pg (26-34); Mean Corpuscular Volume 94.6 fl (80-100); Platelet Count Result 302 k/mm3 (150-375); Red Blood Count 4.29 M/mm3 (4.2-5.4); White Blood Count 23.9 K/mm3 (4.5-10.0)
[2025-03-29] MEDS: ACETAMINOPHEN 650 MG SUPPOSITORY RECTAL (17:03)
[2025-03-29] MEDS: SODIUM CHLORIDE 0.9% IV 1,000 ML 999 ML IV CONT ×3 (17:03→19:45)
[2025-03-29 17:06] LABS: Alanine Aminotransferase 29 U/L (6-35); Albumin Level 4.0 g/dL (3.5-5.1); Alkaline Phosphatase 124 U/L (38-126); Anion Gap 13 mmol/L (4-12); Aspartate Amino Transferase 32 U/L (14-36); Bilirubin,Total 0.3 mg/dL (0.2-1.3); Blood Urea Nitrogen 13 mg/dL (7-17); Calcium 9.0 mg/dL (8.4-10.2); Carbon Dioxide 25 mmol/L (22-30); Chloride 99 mmol/L (98-107); Estimated CRCL calculation 78 ml/min; Estimated Glomerular Filt Rate > 60; Glucose 140 mg/dL (65-110); INR 1.1; Lipase 83 U/L (23-300); Magnesium 2.0 mg/dL (1.6-2.3); Potassium 4.2 mmol/L (3.4-5.0); Prothrombin Time 13.9 Seconds (11.1-14.7); Sodium 137 mmol/L (137-145); Total Protein 7.7 g/dL (6.3-8.2)
[2025-03-29 17:07] LABS: Partial Thromboplastin Time 32.4 Seconds (22.3-36.8)
[2025-03-29 17:07] LABS: Alveolar/Arterial O2 Gradient 34.5 mmHg; Fractional Inspired Oxygen 32 %; HCO3 ABG 21.7 mEq/l (22.0-26.0); Oxygen Content ABG 19.2 %vol (16.0-22.0); Oxygen Saturation ABG 99.2 % (95.0-100.0); PCO2 ABG 29.7 mmHg (35.0-45.0); PO2 ABG 158.9 mmHg (80.0-100.0); PO2 FiO2 Ratio Arterial Blood 4.97 %
[2025-03-29 17:09] LABS: Liters per Minute 3.0 LPM; Modified Allen's Test Pass; Site Drawn LEFT RADIAL
[2025-03-29 17:23] LABS: Band Neutrophils Percent 3 % (0-6); Lymphocytes Absolute Manual 0.71 K/mm3 (1.1-4.5); Lymphocytes Percent Manual 3.0 % (18-44); Monocytes Absolute Manual 1.91 K/mm3 (0.1-0.90); Monocytes Percent Manual 8 % (3-9); NT Pro B Type Natriuretic Pept 256 pg/mL (19.9-100); Neutrophils Absolute Manual 21.27 K/mm3 (1.3-6.7); Neutrophils Percent Manual 86 % (46-73); Procalcitonin 0.1 ng/mL; Schistocytes None Seen; Total Cells Counted 100; Troponin I 0.527 ng/mL (0.000-0.034)
[2025-03-29 17:34] LABS: Influenza A QL RT-PCR Negative (Negative); Influenza B QL RT-PCR Negative (Negative); RSV RNA, RT-PCR Negative (Negative); SARS-CoV-2 RNA PCR Negative (Negative)
--- NOTE | 2025-03-29 17:36 | P.HP_ITS ---
H&P: HPI History of Present Illness Date/Time: 03/29/25 17:36 Chief Complaint: Shortness of breath Narrative: 74-year-old female past medical history of nonverbal, thyroid disorder, chronic indwelling Larsen catheter, per disease and hypertension who resides in care home presents the hospital shortness of breath. HPI is limited as patient lives at care home is nonverbal. Code status confirmed with family do not intubate, no CPR okay for central line and vasopressors. Lab work in the ED shows leukocytosis at 23.9, ABG shows pH is 7.48, pCO2 29, PO2 of 158, bicarb of 21.7 lactic acid 3.8, troponin of 0.527, proBNP of 256, influenza A/B, RSV, COVID negative. UA pending. Chest x-ray showing cardiomegaly with pulmonary edema, atypical past season right chest suggestive of mass, and right upper lobe pneumonia. CT pending. Patient started on levofloxacin and Zosyn with IV fluid bolus of 2 L. Patient does not appear to be on diuretics or have a history of CHF. Patient meeting severe sepsis criteria being admitted for pneumonia and UTI with respiratory failure. Review of Systems Review of Systems: Patient nonverbal ROS unobtainable: Yes unobtainable due to mental status PMFSH Past Medical History Medical History (Updated 03/30/25 @ 00:57 by Nilsa Mercedes APRN) Bladder stone Thyroid disorder Listed as hypothyroidism in [place] paperwork, however is on methimazole Nonverbal Chronic indwelling Larsen catheter History of supraventricular tachycardia Sepsis Parkinson disease Hypertension Surgical History Surgical History S/P percutaneous endoscopic gastrostomy (PEG) tube placement History of brain surgery Social History Social History Smoking status: Never smoker Alcohol intake: never Substance use: unknown Do You Feel Safe in your Home?: Yes Lack of Transportation: No Lack of Food: Never True Current Housing: I Have Housing Concerned About Future Housing: No Difficulty Paying Gas/Electric Bills: No Difficulty Paying for Meds: No Currently Unemployed: No Education: Bachelor's Degree Difficulty w/ Childcare or Family Care: No Spiritual care concerns: Yes Meds Home Medications and Allergies Home Medications ?Medication ?Instructions ?Recorded ?Confirmed ?Type acetaminophen 160 mg/5 mL oral 320 mg feeding tube Q6H PRN Fever 08/12/24 03/29/25 History elixir atorvastatin 40 mg tablet 40 mg feeding tube HS 08/12/24 03/29/25 History carbidopa 25 mg-levodopa 100 mg 2 tablet feeding tube TID 08/12/24 03/29/25 History tablet clopidogrel 75 mg tablet 75 mg feeding tube DAILY 08/12/24 03/29/25 History famotidine 20 mg tablet 20 mg feeding tube BID 08/12/24 03/29/25 History levetiracetam 100 mg/mL oral 500 mg feeding tube Q12H 08/12/24 03/29/25 History solution methimazole 10 mg tablet 10 mg feeding tube DAILY 08/12/24 03/29/25 History metoprolol tartrate 25 mg tablet 25 mg feeding tube Q12H 08/12/24 03/29/25 History multivitamin w-hstpnpra-juitoya 1 tablet PO DAILY 08/12/24 03/29/25 History fumarate 18 mg-vitamin K 25 mcg tablet sertraline 50 mg tablet 50 mg feeding tube DAILY 08/12/24 03/29/25 History Allergies Allergy/AdvReac Type Severity Reaction Status Date / Time cephalexin Allergy Unknown Verified 10/18/24 07:18 Sulfa (Sulfonamide Allergy Unknown Verified 10/18/24 07:18 Antibiotics) Vital Signs Vital Signs - 24 hr 03/29/25 16:09 03/29/25 16:19 03/29/25 16:21 Temperature 100.3 F H Pulse Rate 120 H Respiratory Rate 29 H Blood Pressure 100/70 Pulse Oximetry 94 95 95 Oxygen Delivery Nasal Cannula Nasal Cannula Nasal Cannula Oxygen Flow Rate 3 3 3 03/29/25 16:56 03/29/25 17:10 Temperature Pulse Rate 112 H 118 H Respiratory Rate 25 H 25 H Blood Pressure Pulse Oximetry Oxygen Delivery Oxygen Flow Rate Exam Narrative: General: Chronically-ill, HEENT: normocephalic, atraumatic. Mucous membranes moist. EOMI, PERRLA, bilateral sclera anicteric, no conjunctival injection. Neck supple without JVD, lymphadenopathy, or bruit. Respiratory: clear to ascultation bilaterally. No rales/rhonic/wheezes. Tachypneic Cardiovascular: Regular rate and rhythm, normal S1-S2 upon ascultation. No murmurs, rubs, or clicks. PMI is nondisplaced, capillary refill less than 3 second. Abdomen: Soft, round, no pulsatile masses, nondistended and nontender. No rebound, no guarding. Peg tube Extremities: No cyanosis, clubbing, or edema present. Pulses are palpable 2/2. Contracted Neuro: Alert and orientated x 0. PERRLA. Cranial nerves 2-12 intact without focal deficit. Skin: Warm, dry, and intact, without rash, erythema, or lesion. Psych: Unable to assess BiPAP H&P: Results Labs Labs: Short CBC 03/29/25 Range/Units 16:48 WBC 23.9 H (4.5-10.0) K/mm3 Hgb 13.3 (12.0-15.0) g/dL Hct 40.6 (37.0-47.0) % Plt Count 302 (150-375) k/mm3 BMP 03/29/25 16:48 Sodium 137 Potassium 4.2 Chloride 99 Carbon Dioxide 25 BUN 13 Creatinine 0.45 L Glucose 140 H Calcium 9.0 Cardiac Enzymes 03/29/25 Range/Units 16:48 Troponin I 0.527 H* (0.000-0.034) ng/mL Liver Function 03/29/25 Range/Units 16:48 Total Bilirubin 0.3 (0.2-1.3) mg/dL AST 32 (14-36) U/L ALT 29 (6-35) U/L Alkaline Phosphatase 124 (38-126) U/L Albumin 4.0 (3.5-5.1) g/dL Assessment and Plan Assessment and plan (1) Pneumonia: Qualifiers: Laterality: left Lung location: lower lobe of lung Pneumonia type: due to unspecified organism Qualified Code(s): J18.9 - Pneumonia, unspecified organism Code(s): J18.9 - Pneumonia, unspecified organism Status: Acute Assessment and Plan: Zosyn, Levaquin, vancomycin Blood cultures pending BiPAP adjust per ABGs Family states that she would not want to be intubated for respiratory distress (2) UTI (urinary tract infection): Qualifiers: Encounter type: initial encounter Indwelling urinary catheter type: indwelling urethral catheter Urinary tract infection type: catheter-associated UTI Qualified Code(s): T83.511A - Infection and inflammatory reaction due to indwelling urethral catheter, initial encounter; N39.0 - Urinary tract infection, site not specified Code(s): N39.0 - Urinary tract infection, site not specified Status: Acute Assessment and Plan: Zosyn Culture and sensitivity pending (3) Severe sepsis with septic shock: Code(s): A41.9 - Sepsis, unspecified organism; R65.21 - Severe sepsis with septic shock Status: Acute Assessment and Plan: Lactic acid resolved (4) Pulmonary edema: Code(s): J81.1 - Chronic pulmonary edema Status: Acute Assessment and Plan: Currently unable to diurese as she is hypotensive will give her albumin see if we can recruit fluid (5) Acute respiratory failure: Code(s): J96.00 - Acute respiratory failure, unspecified whether with hypoxia or hypercapnia Status: Acute Assessment and Plan: BiPAP 2 amps of bicarb for respiratory acidosis (6) Parkinson disease: Code(s): G20.A1 - Parkinson's disease without dyskinesia, without mention of fluctuations Status: Acute Assessment and Plan: Continue home meds (7) Hypothyroidism: Code(s): E03.9 - Hypothyroidism, unspecified Status: Acute Assessment and Plan: Continue [place] Quality VTE Prophylaxis VTE prophylaxis: mechanical ordered and pharmacologic ordered Hospitalist [facility] Advance Care Plan I have confirmed that the patient's Advanced Care Plan is present, code status is documented, or surrogate decision maker is listed in patient medical record.: Yes Medication Reconciliation I have utilized all available resources to obtain, update and review the patients current medications (includes all prescriptions, OTC, herbals, cannabis, and nutritional supplements).: Yes
[2025-03-29 17:42] LABS: Add Urine Microscopic? YES; Appearance Urine Cloudy (Clear); Glucose Urine UA Negative (Negative); Leukocyte Esterase Ur 2+ LEU/UL (Negative); Need Manual Microscopic Reviewed; Nitrate Urine Negative (Negative); Specific Grav Ur 1.022 (1.001-1.035)
--- NOTE | 2025-03-29 18:26 | PC.NURSE ---
Spoke with phlebotomy who states will come attempt cultures.
[2025-03-29] MEDS: PIPERACILLN/TAZ 3.375GM/NS50ML 3.375 GM/50 ML BAG IVPB (19:04)
[2025-03-29 19:29] LABS: Troponin I 1.760 ng/mL (0.000-0.034)
[2025-03-29] MEDS: levoFLOXacin 750 MG/D5W 150 ML 750 MG/150 ML BAG 100 MG IVPB (19:29)
--- NOTE | 2025-03-29 19:58 | WNDPHOTO ---
PHOTO ONLY - See Nursing Notes and/ or assessments for documentation.
--- NOTE | 2025-03-29 20:09 | ECG_ITS ---
Test Date: 2025-03-29 20:37:49 Measurements Intervals Rudd Rate: 108 P: 0 WA: 0 QRS: 19 QRSD: 78 T: 80 QT: 300 QTc: 403 Interpretive Statements baseline artifact limits interpretation NORMAL SINUS RHYTHM LOW QRS VOLTAGE IN PRECORDIAL LEADS [QRS DEFLECTION < 1.0 mV IN CHEST LEADS] ANTEROSEPTAL MYOCARDIAL INFARCTION [40+ ms Q WAVE IN V1-V4], OF INDETERMINATE AGE Compared to ECG 03/29/2025 17:06:55 no change Electronically Signed On 03-30-2025 14:00:37 CDT by Brandyn Overton M.D.
[2025-03-29] MEDS: ALBUMIN HUMAN 25% 25 GM/100 ML 100 ML IVPB (21:25)
[2025-03-29] MEDS: SODIUM CHLORIDE 0.9% IV 1,000 ML 125 ML IV CONT (21:46)
[2025-03-29] MEDS: VANCOMYCIN 1,750 MG/NS 500 ML 1,750 MG/500 ML BAG 250 MG IVPB (21:47)
[2025-03-29] MEDS: levETIRAcetam ORAL SOL 500 MG/5 ML UDC FEED TUBE (22:01)
[2025-03-29 23:08] LABS: Alveolar/Arterial O2 Gradient 601.6 mmHg; Carboxyhemoglobin 0.0 % THb (0-2.0); Fractional Inspired Oxygen 100 %; HCO3 ABG 19.4 mEq/l (22.0-26.0); Methemoglobin ABG 0.3 %THb (0-1.5); Oxygen Content ABG 14.1 %vol (16.0-22.0); PCO2 ABG 54.3 mmHg (35.0-45.0); PO2 ABG 57.1 mmHg (80.0-100.0); PO2 FiO2 Ratio Arterial Blood 0.57 %; Reduced Hemoglobin 18.4 %THb (0-5.0)
[2025-03-29 23:12] LABS: Oxygen Saturation ABG 81.6 % (95.0-100.0)
[2025-03-29 23:13] LABS: Modified Allen's Test Pass; Non-Invasive Inspiratory Pressure 12 CMH2O; Non-Invasive Vent Rate 14 /MIN; Site Drawn LEFT RADIAL
[2025-03-29 23:14] LABS: Non-Invasive Expiratory Pressure 6 CMH2O
[2025-03-29] MEDS: SODIUM BICARBONATE 8.4% 50 MEQ/50 ML SYRINGE 100 MEQ IV PUSH (23:43)
[2025-03-30] VITALS (31 sets, daily range): BP systolic 94–150; BP diastolic 49–95; PULSE 82–129; RESP 14–33; TEMP 37–37.9; O2SAT 92–100
[2025-03-30 00:06] LABS: Troponin I 1.750 ng/mL (0.000-0.034)
[2025-03-30 00:17] LABS: MRSA (PCR) NOT DETECTED (NOT DETECTE)
[2025-03-30] MEDS: METOPROLOL TARTRATE 25 MG TABLET FEED TUBE ×3 (01:15→22:01)
[2025-03-30] MEDS: PIPERACILLN/TAZ 3.375GM/NS50ML 3.375 GM/50 ML BAG IVPB ×4 (01:17→18:28)
[2025-03-30] MEDS: IPRATROPIUM 0.5 MG/ALBUTEROL SULFATE 2.5 MG AMPUL.NEB 3 ML INHALATION ×4 (02:13→20:35)
[2025-03-30 04:34] LABS: Hematocrit 37.2 % (37.0-47.0); Hemoglobin 11.8 g/dL (12.0-15.0); Immature Granulocyte Percent A 0.9 % (0-0.5); Lymphocytes Absolute Auto 1.18 K/mm3 (0.9-3.2); Mean Corpuscular HGB Conc 31.7 g/dl (32-36); Mean Corpuscular Hemoglobin 31.0 pg (26-34); Mean Corpuscular Volume 97.6 fl (80-100); Nucleated Red Blood Cells Absolute Auto 0.000 K/mm3 (0.0-0.012); Nucleated Red Blood Cells Perc 0.0 % (0.0-0.2); Platelet Count Result 237 k/mm3 (150-375); Red Blood Count 3.81 M/mm3 (4.2-5.4); White Blood Count 19.8 K/mm3 (4.5-10.0)
[2025-03-30 04:46] LABS: Anion Gap 11 mmol/L (4-12); Blood Urea Nitrogen 15 mg/dL (7-17); Calcium 8.0 mg/dL (8.4-10.2); Carbon Dioxide 23 mmol/L (22-30); Chloride 106 mmol/L (98-107); Estimated CRCL calculation 78 ml/min; Estimated Glomerular Filt Rate > 60; Glucose 126 mg/dL (65-110); Potassium 4.9 mmol/L (3.4-5.0); Sodium 140 mmol/L (137-145)
--- NOTE | 2025-03-30 08:43 | P.PNIM_ITS ---
Progress Note: A&P Assessment and Plan (1) Acute respiratory failure: Code(s): J96.00 - Acute respiratory failure, unspecified whether with hypoxia or hypercapnia Status: Acute Assessment and Plan: patient had presented to the emergency department in respiratory distress hypoxic after receiving breathing treatments EN route. patient initially placed on 3 L nasal cannula but had worsening respiratory distress with tachypnea and was placed on BiPAP follow-up ABGs acute respiratory failure with hypoxia and hypercapnia. CT chest showing cardiomegaly, infiltrates and pulmonary edema no history of CHF noted in chart. This is likely multifocal with pneumonia and possible CHF exacerbation will rule out PE, improved with IV lasix * F/U ABGs improving still hypoxic * transition Bipap to AVAPS for comfort * wean oxygen as tolerated * CTA pending rule out PE (2) Severe sepsis with septic shock: Code(s): A41.9 - Sepsis, unspecified organism; R65.21 - Severe sepsis with septic shock Status: Acute Assessment and Plan: patient with severe sepsis with septic shock evidenced by leukocytosis, febrile, tachypnea, tachycardia, lactic acidosis at 3.8, with hypotension secondary to pneumonia and UTI infection. * IV fluid resuscitation. 30mg/kg for septic shock in the ED * empiric IV antibiotic therapy: patient received Levaquin, vancomycin and Zosyn de-escalated to only IV Zosyn * Monitor lactic acid levels q6hr. RESOLVED * Two sets of blood cultures pending * COVID/Influenza/RSV negative (3) Pneumonia: Qualifiers: Laterality: left Lung location: lower lobe of lung Pneumonia type: due to unspecified organism Qualified Code(s): J18.9 - Pneumonia, unspecified organism Code(s): J18.9 - Pneumonia, unspecified organism Status: Acute Assessment and Plan: patient's chest x-ray showing right apical opacities suggestive of mass in right upper lobe pneumonia * received Zosyn, Levaquin, vancomycin in the ED transitioned to IV Zosyn only * MRSA was negative stopped vancomycin * Blood cultures pending * BiPAP switched to AVAPS * mucolytics per tube * Duonebs * antipyretics (4) UTI (urinary tract infection): Qualifiers: Encounter type: initial encounter Indwelling urinary catheter type: indwelling urethral catheter Urinary tract infection type: catheter-associated UTI Qualified Code(s): T83.511A - Infection and inflammatory reaction due to indwelling urethral catheter, initial encounter; N39.0 - Urinary tract infection, site not specified Code(s): N39.0 - Urinary tract infection, site not specified Status: Acute Assessment and Plan: UA suspicious of urinary tract infection previous culture grew Proteus mirabilis and previous blood cultures with E coli per sensitivities patient on IV Zosyn for coverage, patient has chronic indwelling catheter * continue with IV Zosyn pending cultures and sensitivities (5) Pulmonary edema: Code(s): J81.1 - Chronic pulmonary edema Status: Acute Assessment and Plan: CXR showing pulmonary edema with cardiomegaly no previous history of CHF no previous echocardiogram, BNP only slightly elevated * gave 1 time dose of Lasix 40mg now BP can tolerate * Started on 20 lasix IVP BID if BP tolerates * echocardiogram pending * cardiology consulted for further evaluation and recommendations * patient did have 1 EKG showing atrial fibrillation with RVR will repeat EKG * CTA pending (6) Atrial fibrillation: Code(s): I48.91 - Unspecified atrial fibrillation Status: Acute Assessment and Plan: new onset atrial fibrillation per EKG * continue on Lovenox q.12 full dose pending echocardiogram * will transition to oral anticoagulation if no significant findings on echocardiogram * cardiology following * resume patient's metoprolol for rate control * continuous cardiac monitoring (7) NSTEMI (non-ST elevated myocardial infarction): Code(s): I21.4 - Non-ST elevation (NSTEMI) myocardial infarction Status: Acute Assessment and Plan: patient with elevated troponins peaked at 1.76 trended flat at 1.75, repeat trop trending up 1.98 and EKG showing AFIB likely type II NSTEMI could be secondary to to ischemic demand patient unable to verbalize whether she is having chest pain patient is nonverbal * repeat troponin 1.98 * cardiology consulted * place patient on full-dose Lovenox Q12hr (8) Cardiomegaly: Code(s): I51.7 - Cardiomegaly Status: Acute Assessment and Plan: SEE ABOVE (9) Parkinson disease: Code(s): G20.A1 - Parkinson's disease without dyskinesia, without mention of fluctuations Status: Acute Assessment and Plan: * continue carbidopa levodopa (10) Seizure: Code(s): R56.9 - Unspecified convulsions Status: Acute Assessment and Plan: * continued patient's Keppra * seizure precautions (11) Thyroid disorder: Code(s): E07.9 - Disorder of thyroid, unspecified Status: Acute Assessment and Plan: currently unsure if patient has hyper or hypothyroidism per her assisted chart it states she has hypothyroidism however patient is currently on methimazole used for hyperthyroidism * TSH 1.66 (12) Uses feeding tube: Code(s): Z97.8 - Presence of other specified devices Status: Acute Assessment and Plan: Patient with feeding tube * resume tube feedings continuous at a rate of 45 with 150 free fluid flushes will adjust as needed Jevity 1.2 * dietitian consulted * Accu-[place] q.6 with SSI * A1c pending Plan Code status: Full code per patient DVT prophylaxis: Lovenox 1mg/kg Q12 Stress ulcer prophylaxis: Protonix 40 IVP PT/OT notes: Patient bedbound Disposition: Patient admitted to IMU for further evaluation of acute respiratory failure with hypercapnia and hypoxia multifocal due to pneumonia, CHF exacerbation. Patient was sepsis septic shock very to pneumonia and UTI. Patient is bedbound and is from the [facility] plan to return back when medically stable. Time Spent With Patient Time with patient: 15 - 25 minutes Subjective Date/time seen: 03/30/25 08:43 Interval history: Patient is a 74-year-old female who was admitted to IMU for further evaluation and treatment of acute respiratory failure with hypercapnia and hypoxia secondary to pneumonia, pulmonary edema placed on BiPAP and Sepsis with septic shock. Patient also with elevated troponins more likely ischemic demand but will have Cardiology evaluate. 03/30/2025: Patient on Bipap nonverbal family at bedside updated on current treatment plan. Patient appeared comfortable at time of assessment plan to switch to AVAPS ABG improved but still hypoxic. Patient did feel a bit warm to touch and diaphoretic. Review of Systems Review of Systems: Patient nonverbal ROS unobtainable: Yes unobtainable due to mental status Exam Narrative: General: Chronically-ill, Nonverbal female family at bedside HEENT: normocephalic, atraumatic. Mucous membranes dry. EOMI, PERRLA, Respiratory: Diminished and scant crackles to bases on auscultation bilaterally. Tachypneic on BIPAP Cardiovascular: AFIB HR 92 Abdomen: Soft, round. Peg tube Extremities: Bilateral upper extremity contractions Neuro: Alert and orientated x 0. Skin: febrile to tough, and mild diaphoresis Psych: Unable to assess Objective Data Vital Signs Vital Signs: Vital Signs - 24 hr 03/29/25 16:09 03/29/25 16:19 03/29/25 16:21 Temperature 100.3 F H Pulse Rate 120 H Respiratory Rate 29 H Blood Pressure 100/70 Pulse Oximetry 94 95 95 Oxygen Delivery Nasal Cannula Nasal Cannula Nasal Cannula Oxygen Flow Rate 3 3 3 Fraction of Inspired Oxygen 03/29/25 16:56 03/29/25 17:10 03/29/25 17:50 Temperature Pulse Rate 112 H 118 H 125 H Respiratory Rate 25 H 25 H 29 H Blood Pressure Pulse Oximetry Oxygen Delivery Oxygen Flow Rate Fraction of Inspired Oxygen 03/29/25 17:57 03/29/25 18:05 03/29/25 18:08 Temperature 97.9 F Pulse Rate 126 H 120 H 121 H Respiratory Rate 39 H 32 H 30 H Blood Pressure 138/84 Pulse Oximetry 100 98 Oxygen Delivery BiPAP Oxygen Flow Rate Fraction of Inspired Oxygen 03/29/25 18:09 03/29/25 19:08 03/29/25 19:26 Temperature Pulse Rate 112 H 105 H Respiratory Rate 24 H 21 H Blood Pressure 83/69 L 88/72 L Pulse Oximetry 98 100 100 Oxygen Delivery BiPAP Oxygen Flow Rate Fraction of Inspired Oxygen 03/29/25 19:55 03/29/25 19:55 03/29/25 21:09 Temperature 99.4 F Pulse Rate 122 H 111 H 113 H Respiratory Rate 25 H 26 H Blood Pressure 87/65 L Pulse Oximetry 98 97 Oxygen Delivery BiPAP Oxygen Flow Rate Fraction of Inspired Oxygen 03/29/25 21:48 03/29/25 22:15 03/29/25 22:30 Temperature 99.9 F H Pulse Rate 102 H 107 H Respiratory Rate 33 H Blood Pressure 124/82 Pulse Oximetry Oxygen Delivery Oxygen Flow Rate Fraction of Inspired Oxygen 03/29/25 22:50 03/30/25 00:00 03/30/25 00:00 Temperature 99.2 F Pulse Rate 123 H 124 H Respiratory Rate 33 H 18 Blood Pressure 130/58 L Pulse Oximetry 94 94 95 Oxygen Delivery BiPAP BiPAP Oxygen Flow Rate Fraction of Inspired Oxygen 100 03/30/25 00:00 03/30/25 01:15 03/30/25 02:00 Temperature Pulse Rate 129 H 113 H 98 Respiratory Rate Blood Pressure Pulse Oximetry Oxygen Delivery Oxygen Flow Rate Fraction of Inspired Oxygen 03/30/25 02:14 03/30/25 02:16 03/30/25 04:00 Temperature Pulse Rate 97 98 Respiratory Rate 23 H 22 H Blood Pressure Pulse Oximetry 98 99 Oxygen Delivery BiPAP BiPAP Oxygen Flow Rate Fraction of Inspired Oxygen 100 03/30/25 04:00 03/30/25 04:00 03/30/25 04:21 Temperature 98.6 F Pulse Rate 103 H 93 102 H Respiratory Rate 33 H 26 H Blood Pressure 150/95 H Pulse Oximetry 99 100 Oxygen Delivery BiPAP Oxygen Flow Rate Fraction of Inspired Oxygen 03/30/25 07:38 03/30/25 07:41 03/30/25 07:46 Temperature Pulse Rate 103 H 110 H Respiratory Rate 30 H 28 H Blood Pressure Pulse Oximetry 99 99 Oxygen Delivery BiPAP BiPAP Oxygen Flow Rate Fraction of Inspired Oxygen 80 03/30/25 08:02 Temperature 99.3 F Pulse Rate 103 H Respiratory Rate 24 H Blood Pressure 127/87 Pulse Oximetry 100 Oxygen Delivery Oxygen Flow Rate Fraction of Inspired Oxygen Intake/Output Intake/Output: Intake & Output 03/27/25 03/28/25 03/29/25 03/30/25 23:59 23:59 23:59 23:59 Intake Total 2049 50 Output Total 300 Balance 2049 -250 Meds/Results Medications: Active Medications Generic Name Dose Route Start Last Admin Trade Name Freq PRN Reason Stop Dose Admin Acetaminophen 650 mg 03/29/25 17:36 Acetaminophen 650 Mg Suppository RECTAL Q6H PRN Mild Pain (1-3) or Fever Acetaminophen 650 mg 03/29/25 17:44 Acetaminophen 325 Mg Tablet FEED TUBE Q4H PRN Mild Pain (1-3) or Fever Albuterol/Ipratropium 3 ml 03/29/25 20:00 03/30/25 07:38 Ipratropium 0.5 Mg/Albuterol Sulfate 2.5 Mg Ampul.Neb 3 Ml INHALATION 3 ml Q6HRT ALENA Administration Atorvastatin Calcium 40 mg 03/30/25 21:00 Atorvastatin 40 Mg Tablet FEED TUBE HS ALENA Carbidopa/Levodopa 2 tablet 03/30/25 09:00 Carbidopa/Levodopa 25/100 Mg Tablet FEED TUBE TID ALENA Clopidogrel Bisulfate 75 mg 03/30/25 09:00 Clopidogrel Bisulfate 75 Mg Tablet FEED TUBE DAILY ALENA Enoxaparin Sodium 65 mg 03/30/25 09:00 Enoxaparin 1 Mg/Kg SUB-Q Q12HR ALENA Famotidine 20 mg 03/30/25 09:00 Famotidine 20 Mg Tablet FEED TUBE BID ALENA Guaifenesin 200 mg 03/30/25 09:00 Guaifenesin 200 Mg/10 Ml Udc PO TID ALENA Piperacillin/Tazobactam/Dextrose 3.375 gm in 50 mls @ 100 mls/hr 03/30/25 01:00 03/30/25 06:22 Zosyn 3.375 Gm/Ns 50 Ml IVPB 100 mls/hr Q6HR ALENA Administration Sodium Chloride 1,000 mls @ 125 mls/hr 03/29/25 17:40 03/29/25 21:46 Normal Saline Iv IV CONT 125 mls/hr .Q8H ALENA Administration Levetiracetam 500 mg 03/29/25 21:00 03/29/25 22:01 Levetiracetam Oral Moira 500 Mg/5 Ml Udc FEED TUBE 500 mg Q12H ALENA Administration Lorazepam 2 mg 03/30/25 08:26 Lorazepam Inj (*Crx) 2 Mg/Ml Vial IV PUSH Q2HR PRN Seizures Methimazole 10 mg 03/30/25 09:00 Methimazole 10 Mg Tab FEED TUBE DAILY [facility] Metoprolol Tartrate 25 mg 03/30/25 00:30 03/30/25 01:15 Metoprolol Tartrate 25 Mg Tablet FEED TUBE 25 mg Q12HR ALENA Administration Perflutren Lipid Microsphere 0 ml 03/30/25 08:26 Perflutren Lipid Microspheres 1.5 Ml Vial Diluted To 10 Ml Total Volume IV PUSH 04/02/25 08:28 ONCE PRN adequate visualization Protocol Sertraline HCl 50 mg 03/30/25 09:00 Sertraline Hcl 50 Mg Tablet FEED TUBE DAILY [facility] Radiology Results: ITS Impressions Chest X-Ray 03/29/25 17:20 IMPRESSION: Cardiomegaly with cardiac decompensation and pulmonary edema. Right apical opacities suggestive of a mass. CT evaluation advised. Highly suggestive right upper lobe pneumonia. Labs Labs: Laboratory Results - last 24 hr 03/29/25 03/29/25 03/29/25 16:48 16:55 17:13 WBC 23.9 H RBC 4.29 Hgb 13.3 Hct 40.6 MCV 94.6 MCH 31.0 MCHC 32.8 RDW 12.9 Plt Count 302 MPV 9.8 Immature Gran % (Auto) Not Reportable Neut % (Auto) Not Reportable Lymph % (Auto) Not Reportable [place]le[place] % (Auto) Not Reportable Eos % (Auto) Not Reportable Baso % (Auto) Not Reportable Lymph # (Auto) Not Reportable Schleicher # (Auto) Not Reportable Eos # (Auto) Not Reportable Baso # (Auto) Not Reportable Abs Immat Gran (auto) Not Reportable Absolute Neuts (auto) Not Reportable Absolute Nucleated RBC Not Reportable Total Counted 100 Neutrophils % (Manual) 86 H Band Neutrophils % 3 Lymphocytes % (Manual) 3.0 L Monocytes % (Manual) 8 Nucleated RBC % Not Reportable Abs Neuts (Manual) 21.27 H Abs Lymphs (Manual) 0.71 L Abs Monocytes (Manual) 1.91 H Platelet Estimate Adequate Schistocytes None seen PT 13.9 INR 1.1 APTT 32.4 Puncture Site Left radial ABG pH 7.481 H ABG pCO2 29.7 L ABG pO2 158.9 H ABG PO2/FiO2 Ratio 4.97 ABG HCO3 21.7 L ABG O2 Saturation 99.2 ABG O2 Content 19.2 ABG Base Excess -0.7 A-a Gradient 34.5 Oxyhemoglobin 98.1 Carboxyhemoglobin Methemoglobin Reduced Hemoglobin Total Hemoglobin 13.7 O2 Delivery Device Nasal cannula O2 Liters/Min 3.0 Vent Rate FiO2 32 Expiratory Pressure Inspiratory Pressure Sodium 137 Potassium 4.2 Chloride 99 Carbon Dioxide 25 Anion Gap 13 H BUN 13 Creatinine 0.45 L Estim Creat Clear Calc 78 Estimated GFR > 60 Glucose 140 H POC Capillary Glucose Lactic Acid 3.8 H Calcium 9.0 Magnesium 2.0 Total Bilirubin 0.3 AST 32 ALT 29 Alkaline Phosphatase 124 Troponin I 0.527 H* NT-Pro-B Natriuret Pep 256 H Total Protein 7.7 Albumin 4.0 Lipase 83 Procalcitonin 0.1 Urine Color Yellow Urine Appearance Cloudy H Urine pH 6.0 Ur Specific [place] 1.022 Urine Protein 3+ H Urine Glucose (UA) Negative Urine Ketones Negative Ur Blood (Man) 2+ H Urine Nitrate Negative Urine Bilirubin Negative Urine Urobilinogen 1.0 Add Ur Microanalysis Reviewed Leukocyte Esterase Rfl 2+ H Urine RBC 21-50 H Urine WBC >100 H Ur Squamous Epith Cells Few Urine Bacteria 4+ H Urine Casts 6-10 Nasal MRSA (PCR) Influenza A (RT-PCR) Negative Influenza B (RT-PCR) Negative RSV (RT-PCR) Negative SARS-CoV-2 RNA (RT-PCR) Negative 03/29/25 03/29/25 03/29/25 18:38 22:08 22:49 WBC RBC Hgb Hct MCV MCH MCHC RDW Plt Count MPV Immature Gran % (Auto) Neut % (Auto) Lymph % (Auto) Schleicher % (Auto) Eos % (Auto) Baso % (Auto) Lymph # (Auto) Schleicher # (Auto) Eos # (Auto) Baso # (Auto) Abs Immat Gran (auto) Absolute Neuts (auto) Absolute Nucleated RBC Total Counted Neutrophils % (Manual) Band Neutrophils % Lymphocytes % (Manual) Monocytes % (Manual) Nucleated RBC % Abs Neuts (Manual) Abs Lymphs (Manual) Abs Monocytes (Manual) Platelet Estimate Schistocytes PT INR APTT Puncture Site ABG pH ABG pCO2 ABG pO2 ABG PO2/FiO2 Ratio ABG HCO3 ABG O2 Saturation ABG O2 Content ABG Base Excess A-a Gradient Oxyhemoglobin Carboxyhemoglobin Methemoglobin Reduced Hemoglobin Total Hemoglobin O2 Delivery Device O2 Liters/Min Vent Rate FiO2 Expiratory Pressure Inspiratory Pressure Sodium Potassium Chloride Carbon Dioxide Anion Gap BUN Creatinine Estim Creat Clear Calc Estimated GFR Glucose POC Capillary Glucose 155 H Lactic Acid 1.8 Calcium Magnesium Total Bilirubin AST ALT Alkaline Phosphatase Troponin I 1.760 H* D NT-Pro-B Natriuret Pep Total Protein Albumin Lipase Procalcitonin Urine Color Urine Appearance Urine pH Ur Specific [place] Urine Protein Urine Glucose (UA) Urine Ketones Ur Blood (Man) Urine Nitrate Urine Bilirubin Urine Urobilinogen Add Ur Microanalysis Leukocyte Esterase Rfl Urine RBC Urine WBC Ur Squamous Epith Cells Urine Bacteria Urine Casts Nasal MRSA (PCR) Not detected Influenza A (RT-PCR) Influenza B (RT-PCR) RSV (RT-PCR) SARS-CoV-2 RNA (RT-PCR) 03/29/25 03/29/25 03/30/25 23:00 23:38 04:25 WBC 19.8 H RBC 3.81 L Hgb 11.8 L Hct 37.2 MCV 97.6 MCH 31.0 MCHC 31.7 L RDW 12.9 Plt Count 237 MPV 10.2 Immature Gran % (Auto) 0.9 H Neut % (Auto) 86.3 H Lymph % (Auto) 6.0 L Schleicher % (Auto) 6.5 Eos % (Auto) 0.0 Baso % (Auto) 0.3 Lymph # (Auto) 1.18 Schleicher # (Auto) 1.3 H Eos # (Auto) 0.0 Baso # (Auto) 0.1 Abs Immat Gran (auto) 0.18 H Absolute Neuts (auto) 17.1 H Absolute Nucleated RBC 0.000 Total Counted Neutrophils % (Manual) Band Neutrophils % Lymphocytes % (Manual) Monocytes % (Manual) Nucleated RBC % 0.0 Abs Neuts (Manual) Abs Lymphs (Manual) Abs Monocytes (Manual) Platelet Estimate Schistocytes PT INR APTT Puncture Site Left radial ABG pH 7.170 L* ABG pCO2 54.3 H ABG pO2 57.1 L ABG PO2/FiO2 Ratio 0.57 ABG HCO3 19.4 L ABG O2 Saturation 81.6 L* ABG O2 Content 14.1 L ABG Base Excess -9.3 A-a Gradient 601.6 Oxyhemoglobin 81.3 L* Carboxyhemoglobin 0.0 Methemoglobin 0.3 Reduced Hemoglobin 18.4 H Total Hemoglobin 12.3 O2 Delivery Device Non-invasive vent O2 Liters/Min Not Reportable Vent Rate 14 FiO2 100 Expiratory Pressure 6 Inspiratory Pressure 12 Sodium 140 Potassium 4.9 Chloride 106 Carbon Dioxide 23 Anion Gap 11 BUN 15 Creatinine 0.45 L Estim Creat Clear Calc 78 Estimated GFR > 60 Glucose 126 H POC Capillary Glucose Lactic Acid Calcium 8.0 L Magnesium Total Bilirubin AST ALT Alkaline Phosphatase Troponin I 1.750 H* NT-Pro-B Natriuret Pep Total Protein Albumin Lipase Procalcitonin Urine Color Urine Appearance Urine pH Ur Specific [place] Urine Protein Urine Glucose (UA) Urine Ketones Ur Blood (Man) Urine Nitrate Urine Bilirubin Urine Urobilinogen Add Ur Microanalysis Leukocyte Esterase Rfl Urine RBC Urine WBC Ur Squamous Epith Cells Urine Bacteria Urine Casts Nasal MRSA (PCR) Influenza A (RT-PCR) Influenza B (RT-PCR) RSV (RT-PCR) SARS-CoV-2 RNA (RT-PCR) Quality VTE Prophylaxis VTE prophylaxis: mechanical ordered and pharmacologic ordered -Patient's previous records reviewed on admission -ER notes reviewed in detail on admission -discussed all findings and current treatment plan with patient/Family/POA -Consultations reviewed for recommendations -Patient's disposition for safe discharge discussed with case management manager Dictation performed by [employer] direct speech recognition software, therefore vamp strap ironer variants and typographical errors may occur. Hospitalist MIPS Advance Care Plan I have confirmed that the patient's Advanced Care Plan is present, code status is documented, or surrogate decision maker is listed in patient medical record.: Yes Medication Reconciliation I have utilized all available resources to obtain, update and review the patien ts current medications (includes all prescriptions, OTC, herbals, cannabis, and nutritional supplements).: Yes The patient is not eligible for med reconciliation; the patient is in a emergent medical situation where delaying treatment would jeopardize the patients health.: No
--- NOTE | 2025-03-30 08:44 | ADMGEN ---
This patient, Ivon Andersen, was admitted to IMU Room 203-01 on 03/29/25 at 1999. Patient/family oriented to hospital policies and general routines including ID bracelet, bed and alarms, visiting hours, pain management, procedures, bathroom and other care routines, personal items, smoking policy, room service/diet, and visiting hours. Information on how to activate the Rapid Response Team has been discussed. Patient/Family are encouraged to report perceived risks to care and to ask questions if they do not understand what they are told or what they should do.
--- NOTE | 2025-03-30 08:57 | ECG_ITS ---
Test Date: 2025-03-30 10:09:44 Measurements Intervals [place] Rate: 99 P: 0 SD: 0 QRS: 13 QRSD: 77 T: 68 QT: 358 QTc: 460 Interpretive Statements baseline artifact limits interpretation possible sinus rhythm LOW QRS VOLTAGE [QRS DEFLECTION < 0.5/1.0 mV IN LIMB/CHEST LEADS] SEPTAL MYOCARDIAL INFARCTION , OF INDETERMINATE AGE [40+ ms Q WAVE IN V1/V2] MODERATE T-WAVE ABNORMALITY, CONSIDER ANTERIOR ISCHEMIA [-0.1+ mV T-WAVE IN V3/V4] Compared to ECG 03/29/2025 20:37:49 no change Electronically Signed On 03-30-2025 14:09:12 CDT by Brandyn Overton M.D.
[2025-03-30 09:37] LABS: Troponin I 1.980 ng/mL (0.000-0.034)
[2025-03-30 09:40] LABS: Hemoglobin A1C 5.5 % (<5.7)
[2025-03-30 09:44] LABS: Thyroid Stimulating Hormone 1.660 uIU/mL (0.465-4.680)
[2025-03-30 10:23] LABS: Alveolar/Arterial O2 Gradient 473.2 mmHg; Fractional Inspired Oxygen 80 %; HCO3 ABG 24.2 mEq/l (22.0-26.0); Oxygen Content ABG 14.7 %vol (16.0-22.0); Oxygen Saturation ABG 88.2 % (95.0-100.0); PCO2 ABG 40.7 mmHg (35.0-45.0); PO2 ABG 54.5 mmHg (80.0-100.0); PO2 FiO2 Ratio Arterial Blood 0.68 %
[2025-03-30 10:28] LABS: Site Drawn LEFT RADIAL
[2025-03-30] MEDS: FUROSEMIDE INJ 40 MG/4 ML VIAL IV PUSH (10:35)
[2025-03-30] MEDS: levETIRAcetam ORAL SOL 500 MG/5 ML UDC FEED TUBE ×2 (10:47→22:01)
[2025-03-30] MEDS: FAMOTIDINE 20 MG TABLET FEED TUBE ×2 (10:48→18:27)
[2025-03-30] MEDS: CARBIDOPA/LEVODOPA 25/100 MG TABLET 2 TABLET FEED TUBE ×3 (10:48→18:27)
[2025-03-30] MEDS: CLOPIDOGREL BISULFATE 75 MG TABLET FEED TUBE (10:48)
[2025-03-30] MEDS: ENOXAPARIN 80 MG/0.8 ML SYRINGE 65 MG SUB-Q ×2 (10:49→22:02)
[2025-03-30] MEDS: SERTRALINE HCL 50 MG TABLET FEED TUBE (10:50)
--- NOTE | 2025-03-30 12:47 | PM.CNCAR ---
Assessment and Plan Assessment and plan (1) NSTEMI (non-ST elevated myocardial infarction): Code(s): I21.4 - Non-ST elevation (NSTEMI) myocardial infarction Status: Acute Plan Elevated troponin likely demand ischemia in setting of sepsis Acute hypoxemic respiratory failure Sepsis and pneumonia possible acute on chronic diastolic heart failure Altered mental status and nonverbal Proximal atrial fibrillation History of stroke, nonverbal contracted Plan Treatment of underlying infection per primary team Continue was enoxaparin until echocardiogram is performed and rule out significant wall motion abnormality If echocardiogram is unremarkable will start patient oral anticoagulation and DC Plavix Metoprolol 25 mg BID Transthoracic echocardiogram Gentle diuresis History of Present Illness History of Present Illness Consult date/time: 03/30/25 12:47 Reason For Visit: Pneumonia, sepsis Narrative: 74-year-old female patient nonverbal presented to the hospital with shortness of breath. Patient seen and examined today she was on BiPAP was no verbal communication. History was obtained from the chart. Patient was noted to have leukocytosis the patient was started with antibiotic therapy for possible healthcare associated pneumonia Review of Systems Review of Systems: ROS unobtainable: Yes unobtainable due to mental status [facility] Past Medical History Medical History (Updated 03/30/25 @ 11:32 by Sylvia Damian, BEATRIZ) Bladder stone Thyroid disorder Listed as hypothyroidism in [place] paperwork, however is on methimazole Nonverbal Chronic indwelling Larsen catheter History of supraventricular tachycardia Sepsis Parkinson disease Hypertension Surgical History Surgical History S/P percutaneous endoscopic gastrostomy (PEG) tube placement History of brain surgery Social History Social History Smoking status: Never smoker Alcohol intake: never Substance use: unknown Do You Feel Safe in your Home?: Yes Lack of Transportation: No Lack of Food: Never True Current Housing: I Have Housing Concerned About Future Housing: No Difficulty Paying Gas/Electric Bills: No Difficulty Paying for Meds: No Currently Unemployed: No Education: Bachelor's Degree Difficulty w/ Childcare or Family Care: No Spiritual care concerns: Yes Meds Home Medications and Allergies Home Medications ?Medication ?Instructions ?Recorded ?Confirmed ?Type acetaminophen 160 mg/5 mL oral 320 mg feeding tube Q6H PRN Fever 11/17/24 07/04/25 History elixir atorvastatin 40 mg tablet 40 mg feeding tube HS 08/12/24 03/29/25 History carbidopa 25 mg-levodopa 100 mg 2 tablet feeding tube TID 08/12/24 03/29/25 History tablet clopidogrel 75 mg tablet 75 mg feeding tube DAILY 08/12/24 03/29/25 History famotidine 20 mg tablet 20 mg feeding tube BID 08/12/24 03/29/25 History levetiracetam 100 mg/mL oral 500 mg feeding tube Q12H 08/12/24 03/29/25 History solution methimazole 10 mg tablet 10 mg feeding tube DAILY 08/12/24 03/29/25 History metoprolol tartrate 25 mg tablet 25 mg feeding tube Q12H 08/12/24 03/29/25 History multivitamin o-chovnsag-kagentw 1 tablet PO DAILY 08/12/24 03/29/25 History fumarate 18 mg-vitamin K 25 mcg tablet sertraline 50 mg tablet 50 mg feeding tube DAILY 08/12/24 03/29/25 History Allergies Allergy/AdvReac Type Severity Reaction Status Date / Time cephalexin Allergy Unknown Verified 10/18/24 07:18 Sulfa (Sulfonamide Allergy Unknown Verified 10/18/24 07:18 Antibiotics) Vital Signs Vital Signs - 24 hr 03/29/25 16:09 03/29/25 16:19 03/29/25 16:21 Temperature 37.9 C H Pulse Rate 120 H Respiratory Rate 29 H Blood Pressure 100/70 Pulse Oximetry 94 95 95 Oxygen Delivery Nasal Cannula Nasal Cannula Nasal Cannula Oxygen Flow Rate 3 3 3 Fraction of Inspired Oxygen 03/29/25 16:56 03/29/25 17:10 03/29/25 17:50 Temperature Pulse Rate 112 H 118 H 125 H Respiratory Rate 25 H 25 H 29 H Blood Pressure Pulse Oximetry Oxygen Delivery Oxygen Flow Rate Fraction of Inspired Oxygen 03/29/25 17:57 03/29/25 18:05 03/29/25 18:08 Temperature 36.6 C Pulse Rate 126 H 120 H 121 H Respiratory Rate 39 H 32 H 30 H Blood Pressure 138/84 Pulse Oximetry 100 98 Oxygen Delivery BiPAP Oxygen Flow Rate Fraction of Inspired Oxygen 03/29/25 18:09 03/29/25 19:08 03/29/25 19:26 Temperature Pulse Rate 112 H 105 H Respiratory Rate 24 H 21 H Blood Pressure 83/69 L 88/72 L Pulse Oximetry 98 100 100 Oxygen Delivery BiPAP Oxygen Flow Rate Fraction of Inspired Oxygen 03/29/25 19:55 03/29/25 19:55 03/29/25 21:09 Temperature 37.4 C Pulse Rate 122 H 111 H 113 H Respiratory Rate 25 H 26 H Blood Pressure 87/65 L Pulse Oximetry 98 97 Oxygen Delivery BiPAP Oxygen Flow Rate Fraction of Inspired Oxygen 03/29/25 21:48 03/29/25 22:15 03/29/25 22:30 Temperature 37.7 C H Pulse Rate 102 H 107 H Respiratory Rate 33 H Blood Pressure 124/82 Pulse Oximetry Oxygen Delivery Oxygen Flow Rate Fraction of Inspired Oxygen 03/29/25 22:50 03/30/25 00:00 03/30/25 00:00 Temperature 37.3 C Pulse Rate 123 H 124 H Respiratory Rate 33 H 18 Blood Pressure 130/58 L Pulse Oximetry 94 94 95 Oxygen Delivery BiPAP BiPAP Oxygen Flow Rate Fraction of Inspired Oxygen 100 03/30/25 00:00 03/30/25 01:15 03/30/25 02:00 Temperature Pulse Rate 129 H 113 H 98 Respiratory Rate Blood Pressure Pulse Oximetry Oxygen Delivery Oxygen Flow Rate Fraction of Inspired Oxygen 03/30/25 02:14 03/30/25 02:16 03/30/25 04:00 Temperature Pulse Rate 97 98 Respiratory Rate 23 H 22 H Blood Pressure Pulse Oximetry 98 99 Oxygen Delivery BiPAP BiPAP Oxygen Flow Rate Fraction of Inspired Oxygen 100 03/30/25 04:00 03/30/25 04:00 03/30/25 04:21 Temperature 37.0 C Pulse Rate 103 H 93 102 H Respiratory Rate 33 H 26 H Blood Pressure 150/95 H Pulse Oximetry 99 100 Oxygen Delivery BiPAP Oxygen Flow Rate Fraction of Inspired Oxygen 03/30/25 07:38 03/30/25 07:41 03/30/25 07:46 Temperature Pulse Rate 103 H 110 H Respiratory Rate 30 H 28 H Blood Pressure Pulse Oximetry 99 99 Oxygen Delivery BiPAP BiPAP Oxygen Flow Rate Fraction of Inspired Oxygen 80 03/30/25 08:00 03/30/25 08:00 03/30/25 08:02 Temperature 37.4 C Pulse Rate 100 103 H Respiratory Rate 24 H Blood Pressure 127/87 Pulse Oximetry 99 100 Oxygen Delivery BiPAP Oxygen Flow Rate Fraction of Inspired Oxygen 100 03/30/25 10:00 03/30/25 10:48 03/30/25 12:00 Temperature Pulse Rate 95 112 H Respiratory Rate Blood Pressure Pulse Oximetry 99 Oxygen Delivery BiPAP Oxygen Flow Rate Fraction of Inspired Oxygen 100 03/30/25 12:00 03/30/25 12:03 Temperature 37.9 C H Pulse Rate 99 100 Respiratory Rate 28 H Blood Pressure 127/88 Pulse Oximetry 100 Oxygen Delivery Oxygen Flow Rate Fraction of Inspired Oxygen Exam Narrative: General: Chronically-ill, HEENT: normocephalic, atraumatic. Mucous membranes moist. EOMI, PERRLA, bilateral sclera anicteric, no conjunctival injection. Neck supple without JVD, lymphadenopathy, or bruit. Respiratory: clear to ascultation bilaterally. No rales/rhonic/wheezes. Tachypneic Cardiovascular: Regular rate and rhythm, normal S1-S2 upon ascultation. No murmurs, rubs, or clicks. PMI is nondisplaced, capillary refill less than 3 second. Abdomen: Soft, round, no pulsatile masses, nondistended and nontender. No rebound, no guarding. Peg tube Extremities: No cyanosis, clubbing, or edema present. Pulses are palpable 2/2. Contracted Neuro: Alert and orientated x 0. PERRLA. Cranial nerves 2-12 intact without focal deficit. Skin: Warm, dry, and intact, without rash, erythema, or lesion. Psych: Unable to assess BiPAP Results Labs and Meds 03/30/25 04:25 03/30/25 04:25 Lab results: Cardiac Enzymes 03/29/25 03/29/25 03/29/25 Range/Units 16:48 18:38 23:38 AST 32 (14-36) U/L Troponin I 0.527 H* 1.760 H* D 1.750 H* (0.000-0.034) ng/mL 03/30/25 Range/Units 04:25 AST (14-36) U/L Troponin I 1.980 H* (0.000-0.034) ng/mL Coagulation 03/29/25 Range/Units 16:48 PT 13.9 (11.1-14.7) Seconds APTT 32.4 (22.3-36.8) Seconds CBC 03/29/25 03/30/25 Range/Units 16:48 04:25 WBC 23.9 H 19.8 H (4.5-10.0) K/mm3 RBC 4.29 3.81 L (4.2-5.4) M/mm3 Hgb 13.3 11.8 L (12.0-15.0) g/dL Hct 40.6 37.2 (37.0-47.0) % Plt Count 302 237 (150-375) k/mm3 Lymph # (Auto) Not Reportable 1.18 [place] # (Auto) Not Reportable 1.3 H Eos # (Auto) Not Reportable 0.0 Baso # (Auto) Not Reportable 0.1 Comprehensive Metabolic Panel 03/29/25 03/30/25 Range/Units 16:48 04:25 Sodium 137 140 (137-145) mmol/L Potassium 4.2 4.9 (3.4-5.0) mmol/L Chloride 99 106 (98-107) mmol/L Carbon Dioxide 25 23 (22-30) mmol/L BUN 13 15 (7-17) mg/dL Creatinine 0.45 L 0.45 L (0.7-1.0) mg/dL Glucose 140 H 126 H (65-110) mg/dL Calcium 9.0 8.0 L (8.4-10.2) mg/dL AST 32 (14-36) U/L ALT 29 (6-35) U/L Alkaline Phosphatase 124 (38-126) U/L Total Protein 7.7 (6.3-8.2) g/dL Albumin 4.0 (3.5-5.1) g/dL Intake and Output 03/29/25 03/30/25 03/30/25 23:59 07:59 15:59 Intake Total 2049 50 Output Total 300 Balance 2049 - Intake: IV 2049 50 Sodium Chloride 0.9% IV 1,000 2000 ml @ 999 mls/hr IV CONT .Q1H1M STA Rx#:[id number] Piperacilln/Zain 3.375GM/Ns50ml 50 50 3.375 gm In 50 ml @ 100 mls/hr IVPB Q6HR ALENA Rx#:[id number] Output: Catheter Urine 300 Urethral Catheter 300 Patient Weight 03/30/25 23:59 Weight 65.4 kg
[2025-03-30] MEDS: DEXTROSE 5% 1,000 ML 1,000 ML 75 ML IV CONT (17:50)
[2025-03-30] MEDS: FUROSEMIDE INJ 40 MG/4 ML VIAL 20 MG IV PUSH (18:27)
[2025-03-30] MEDS: ATORVASTATIN 40 MG TABLET FEED TUBE (22:02)
[2025-03-31] VITALS (41 sets, daily range): BP systolic 88–146; BP diastolic 40–81; PULSE 78–121; RESP 18–39; TEMP 36.9–38.4; O2SAT 78–100
[2025-03-31] MEDS: PIPERACILLN/TAZ 3.375GM/NS50ML 3.375 GM/50 ML BAG IVPB ×4 (00:30→17:01)
[2025-03-31] MEDS: ACETAMINOPHEN 325 MG TABLET 650 MG FEED TUBE (01:30)
[2025-03-31] MEDS: IPRATROPIUM 0.5 MG/ALBUTEROL SULFATE 2.5 MG AMPUL.NEB 3 ML INHALATION ×4 (02:28→20:52)
[2025-03-31] MEDS: ENOXAPARIN 80 MG/0.8 ML SYRINGE 65 MG SUB-Q ×2 (08:23→20:46)
[2025-03-31] MEDS: PANTOPRAZOLE SODIUM IV 40 MG VIAL IV PUSH (08:23)
[2025-03-31] MEDS: METOPROLOL TARTRATE 25 MG TABLET FEED TUBE (08:24)
[2025-03-31] MEDS: CLOPIDOGREL BISULFATE 75 MG TABLET FEED TUBE (08:24)
[2025-03-31] MEDS: CARBIDOPA/LEVODOPA 25/100 MG TABLET 2 TABLET FEED TUBE ×2 (08:24→12:00)
[2025-03-31] MEDS: FAMOTIDINE 20 MG TABLET FEED TUBE (08:24)
[2025-03-31] MEDS: levETIRAcetam ORAL SOL 500 MG/5 ML UDC FEED TUBE ×2 (08:24→20:45)
[2025-03-31] MEDS: SERTRALINE HCL 50 MG TABLET FEED TUBE (08:24)
[2025-03-31] MEDS: DEXTROSE 5% 1,000 ML 1,000 ML 75 ML IV CONT (08:31)
[2025-03-31 09:19] LABS: Hematocrit 35.4 % (37.0-47.0); Hemoglobin 11.3 g/dL (12.0-15.0); Mean Corpuscular HGB Conc 31.9 g/dl (32-36); Mean Corpuscular Hemoglobin 31.5 pg (26-34); Mean Corpuscular Volume 98.6 fl (80-100); Platelet Count Result 221 k/mm3 (150-375); Red Blood Count 3.59 M/mm3 (4.2-5.4); White Blood Count 16.8 K/mm3 (4.5-10.0)
[2025-03-31 09:24] LABS: Alveolar/Arterial O2 Gradient 453.8 mmHg; Fractional Inspired Oxygen 80 %; HCO3 ABG 26.0 mEq/l (22.0-26.0); Oxygen Content ABG 15.4 %vol (16.0-22.0); Oxygen Saturation ABG 95.2 % (95.0-100.0); PCO2 ABG 40.7 mmHg (35.0-45.0); PO2 ABG 73.9 mmHg (80.0-100.0); PO2 FiO2 Ratio Arterial Blood 0.92 %
[2025-03-31 09:26] LABS: Liters per Minute 50.0 LPM; Modified Allen's Test Pass; Site Drawn LEFT RADIAL
[2025-03-31 09:35] LABS: Alanine Aminotransferase 9 U/L (6-35); Albumin Level 3.4 g/dL (3.5-5.1); Alkaline Phosphatase 98 U/L (38-126); Anion Gap 8 mmol/L (4-12); Aspartate Amino Transferase 45 U/L (14-36); Bilirubin,Total 0.5 mg/dL (0.2-1.3); Blood Urea Nitrogen 18 mg/dL (7-17); Calcium 8.2 mg/dL (8.4-10.2); Carbon Dioxide 27 mmol/L (22-30); Chloride 106 mmol/L (98-107); Estimated CRCL calculation 67 ml/min; Estimated Glomerular Filt Rate > 60; Glucose 124 mg/dL (65-110); Magnesium 2.0 mg/dL (1.6-2.3); Potassium 3.3 mmol/L (3.4-5.0); Sodium 141 mmol/L (137-145); Total Protein 6.4 g/dL (6.3-8.2)
[2025-03-31] MEDS: POTASSIUM CHLORIDE INJ 40 MEQ in SODIUM CHLORIDE 0.9% IV 500 ML 130 MEQ IVPB (10:19)
[2025-03-31] MEDS: SODIUM CHLORIDE 0.9% IV 1,000 ML 125 ML IV CONT (11:59)
--- NOTE | 2025-03-31 13:14 | PM.PNCARD ---
Progress Note: A&P Assessment and Plan (1) Atrial fibrillation: Code(s): I48.91 - Unspecified atrial fibrillation Status: Acute Plan Elevated troponin likely demand ischemia in setting of sepsis Acute hypoxemic respiratory failure Sepsis and pneumonia Altered mental status and nonverbal Proximal atrial fibrillation History of stroke, nonverbal contracted Plan Treatment of underlying infection per primary team TTE and if wall-motion abnormalities present consider further workup Hold metoprolol for low BP Can use amiodarone or digoxin for heart rate control DC Lasix Subjective Date/time seen: 03/31/25 13:15 Interval history: Blood pressure lowered today and Lasix was held Review of Systems Review of Systems: ROS unobtainable: Yes unobtainable due to mental status Exam Narrative: General: Chronically-ill, HEENT: normocephalic, atraumatic. Mucous membranes moist. EOMI, PERRLA, bilateral sclera anicteric, no conjunctival injection. Neck supple without JVD, lymphadenopathy, or bruit. Respiratory: clear to ascultation bilaterally. No rales/rhonic/wheezes. Tachypneic Cardiovascular: Regular rate and rhythm, normal S1-S2 upon ascultation. No murmurs, rubs, or clicks. PMI is nondisplaced, capillary refill less than 3 second. Abdomen: Soft, round, no pulsatile masses, nondistended and nontender. No rebound, no guarding. Peg tube Extremities: No cyanosis, clubbing, or edema present. Pulses are palpable 2/2. Contracted Neuro: Alert and orientated x 0. PERRLA. Cranial nerves 2-12 intact without focal deficit. Skin: Warm, dry, and intact, without rash, erythema, or lesion. Psych: Unable to assess BiPAP Objective Data Vital Signs Vital Signs: Vital Signs - 24 hr 03/30/25 14:00 03/30/25 14:06 03/30/25 14:07 Temperature Pulse Rate 84 94 92 Respiratory Rate 20 28 H Blood Pressure Pulse Oximetry 93 Oxygen Delivery BiPAP Oxygen Flow Rate Fraction of Inspired Oxygen 03/30/25 14:09 03/30/25 16:00 03/30/25 16:00 Temperature Pulse Rate 86 Respiratory Rate Blood Pressure Pulse Oximetry 92 99 Oxygen Delivery BiPAP BiPAP Oxygen Flow Rate Fraction of Inspired Oxygen 80 100 03/30/25 16:28 03/30/25 17:00 03/30/25 18:00 Temperature 37.4 C Pulse Rate 89 89 Respiratory Rate 28 H Blood Pressure 106/49 L Pulse Oximetry 96 98 Oxygen Delivery High Flow Therapy with Na Oxygen Flow Rate 40 Fraction of Inspired Oxygen 81 03/30/25 20:00 03/30/25 20:00 03/30/25 20:00 Temperature 37.7 C H Pulse Rate 93 87 Respiratory Rate 14 Blood Pressure 121/79 Pulse Oximetry 97 96 Oxygen Delivery High Flow Therapy with Na Oxygen Flow Rate 40 Fraction of Inspired Oxygen 80 03/30/25 20:35 03/30/25 21:04 03/30/25 21:05 Temperature Pulse Rate 88 89 Respiratory Rate 26 H 26 H Blood Pressure Pulse Oximetry 99 Oxygen Delivery High Flow Therapy with Na Oxygen Flow Rate 40 Fraction of Inspired Oxygen 78 03/30/25 22:00 03/30/25 22:01 03/30/25 23:53 Temperature 37.2 C Pulse Rate 84 82 83 Respiratory Rate 18 Blood Pressure 94/53 L Pulse Oximetry 98 Oxygen Delivery Oxygen Flow Rate Fraction of Inspired Oxygen 03/31/25 00:00 03/31/25 00:00 03/31/25 01:30 Temperature 38.4 C H Pulse Rate 80 Respiratory Rate Blood Pressure Pulse Oximetry 96 Oxygen Delivery High Flow Therapy with Na Oxygen Flow Rate 40 Fraction of Inspired Oxygen 80 03/31/25 01:40 03/31/25 02:00 03/31/25 02:28 Temperature Pulse Rate 80 79 Respiratory Rate 28 H Blood Pressure 88/58 L Pulse Oximetry Oxygen Delivery Oxygen Flow Rate Fraction of Inspired Oxygen 03/31/25 02:28 03/31/25 02:40 03/31/25 03:00 Temperature 37.2 C Pulse Rate 78 Respiratory Rate 28 H Blood Pressure Pulse Oximetry 95 Oxygen Delivery High Flow Therapy with Na Oxygen Flow Rate 40 Fraction of Inspired Oxygen 75 03/31/25 03:17 03/31/25 04:00 03/31/25 04:00 Temperature 37.2 C Pulse Rate 80 78 Respiratory Rate 30 H Blood Pressure 91/70 L Pulse Oximetry 97 98 Oxygen Delivery High Flow Therapy with Na Oxygen Flow Rate 40 Fraction of Inspired Oxygen 80 03/31/25 05:25 03/31/25 06:00 03/31/25 07:42 Temperature 36.9 C Pulse Rate 80 96 Respiratory Rate 18 Blood Pressure 100/40 L Pulse Oximetry 98 94 Oxygen Delivery High Flow Therapy with Na Oxygen Flow Rate 40 Fraction of Inspired Oxygen 75 03/31/25 08:00 03/31/25 08:24 03/31/25 08:40 Temperature Pulse Rate 78 121 H Respiratory Rate Blood Pressure Pulse Oximetry 95 Oxygen Delivery High Flow Therapy with Na Oxygen Flow Rate 40 Fraction of Inspired Oxygen 75 03/31/25 08:40 03/31/25 08:53 03/31/25 08:55 Temperature Pulse Rate 91 96 Respiratory Rate 28 H 28 H Blood Pressure Pulse Oximetry 78 L Oxygen Delivery High Flow Therapy with Na Oxygen Flow Rate 40 Fraction of Inspired Oxygen 75 03/31/25 09:00 03/31/25 09:58 03/31/25 09:59 Temperature Pulse Rate 78 95 Respiratory Rate 20 Blood Pressure Pulse Oximetry 90 95 Oxygen Delivery High Flow Therapy with Na High Flow Therapy with Na Oxygen Flow Rate 50 50 Fraction of Inspired Oxygen 80 80 03/31/25 11:28 03/31/25 11:30 03/31/25 12:00 Temperature 37.2 C Pulse Rate 105 H 92 86 Respiratory Rate 22 H 18 Blood Pressure 88/62 L Pulse Oximetry 96 95 Oxygen Delivery High Flow Therapy with Na Oxygen Flow Rate 50 Fraction of Inspired Oxygen 80 03/31/25 12:19 Temperature Pulse Rate Respiratory Rate Blood Pressure 96/67 L Pulse Oximetry Oxygen Delivery Oxygen Flow Rate Fraction of Inspired Oxygen Intake/Output Intake/Output: Intake & Output 03/28/25 03/29/25 03/30/25 03/31/25 23:59 23:59 23:59 23:59 Intake Total 2550 200 1900 Output Total 1600 750 Balance 2550 -1400 1150 Meds/Results Medications: Active Medications Generic Name Dose Route Start Last Admin Trade Name Freq PRN Reason Stop Dose Admin Acetaminophen 650 mg 03/29/25 17:36 Acetaminophen 650 Mg Suppository RECTAL Q6H PRN Mild Pain (1-3) or Fever Acetaminophen 650 mg 03/29/25 17:44 03/31/25 01:30 Acetaminophen 325 Mg Tablet FEED TUBE 650 mg Q4H PRN Administration Mild Pain (1-3) or Fever Albuterol/Ipratropium 3 ml 03/29/25 20:00 03/31/25 08:39 Ipratropium 0.5 Mg/Albuterol Sulfate 2.5 Mg Ampul.Neb 3 Ml INHALATION 3 ml Q6HRT [facility] Administration Atorvastatin Calcium 40 mg 03/30/25 21:00 03/30/25 22:02 Atorvastatin 40 Mg Tablet FEED TUBE 40 mg HS ALENA Administration Carbidopa/Levodopa 2 tablet 03/30/25 09:00 03/31/25 12:00 Carbidopa/Levodopa 25/100 Mg Tablet FEED TUBE 2 tablet TID ALENA Administration Clopidogrel Bisulfate 75 mg 03/30/25 09:00 03/31/25 08:24 Clopidogrel Bisulfate 75 Mg Tablet FEED TUBE 75 mg DAILY ALENA Administration Dextrose 12.5 gm 03/30/25 09:06 Dextrose 50% 25 Gm/50 Ml Syringe IV PUSH PRN PRN Hypoglycemia Protocol Enoxaparin Sodium 65 mg 03/30/25 09:00 03/31/25 08:23 Enoxaparin 80 Mg/0.8 Ml Syringe SUB-Q 65 mg Q12HR ALENA Administration Famotidine 20 mg 03/30/25 09:00 03/31/25 08:24 Famotidine 20 Mg Tablet FEED TUBE 20 mg BID ALENA Administration Glucagon 1 mg 03/30/25 09:06 Glucagon For Inj 1 Mg Vial IM PRN PRN Hypoglycemia Protocol Glucose 15 gm 03/30/25 09:06 Glucose Oral Gel 15 Gm Of Glucse In 37.5 Gm Tube PO PRN PRN Hypoglycemia Protocol Guaifenesin 200 mg 03/30/25 09:00 03/31/25 12:00 Guaifenesin 200 Mg/10 Ml Udc PO 200 mg TID ALENA Administration Piperacillin/Tazobactam/Dextrose 3.375 gm in 50 mls @ 100 mls/hr 03/30/25 01:00 03/31/25 11:54 Zosyn 3.375 Gm/Ns 50 Ml IVPB Infused Q6HR ALENA Infusion Dextrose 1,000 mls @ 100 mls/hr 03/30/25 09:06 Dextrose 5% 1,000 Ml IVPB PRN PRN Hypoglycemia Protocol Potassium Chloride 40 meq/ 520 mls @ 130 mls/hr 03/31/25 09:44 03/31/25 10:19 Sodium Chloride IVPB 03/31/25 13:43 130 mls/hr ONCE ONE Administration Sodium Chloride 1,000 mls @ 125 mls/hr 03/31/25 11:45 03/31/25 11:59 Normal Saline Iv IV CONT 125 mls/hr .Q8H ALENA Administration Insulin Aspart 2 - 5 units 03/30/25 12:00 03/31/25 11:21 Insulin Aspart (*Bkc) 100 Units/Ml SUB-Q Not Given TIDWM ALENA Protocol Levetiracetam 500 mg 03/29/25 21:00 03/31/25 08:24 Levetiracetam Oral Moira 500 Mg/5 Ml Udc FEED TUBE 500 mg Q12H ALENA Administration Lorazepam 2 mg 03/30/25 08:26 Lorazepam Inj (*Crx) 2 Mg/Ml Vial IV PUSH Q2HR PRN Seizures Methimazole 10 mg 03/30/25 09:00 03/31/25 08:24 Methimazole 10 Mg Tab FEED TUBE 10 mg DAILY ALENA Administration Metoprolol Tartrate 25 mg 03/30/25 00:30 03/31/25 08:24 Metoprolol Tartrate 25 Mg Tablet FEED TUBE 25 mg Q12HR ALENA Administration Pantoprazole Sodium 40 mg 03/31/25 09:00 03/31/25 08:23 Pantoprazole Sodium Iv 40 Mg Vial IV PUSH 40 mg QAM ALENA Administration Perflutren Lipid Microsphere 0 ml 03/30/25 08:26 Perflutren Lipid Microspheres 1.5 Ml Vial Diluted To 10 Ml Total Volume IV PUSH 04/02/25 08:28 ONCE PRN adequate visualization Protocol Sertraline HCl 50 mg 03/30/25 09:00 03/31/25 08:24 Sertraline Hcl 50 Mg Tablet FEED TUBE 50 mg DAILY ALENA Administration Radiology Results: ITS Impressions Chest X-Ray 03/29/25 17:20 IMPRESSION: Cardiomegaly with cardiac decompensation and pulmonary edema. Right apical opacities suggestive of a mass. CT evaluation advised. Highly suggestive right upper lobe pneumonia. Labs Labs: Laboratory Results - last 24 hr 03/30/25 03/31/25 03/31/25 18:51 06:06 08:22 WBC RBC Hgb Hct MCV MCH MCHC RDW Plt Count MPV Puncture Site ABG pH ABG pCO2 ABG pO2 ABG PO2/FiO2 Ratio ABG HCO3 ABG O2 Saturation ABG O2 Content ABG Base Excess A-a Gradient Oxyhemoglobin Total Hemoglobin O2 Delivery Device O2 Liters/Min FiO2 Sodium Potassium Chloride Carbon Dioxide Anion Gap BUN Creatinine Estim Creat Clear Calc Estimated GFR Glucose POC Capillary Glucose 110 H 127 H 115 H Calcium Magnesium Total Bilirubin AST ALT Alkaline Phosphatase Total Protein Albumin Vancomycin Trough 03/31/25 03/31/25 03/31/25 09:12 09:13 09:14 WBC 16.8 H RBC 3.59 L Hgb 11.3 L Hct 35.4 L MCV 98.6 MCH 31.5 MCHC 31.9 L RDW 13.2 Plt Count 221 MPV 10.3 Puncture Site Left radial ABG pH 7.424 ABG pCO2 40.7 ABG pO2 73.9 L ABG PO2/FiO2 Ratio 0.92 ABG HCO3 26.0 ABG O2 Saturation 95.2 ABG O2 Content 15.4 L ABG Base Excess 1.5 A-a Gradient 453.8 Oxyhemoglobin 93.8 Total Hemoglobin 11.6 L O2 Delivery Device High flow therapy O2 Liters/Min 50.0 FiO2 80 Sodium 141 Potassium 3.3 L Chloride 106 Carbon Dioxide 27 Anion Gap 8 BUN 18 H Creatinine 0.54 L Estim Creat Clear Calc 67 Estimated GFR > 60 Glucose 124 H POC Capillary Glucose Calcium 8.2 L Magnesium 2.0 Total Bilirubin 0.5 AST 45 H ALT 9 Alkaline Phosphatase 98 Total Protein 6.4 Albumin 3.4 L Vancomycin Trough < 5.0 L 03/31/25 11:17 WBC RBC Hgb Hct MCV MCH MCHC RDW Plt Count MPV Puncture Site ABG pH ABG pCO2 ABG pO2 ABG PO2/FiO2 Ratio ABG HCO3 ABG O2 Saturation ABG O2 Content ABG Base Excess A-a Gradient Oxyhemoglobin Total Hemoglobin O2 Delivery Device O2 Liters/Min FiO2 Sodium Potassium Chloride Carbon Dioxide Anion Gap BUN Creatinine Estim Creat Clear Calc Estimated GFR Glucose POC Capillary Glucose 122 H Calcium Magnesium Total Bilirubin AST ALT Alkaline Phosphatase Total Protein Albumin Vancomycin Trough
--- NOTE | 2025-03-31 13:57 | P.PNIM_ITS ---
Progress Note: A&P Assessment and Plan (1) Acute respiratory failure: Code(s): J96.00 - Acute respiratory failure, unspecified whether with hypoxia or hypercapnia Status: Acute Assessment and Plan: patient had presented to the emergency department in respiratory distress hypoxic after receiving breathing treatments EN route. patient initially placed on 3 L nasal cannula but had worsening respiratory distress with tachypnea and was placed on BiPAP follow-up ABGs acute respiratory failure with hypoxia and hypercapnia. CT chest showing cardiomegaly, infiltrates and pulmonary edema no history of CHF noted in chart. This is likely multifocal with pneumonia and possible CHF exacerbation will rule out PE, improved with IV lasix * F/U ABGs improving still hypoxic * transition Bipap to AVAPS to High flow today * wean oxygen as tolerated * CTA pending rule out PE (2) Severe sepsis with septic shock: Code(s): A41.9 - Sepsis, unspecified organism; R65.21 - Severe sepsis with septic shock Status: Acute Assessment and Plan: patient with severe sepsis with septic shock evidenced by leukocytosis, febrile, tachypnea, tachycardia, lactic acidosis at 3.8, with hypotension secondary to pneumonia and UTI infection. * IV fluids resumed patient's BP soft * IV fluid resuscitation. 30mg/kg for septic shock in the ED * empiric IV antibiotic therapy: patient received Levaquin, vancomycin and Zosyn de-escalated to only IV Zosyn * Monitor lactic acid levels q6hr. RESOLVED * Two sets of blood cultures pending * COVID/Influenza/RSV negative (3) Pneumonia: Qualifiers: Pneumonia type: due to unspecified organism Laterality: left Lung location: lower lobe of lung Qualified Code(s): J18.9 - Pneumonia, unspecified organism Code(s): J18.9 - Pneumonia, unspecified organism Status: Acute Assessment and Plan: patient's chest x-ray showing right apical opacities suggestive of mass in right upper lobe pneumonia * received Zosyn, Levaquin, vancomycin in the ED transitioned to IV Zosyn only * MRSA was negative stopped vancomycin * Blood cultures pending * BiPAP switched to AVAPS to High flow * mucolytics per tube * Duonebs * antipyretics (4) UTI (urinary tract infection): Qualifiers: Urinary tract infection type: catheter-associated UTI Indwelling urinary catheter type: indwelling urethral catheter Encounter type: initial encounter Qualified Code(s): T83.511A - Infection and inflammatory reaction due to indwelling urethral catheter, initial encounter; N39.0 - Urinary tract infection, site not specified Code(s): N39.0 - Urinary tract infection, site not specified Status: Acute Assessment and Plan: UA suspicious of urinary tract infection previous culture grew Proteus mirabilis and previous blood cultures with E coli per sensitivities patient on IV Zosyn for coverage, patient has chronic indwelling catheter * continue with IV Zosyn pending cultures and sensitivities (5) Pulmonary edema: Code(s): J81.1 - Chronic pulmonary edema Status: Acute Assessment and Plan: CXR showing pulmonary edema with cardiomegaly no previous history of CHF no previous echocardiogram, BNP only slightly elevated * gave 1 time dose of Lasix 40mg now BP can tolerate * Started on 20 lasix IVP BID if BP tolerates had to discontinue due to soft BP 80s * echocardiogram pending * cardiology consulted for further evaluation and recommendations * patient did have 1 EKG showing atrial fibrillation with RVR will repeat EKG * CTA pending (6) Atrial fibrillation: Code(s): I48.91 - Unspecified atrial fibrillation Status: Acute Assessment and Plan: new onset atrial fibrillation per EKG * continue on Lovenox q.12 full dose pending echocardiogram * will transition to oral anticoagulation if no significant findings on echocardiogram * cardiology following * resume patient's metoprolol for rate control * continuous cardiac monitoring (7) NSTEMI (non-ST elevated myocardial infarction): Code(s): I21.4 - Non-ST elevation (NSTEMI) myocardial infarction Status: Acute Assessment and Plan: patient with elevated troponins peaked at 1.76 trended flat at 1.75, repeat trop trending up 1.98 and EKG showing AFIB likely type II NSTEMI could be secondary to to ischemic demand patient unable to verbalize whether she is having chest pain patient is nonverbal * repeat troponin 1.98 * cardiology consulted * place patient on full-dose Lovenox Q12hr * further treatment pending echocardiogram (8) Cardiomegaly: Code(s): I51.7 - Cardiomegaly Status: Acute Assessment and Plan: SEE ABOVE (9) Parkinson disease: Code(s): G20.A1 - Parkinson's disease without dyskinesia, without mention of fluctuations Status: Acute Assessment and Plan: * continue carbidopa levodopa (10) Seizure: Code(s): R56.9 - Unspecified convulsions Status: Acute Assessment and Plan: * continued patient's Keppra * seizure precautions (11) Thyroid disorder: Code(s): E07.9 - Disorder of thyroid, unspecified Status: Acute Assessment and Plan: currently unsure if patient has hyper or hypothyroidism per her care home chart it states she has hypothyroidism however patient is currently on methimazole used for hyperthyroidism * TSH 1.66 (12) Uses feeding tube: Code(s): Z97.8 - Presence of other specified devices Status: Acute Assessment and Plan: Patient with feeding tube * resume tube feedings continuous at a rate of 45 with 150 free fluid flushes will adjust as needed Jevity 1.2 * dietitian consulted * Accu-Cheks q.6 with SSI * A1c pending Plan Code status: Full code per patient DVT prophylaxis: Lovenox 1mg/kg Q12 Stress ulcer prophylaxis: Protonix 40 IVP PT/OT notes: Patient bedbound Disposition: Patient admitted to IMU for further evaluation of acute respiratory failure with hypercapnia and hypoxia multifocal due to pneumonia, CHF exacerbation. Patient was sepsis septic shock very to pneumonia and UTI. Patient is bedbound and is from the [facility] plan to return back when medically stable. Time Spent With Patient Time with patient: 15 - 25 minutes Subjective Date/time seen: 03/31/25 13:57 Interval history: Patient is a 74-year-old female who was admitted to IMU for further evaluation and treatment of acute respiratory failure with hypercapnia and hypoxia secondary to pneumonia, pulmonary edema placed on BiPAP and Sepsis with septic shock. Patient also with elevated troponins more likely ischemic demand but will have Cardiology evaluate. 03/31/2025: Patient transition to high-flow ABGs improved. Patient somnolent will open eyes to stimuli. still needing CTA but patient's respiratory status currently unstable nursing attempted but patient oxygen dropped to 70% with they laid her flat. Patient still diaphoretic, febrile overnight but no fevers today. BP still soft discontinued Lasix in resumed IV fluids. tolerating oral to feeds and will continue with Lovenox full dose pending echocardiogram and CTA. Review of Systems Review of Systems: Patient nonverbal ROS unobtainable: Yes unobtainable due to mental status Exam Narrative: General: Chronically-ill, Nonverbal female family at bedside HEENT: normocephalic, atraumatic. Mucous membranes dry. EOMI, PERRLA, Respiratory: Diminished and scant crackles to bases on auscultation bilaterally. Tachypneic on BIPAP Cardiovascular: AFIB HR 92 Abdomen: Soft, round. Peg tube Extremities: Bilateral upper extremity contractions Neuro: Alert and orientated x 0. Skin: febrile to tough, and mild diaphoresis Psych: Unable to assess Objective Data Vital Signs Vital Signs: Vital Signs - 24 hr 03/30/25 14:00 03/30/25 14:06 03/30/25 14:07 Temperature Pulse Rate 84 94 92 Respiratory Rate 20 28 H Blood Pressure Pulse Oximetry 93 Oxygen Delivery BiPAP Oxygen Flow Rate Fraction of Inspired Oxygen 03/30/25 14:09 03/30/25 16:00 03/30/25 16:00 Temperature Pulse Rate 86 Respiratory Rate Blood Pressure Pulse Oximetry 92 99 Oxygen Delivery BiPAP BiPAP Oxygen Flow Rate Fraction of Inspired Oxygen 80 100 03/30/25 16:28 03/30/25 17:00 03/30/25 18:00 Temperature 99.4 F Pulse Rate 89 89 Respiratory Rate 28 H Blood Pressure 106/49 L Pulse Oximetry 96 98 Oxygen Delivery High Flow Therapy with Na Oxygen Flow Rate 40 Fraction of Inspired Oxygen 81 03/30/25 20:00 03/30/25 20:00 03/30/25 20:00 Temperature 99.9 F H Pulse Rate 93 87 Respiratory Rate 14 Blood Pressure 121/79 Pulse Oximetry 97 96 Oxygen Delivery High Flow Therapy with Na Oxygen Flow Rate 40 Fraction of Inspired Oxygen 80 03/30/25 20:35 03/30/25 21:04 03/30/25 21:05 Temperature Pulse Rate 88 89 Respiratory Rate 26 H 26 H Blood Pressure Pulse Oximetry 99 Oxygen Delivery High Flow Therapy with Na Oxygen Flow Rate 40 Fraction of Inspired Oxygen 78 03/30/25 22:00 03/30/25 22:01 03/30/25 23:53 Temperature 99.0 F Pulse Rate 84 82 83 Respiratory Rate 18 Blood Pressure 94/53 L Pulse Oximetry 98 Oxygen Delivery Oxygen Flow Rate Fraction of Inspired Oxygen 03/31/25 00:00 03/31/25 00:00 03/31/25 01:30 Temperature 101.1 F H Pulse Rate 80 Respiratory Rate Blood Pressure Pulse Oximetry 96 Oxygen Delivery High Flow Therapy with Na Oxygen Flow Rate 40 Fraction of Inspired Oxygen 80 03/31/25 01:40 03/31/25 02:00 03/31/25 02:28 Temperature Pulse Rate 80 79 Respiratory Rate 28 H Blood Pressure 88/58 L Pulse Oximetry Oxygen Delivery Oxygen Flow Rate Fraction of Inspired Oxygen 03/31/25 02:28 03/31/25 02:40 03/31/25 03:00 Temperature 99.0 F Pulse Rate 78 Respiratory Rate 28 H Blood Pressure Pulse Oximetry 95 Oxygen Delivery High Flow Therapy with Na Oxygen Flow Rate 40 Fraction of Inspired Oxygen 75 03/31/25 03:17 03/31/25 04:00 03/31/25 04:00 Temperature 99.0 F Pulse Rate 80 78 Respiratory Rate 30 H Blood Pressure 91/70 L Pulse Oximetry 97 98 Oxygen Delivery High Flow Therapy with Na Oxygen Flow Rate 40 Fraction of Inspired Oxygen 80 03/31/25 05:25 03/31/25 06:00 03/31/25 07:42 Temperature 98.5 F Pulse Rate 80 96 Respiratory Rate 18 Blood Pressure 100/40 L Pulse Oximetry 98 94 Oxygen Delivery High Flow Therapy with Na Oxygen Flow Rate 40 Fraction of Inspired Oxygen 75 03/31/25 08:00 03/31/25 08:24 03/31/25 08:40 Temperature Pulse Rate 78 121 H Respiratory Rate Blood Pressure Pulse Oximetry 95 Oxygen Delivery High Flow Therapy with Na Oxygen Flow Rate 40 Fraction of Inspired Oxygen 75 03/31/25 08:40 03/31/25 08:53 03/31/25 08:55 Temperature Pulse Rate 91 96 Respiratory Rate 28 H 28 H Blood Pressure Pulse Oximetry 78 L Oxygen Delivery High Flow Therapy with Na Oxygen Flow Rate 40 Fraction of Inspired Oxygen 75 03/31/25 09:00 03/31/25 09:58 03/31/25 09:59 Temperature Pulse Rate 78 95 Respiratory Rate 20 Blood Pressure Pulse Oximetry 90 95 Oxygen Delivery High Flow Therapy with Na High Flow Therapy with Na Oxygen Flow Rate 50 50 Fraction of Inspired Oxygen 80 80 03/31/25 11:28 03/31/25 11:30 03/31/25 12:00 Temperature 98.9 F Pulse Rate 105 H 92 86 Respiratory Rate 22 H 18 Blood Pressure 88/62 L Pulse Oximetry 96 95 Oxygen Delivery High Flow Therapy with Na Oxygen Flow Rate 50 Fraction of Inspired Oxygen 80 03/31/25 12:19 Temperature Pulse Rate Respiratory Rate Blood Pressure 96/67 L Pulse Oximetry Oxygen Delivery Oxygen Flow Rate Fraction of Inspired Oxygen Intake/Output Intake/Output: Intake & Output 03/28/25 03/29/25 03/30/25 03/31/25 23:59 23:59 23:59 23:59 Intake Total 2550 200 1900 Output Total 1600 750 Balance 2550 -1400 1150 Meds/Results Medications: Active Medications Generic Name Dose Route Start Last Admin Trade Name Freq PRN Reason Stop Dose Admin Acetaminophen 650 mg 03/29/25 17:36 Acetaminophen 650 Mg Suppository RECTAL Q6H PRN Mild Pain (1-3) or Fever Acetaminophen 650 mg 03/29/25 17:44 03/31/25 01:30 Acetaminophen 325 Mg Tablet FEED TUBE 650 mg Q4H PRN Administration Mild Pain (1-3) or Fever Albuterol/Ipratropium 3 ml 03/29/25 20:00 03/31/25 08:39 Ipratropium 0.5 Mg/Albuterol Sulfate 2.5 Mg Ampul.Neb 3 Ml INHALATION 3 ml Q6HRT ALENA Administration Atorvastatin Calcium 40 mg 03/30/25 21:00 03/30/25 22:02 Atorvastatin 40 Mg Tablet FEED TUBE 40 mg HS ALENA Administration Carbidopa/Levodopa 2 tablet 03/30/25 09:00 03/31/25 12:00 Carbidopa/Levodopa 25/100 Mg Tablet FEED TUBE 2 tablet TID ALENA Administration Clopidogrel Bisulfate 75 mg 03/30/25 09:00 03/31/25 08:24 Clopidogrel Bisulfate 75 Mg Tablet FEED TUBE 75 mg DAILY ALENA Administration Dextrose 12.5 gm 03/30/25 09:06 Dextrose 50% 25 Gm/50 Ml Syringe IV PUSH PRN PRN Hypoglycemia Protocol Enoxaparin Sodium 65 mg 03/30/25 09:00 03/31/25 08:23 Enoxaparin 80 Mg/0.8 Ml Syringe SUB-Q 65 mg Q12HR ALENA Administration Famotidine 20 mg 03/30/25 09:00 03/31/25 08:24 Famotidine 20 Mg Tablet FEED TUBE 20 mg BID ALENA Administration Glucagon 1 mg 03/30/25 09:06 Glucagon For Inj 1 Mg Vial IM PRN PRN Hypoglycemia Protocol Glucose 15 gm 03/30/25 09:06 Glucose Oral Gel 15 Gm Of Glucse In 37.5 Gm Tube PO PRN PRN Hypoglycemia Protocol Guaifenesin 200 mg 03/30/25 09:00 03/31/25 12:00 Guaifenesin 200 Mg/10 Ml Udc PO 200 mg TID ALENA Administration Piperacillin/Tazobactam/Dextrose 3.375 gm in 50 mls @ 100 mls/hr 03/30/25 01:00 03/31/25 11:54 Zosyn 3.375 Gm/Ns 50 Ml IVPB Infused Q6HR ALENA Infusion Dextrose 1,000 mls @ 100 mls/hr 03/30/25 09:06 Dextrose 5% 1,000 Ml IVPB PRN PRN Hypoglycemia Protocol Sodium Chloride 1,000 mls @ 125 mls/hr 03/31/25 11:45 03/31/25 11:59 Normal Saline Iv IV CONT 125 mls/hr .Q8H ALENA Administration Insulin Aspart 2 - 5 units 03/30/25 12:00 03/31/25 11:21 Insulin Aspart (*Bkc) 100 Units/Ml SUB-Q Not Given TIDWM ALENA Protocol Levetiracetam 500 mg 03/29/25 21:00 03/31/25 08:24 Levetiracetam Oral Moira 500 Mg/5 Ml Udc FEED TUBE 500 mg Q12H ALENA Administration Lorazepam 2 mg 03/30/25 08:26 Lorazepam Inj (*Crx) 2 Mg/Ml Vial IV PUSH Q2HR PRN Seizures Methimazole 10 mg 03/30/25 09:00 03/31/25 08:24 Methimazole 10 Mg Tab FEED TUBE 10 mg DAILY ALENA Administration Metoprolol Tartrate 25 mg 03/30/25 00:30 03/31/25 08:24 Metoprolol Tartrate 25 Mg Tablet FEED TUBE 25 mg Q12HR ALENA Administration Pantoprazole Sodium 40 mg 03/31/25 09:00 03/31/25 08:23 Pantoprazole Sodium Iv 40 Mg Vial IV PUSH 40 mg QAM ALENA Administration Perflutren Lipid Microsphere 0 ml 03/30/25 08:26 Perflutren Lipid Microspheres 1.5 Ml Vial Diluted To 10 Ml Total Volume IV PUSH 04/02/25 08:28 ONCE PRN adequate visualization Protocol Sertraline HCl 50 mg 03/30/25 09:00 03/31/25 08:24 Sertraline Hcl 50 Mg Tablet FEED TUBE 50 mg DAILY ALENA Administration Radiology Results: ITS Impressions Chest X-Ray 03/29/25 17:20 IMPRESSION: Cardiomegaly with cardiac decompensation and pulmonary edema. Right apical opacities suggestive of a mass. CT evaluation advised. Highly suggestive right upper lobe pneumonia. Labs Labs: Laboratory Results - last 24 hr 03/30/25 03/31/25 03/31/25 18:51 06:06 08:22 WBC RBC Hgb Hct MCV MCH MCHC RDW Plt Count MPV Puncture Site ABG pH ABG pCO2 ABG pO2 ABG PO2/FiO2 Ratio ABG HCO3 ABG O2 Saturation ABG O2 Content ABG Base Excess A-a Gradient Oxyhemoglobin Total Hemoglobin O2 Delivery Device O2 Liters/Min FiO2 Sodium Potassium Chloride Carbon Dioxide Anion Gap BUN Creatinine Estim Creat Clear Calc Estimated GFR Glucose POC Capillary Glucose 110 H 127 H 115 H Calcium Magnesium Total Bilirubin AST ALT Alkaline Phosphatase Total Protein Albumin Vancomycin Trough 03/31/25 03/31/25 03/31/25 09:12 09:13 09:14 WBC 16.8 H RBC 3.59 L Hgb 11.3 L Hct 35.4 L MCV 98.6 MCH 31.5 MCHC 31.9 L RDW 13.2 Plt Count 221 MPV 10.3 Puncture Site Left radial ABG pH 7.424 ABG pCO2 40.7 ABG pO2 73.9 L ABG PO2/FiO2 Ratio 0.92 ABG HCO3 26.0 ABG O2 Saturation 95.2 ABG O2 Content 15.4 L ABG Base Excess 1.5 A-a Gradient 453.8 Oxyhemoglobin 93.8 Total Hemoglobin 11.6 L O2 Delivery Device High flow therapy O2 Liters/Min 50.0 FiO2 80 Sodium 141 Potassium 3.3 L Chloride 106 Carbon Dioxide 27 Anion Gap 8 BUN 18 H Creatinine 0.54 L Estim Creat Clear Calc 67 Estimated GFR > 60 Glucose 124 H POC Capillary Glucose Calcium 8.2 L Magnesium 2.0 Total Bilirubin 0.5 AST 45 H ALT 9 Alkaline Phosphatase 98 Total Protein 6.4 Albumin 3.4 L Vancomycin Trough < 5.0 L 03/31/25 11:17 WBC RBC Hgb Hct MCV MCH MCHC RDW Plt Count MPV Puncture Site ABG pH ABG pCO2 ABG pO2 ABG PO2/FiO2 Ratio ABG HCO3 ABG O2 Saturation ABG O2 Content ABG Base Excess A-a Gradient Oxyhemoglobin Total Hemoglobin O2 Delivery Device O2 Liters/Min FiO2 Sodium Potassium Chloride Carbon Dioxide Anion Gap BUN Creatinine Estim Creat Clear Calc Estimated GFR Glucose POC Capillary Glucose 122 H Calcium Magnesium Total Bilirubin AST ALT Alkaline Phosphatase Total Protein Albumin Vancomycin Trough Quality VTE Prophylaxis VTE prophylaxis: mechanical ordered and pharmacologic ordered -Patient's previous records reviewed on admission -ER notes reviewed in detail on admission -discussed all findings and current treatment plan with patient/Family/POA -Consultations reviewed for recommendations -Patient's disposition for safe discharge discussed with pillowcase cutter Dictation performed by [employer] direct speech recognition software, therefore chuck boner variants and typographical errors may occur. Hospitalist MIPS Advance Care Plan I have confirmed that the patient's Advanced Care Plan is present, code status is documented, or surrogate decision maker is listed in patient medical record.: Yes Medication Reconciliation I have utilized all available resources to obtain, update and review the patients current medications (includes all prescriptions, OTC, herbals, cannabis, and nutritional supplements).: Yes The patient is not eligible for med reconciliation; the patient is in a emergent medical situation where delaying treatment would jeopardize the patients health.: No
[2025-03-31] MEDS: MORPHINE SULFATE (*CRX) 2 MG/ML INJ 1 MG IV PUSH (15:54)
[2025-03-31 16:21] LABS: Alveolar/Arterial O2 Gradient 639.5 mmHg; Fractional Inspired Oxygen 100 %; HCO3 ABG 23.6 mEq/l (22.0-26.0); Oxygen Content ABG 16.3 %vol (16.0-22.0); Oxygen Saturation ABG 98.3 % (95.0-100.0); PCO2 ABG 38.3 mmHg (35.0-45.0); PO2 ABG 117.0 mmHg (80.0-100.0); PO2 FiO2 Ratio Arterial Blood 1.17 %
[2025-03-31 16:23] LABS: Liters per Minute 0.0 LPM; Modified Allen's Test Pass; Non-Invasive Inspiratory Pressure 12 CMH2O; Non-Invasive Vent Rate 14 /MIN; Site Drawn LEFT RADIAL
[2025-03-31 16:24] LABS: Non-Invasive Expiratory Pressure 6 CMH2O
--- NOTE | 2025-03-31 16:42 | PC.NURSE ---
patient placed on bipap due to respiratory distress, RN at bedside continuously to monitor patients airway due to patient having contractures and unable to take bipap off herself.
[2025-04-01] VITALS (32 sets, daily range): BP systolic 90–117; BP diastolic 54–84; PULSE 70–93; RESP 20–28; TEMP 36.6–37.3; O2SAT 96–100; BMI 26.7
--- NOTE | 2025-04-01 | ECHO_ITS ---
Patient Info Name: Ivon Andersen Age: 74 years : 1950 Gender: Female Ht: 62 in Wt: 144 lbs BSA: 1.71 m2 HR: 84 bpm BP: 96 / 63 mmHg Technical Quality: Good Exam Date: 04/01/2025 8:41 AM Patient Status: I Admit Date: 03/30/2025 Exam Type: CA echo doppler color flow Complete two-dimensional, color flow and Doppler transthoracic echocardiogram is performed with contrast to opacify the left ventricle and to improve the deliniation of the left ventricle endocardial borders. Staff Referring Physician: Sylvia Damian Yarn Twister: Sun Rae Attending Provider: Sukhdeep Schmid MD Contrast/Agitated Saline Contrast/Ag. Saline: Definity Amount: 2.00 ml Administered By: Sun Rae Existing IV Access: Yes IV Access Condition: patent with no signs of infiltration Summary 1. Left ventricular systolic function is normal, estimated at 30-35. 2. Left ventricular chamber dimension is mildly enlarged. 3. The mid anterior wall, mid anteroseptal, and mid inferolateral wall are hypokinetic. 4. There is mild mitral valve regurgitation. 5. There is moderate tricuspid valve regurgitation. 6. Severe pulmonary hypertension, estimated pulmonary arterial systolic pressure is 68 mmHg. 7. There is mild pulmonic regurgitation. Left Ventricle Left ventricular chamber dimension is mildly enlarged. Left ventricular systolic function is normal, estimated at 30-35. There is mildly increased left ventricular wall thickness. Left ventricular septal wall motion is normal. The left ventricular diastolic function is abnormal. The mid anterior wall, mid anteroseptal, and mid inferolateral wall are hypokinetic. Right Ventricle Right ventricular chamber dimension is normal. Right ventricular systolic function is normal. Left Atria Left atrial chamber dimension is normal. Right Atria Right atrial chamber dimension is normal. Aortic Valve The aortic valve is trileaflet. There is no aortic valve sclerosis. There is no aortic valve stenosis. There is no aortic valve regurgitation. Pulmonic Valve The pulmonic valve is normal. There is no pulmonic valve stenosis. There is mild pulmonic regurgitation. Mitral Valve The mitral valve has normal leaflets. There is no mitral valve stenosis. There is mild mitral valve regurgitation. Tricuspid Valve The tricuspid valve leaflets are normal. There is no significant tricuspid valve stenosis. There is moderate tricuspid valve regurgitation. Severe pulmonary hypertension, estimated pulmonary arterial systolic pressure is 68 mmHg. Pericardium/Pleural The pericardium appears normal. There is no pericardial effusion. Inferior Vena Cava Normal inferior vena cava with >50% collapse upon inspiration consistent with normal right atrial pressure, 10 mmHg. Aorta The aortic root size at the sinus of Valsalva is normal. The prox ascending aorta size is normal. Left Ventricular Outflow Tract Name Value Normal LVOT 2D LVOT Diameter 1.9 cm LVOT Doppler LVOT Peak Velocity 119 cm/s LVOT Peak Gradient 6 mmHg LVOT Mean Gradient 3 mmHg LVOT VTI 18 cm LVOT VTI/AV VTI Ratio 0.9 LVOT Stroke Volume 52 ml LVOT CO 5.9 l/min LVOT CI 3.5 l/min/m2 Pulmonic Valve Name Value Normal PV Doppler PV Peak Velocity 104 cm/s PV Peak Gradient 4 mmHg PV Regurgitation Doppler MO Peak End Diastolic Velocity 84 cm/s Mitral Valve Name Value Normal MV Doppler MV Peak Gradient 5 mmHg MV Mean Gradient 2 mmHg MV Area (Cont Eq VTI) 2.0 cm2 MV Regurgitation Doppler MR Peak Gradient 96 mmHg MV Diastolic Function MV E Peak Velocity 96 cm/s MV A Peak Velocity 103 cm/s MV E/A 0.9 MV Decel Time (PW) 178 ms MV Annular TDI MV E/e' (Septal) 12.3 MV E/e' (Lateral) 14.6 MV E/e' (Average) 13.4 Tricuspid Valve Name Value Normal TV Regurgitation Doppler TR Peak Velocity 380 cm/s TR Peak Gradient 47 mmHg Estimated PAP/RSVP RA Pressure 10 mmHg <=5 PA Systolic Pressure 68 mmHg <36 RV Systolic Pressure 68 mmHg <36 TV Annular TDI TV Lateral Brenda s' Velocity 13.7 cm/s >=9.5 Aortic Valve Name Value Normal AV Doppler AV Peak Velocity 114 cm/s AV Peak Gradient 5 mmHg AV Mean Gradient 3 mmHg AV VTI 19 cm AV Area (Cont Eq VTI) 2.7 cm2 >=3.0 AV Area (Cont Eq Jung) 3.0 cm2 AV DI (Jung) 1.04 AV Regurgitation 2D LVOT Area 2.9 cm2 Ventricles Name Value Normal LV Dimensions 2D/MM IVS Diastolic Thickness (2D) 0.9 cm 0.6-1.0 LVID Diastole (2D) 4.6 cm 3.8-5.2 LVIW Diastolic Thickness (2D) 0.8 cm 0.6-0.9 LVID Systole (2D) 3.2 cm 2.2-3.5 LVOT Diameter 1.9 cm LV Mass (2D Cubed) 126.01 g 67.00-162.00 LV Mass Index (2D Cubed) 74 g/m2 43-95 Relative Wall Thickness (2D) 0.35 <=0.42 LV Fractional Shortening/Ejection Fraction 2D/MM LV Fractional Shortening (2D) 29 % 27-45 LV EF (2D Teichholz) 56 % LV Diastolic Volume (4C MOD) 112 ml LV EF (4C MOD) 53 % LV Diastolic Volume (2C MOD) 126 ml LV EF (2C MOD) 40 % LV Diastolic Volume (BP MOD) 122 ml 46-106 LV Diastolic Volume Index (BP MOD) 72 ml/m2 29-61 LV Systolic Volume (BP MOD) 65 ml 14-42 LV Systolic Volume Index (BP MOD) 38 ml/m2 8-24 LV EF (BP MOD) 47 % 54-74 LV Diastolic Length (4C) 7.8 cm LV Systolic Length (4C) 6.4 cm LV Stroke Volume (4C MOD) 59 ml Atria Name Value Normal LA Dimensions LA Volume (4C A-L) 60 ml LA Volume (BP A-L) 63 ml RA Dimensions RA Systolic Major [place] Length (4C) 4.5 cm 2.2-2.8 RA Area (4C) 16.1 cm2 <=18.0 Wall Motion Scoring Report Signatures
[2025-04-01] MEDS: PIPERACILLN/TAZ 3.375GM/NS50ML 3.375 GM/50 ML BAG IVPB ×3 (00:18→14:14)
[2025-04-01] MEDS: IPRATROPIUM 0.5 MG/ALBUTEROL SULFATE 2.5 MG AMPUL.NEB 3 ML INHALATION ×4 (03:19→20:10)
[2025-04-01 04:12] LABS: Hematocrit 31.5 % (37.0-47.0); Hemoglobin 9.9 g/dL (12.0-15.0); Mean Corpuscular HGB Conc 31.4 g/dl (32-36); Mean Corpuscular Hemoglobin 31.2 pg (26-34); Mean Corpuscular Volume 99.4 fl (80-100); Platelet Count Result 200 k/mm3 (150-375); Red Blood Count 3.17 M/mm3 (4.2-5.4); White Blood Count 13.6 K/mm3 (4.5-10.0)
[2025-04-01 04:27] LABS: Alanine Aminotransferase 21 U/L (6-35); Albumin Level 3.1 g/dL (3.5-5.1); Alkaline Phosphatase 84 U/L (38-126); Anion Gap 6 mmol/L (4-12); Aspartate Amino Transferase 32 U/L (14-36); Bilirubin,Total 0.5 mg/dL (0.2-1.3); Blood Urea Nitrogen 15 mg/dL (7-17); Calcium 8.4 mg/dL (8.4-10.2); Carbon Dioxide 27 mmol/L (22-30); Chloride 110 mmol/L (98-107); Estimated CRCL calculation 68 ml/min; Estimated Glomerular Filt Rate > 60; Glucose 92 mg/dL (65-110); Magnesium 2.1 mg/dL (1.6-2.3); Potassium 3.8 mmol/L (3.4-5.0); Sodium 143 mmol/L (137-145); Total Protein 5.8 g/dL (6.3-8.2)
[2025-04-01] MEDS: PERFLUTREN LIPID MICROSPHERES 1.5 ML VIAL DILUTED TO 10 ML TOTAL VOLUME IV PUSH (09:15)
--- NOTE | 2025-04-01 09:39 | P.PNIM_ITS ---
Progress Note: A&P Assessment and Plan (1) Acute respiratory failure: Code(s): J96.00 - Acute respiratory failure, unspecified whether with hypoxia or hypercapnia Status: Acute Assessment and Plan: patient had presented to the emergency department in respiratory distress hypoxic after receiving breathing treatments EN route. patient initially placed on 3 L nasal cannula but had worsening respiratory distress with tachypnea and was placed on BiPAP follow-up ABGs acute respiratory failure with hypoxia and hypercapnia. CT chest showing cardiomegaly, infiltrates and pulmonary edema no history of CHF noted in chart. This is likely multifocal with pneumonia vs CHF exacerbation vs PE vs pleural effusions which could due to noted lung mass. Patient had to be placed back on Bipap due to worsening respiratory distress. However if patient does have large PE or saddle PE will likely not be a candidate for thrombectomy. CTA negative for PE * transition Bipap to AVAPS to High flow had be placed back on BIpap overnight on 12L High flow now * Secondary to hear failure pleural effusion severe pulmonary hypertension 68 mmHG (2) Severe sepsis with septic shock: Code(s): A41.9 - Sepsis, unspecified organism; R65.21 - Severe sepsis with septic shock Status: Acute Assessment and Plan: patient with severe sepsis with septic shock evidenced by leukocytosis, febrile, tachypnea, tachycardia, lactic acidosis at 3.8, with hypotension seco ndary to pneumonia likely cardiogenic shock * IV fluid resuscitation. 30mg/kg for septic shock in the ED * Soft BP but now with bilateral pleural effusions attempted IV lasix with good output but unable to continue due to BP * empiric IV antibiotic therapy: patient received Levaquin, vancomycin and Zosyn de-escalated to only IV Zosyn * Monitor lactic acid levels q6hr. RESOLVED * Two sets of blood cultures NGTD * Echo showing cardiomyopathy LVEF 30-35% with the mid anterior wall, mid anterior septal and mid inferior lateral wall oral hypokinetic with severe pulmonary hypertension estimated at 68 mmHg. (3) Pneumonia: Qualifiers: Laterality: left Lung location: lower lobe of lung Pneumonia type: due to unspecified organism Qualified Code(s): J18.9 - Pneumonia, unspecified organism Code(s): J18.9 - Pneumonia, unspecified organism Status: Acute Assessment and Plan: patient's chest x-ray showing right apical opacities suggestive of mass in right upper lobe pneumonia * received Zosyn, Levaquin, vancomycin in the ED transitioned to IV Zosyn only * MRSA was negative stopped vancomycin * Blood cultures pending * BiPAP wean as tolerated on high flow 12L * mucolytics per tube * Duonebs * antipyretics (4) Pleural effusion: Code(s): J90 - Pleural effusion, not elsewhere classified Status: Acute Assessment and Plan: patient with new pleural effusions initially right was moderate to large however did improve with BiPAP overnight * unable to give diuresis at this time due to soft BP * Echo showing cardiomyopathy LVEF 30-35% with the mid anterior wall, mid anterior septal and mid inferior lateral wall oral hypokinetic with severe pulmonary hypertension estimated at 68 mmHg. (5) Atrial fibrillation: Code(s): I48.91 - Unspecified atrial fibrillation Status: Acute Assessment and Plan: new onset atrial fibrillation per EKG * continue on Lovenox q.12 full dose pending echocardiogram * will transition to oral anticoagulation if no significant findings on echocardiogram * cardiology following * resume patient's metoprolol for rate control * continuous cardiac monitoring (6) NSTEMI (non-ST elevated myocardial infarction): Code(s): I21.4 - Non-ST elevation (NSTEMI) myocardial infarction Status: Acute Assessment and Plan: patient with elevated troponins peaked at 1.76 trended flat at 1.75, repeat trop trending up 1.98 and EKG showing AFIB likely type II NSTEMI could be secondary to to ischemic demand patient unable to verbalize whether she is having chest pain patient is nonverbal * repeat troponin 1.98 * cardiology consulted * place patient on full-dose Lovenox Q12hr * Echo showing cardiomyopathy LVEF 30-35% with the mid anterior wall, mid anterior septal and mid inferior lateral wall oral hypokinetic with severe pulmonary hypertension estimated at 68 mmHg. * May need Cardiac catheterization (7) Heart failure with reduced ejection fraction due to cardiomyopathy: Code(s): I50.20 - Unspecified systolic (congestive) heart failure; I42.9 - Cardiomyopathy, unspecified Status: Acute Assessment and Plan: SEE above #6 (8) Cardiomegaly: Code(s): I51.7 - Cardiomegaly Status: Acute Assessment and Plan: SEE ABOVE (9) Parkinson disease: Code(s): G20.A1 - Parkinson's disease without dyskinesia, without mention of fluctuations Status: Acute Assessment and Plan: * continue carbidopa levodopa (10) Seizure: Code(s): R56.9 - Unspecified convulsions Status: Acute Assessment and Plan: * continued patient's Keppra * seizure precautions (11) Thyroid disorder: Code(s): E07.9 - Disorder of thyroid, unspecified Status: Acute Assessment and Plan: currently unsure if patient has hyper or hypothyroidism per her [facility] chart it states she has hypothyroidism however patient is currently on methimazole used for hyperthyroidism * TSH 1.66 (12) Uses feeding tube: Code(s): Z97.8 - Presence of other specified devices Status: Acute Assessment and Plan: Patient with feeding tube * resume tube feedings continuous at a rate of 45 with 150 free fluid flushes will adjust as needed Jevity 1.2 * dietitian consulted * Accu-Cheks q.6 with SSI * A1c pending (13) UTI (urinary tract infection): Qualifiers: Encounter type: initial encounter Indwelling urinary catheter type: indwelling urethral catheter Urinary tract infection type: catheter-associated UTI Qualified Code(s): T83.511A - Infection and inflammatory reaction due to indwelling urethral catheter, initial encounter; N39.0 - Urinary tract infection, site not specified Code(s): N39.0 - Urinary tract infection, site not specified Status: Ruled-out Assessment and Plan: UA suspicious of urinary tract infection previous culture grew Proteus mirabilis and previous blood cultures with E coli per sensitivities patient on IV Zosyn for coverage, patient has chronic indwelling catheter. urine culture with no growth RULED OUT Plan Code status: DNR/DNI per family DVT prophylaxis: Lovenox 1mg/kg Q12 Stress ulcer prophylaxis: Protonix 40 IVP PT/OT notes: Patient bedbound Disposition: Patient admitted to IMU for further evaluation of acute respiratory failure with hypercapnia and hypoxia and septic shock multifocal due to pneumonia, possible CHF exacerbation, PE, and new pleural effusion. Patient is bedbound is bed-bound in from senior care facility. Did speak with patient's family regarding her unstable condition and guarded prognosis they would like to continue with DNR/DNI status at this time we will re-evaluate after CTA and Echo findings for possible comfort care and speak to family regarding possible hospice consult Time Spent With Patient Time with patient: 15 - 25 minutes Subjective Date/time seen: 04/01/25 09:39 Interval history: Patient is a 74-year-old female who was admitted to IMU for further evaluation and treatment of acute respiratory failure with hypercapnia and hypoxia secondary to pneumonia, pulmonary edema placed on BiPAP and Sepsis with septic shock. Patient also with elevated troponins more likely ischemic demand but will have Cardiology evaluate. 04/01/2025: Patient continue with respiratory distress yesterday had to be placed back on BiPAP, CXR showed right pleural effusion however follow-up CXR showing improvement. patient with tachypnea and respiratory distress when BiPAP removed patient's oxygen saturation would drop to 70% however ABGs within desired ranges have high concerns for PE patient had not been taking for CTA at due stability. spoke with patient's son KESHA regarding patient's condition at time of event which they all agreed they wanted to continue with DNR/DNI status and did not want intubation. Echo showing cardiomyopathy LVEF 30-35% with the mid anterior wall, mid anterior septal and mid inferior lateral wall oral hypokinetic with severe pulmonary hypertension estimated at 68 mmHg. Will discuss with family regarding options and guarded overall prognosis. Review of Systems Review of Systems: Patient nonverbal ROS unobtainable: Yes unobtainable due to medical condition and unobtainable due to mental status Exam Narrative: General: Chronically-ill, Nonverbal female, appears more comfortable today HEENT: normocephalic, atraumatic. Mucous membranes dry. EOMI, PERRLA, Respiratory: Diminished and scant crackles to bases on auscultation bilaterally. Tachypnea improved on 12L High flow nasal cannula Cardiovascular: AFIB HR 83 Abdomen: Soft, round. Peg tube Extremities: Bilateral upper extremity contractions Neuro: Alert and orientated x 0. Skin: warm to touch, and mild diaphoresis Psych: Unable assess Objective Data Vital Signs Vital Signs: Vital Signs - 24 hr 03/31/25 09:58 03/31/25 09:59 03/31/25 11:28 Temperature Pulse Rate 78 95 105 H Respiratory Rate 20 22 H Blood Pressure Pulse Oximetry 95 96 Oxygen Delivery High Flow Therapy with Na High Flow Therapy with Na Oxygen Flow Rate 50 50 Fraction of Inspired Oxygen 80 80 03/31/25 11:30 03/31/25 12:00 03/31/25 12:19 Temperature 98.9 F Pulse Rate 92 86 Respiratory Rate 18 Blood Pressure 88/62 L 96/67 L Pulse Oximetry 95 Oxygen Delivery Oxygen Flow Rate Fraction of Inspired Oxygen 03/31/25 14:00 03/31/25 15:12 03/31/25 15:20 Temperature Pulse Rate 84 105 H 119 H Respiratory Rate 35 H Blood Pressure Pulse Oximetry 80 L 89 L Oxygen Delivery High Flow Therapy with Na BiPAP Oxygen Flow Rate 50 Fraction of Inspired Oxygen 80 03/31/25 15:28 03/31/25 15:44 03/31/25 15:57 Temperature 99.4 F Pulse Rate 115 H 120 H 121 H Respiratory Rate 36 H 39 H 26 H Blood Pressure 146/81 H Pulse Oximetry 95 Oxygen Delivery Oxygen Flow Rate Fraction of Inspired Oxygen 03/31/25 15:57 03/31/25 16:00 03/31/25 17:47 Temperature Pulse Rate 121 H 120 H 92 Respiratory Rate 26 H 18 Blood Pressure Pulse Oximetry 95 94 Oxygen Delivery BiPAP Oxygen Flow Rate Fraction of Inspired Oxygen 100 03/31/25 17:59 03/31/25 19:41 03/31/25 20:00 Temperature 99.7 F H Pulse Rate 90 87 Respiratory Rate 28 H Blood Pressure 113/73 Pulse Oximetry 100 96 Oxygen Delivery BiPAP Oxygen Flow Rate 40 Fraction of Inspired Oxygen 100 03/31/25 20:00 03/31/25 20:53 03/31/25 20:55 Temperature Pulse Rate 85 87 87 Respiratory Rate 27 H 27 H Blood Pressure Pulse Oximetry 95 Oxygen Delivery BiPAP Oxygen Flow Rate Fraction of Inspired Oxygen 03/31/25 20:58 03/31/25 21:03 03/31/25 22:00 Temperature Pulse Rate 89 84 Respiratory Rate 27 H Blood Pressure Pulse Oximetry 95 Oxygen Delivery BiPAP Oxygen Flow Rate Fraction of Inspired Oxygen 40 03/31/25 23:54 04/01/25 00:00 04/01/25 00:00 Temperature 99.9 F H Pulse Rate 89 85 Respiratory Rate 26 H Blood Pressure 97/63 L Pulse Oximetry 99 96 Oxygen Delivery BiPAP Oxygen Flow Rate 40 Fraction of Inspired Oxygen 100 04/01/25 00:00 04/01/25 02:00 04/01/25 03:23 Temperature Pulse Rate 88 84 79 Respiratory Rate 24 H 27 H Blood Pressure Pulse Oximetry 99 100 Oxygen Delivery BiPAP BiPAP Oxygen Flow Rate Fraction of Inspired Oxygen 04/01/25 03:24 04/01/25 03:34 04/01/25 03:56 Temperature 98.9 F Pulse Rate 79 82 84 Respiratory Rate 27 H 27 H 25 H Blood Pressure 96/63 L Pulse Oximetry 99 Oxygen Delivery Oxygen Flow Rate Fraction of Inspired Oxygen 04/01/25 04:00 04/01/25 04:00 04/01/25 06:00 Temperature Pulse Rate 93 82 Respiratory Rate Blood Pressure Pulse Oximetry 96 Oxygen Delivery BiPAP Oxygen Flow Rate 40 Fraction of Inspired Oxygen 100 04/01/25 07:57 04/01/25 08:00 04/01/25 08:00 Temperature 99 F Pulse Rate 79 75 82 Respiratory Rate 23 H 23 H 25 H Blood Pressure 90/54 L Pulse Oximetry 100 99 Oxygen Delivery BiPAP Oxygen Flow Rate Fraction of Inspired Oxygen 04/01/25 08:14 Temperature Pulse Rate 83 Respiratory Rate Blood Pressure Pulse Oximetry 100 Oxygen Delivery High Flow Nasal Cannula Oxygen Flow Rate 15 Fraction of Inspired Oxygen Intake/Output Intake/Output: Intake & Output 03/29/25 03/30/25 03/31/25 04/01/25 23:59 23:59 23:59 23:59 Intake Total 2550 200 3013.8 50 Output Total 1600 1100 225 Balance 2550 -1400 1913.8 -175 Meds/Results Medications: Active Medications Generic Name Dose Route Start Last Admin Trade Name Freq PRN Reason Stop Dose Admin Acetaminophen 650 mg 03/29/25 17:36 Acetaminophen 650 Mg Suppository RECTAL Q6H PRN Mild Pain (1-3) or Fever Acetaminophen 650 mg 03/29/25 17:44 03/31/25 01:30 Acetaminophen 325 Mg Tablet FEED TUBE 650 mg Q4H PRN Administration Mild Pain (1-3) or Fever Albuterol/Ipratropium 3 ml 03/29/25 20:00 04/01/25 07:59 Ipratropium 0.5 Mg/Albuterol Sulfate 2.5 Mg Ampul.Neb 3 Ml INHALATION 3 ml Q6HRT ALENA Administration Atorvastatin Calcium 40 mg 03/30/25 21:00 04/01/25 00:11 Atorvastatin 40 Mg Tablet FEED TUBE Not Given HS ALENA Carbidopa/Levodopa 2 tablet 03/30/25 09:00 03/31/25 16:21 Carbidopa/Levodopa 25/100 Mg Tablet FEED TUBE Not Given TID ALENA Clopidogrel Bisulfate 75 mg 03/30/25 09:00 03/31/25 08:24 Clopidogrel Bisulfate 75 Mg Tablet FEED TUBE 75 mg DAILY ALENA Administration Dextrose 12.5 gm 03/30/25 09:06 Dextrose 50% 25 Gm/50 Ml Syringe IV PUSH PRN PRN Hypoglycemia Protocol Enoxaparin Sodium 65 mg 03/30/25 09:00 03/31/25 20:46 Enoxaparin 80 Mg/0.8 Ml Syringe SUB-Q 65 mg Q12HR ALENA Administration Famotidine 20 mg 03/30/25 09:00 03/31/25 16:21 Famotidine 20 Mg Tablet FEED TUBE Not Given BID ALENA Glucagon 1 mg 03/30/25 09:06 Glucagon For Inj 1 Mg Vial IM PRN PRN Hypoglycemia Protocol Glucose 15 gm 03/30/25 09:06 Glucose Oral Gel 15 Gm Of Glucse In 37.5 Gm Tube PO PRN PRN Hypoglycemia Protocol Guaifenesin 200 mg 03/30/25 09:00 03/31/25 16:21 Guaifenesin 200 Mg/10 Ml Udc PO Not Given TID ALENA Piperacillin/Tazobactam/Dextrose 3.375 gm in 50 mls @ 100 mls/hr 03/30/25 01:00 04/01/25 05:43 Zosyn 3.375 Gm/Ns 50 Ml IVPB 100 mls/hr Q6HR ALENA Administration Dextrose 1,000 mls @ 100 mls/hr 03/30/25 09:06 Dextrose 5% 1,000 Ml IVPB PRN PRN Hypoglycemia Protocol Insulin Aspart 2 - 5 units 03/30/25 12:00 03/31/25 16:18 Insulin Aspart (*Bkc) 100 Units/Ml SUB-Q Not Given TIDWM ALENA Protocol Levetiracetam 500 mg 03/29/25 21:00 03/31/25 20:45 Levetiracetam Oral Moira 500 Mg/5 Ml Udc FEED TUBE 500 mg Q12H ALENA Administration Lorazepam 2 mg 03/30/25 08:26 Lorazepam Inj (*Crx) 2 Mg/Ml Vial IV PUSH Q2HR PRN Seizures Methimazole 10 mg 03/30/25 09:00 03/31/25 08:24 Methimazole 10 Mg Tab FEED TUBE 10 mg DAILY ALENA Administration Metoprolol Tartrate 25 mg 03/30/25 00:30 04/01/25 08:46 Metoprolol Tartrate 25 Mg Tablet FEED TUBE Not Given Q12HR ALENA Morphine Sulfate 1 mg 03/31/25 16:16 Morphine Sulfate (*Crx) 2 Mg/Ml Inj IV PUSH Q4H PRN anxiety Pantoprazole Sodium 40 mg 03/31/25 09:00 03/31/25 08:23 Pantoprazole Sodium Iv 40 Mg Vial IV PUSH 40 mg QAM ALENA Administration Perflutren Lipid Microsphere 0 ml 03/30/25 08:26 Perflutren Lipid Microspheres 1.5 Ml Vial Diluted To 10 Ml Total Volume IV PUSH 04/02/25 08:28 ONCE PRN adequate visualization Protocol Sertraline HCl 50 mg 03/30/25 09:00 03/31/25 08:24 Sertraline Hcl 50 Mg Tablet FEED TUBE 50 mg DAILY ALENA Administration Radiology Results: ITS Impressions Chest X-Ray 04/01/25 05:55 Impression: Probable small to moderate right pleural effusion, decreased from prior exam. Left lung clear. Labs Labs: Laboratory Results - last 24 hr 03/31/25 03/31/25 03/31/25 11:17 16:09 16:16 WBC RBC Hgb Hct MCV MCH MCHC RDW Plt Count MPV Puncture Site Left radial ABG pH 7.408 ABG pCO2 38.3 ABG pO2 117.0 H ABG PO2/FiO2 Ratio 1.17 ABG HCO3 23.6 ABG O2 Saturation 98.3 ABG O2 Content 16.3 ABG Base Excess -0.8 A-a Gradient 639.5 Oxyhemoglobin 97.9 Total Hemoglobin 11.7 L O2 Delivery Device Non-invasive vent O2 Liters/Min 0.0 Vent Rate 14 FiO2 100 Expiratory Pressure 6 Inspiratory Pressure 12 Sodium Potassium Chloride Carbon Dioxide Anion Gap BUN Creatinine Estim Creat Clear Calc Estimated GFR Glucose POC Capillary Glucose 122 H 180 H Calcium Magnesium Total Bilirubin AST ALT Alkaline Phosphatase Total Protein Albumin 03/31/25 03/31/25 04/01/25 19:47 23:38 03:42 WBC 13.6 H RBC 3.17 L Hgb 9.9 L Hct 31.5 L MCV 99.4 MCH 31.2 MCHC 31.4 L RDW 13.3 Plt Count 200 MPV 10.3 Puncture Site ABG pH ABG pCO2 ABG pO2 ABG PO2/FiO2 Ratio ABG HCO3 ABG O2 Saturation ABG O2 Content ABG Base Excess A-a Gradient Oxyhemoglobin Total Hemoglobin O2 Delivery Device O2 Liters/Min Vent Rate FiO2 Expiratory Pressure Inspiratory Pressure Sodium 143 Potassium 3.8 Chloride 110 H Carbon Dioxide 27 Anion Gap 6 BUN 15 Creatinine 0.53 L Estim Creat Clear Calc 68 Estimated GFR > 60 Glucose 92 POC Capillary Glucose 87 91 Calcium 8.4 Magnesium 2.1 Total Bilirubin 0.5 AST 32 ALT 21 Alkaline Phosphatase 84 Total Protein 5.8 L Albumin 3.1 L 04/01/25 07:13 WBC RBC Hgb Hct MCV MCH MCHC RDW Plt Count MPV Puncture Site ABG pH ABG pCO2 ABG pO2 ABG PO2/FiO2 Ratio ABG HCO3 ABG O2 Saturation ABG O2 Content ABG Base Excess A-a Gradient Oxyhemoglobin Total Hemoglobin O2 Delivery Device O2 Liters/Min Vent Rate FiO2 Expiratory Pressure Inspiratory Pressure Sodium Potassium Chloride Carbon Dioxide Anion Gap BUN Creatinine Estim Creat Clear Calc Estimated GFR Glucose POC Capillary Glucose 98 Calcium Magnesium Total Bilirubin AST ALT Alkaline Phosphatase Total Protein Albumin Quality VTE Prophylaxis VTE prophylaxis: mechanical ordered and pharmacologic ordered -Patient's previous records reviewed on admission -ER notes reviewed in detail on admission -discussed all findings and current treatment plan with patient/Family/POA -Consultations reviewed for recommendations -Patient's disposition for safe discharge discussed with case preparer and liner Dictation performed by [email or web address] direct speech recognition software, therefore senior computer specialist variants and typographical errors may occur. Hospitalist MIPS Advance Care Plan I have confirmed that the patient's Advanced Care Plan is present, code status is documented, or surrogate decision maker is listed in patient medical record.: Yes Medication Reconciliation I have utilized all available resources to obtain, update and review the patients current medications (includes all prescriptions, OTC, herbals, cannabis, and nutritional supplements).: Yes The patient is not eligible for med reconciliation; the patient is in a emergent medical situation where delaying treatment would jeopardize the patients health.: No
[2025-04-01] MEDS: PANTOPRAZOLE SODIUM IV 40 MG VIAL IV PUSH (09:44)
[2025-04-01] MEDS: levETIRAcetam ORAL SOL 500 MG/5 ML UDC FEED TUBE ×2 (09:44→20:59)
[2025-04-01] MEDS: ENOXAPARIN 80 MG/0.8 ML SYRINGE 65 MG SUB-Q ×2 (09:44→21:00)
[2025-04-01] MEDS: CARBIDOPA/LEVODOPA 25/100 MG TABLET 2 TABLET FEED TUBE ×3 (09:45→18:19)
[2025-04-01] MEDS: FAMOTIDINE 20 MG TABLET FEED TUBE ×2 (09:45→18:19)
[2025-04-01] MEDS: CLOPIDOGREL BISULFATE 75 MG TABLET FEED TUBE (09:46)
[2025-04-01] MEDS: SERTRALINE HCL 50 MG TABLET FEED TUBE (09:46)
--- NOTE | 2025-04-01 13:21 | P.PNCA_ITS ---
Progress Note: A&P Assessment and Plan (1) Atrial fibrillation: Code(s): I48.91 - Unspecified atrial fibrillation Status: Acute Plan Elevated troponin-most likely demand ischemia in the setting of sepsis; it is also possible that patient has underlying CAD or acute plaque rupture which remain on the differential Paroxysmal atrial fibrillation Acute hypoxemic respiratory failure Pneumonia Sepsis Right-sided [id number] pleural effusion Altered mental status and nonverbal History of stroke, nonverbal and contracted Plan Troponin is up trending. Unable to obtain history of chest pain given patient is nonverbal. TTE today. If any regional wall motion abnormalities noted on TTE, then recommend cardiac catheterization to further evaluate coronaries. If no regional wall motion abnormalities on echo, then continue medical management for NSTEMI as you doing with therapeutic Lovenox, Plavix, statin metoprolol with plans for outpatient stress test after recovery from acute illness Treatment of underlying infection per primary team Subjective Date/time seen: 04/01/25 13:21 Interval history: Reason for encounter: Elevated troponin Interval history: History cannot be obtained from patient due to patient being nonverbal. Telemetry shows sinus rhythm. Blood pressure is improved and beta- margaret has been restarted. Review of Systems Review of Systems: A complete review of systems could not be performed due to patient factors. Exam Narrative: General: Alert oriented x3, no acute distress Neck: Supple, no JVD Chest: Bibasilar crackles present, decreased breath sounds right lower lobe, no rhonchi Cardiac: S1, S2 +, regular rate, regular rhythm, no murmurs or rubs Extremities: No pedal edema, no skin rash Neurologic: Alert and oriented x3, no focal neurological deficits Objective Data Vital Signs Vital Signs: Vital Signs - 24 hr 03/31/25 14:00 03/31/25 15:12 03/31/25 15:20 Temperature Pulse Rate 84 105 H 119 H Respiratory Rate 35 H Blood Pressure Pulse Oximetry 80 L 89 L Oxygen Delivery High Flow Therapy with Na BiPAP Oxygen Flow Rate 50 Fraction of Inspired Oxygen 80 03/31/25 15:28 03/31/25 15:44 03/31/25 15:57 Temperature 37.4 C Pulse Rate 115 H 120 H 121 H Respiratory Rate 36 H 39 H 26 H Blood Pressure 146/81 H Pulse Oximetry 95 Oxygen Delivery Oxygen Flow Rate Fraction of Inspired Oxygen 03/31/25 15:57 03/31/25 16:00 03/31/25 17:47 Temperature Pulse Rate 121 H 120 H 92 Respiratory Rate 26 H 18 Blood Pressure Pulse Oximetry 95 94 Oxygen Delivery BiPAP Oxygen Flow Rate Fraction of Inspired Oxygen 100 03/31/25 17:59 03/31/25 19:41 03/31/25 20:00 Temperature 37.6 C H Pulse Rate 90 87 Respiratory Rate 28 H Blood Pressure 113/73 Pulse Oximetry 100 96 Oxygen Delivery BiPAP Oxygen Flow Rate 40 Fraction of Inspired Oxygen 100 03/31/25 20:00 03/31/25 20:53 03/31/25 20:55 Temperature Pulse Rate 85 87 87 Respiratory Rate 27 H 27 H Blood Pressure Pulse Oximetry 95 Oxygen Delivery BiPAP Oxygen Flow Rate Fraction of Inspired Oxygen 03/31/25 20:58 03/31/25 21:03 03/31/25 22:00 Temperature Pulse Rate 89 84 Respiratory Rate 27 H Blood Pressure Pulse Oximetry 95 Oxygen Delivery BiPAP Oxygen Flow Rate Fraction of Inspired Oxygen 40 03/31/25 23:54 04/01/25 00:00 04/01/25 00:00 Temperature 37.7 C H Pulse Rate 89 85 Respiratory Rate 26 H Blood Pressure 97/63 L Pulse Oximetry 99 96 Oxygen Delivery BiPAP Oxygen Flow Rate 40 Fraction of Inspired Oxygen 100 04/01/25 00:00 04/01/25 02:00 04/01/25 03:23 Temperature Pulse Rate 88 84 79 Respiratory Rate 24 H 27 H Blood Pressure Pulse Oximetry 99 100 Oxygen Delivery BiPAP BiPAP Oxygen Flow Rate Fraction of Inspired Oxygen 04/01/25 03:24 04/01/25 03:34 04/01/25 03:56 Temperature 37.2 C Pulse Rate 79 82 84 Respiratory Rate 27 H 27 H 25 H Blood Pressure 96/63 L Pulse Oximetry 99 Oxygen Delivery Oxygen Flow Rate Fraction of Inspired Oxygen 04/01/25 04:00 04/01/25 04:00 04/01/25 06:00 Temperature Pulse Rate 93 82 Respiratory Rate Blood Pressure Pulse Oximetry 96 Oxygen Delivery BiPAP Oxygen Flow Rate 40 Fraction of Inspired Oxygen 100 04/01/25 07:57 04/01/25 08:00 04/01/25 08:00 Temperature 37.2 C Pulse Rate 79 75 82 Respiratory Rate 23 H 23 H 25 H Blood Pressure 90/54 L Pulse Oximetry 100 99 Oxygen Delivery BiPAP Oxygen Flow Rate Fraction of Inspired Oxygen 04/01/25 08:00 04/01/25 08:00 04/01/25 08:14 Temperature Pulse Rate 83 83 Respiratory Rate Blood Pressure Pulse Oximetry 100 100 Oxygen Delivery High Flow Nasal Cannula High Flow Nasal Cannula Oxygen Flow Rate 15 15 Fraction of Inspired Oxygen 04/01/25 08:15 04/01/25 12:00 04/01/25 12:00 Temperature 37.0 C Pulse Rate 83 89 78 Respiratory Rate 23 H 24 H Blood Pressure 107/71 Pulse Oximetry 100 Oxygen Delivery Oxygen Flow Rate Fraction of Inspired Oxygen 04/01/25 12:00 Temperature Pulse Rate Respiratory Rate Blood Pressure Pulse Oximetry 100 Oxygen Delivery High Flow Nasal Cannula Oxygen Flow Rate 12 Fraction of Inspired Oxygen Intake/Output Intake/Output: Intake & Output 03/29/25 03/30/25 03/31/25 04/01/25 23:59 23:59 23:59 23:59 Intake Total 2550 200 3013.8 50 Output Total 1600 1100 225 Balance 2550 -1400 1913.8 -175 Meds/Results Medications: Active Medications Generic Name Dose Route Start Last Admin Trade Name Freq PRN Reason Stop Dose Admin Acetaminophen 650 mg 03/29/25 17:36 Acetaminophen 650 Mg Suppository RECTAL Q6H PRN Mild Pain (1-3) or Fever Acetaminophen 650 mg 03/29/25 17:44 03/31/25 01:30 Acetaminophen 325 Mg Tablet FEED TUBE 650 mg Q4H PRN Administration Mild Pain (1-3) or Fever Albuterol/Ipratropium 3 ml 03/29/25 20:00 04/01/25 07:59 Ipratropium 0.5 Mg/Albuterol Sulfate 2.5 Mg Ampul.Neb 3 Ml INHALATION 3 ml Q6HRT ALENA Administration Atorvastatin Calcium 40 mg 03/30/25 21:00 04/01/25 00:11 Atorvastatin 40 Mg Tablet FEED TUBE Not Given HS ALENA Carbidopa/Levodopa 2 tablet 03/30/25 09:00 04/01/25 09:45 Carbidopa/Levodopa 25/100 Mg Tablet FEED TUBE 2 tablet TID ALENA Administration Clopidogrel Bisulfate 75 mg 03/30/25 09:00 04/01/25 09:46 Clopidogrel Bisulfate 75 Mg Tablet FEED TUBE 75 mg DAILY ALENA Administration Dextrose 12.5 gm 03/30/25 09:06 Dextrose 50% 25 Gm/50 Ml Syringe IV PUSH PRN PRN Hypoglycemia Protocol Enoxaparin Sodium 65 mg 03/30/25 09:00 04/01/25 09:44 Enoxaparin 80 Mg/0.8 Ml Syringe SUB-Q 65 mg Q12HR ALENA Administration Famotidine 20 mg 03/30/25 09:00 04/01/25 09:45 Famotidine 20 Mg Tablet FEED TUBE 20 mg BID ALENA Administration Glucagon 1 mg 03/30/25 09:06 Glucagon For Inj 1 Mg Vial IM PRN PRN Hypoglycemia Protocol Glucose 15 gm 03/30/25 09:06 Glucose Oral Gel 15 Gm Of Glucse In 37.5 Gm Tube PO PRN PRN Hypoglycemia Protocol Guaifenesin 200 mg 03/30/25 09:00 04/01/25 09:44 Guaifenesin 200 Mg/10 Ml Udc PO 200 mg TID ALENA Administration Piperacillin/Tazobactam/Dextrose 3.375 gm in 50 mls @ 100 mls/hr 03/30/25 01:00 04/01/25 05:43 Zosyn 3.375 Gm/Ns 50 Ml IVPB 100 mls/hr Q6HR ALENA Administration Dextrose 1,000 mls @ 100 mls/hr 03/30/25 09:06 Dextrose 5% 1,000 Ml IVPB PRN PRN Hypoglycemia Protocol Insulin Aspart 2 - 5 units 03/30/25 12:00 04/01/25 09:21 Insulin Aspart (*Bkc) 100 Units/Ml SUB-Q Not Given TIDWM ALENA Protocol Levetiracetam 500 mg 03/29/25 21:00 04/01/25 09:44 Levetiracetam Oral Moira 500 Mg/5 Ml Udc FEED TUBE 500 mg Q12H ALENA Administration Lorazepam 2 mg 03/30/25 08:26 Lorazepam Inj (*Crx) 2 Mg/Ml Vial IV PUSH Q2HR PRN Seizures Methimazole 10 mg 03/30/25 09:00 04/01/25 09:45 Methimazole 10 Mg Tab FEED TUBE 10 mg DAILY ALENA Administration Metoprolol Tartrate 25 mg 03/30/25 00:30 04/01/25 08:46 Metoprolol Tartrate 25 Mg Tablet FEED TUBE Not Given Q12HR ALENA Morphine Sulfate 1 mg 03/31/25 16:16 Morphine Sulfate (*Crx) 2 Mg/Ml Inj IV PUSH Q4H PRN anxiety Pantoprazole Sodium 40 mg 03/31/25 09:00 04/01/25 09:44 Pantoprazole Sodium Iv 40 Mg Vial IV PUSH 40 mg QAM ALENA Administration Perflutren Lipid Microsphere 0 ml 03/30/25 08:26 Perflutren Lipid Microspheres 1.5 Ml Vial Diluted To 10 Ml Total Volume IV PUSH 04/02/25 08:28 ONCE PRN adequate visualization Protocol Sertraline HCl 50 mg 03/30/25 09:00 04/01/25 09:46 Sertraline Hcl 50 Mg Tablet FEED TUBE 50 mg DAILY ALENA Administration Radiology Results: ITS Impressions Chest X-Ray 04/01/25 05:55 Impression: Probable small to moderate right pleural effusion, decreased from prior exam. Left lung clear. Labs Labs: Laboratory Results - last 24 hr 03/31/25 03/31/25 03/31/25 16:09 16:16 19:47 WBC RBC Hgb Hct MCV MCH MCHC RDW Plt Count MPV Puncture Site Left radial ABG pH 7.408 ABG pCO2 38.3 ABG pO2 117.0 H ABG PO2/FiO2 Ratio 1.17 ABG HCO3 23.6 ABG O2 Saturation 98.3 ABG O2 Content 16.3 ABG Base Excess -0.8 A-a Gradient 639.5 Oxyhemoglobin 97.9 Total Hemoglobin 11.7 L O2 Delivery Device Non-invasive vent O2 Liters/Min 0.0 Vent Rate 14 FiO2 100 Expiratory Pressure 6 Inspiratory Pressure 12 Sodium Potassium Chloride Carbon Dioxide Anion Gap BUN Creatinine Estim Creat Clear Calc Estimated GFR Glucose POC Capillary Glucose 180 H 87 Calcium Magnesium Total Bilirubin AST ALT Alkaline Phosphatase Total Protein Albumin 03/31/25 04/01/25 04/01/25 23:38 03:42 07:13 WBC 13.6 H RBC 3.17 L Hgb 9.9 L Hct 31.5 L MCV 99.4 MCH 31.2 MCHC 31.4 L RDW 13.3 Plt Count 200 MPV 10.3 Puncture Site ABG pH ABG pCO2 ABG pO2 ABG PO2/FiO2 Ratio ABG HCO3 ABG O2 Saturation ABG O2 Content ABG Base Excess A-a Gradient Oxyhemoglobin Total Hemoglobin O2 Delivery Device O2 Liters/Min Vent Rate FiO2 Expiratory Pressure Inspiratory Pressure Sodium 143 Potassium 3.8 Chloride 110 H Carbon Dioxide 27 Anion Gap 6 BUN 15 Creatinine 0.53 L Estim Creat Clear Calc 68 Estimated GFR > 60 Glucose 92 POC Capillary Glucose 91 98 Calcium 8.4 Magnesium 2.1 Total Bilirubin 0.5 AST 32 ALT 21 Alkaline Phosphatase 84 Total Protein 5.8 L Albumin 3.1 L 04/01/25 10:52 WBC RBC Hgb Hct MCV MCH MCHC RDW Plt Count MPV Puncture Site ABG pH ABG pCO2 ABG pO2 ABG PO2/FiO2 Ratio ABG HCO3 ABG O2 Saturation ABG O2 Content ABG Base Excess A-a Gradient Oxyhemoglobin Total Hemoglobin O2 Delivery Device O2 Liters/Min Vent Rate FiO2 Expiratory Pressure Inspiratory Pressure Sodium Potassium Chloride Carbon Dioxide Anion Gap BUN Creatinine Estim Creat Clear Calc Estimated GFR Glucose POC Capillary Glucose 103 Calcium Magnesium Total Bilirubin AST ALT Alkaline Phosphatase Total Protein Albumin
[2025-04-01] MEDS: ACETAMINOPHEN 325 MG TABLET 650 MG FEED TUBE (14:13)
--- NOTE | 2025-04-01 15:13 | IVDEFINITY ---
Prior to administration of IV Definity the patient was educated on the risks and benefits of the imaging enhancing agent including potential adverse side effects. The patient verbalized understanding. Allergies were verified. No exclusion criteria were identified and at least one of the following inclusion criteria were met: 1) physician request, 2) patient technically difficult to image (per the [place] [employer] guidelines of two or more segments not discernable within the apical view), or 3) questionable left ventricular function. ?
[2025-04-01] MEDS: PIPERACILLIN/TAZOBACTAM SOD 3.375 GM in SODIUM CHLORIDE 0.9% IV 50 ML 100 ML IVPB ×2 (18:20→23:40)
[2025-04-01] MEDS: ATORVASTATIN 40 MG TABLET FEED TUBE (21:00)
[2025-04-01] MEDS: METOPROLOL TARTRATE 25 MG TABLET FEED TUBE (21:00)
[2025-04-02] VITALS (31 sets, daily range): BP systolic 109–133; BP diastolic 60–92; PULSE 69–104; RESP 18–36; TEMP 36.3–37.8; O2SAT 91–100
[2025-04-02] MEDS: IPRATROPIUM 0.5 MG/ALBUTEROL SULFATE 2.5 MG AMPUL.NEB 3 ML INHALATION ×4 (02:01→20:50)
[2025-04-02 04:46] LABS: Hematocrit 30.3 % (37.0-47.0); Hemoglobin 9.5 g/dL (12.0-15.0); Mean Corpuscular HGB Conc 31.4 g/dl (32-36); Mean Corpuscular Hemoglobin 31.4 pg (26-34); Mean Corpuscular Volume 100.0 fl (80-100); Platelet Count Result 199 k/mm3 (150-375); Red Blood Count 3.03 M/mm3 (4.2-5.4); White Blood Count 12.8 K/mm3 (4.5-10.0)
[2025-04-02 05:00] LABS: Alanine Aminotransferase 10 U/L (6-35); Albumin Level 2.9 g/dL (3.5-5.1); Alkaline Phosphatase 75 U/L (38-126); Anion Gap 8 mmol/L (4-12); Aspartate Amino Transferase 22 U/L (14-36); Bilirubin,Total 0.4 mg/dL (0.2-1.3); Blood Urea Nitrogen 14 mg/dL (7-17); Calcium 8.4 mg/dL (8.4-10.2); Carbon Dioxide 26 mmol/L (22-30); Chloride 112 mmol/L (98-107); Estimated CRCL calculation 73 ml/min; Estimated Glomerular Filt Rate > 60; Glucose 88 mg/dL (65-110); Magnesium 2.3 mg/dL (1.6-2.3); Potassium 3.5 mmol/L (3.4-5.0); Sodium 146 mmol/L (137-145); Total Protein 5.7 g/dL (6.3-8.2)
[2025-04-02] MEDS: PIPERACILLIN/TAZOBACTAM SOD 3.375 GM in SODIUM CHLORIDE 0.9% IV 50 ML 100 ML IVPB (05:46)
[2025-04-02] MEDS: PANTOPRAZOLE SODIUM IV 40 MG VIAL IV PUSH (08:21)
[2025-04-02] MEDS: levETIRAcetam ORAL SOL 500 MG/5 ML UDC FEED TUBE ×2 (08:21→21:43)
[2025-04-02] MEDS: METOPROLOL TARTRATE 25 MG TABLET FEED TUBE ×2 (08:22→21:43)
[2025-04-02] MEDS: CARBIDOPA/LEVODOPA 25/100 MG TABLET 2 TABLET FEED TUBE ×3 (08:22→17:01)
[2025-04-02] MEDS: FAMOTIDINE 20 MG TABLET FEED TUBE ×2 (08:22→17:01)
[2025-04-02] MEDS: ENOXAPARIN 80 MG/0.8 ML SYRINGE 65 MG SUB-Q ×2 (08:22→21:42)
[2025-04-02] MEDS: CLOPIDOGREL BISULFATE 75 MG TABLET FEED TUBE (08:23)
[2025-04-02] MEDS: SERTRALINE HCL 50 MG TABLET FEED TUBE (08:23)
[2025-04-02 09:49] LABS: Troponin I 0.186 ng/mL (0.000-0.034)
--- NOTE | 2025-04-02 11:18 | P.PNCA_ITS ---
Progress Note: A&P Assessment and Plan (1) Atrial fibrillation: Code(s): I48.91 - Unspecified atrial fibrillation Status: Acute (2) NSTEMI (non-ST elevated myocardial infarction): Code(s): I21.4 - Non-ST elevation (NSTEMI) myocardial infarction Status: Acute (3) Ischemic cardiomyopathy: Code(s): I25.5 - Ischemic cardiomyopathy Status: Acute Plan -NSTEMI-troponin down to 0.186 from 1.980; TTE shows depressed LVEF of 30-35% with regional wall motion abnormalities Paroxysmal atrial fibrillation-currently in sinus rhythm -New diagnosis of ischemic cardiomyopathy with LVEF of 30-35% and regional wall motion abnormalities -Acute hypoxemic respiratory failure-improved -Pneumonia- CT chest negative for PE, airspace opacities in the right lung concerning for pneumonia, mild to moderate right pleural effusion -Sepsis -Right-sided [id number] pleural effusion-confirmed by CT chest -Altered mental status and nonverbal-son David is healthcare power of traffic law attorney -History of stroke, nonverbal and contracted Plan: -Patient had an NSTEMI (rise and fall in troponin, regional wall motion abnormalities on echo; also has depressed LVEF of 30-35%). I discussed further evaluation with cardiac catheterization versus medical management with patient's son, David over the phone. Patient's son does not want any invasive procedures and wants to continue with medical management. Complete 48 hours of therapeutic Lovenox. Continue Plavix, statin, beta-margaret -Recommend guideline directed medical therapy for ischemic cardiomyopathy. She is already on a beta-margaret. Can add empagliflozin 10 mg daily if she tolerates. Unable to add other meds due to soft blood pressure with SBP in the 90s to 110s range -With regards to AFib she remains in sinus rhythm at this time. She was not on anticoagulation for AFib prior to admission. She has chronic indwelling Larsen catheter and PEG tube which increase the risk of bleeding with anticoagulation. Patient's son who is the healthcare power of traffic law attorney does not want any invasive procedures and status left atrial appendage occlusion is not an option -Treatment of underlying infection per primary team Cardiology will sign off. Please call us with any questions. Subjective Date/time seen: 04/02/25 11:18 Interval history: Reason for encounter: Elevated troponin Interval history: History cannot be obtained from patient due to patient being nonverbal. Telemetry shows sinus rhythm. Troponin checked today and down trending to 0.186 from 1.980. TTE showed LVEF of 30-35% with regional wall motion abnormalities (hypokinesis of mid anterior, anteroseptal, inferolateral hypokinesis). Review of Systems Review of Systems: A complete review of systems could not be performed due to patient factors. Exam Narrative: General: Alert oriented x3, no acute distress Neck: Supple, no JVD Chest: Bibasilar crackles present, decreased breath sounds right lower lobe, no rhonchi Cardiac: S1, S2 +, regular rate, regular rhythm, no murmurs or rubs Extremities: No pedal edema, no skin rash Neurologic: Alert and oriented x3, no focal neurological deficits Objective Data Vital Signs Vital Signs: Vital Signs - 24 hr 04/01/25 12:00 04/01/25 12:00 04/01/25 12:00 Temperature 37.0 C Pulse Rate 89 78 Respiratory Rate 24 H Blood Pressure 107/71 Pulse Oximetry 100 100 Oxygen Delivery High Flow Nasal Cannula Oxygen Flow Rate 12 Fraction of Inspired Oxygen 04/01/25 12:34 04/01/25 13:45 04/01/25 13:50 Temperature Pulse Rate 82 82 Respiratory Rate 23 H Blood Pressure Pulse Oximetry 100 100 Oxygen Delivery High Flow Nasal Cannula High Flow Nasal Cannula Oxygen Flow Rate 12 10 Fraction of Inspired Oxygen 04/01/25 13:55 04/01/25 14:00 04/01/25 15:00 Temperature Pulse Rate 83 78 Respiratory Rate 23 H Blood Pressure Pulse Oximetry 100 Oxygen Delivery Oxygen Flow Rate 8 Fraction of Inspired Oxygen 04/01/25 16:00 04/01/25 16:00 04/01/25 16:45 Temperature 36.6 C Pulse Rate 81 83 Respiratory Rate 24 H Blood Pressure 117/84 Pulse Oximetry 100 100 Oxygen Delivery High Flow Nasal Cannula Oxygen Flow Rate 6 Fraction of Inspired Oxygen 04/01/25 17:58 04/01/25 18:00 04/01/25 18:40 Temperature Pulse Rate 76 Respiratory Rate Blood Pressure Pulse Oximetry 99 99 Oxygen Delivery High Flow Nasal Cannula High Flow Nasal Cannula Oxygen Flow Rate 4 3 Fraction of Inspired Oxygen 04/01/25 19:33 04/01/25 20:00 04/01/25 20:10 Temperature 37.3 C Pulse Rate 75 89 70 Respiratory Rate 28 H 20 Blood Pressure 110/67 Pulse Oximetry 98 Oxygen Delivery Oxygen Flow Rate Fraction of Inspired Oxygen 04/01/25 20:13 04/01/25 20:22 04/01/25 21:00 Temperature Pulse Rate 70 70 87 Respiratory Rate 20 Blood Pressure Pulse Oximetry 97 Oxygen Delivery High Flow Nasal Cannula Oxygen Flow Rate 4 Fraction of Inspired Oxygen 38 04/01/25 21:00 04/01/25 22:00 04/01/25 23:35 Temperature Pulse Rate 87 77 79 Respiratory Rate 20 20 Blood Pressure Pulse Oximetry 97 98 Oxygen Delivery High Flow Nasal Cannula High Flow Nasal Cannula Oxygen Flow Rate 4 4 Fraction of Inspired Oxygen 04/02/25 00:00 04/02/25 00:15 04/02/25 02:00 Temperature 37.0 C Pulse Rate 82 86 79 Respiratory Rate 26 H Blood Pressure 116/92 H Pulse Oximetry 98 Oxygen Delivery Oxygen Flow Rate Fraction of Inspired Oxygen 04/02/25 02:01 04/02/25 02:12 04/02/25 04:00 Temperature Pulse Rate 82 82 69 Respiratory Rate 20 20 Blood Pressure Pulse Oximetry Oxygen Delivery Oxygen Flow Rate Fraction of Inspired Oxygen 04/02/25 04:35 04/02/25 04:48 04/02/25 06:00 Temperature 37.1 C Pulse Rate 89 89 104 H Respiratory Rate 23 H 23 H Blood Pressure 121/80 Pulse Oximetry 98 98 Oxygen Delivery High Flow Nasal Cannula Oxygen Flow Rate 4 Fraction of Inspired Oxygen 04/02/25 08:00 04/02/25 08:04 04/02/25 08:06 Temperature 37.2 C Pulse Rate 99 78 Respiratory Rate 20 20 Blood Pressure 109/60 Pulse Oximetry 97 98 Oxygen Delivery High Flow Nasal Cannula Oxygen Flow Rate 4 Fraction of Inspired Oxygen 04/02/25 08:14 04/02/25 08:22 04/02/25 08:29 Temperature Pulse Rate 79 85 Respiratory Rate 20 Blood Pressure Pulse Oximetry 96 Oxygen Delivery High Flow Nasal Cannula Oxygen Flow Rate 2 Fraction of Inspired Oxygen Intake/Output Intake/Output: Intake & Output 03/30/25 03/31/25 04/01/25 04/02/25 23:59 23:59 23:59 23:59 Intake Total 200 3013.8 150 50 Output Total 1600 1100 725 300 Balance -1400 1913.8 -575 -250 Meds/Results Medications: Active Medications Generic Name Dose Route Start Last Admin Trade Name Freq PRN Reason Stop Dose Admin Acetaminophen 650 mg 03/29/25 17:36 Acetaminophen 650 Mg Suppository RECTAL Q6H PRN Mild Pain (1-3) or Fever Acetaminophen 650 mg 03/29/25 17:44 04/01/25 14:13 Acetaminophen 325 Mg Tablet FEED TUBE 650 mg Q4H PRN Administration Mild Pain (1-3) or Fever Albuterol/Ipratropium 3 ml 03/29/25 20:00 04/02/25 08:03 Ipratropium 0.5 Mg/Albuterol Sulfate 2.5 Mg Ampul.Neb 3 Ml INHALATION 3 ml Q6HRT ALENA Administration Amoxicillin/Clavulanate Potassium 1 tablet 04/02/25 10:30 Amoxicillin/Clavulanate K 875-125 Mg Tab PO 04/05/25 21:01 Q12HR ALENA Atorvastatin Calcium 40 mg 03/30/25 21:00 04/01/25 21:00 Atorvastatin 40 Mg Tablet FEED TUBE 40 mg HS ALENA Administration Carbidopa/Levodopa 2 tablet 03/30/25 09:00 04/02/25 08:22 Carbidopa/Levodopa 25/100 Mg Tablet FEED TUBE 2 tablet TID ALENA Administration Clopidogrel Bisulfate 75 mg 03/30/25 09:00 04/02/25 08:23 Clopidogrel Bisulfate 75 Mg Tablet FEED TUBE 75 mg DAILY ALENA Administration Dextrose 12.5 gm 03/30/25 09:06 Dextrose 50% 25 Gm/50 Ml Syringe IV PUSH PRN PRN Hypoglycemia Protocol Doxycycline Hyclate 100 mg 04/02/25 09:00 Doxycycline Hyclate 100 Mg Tablet PO 04/06/25 21:01 Q12HR ALENA Enoxaparin Sodium 65 mg 03/30/25 09:00 04/02/25 08:22 Enoxaparin 80 Mg/0.8 Ml Syringe SUB-Q 65 mg Q12HR ALENA Administration Famotidine 20 mg 03/30/25 09:00 04/02/25 08:22 Famotidine 20 Mg Tablet FEED TUBE 20 mg BID ALENA Administration Glucagon 1 mg 03/30/25 09:06 Glucagon For Inj 1 Mg Vial IM PRN PRN Hypoglycemia Protocol Glucose 15 gm 03/30/25 09:06 Glucose Oral Gel 15 Gm Of Glucse In 37.5 Gm Tube PO PRN PRN Hypoglycemia Protocol Guaifenesin 200 mg 04/02/25 09:00 04/02/25 08:21 Guaifenesin 200 Mg/10 Ml Udc FEED TUBE 200 mg TID ALENA Administration Dextrose 1,000 mls @ 100 mls/hr 03/30/25 09:06 Dextrose 5% 1,000 Ml IVPB PRN PRN Hypoglycemia Protocol Insulin Aspart 2 - 5 units 03/30/25 12:00 04/02/25 08:16 Insulin Aspart (*Bkc) 100 Units/Ml SUB-Q Not Given TIDWM ALENA Protocol Levetiracetam 500 mg 03/29/25 21:00 04/02/25 08:21 Levetiracetam Oral Moira 500 Mg/5 Ml Udc FEED TUBE 500 mg Q12H ALENA Administration Lorazepam 2 mg 03/30/25 08:26 Lorazepam Inj (*Crx) 2 Mg/Ml Vial IV PUSH Q2HR PRN Seizures Methimazole 10 mg 03/30/25 09:00 04/02/25 08:22 Methimazole 10 Mg Tab FEED TUBE 10 mg DAILY ALENA Administration Metoprolol Tartrate 25 mg 03/30/25 00:30 04/02/25 08:22 Metoprolol Tartrate 25 Mg Tablet FEED TUBE 25 mg Q12HR ALENA Administration Morphine Sulfate 1 mg 03/31/25 16:16 Morphine Sulfate (*Crx) 2 Mg/Ml Inj IV PUSH Q4H PRN anxiety Pantoprazole Sodium 40 mg 03/31/25 09:00 04/02/25 08:21 Pantoprazole Sodium Iv 40 Mg Vial IV PUSH 40 mg QAM ALENA Administration Sertraline HCl 50 mg 03/30/25 09:00 04/02/25 08:23 Sertraline Hcl 50 Mg Tablet FEED TUBE 50 mg DAILY ALENA Administration Radiology Results: ITS Impressions Chest X-Ray 04/01/25 05:55 Impression: Probable small to moderate right pleural effusion, decreased from prior exam. Left lung clear. Chest CTA 04/01/25 14:13 IMPRESSION: 1. No evidence of pulmonary embolism in main and lobar pulmonary arteries. 2. Diffuse tree-in-bud and airspace opacities are seen in the right lung. Findings are concerning for pneumonia. Short-term follow-up chest radiograph is recommended after appropriate clinical therapy. 3. Mild to moderate right pleural effusion causing compressive atelectasis.No pneumothorax. Labs Labs: Laboratory Results - last 24 hr 04/01/25 04/01/25 04/01/25 10:52 16:17 23:49 WBC RBC Hgb Hct MCV MCH MCHC RDW Plt Count MPV Sodium Potassium Chloride Carbon Dioxide Anion Gap BUN Creatinine Estim Creat Clear Calc Estimated GFR Glucose POC Capillary Glucose 103 88 113 H Calcium Magnesium Total Bilirubin AST ALT Alkaline Phosphatase Troponin I Total Protein Albumin 04/02/25 04:05 WBC 12.8 H RBC 3.03 L Hgb 9.5 L Hct 30.3 L MCV 100.0 MCH 31.4 MCHC 31.4 L RDW 13.3 Plt Count 199 MPV 10.4 Sodium 146 H Potassium 3.5 Chloride 112 H Carbon Dioxide 26 Anion Gap 8 BUN 14 Creatinine 0.49 L Estim Creat Clear Calc 73 Estimated GFR > 60 Glucose 88 POC Capillary Glucose Calcium 8.4 Magnesium 2.3 Total Bilirubin 0.4 AST 22 ALT 10 Alkaline Phosphatase 75 Troponin I 0.186 H* Total Protein 5.7 L Albumin 2.9 L
--- NOTE | 2025-04-02 11:42 | PCNFU ---
Nutrition Follow-Up Complete: Inadequate energy intake related to NPO status with tube feeds on hold as evidenced by current diet orders Goal:Meet estimated needs Pt still not meeting goal. TF on hold again today. Pt current nutrition is TF: Jevity 1.2 @ 45ml/hr goal rate. Nutrition recommendation: resume tube feeding, Jevity 1.2 @ 45ml/hr, initiate at 20ml and advance by 10ml q 4 hrs. Increase flushes to 50ml q 4 hrs Last recorded weight is 67.6 kg. Bowel Motility:+BM 04/02 Labs Reviewed: Hgb:9.9, HCT:31.5, Cr:0.53 Meds Noted: lovenox, protonix, novolog Skin: WNL Additional Notes: Pt continues with tube feeding on hold for procedures, nursing states she will resume today. Recommendation is for Jevity 1.2 @ a goal rate of 45ml/hr to provide 1188kcals, 55g protein, 798ml free water. Recommend to increase flushes to 50ml/hr to provide 1100ml free water over 24 hrs. Monitor tube feed orders, tolerance, wt, labs. Follow up every Tuesday and Tuesday.
[2025-04-02] MEDS: DOXYCYCLINE HYCLATE 100 MG TABLET PO ×2 (12:26→21:43)
--- NOTE | 2025-04-02 13:01 | PC.NURSE ---
Pt found to be tachypnic with labored breathing. Lungs with wheezes and rhonchi. Repositioned pt, sat upright with some improvement. Respirations 36. Dr. Kinney informed. Order for Lasic IV 40 mg BID
[2025-04-02] MEDS: FUROSEMIDE INJ 40 MG/4 ML VIAL IV PUSH ×2 (13:04→17:01)
--- NOTE | 2025-04-02 15:14 | P.PNIM_ITS ---
Progress Note: A&P Assessment and Plan (1) Acute respiratory failure: Code(s): J96.00 - Acute respiratory failure, unspecified whether with hypoxia or hypercapnia Status: Acute Assessment and Plan: patient had presented to the emergency department in respiratory distress hypoxic after receiving breathing treatments EN route. patient initially placed on 3 L nasal cannula but had worsening respiratory distress with tachypnea and was placed on BiPAP follow-up ABGs acute respiratory failure with hypoxia and hypercapnia. CT chest showing cardiomegaly, infiltrates and pulmonary edema no history of CHF noted in chart. This is likely multifocal with pneumonia vs CHF exacerbation vs PE vs pleural effusions which could due to noted lung mass. Patient had to be placed back on Bipap due to worsening respiratory distress. However if patient does have large PE or saddle PE will likely not be a candidate for thrombectomy. CTA negative for PE * s/p BiPAP, now on HFNC 4 liters * continue Lasix, and Abx (2) Severe sepsis with septic shock: Code(s): A41.9 - Sepsis, unspecified organism; R65.21 - Severe sepsis with septic shock Status: Acute Assessment and Plan: patient with severe sepsis with septic shock evidenced by leukocytosis, feb rile, tachypnea, tachycardia, lactic acidosis at 3.8, with hypotension secondary to pneumonia likely cardiogenic shock * IV fluid resuscitation. 30mg/kg for septic shock in the ED * Soft BP but now with bilateral pleural effusions attempted IV lasix with good output but unable to continue due to BP * empiric IV antibiotic therapy: patient received Levaquin, vancomycin and Zosyn de-escalated to only IV Zosyn * Monitor lactic acid levels q6hr. RESOLVED * Two sets of blood cultures NGTD * Echo showing cardiomyopathy LVEF 30-35% with the mid anterior wall, mid anterior septal and mid inferior lateral wall oral hypokinetic with severe pulmonary hypertension estimated at 68 mmHg. * Transitioned to Augmentin and Doxycycline (3) Pneumonia: Qualifiers: Pneumonia type: due to unspecified organism Laterality: left Lung location: lower lobe of lung Qualified Code(s): J18.9 - Pneumonia, unspecified organism Code(s): J18.9 - Pneumonia, unspecified organism Status: Acute Assessment and Plan: patient's chest x-ray showing right apical opacities suggestive of mass in right upper lobe pneumonia * received Zosyn, Levaquin, vancomycin in the ED transitioned to IV Zosyn only * MRSA was negative stopped vancomycin * Blood cultures pending * S/p BIPAP * now on Augmentin and Doxycycline (4) Pleural effusion: Code(s): J90 - Pleural effusion, not elsewhere classified Status: Acute Assessment and Plan: patient with new pleural effusions initially right was moderate to large however did improve with BiPAP overnight * unable to give diuresis at this time due to soft BP * Echo showing cardiomyopathy LVEF 30-35% with the mid anterior wall, mid anterior septal and mid inferior lateral wall oral hypokinetic with severe pulmonary hypertension estimated at 68 mmHg. (5) Atrial fibrillation: Code(s): I48.91 - Unspecified atrial fibrillation Status: Acute Assessment and Plan: new onset atrial fibrillation per EKG * continue on Lovenox q.12 full dose pending echocardiogram * cardiology does not recommend anticaogulation on discharge due to high risk of bleeding * continue metoprolol * cardiology following (6) NSTEMI (non-ST elevated myocardial infarction): Code(s): I21.4 - Non-ST elevation (NSTEMI) myocardial infarction Status: Acute Assessment and Plan: patient with elevated troponins peaked at 1.76 trended flat at 1.75, repeat trop trending up 1.98 and EKG showing AFIB likely type II NSTEMI could be secondary to to ischemic demand patient unable to verbalize whether she is having chest pain patient is nonverbal * ECHO showed ef 30-35% * Cardiology discussed interventions with son who preferred medical management * COntineu Lovenox full dose, Aspirin, Metoprolol cardiology eval noted, signed off (7) Heart failure with reduced ejection fraction due to cardiomyopathy: Code(s): I50.20 - Unspecified systolic (congestive) heart failure; I42.9 - Cardiomyopathy, unspecified Status: Acute Assessment and Plan: SEE above #6 (8) Cardiomegaly: Code(s): I51.7 - Cardiomegaly Status: Acute Assessment and Plan: SEE ABOVE (9) Parkinson disease: Code(s): G20.A1 - Parkinson's disease without dyskinesia, without mention of fluctuations Status: Acute Assessment and Plan: * continue carbidopa levodopa (10) Seizure: Code(s): R56.9 - Unspecified convulsions Status: Acute Assessment and Plan: * continued patient's Keppra * seizure precautions (11) Thyroid disorder: Code(s): E07.9 - Disorder of thyroid, unspecified Status: Acute Assessment and Plan: currently unsure if patient has hyper or hypothyroidism per her half-way chart it states she has hypothyroidism however patient is currently on methimazole used for hyperthyroidism * TSH 1.66 (12) Uses feeding tube: Code(s): Z97.8 - Presence of other specified devices Status: Acute Assessment and Plan: Patient with feeding tube * resume tube feedings continuous at a rate of 45 with 150 free fluid flushes will adjust as needed Jevity 1.2 * dietitian consulted * Accu-Cheks q.6 with SSI * A1c pending (13) UTI (urinary tract infection): Qualifiers: Urinary tract infection type: catheter-associated UTI Indwelling urinary catheter type: indwelling urethral catheter Encounter type: initial encounter Qualified Code(s): T83.511A - Infection and inflammatory reaction due to indwelling urethral catheter, initial encounter; N39.0 - Urinary tract infection, site not specified Code(s): N39.0 - Urinary tract infection, site not specified Status: Ruled-out Assessment and Plan: UA suspicious of urinary tract infection previous culture grew Proteus m irabilis and previous blood cultures with E coli per sensitivities patient on IV Zosyn for coverage, patient has chronic indwelling catheter. urine culture with no growth RULED OUT Plan Code status: DNR/DNI per family DVT prophylaxis: Lovenox 1mg/kg Q12 Stress ulcer prophylaxis: Protonix 40 IVP PT/OT notes: Patient bedbound Disposition: possible discharge tomorrow Subjective Date/time seen: 04/02/25 15:14 Interval history: comfortable at bedside Cardiology recommends medical treatment Review of Systems Review of Systems: Patient nonverbal ROS unobtainable: Yes unobtainable due to medical condition and unobtainable due to mental status Exam Narrative: General: Chronically-ill, Nonverbal female, appears more comfortable today HEENT: normocephalic, atraumatic. Mucous membranes dry. EOMI, PERRLA, Respiratory: Diminished and scant crackles to bases on auscultation bilaterally. Tachypnea improved on 12L High flow nasal cannula Cardiovascular: AFIB HR 83 Abdomen: Soft, round. Peg tube Extremities: Bilateral upper extremity contractures Neuro: non verbal and lethargic Skin: warm to touch, and mild diaphoresis Psych: Unable assess Objective Data Vital Signs Vital Signs: Vital Signs - 24 hr 04/01/25 16:00 04/01/25 16:00 04/01/25 16:45 Temperature 98 F Pulse Rate 81 83 Respiratory Rate 24 H Blood Pressure 117/84 Pulse Oximetry 100 100 Oxygen Delivery High Flow Nasal Cannula Oxygen Flow Rate 6 Fraction of Inspired Oxygen 04/01/25 17:58 04/01/25 18:00 04/01/25 18:40 Temperature Pulse Rate 76 Respiratory Rate Blood Pressure Pulse Oximetry 99 99 Oxygen Delivery High Flow Nasal Cannula High Flow Nasal Cannula Oxygen Flow Rate 4 3 Fraction of Inspired Oxygen 04/01/25 19:33 04/01/25 20:00 04/01/25 20:10 Temperature 99.2 F Pulse Rate 75 89 70 Respiratory Rate 28 H 20 Blood Pressure 110/67 Pulse Oximetry 98 Oxygen Delivery Oxygen Flow Rate Fraction of Inspired Oxygen 04/01/25 20:13 04/01/25 20:22 04/01/25 21:00 Temperature Pulse Rate 70 70 87 Respiratory Rate 20 Blood Pressure Pulse Oximetry 97 Oxygen Delivery High Flow Nasal Cannula Oxygen Flow Rate 4 Fraction of Inspired Oxygen 38 04/01/25 21:00 04/01/25 22:00 04/01/25 23:35 Temperature Pulse Rate 87 77 79 Respiratory Rate 20 20 Blood Pressure Pulse Oximetry 97 98 Oxygen Delivery High Flow Nasal Cannula High Flow Nasal Cannula Oxygen Flow Rate 4 4 Fraction of Inspired Oxygen 04/02/25 00:00 04/02/25 00:15 04/02/25 02:00 Temperature 98.6 F Pulse Rate 82 86 79 Respiratory Rate 26 H Blood Pressure 116/92 H Pulse Oximetry 98 Oxygen Delivery Oxygen Flow Rate Fraction of Inspired Oxygen 04/02/25 02:01 04/02/25 02:12 04/02/25 04:00 Temperature Pulse Rate 82 82 69 Respiratory Rate 20 20 Blood Pressure Pulse Oximetry Oxygen Delivery Oxygen Flow Rate Fraction of Inspired Oxygen 04/02/25 04:35 04/02/25 04:48 04/02/25 06:00 Temperature 98.7 F Pulse Rate 89 89 104 H Respiratory Rate 23 H 23 H Blood Pressure 121/80 Pulse Oximetry 98 98 Oxygen Delivery High Flow Nasal Cannula Oxygen Flow Rate 4 Fraction of Inspired Oxygen 04/02/25 08:00 04/02/25 08:00 04/02/25 08:04 Temperature 99.0 F Pulse Rate 99 78 Respiratory Rate 20 20 Blood Pressure 109/60 Pulse Oximetry 97 99 Oxygen Delivery High Flow Nasal Cannula Oxygen Flow Rate 3 Fraction of Inspired Oxygen 04/02/25 08:06 04/02/25 08:14 04/02/25 08:22 Temperature Pulse Rate 79 85 Respiratory Rate 20 Blood Pressure Pulse Oximetry 98 Oxygen Delivery High Flow Nasal Cannula Oxygen Flow Rate 4 Fraction of Inspired Oxygen 04/02/25 08:29 04/02/25 11:46 04/02/25 12:50 Temperature 100.0 F H Pulse Rate 91 96 Respiratory Rate 24 H Blood Pressure 133/62 132/82 Pulse Oximetry 96 91 92 Oxygen Delivery High Flow Nasal Cannula Oxygen Flow Rate 2 Fraction of Inspired Oxygen 04/02/25 12:52 04/02/25 13:24 04/02/25 13:25 Temperature Pulse Rate 88 Respiratory Rate 36 H 20 Blood Pressure Pulse Oximetry 96 Oxygen Delivery High Flow Nasal Cannula Oxygen Flow Rate 4 Fraction of Inspired Oxygen 04/02/25 13:35 Temperature Pulse Rate 84 Respiratory Rate 20 Blood Pressure Pulse Oximetry Oxygen Delivery Oxygen Flow Rate Fraction of Inspired Oxygen Intake/Output Intake/Output: Intake & Output 03/30/25 03/31/25 04/01/25 04/02/25 23:59 23:59 23:59 23:59 Intake Total 200 3013.8 150 50 Output Total 1600 8853 802 1922 [facility] -1400 [id number] [phone] Meds/Results Medications: Active Medications Generic Name Dose Route Start Last Admin Trade Name Freq PRN Reason Stop Dose Admin Acetaminophen 650 mg 03/29/25 17:36 Acetaminophen 650 Mg Suppository RECTAL Q6H PRN Mild Pain (1-3) or Fever Acetaminophen 650 mg 03/29/25 17:44 04/01/25 14:13 Acetaminophen 325 Mg Tablet FEED TUBE 650 mg Q4H PRN Administration Mild Pain (1-3) or Fever Albuterol/Ipratropium 3 ml 03/29/25 20:00 04/02/25 13:24 Ipratropium 0.5 Mg/Albuterol Sulfate 2.5 Mg Ampul.Neb 3 Ml INHALATION 3 ml Q6HRT ALENA Administration Amoxicillin/Clavulanate Potassium 1 tablet 04/02/25 10:30 04/02/25 12:26 Amoxicillin/Clavulanate K 875-125 Mg Tab PO 04/05/25 21:01 1 tablet Q12HR ALENA Administration Atorvastatin Calcium 40 mg 03/30/25 21:00 04/01/25 21:00 Atorvastatin 40 Mg Tablet FEED TUBE 40 mg HS ALENA Administration Carbidopa/Levodopa 2 tablet 03/30/25 09:00 04/02/25 12:26 Carbidopa/Levodopa 25/100 Mg Tablet FEED TUBE 2 tablet TID ALENA Administration Clopidogrel Bisulfate 75 mg 03/30/25 09:00 04/02/25 08:23 Clopidogrel Bisulfate 75 Mg Tablet FEED TUBE 75 mg DAILY ALENA Administration Dextrose 12.5 gm 03/30/25 09:06 Dextrose 50% 25 Gm/50 Ml Syringe IV PUSH PRN PRN Hypoglycemia Protocol Doxycycline Hyclate 100 mg 04/02/25 09:00 04/02/25 12:26 Doxycycline Hyclate 100 Mg Tablet PO 04/06/25 21:01 100 mg Q12HR ALENA Administration Enoxaparin Sodium 65 mg 03/30/25 09:00 04/02/25 08:22 Enoxaparin 80 Mg/0.8 Ml Syringe SUB-Q 65 mg Q12HR ALENA Administration Famotidine 20 mg 03/30/25 09:00 04/02/25 08:22 Famotidine 20 Mg Tablet FEED TUBE 20 mg BID ALENA Administration Furosemide 40 mg 04/02/25 17:00 Furosemide Inj 40 Mg/4 Ml Vial IV PUSH BID ALENA Glucagon 1 mg 03/30/25 09:06 Glucagon For Inj 1 Mg Vial IM PRN PRN Hypoglycemia Protocol Glucose 15 gm 03/30/25 09:06 Glucose Oral Gel 15 Gm Of Glucse In 37.5 Gm Tube PO PRN PRN Hypoglycemia Protocol Guaifenesin 200 mg 04/02/25 09:00 04/02/25 08:21 Guaifenesin 200 Mg/10 Ml Udc FEED TUBE 200 mg TID ALENA Administration Dextrose 1,000 mls @ 100 mls/hr 03/30/25 09:06 Dextrose 5% 1,000 Ml IVPB PRN PRN Hypoglycemia Protocol Insulin Aspart 2 - 5 units 03/30/25 12:00 04/02/25 12:27 Insulin Aspart (*Bkc) 100 Units/Ml SUB-Q Not Given TIDWM [facility] Protocol Levetiracetam 500 mg 03/29/25 21:00 04/02/25 08:21 Levetiracetam Oral Moira 500 Mg/5 Ml Udc FEED TUBE 500 mg Q12H ALENA Administration Lorazepam 2 mg 03/30/25 08:26 Lorazepam Inj (*Crx) 2 Mg/Ml Vial IV PUSH Q2HR PRN Seizures Methimazole 10 mg 03/30/25 09:00 04/02/25 08:22 Methimazole 10 Mg Tab FEED TUBE 10 mg DAILY ALENA Administration Metoprolol Tartrate 25 mg 03/30/25 00:30 04/02/25 08:22 Metoprolol Tartrate 25 Mg Tablet FEED TUBE 25 mg Q12HR ALENA Administration Morphine Sulfate 1 mg 03/31/25 16:16 Morphine Sulfate (*Crx) 2 Mg/Ml Inj IV PUSH Q4H PRN anxiety Pantoprazole Sodium 40 mg 03/31/25 09:00 04/02/25 08:21 Pantoprazole Sodium Iv 40 Mg Vial IV PUSH 40 mg QAM ALENA Administration Sertraline HCl 50 mg 03/30/25 09:00 04/02/25 08:23 Sertraline Hcl 50 Mg Tablet FEED TUBE 50 mg DAILY ALENA Administration Radiology Results: ITS Impressions Chest X-Ray 04/01/25 05:55 Impression: Probable small to moderate right pleural effusion, decreased from prior exam. Left lung clear. Chest CTA 04/01/25 14:13 IMPRESSION: 1. No evidence of pulmonary embolism in main and lobar pulmonary arteries. 2. Diffuse tree-in-bud and airspace opacities are seen in the right lung. Findings are concerning for pneumonia. Short-term follow-up chest radiograph is recommended after appropriate clinical therapy. 3. Mild to moderate right pleural effusion causing compressive atelectasis.No pneumothorax. Labs Labs: Laboratory Results - last 24 hr 04/01/25 04/01/25 04/02/25 16:17 23:49 04:05 WBC 12.8 H RBC 3.03 L Hgb 9.5 L Hct 30.3 L MCV 100.0 MCH 31.4 MCHC 31.4 L RDW 13.3 Plt Count 199 MPV 10.4 Sodium 146 H Potassium 3.5 Chloride 112 H Carbon Dioxide 26 Anion Gap 8 BUN 14 Creatinine 0.49 L Estim Creat Clear Calc 73 Estimated GFR > 60 Glucose 88 POC Capillary Glucose 88 113 H Calcium 8.4 Magnesium 2.3 Total Bilirubin 0.4 AST 22 ALT 10 Alkaline Phosphatase 75 Troponin I 0.186 H* Total Protein 5.7 L Albumin 2.9 L 04/02/25 11:23 WBC RBC Hgb Hct MCV MCH MCHC RDW Plt Count MPV Sodium Potassium Chloride Carbon Dioxide Anion Gap BUN Creatinine Estim Creat Clear Calc Estimated GFR Glucose POC Capillary Glucose 98 Calcium Magnesium Total Bilirubin AST ALT Alkaline Phosphatase Troponin I Total Protein Albumin Quality VTE Prophylaxis VTE prophylaxis: mechanical ordered and pharmacologic ordered
--- NOTE | 2025-04-02 17:18 | PC.NURSE ---
This patient, Ivon Andersen, was received from [facility] on 04/02/25 at 1718. Patient/family oriented to unit policies and routines
[2025-04-02] MEDS: ATORVASTATIN 40 MG TABLET FEED TUBE (21:43)
[2025-04-03] VITALS (10 sets, daily range): BP systolic 92–110; BP diastolic 61–75; PULSE 75–92; RESP 18–20; TEMP 36.2; O2SAT 94–98
[2025-04-03] MEDS: IPRATROPIUM 0.5 MG/ALBUTEROL SULFATE 2.5 MG AMPUL.NEB 3 ML INHALATION ×3 (02:20→13:27)
[2025-04-03 06:09] LABS: Hematocrit 33.8 % (37.0-47.0); Hemoglobin 10.8 g/dL (12.0-15.0); Immature Granulocyte Percent A 1.0 % (0-0.5); Lymphocytes Absolute Auto 1.57 K/mm3 (0.9-3.2); Mean Corpuscular HGB Conc 32.0 g/dl (32-36); Mean Corpuscular Hemoglobin 31.3 pg (26-34); Mean Corpuscular Volume 98.0 fl (80-100); Nucleated Red Blood Cells Absolute Auto 0.000 K/mm3 (0.0-0.012); Nucleated Red Blood Cells Perc 0.0 % (0.0-0.2); Platelet Count Result 235 k/mm3 (150-375); Red Blood Count 3.45 M/mm3 (4.2-5.4); White Blood Count 10.4 K/mm3 (4.5-10.0)
[2025-04-03 06:33] LABS: Alanine Aminotransferase 17 U/L (6-35); Albumin Level 3.4 g/dL (3.5-5.1); Alkaline Phosphatase 80 U/L (38-126); Anion Gap 8 mmol/L (4-12); Aspartate Amino Transferase 22 U/L (14-36); Bilirubin,Total 0.4 mg/dL (0.2-1.3); Blood Urea Nitrogen 19 mg/dL (7-17); Calcium 8.6 mg/dL (8.4-10.2); Carbon Dioxide 30 mmol/L (22-30); Chloride 108 mmol/L (98-107); Estimated CRCL calculation 71 ml/min; Estimated Glomerular Filt Rate > 60; Glucose 137 mg/dL (65-110); Magnesium 2.0 mg/dL (1.6-2.3); Potassium 3.1 mmol/L (3.4-5.0); Sodium 146 mmol/L (137-145); Total Protein 6.4 g/dL (6.3-8.2)
[2025-04-03] MEDS: FAMOTIDINE 20 MG TABLET FEED TUBE (08:56)
[2025-04-03] MEDS: METOPROLOL TARTRATE 25 MG TABLET FEED TUBE (08:56)
[2025-04-03] MEDS: SERTRALINE HCL 50 MG TABLET FEED TUBE (08:56)
[2025-04-03] MEDS: DOXYCYCLINE HYCLATE 100 MG TABLET PO (08:56)
[2025-04-03] MEDS: CLOPIDOGREL BISULFATE 75 MG TABLET FEED TUBE (08:56)
[2025-04-03] MEDS: CARBIDOPA/LEVODOPA 25/100 MG TABLET 2 TABLET FEED TUBE ×2 (08:56→13:22)
[2025-04-03] MEDS: FUROSEMIDE INJ 40 MG/4 ML VIAL IV PUSH (08:57)
[2025-04-03] MEDS: PANTOPRAZOLE SODIUM IV 40 MG VIAL IV PUSH (08:57)
[2025-04-03] MEDS: levETIRAcetam ORAL SOL 500 MG/5 ML UDC FEED TUBE (08:57)
[2025-04-03] MEDS: ENOXAPARIN 80 MG/0.8 ML SYRINGE 65 MG SUB-Q (08:58)
--- NOTE | 2025-04-03 14:26 | PM.DS ---
DS: Admitting Diagnosis Discharge Date 04/03/25 Admitting Diagnosis Shortness of breath DS: Discharge Diagnosis Discharge Diagnosis (1) Heart failure with reduced ejection fraction due to cardiomyopathy: Code(s): I50.20 - Unspecified systolic (congestive) heart failure; I42.9 - Cardiomyopathy, unspecified Status: Acute (2) Atrial fibrillation: Code(s): I48.91 - Unspecified atrial fibrillation Status: Acute (3) Pneumonia: Code(s): J18.9 - Pneumonia, unspecified organism Status: Acute DS: Summary Hospital Course Hospital Course: 74-year-old female past medical history of nonverbal, thyroid disorder, chronic indwelling Larsen catheter, per disease and hypertension who resides in snf presents the hospital shortness of breath. HPI is limited as patient lives at snf is nonverbal. Code status confirmed with family do not intubate, no CPR okay for central line and vasopressors. Lab work in the ED shows leukocytosis at 23.9, ABG shows pH is 7.48, pCO2 29, PO2 of 158, bicarb of 21.7 lactic acid 3.8, troponin of 0.527, proBNP of 256, influenza A/B, RSV, COVID negative. UA pending. Chest x-ray showing cardiomegaly with pulmonary edema, atypical past season right chest suggestive of mass, and right upper lobe pneumonia. CT pending. Patient started on levofloxacin and Zosyn with IV fluid bolus of 2 L. Patient does not appear to be on diuretics or have a history of CHF. Patient meeting severe sepsis criteria being admitted for pneumonia and UTI with respiratory failure. Patient was managed for acute hypoxemic respiratory failure from pneumonia, she was initially on BiPAP and now trended down to nasal cannula oxygen 2 liters. Time Spent with Patient Time attestation: Total time spent providing and/or coordinating discharge services: DS: Data Data Completed and Pending Labs on day of discharge: Labs from last 24 hours 04/03/25 04/03/25 04/03/25 11:20 05:50 05:14 WBC 10.4 H RBC 3.45 L Hgb 10.8 L Hct 33.8 L MCV 98.0 MCH 31.3 MCHC 32.0 RDW 13.2 Plt Count 235 MPV 9.9 Immature Gran % (Auto) 1.0 H Neut % (Auto) 74.0 H Lymph % (Auto) 15.1 L [place] % (Auto) 6.7 Eos % (Auto) 2.4 Baso % (Auto) 0.8 Lymph # (Auto) 1.57 [place] # (Auto) 0.7 H Eos # (Auto) 0.3 Baso # (Auto) 0.1 Abs Immat Gran (auto) 0.10 H Absolute Neuts (auto) 7.7 H Absolute Nucleated RBC 0.000 Nucleated RBC % 0.0 Sodium 146 H Potassium 3.1 L Chloride 108 H Carbon Dioxide 30 Anion Gap 8 BUN 19 H Creatinine 0.51 L Estim Creat Clear Calc 71 Estimated GFR > 60 Glucose 137 H POC Capillary Glucose 137 H 123 H Calcium 8.6 Magnesium 2.0 Total Bilirubin 0.4 AST 22 ALT 17 Alkaline Phosphatase 80 Total Protein 6.4 Albumin 3.4 L 04/03/25 04/02/25 00:39 18:18 WBC RBC Hgb Hct MCV MCH MCHC RDW Plt Count MPV Immature Gran % (Auto) Neut % (Auto) Lymph % (Auto) [place] % (Auto) Eos % (Auto) Baso % (Auto) Lymph # (Auto) [place] # (Auto) Eos # (Auto) Baso # (Auto) Abs Immat Gran (auto) Absolute Neuts (auto) Absolute Nucleated RBC Nucleated RBC % Sodium Potassium Chloride Carbon Dioxide Anion Gap BUN Creatinine Estim Creat Clear Calc Estimated GFR Glucose POC Capillary Glucose 116 H 99 Calcium Magnesium Total Bilirubin AST ALT Alkaline Phosphatase Total Protein Albumin Preliminary micro results at discharge 03/29/25 18:38 Blood Culture - Preliminary Blood 03/29/25 18:38 Blood Culture - Preliminary Blood Discharge Plan Discharge Attending physician on discharge: Estephanie Kinney Consulting providers: Sylvia Damian; Brandyn Overton Discharging Clinician: Estephanie Kinney Anticipated Discharge Date/Time: 04/03/25 14:00 Patient Disposition: NH Residential/Asst Living Activity: as tolerated Diet: as tolerated and tube feeding Patient Instructions: Antibiotic Form Patient Language: P[place]in[place] Stand Alone Forms: General Discharge Information Follow-up/Referrals: Brandyn Overton MD [Physician] - (F/u with cardiology as instructed ) PHYSICIAN NOT ON STAFF,NONSTAFF [Primary Care Provider] - (F/u with PCP in 3-5 days ) Discharge Medications: New empagliflozin 10 mg tablet 10 mg PO DAILY 30 Days Qty: 30 1RF amoxicillin 875 mg tablet 875 mg PO Q12H 3 Days Qty: 6 0RF doxycycline hyclate 100 mg tablet 100 mg PO BID 3 Days Qty: 6 0RF Continued atorvastatin 40 mg tablet 40 mg feeding tube HS clopidogrel 75 mg tablet 75 mg feeding tube DAILY famotidine 20 mg tablet 20 mg feeding tube BID acetaminophen 160 mg/5 mL Elixir 320 mg feeding tube Q6H PRN (Reason: Fever) methimazole 10 mg tablet 10 mg feeding tube DAILY carbidopa-levodopa 25-100 mg tablet 2 tablet feeding tube TID sertraline 50 mg tablet 50 mg feeding tube DAILY levetiracetam 100 mg/mL solution 500 mg feeding tube Q12H Rx Instructions: 100 mg/ml- 5 ml BID metoprolol tartrate 25 mg tablet 25 mg feeding tube Q12H [id number]-vitamin K 18 mg iron-25 mcg Tablet 1 tablet PO DAILY Patient Comments: TAKES SIMILAR THROUGH FEEDING TUBE Date of admission: 03/30/25 07:09 Primary Care Provider: PHYSICIAN NOT ON STAFF,NONSTAFF Admitting Provider: Sukhdeep Schmid Attending physician on admission: Sukhdeep Schmid Condition: Stable
--- NOTE | 2025-04-03 14:57 | P.DS_ITS ---
DS: Admitting Diagnosis Discharge Date 04/03/25 Admitting Diagnosis Shortness of breath DS: Discharge Diagnosis Discharge Diagnosis (1) Acute respiratory failure: Code(s): J96.00 - Acute respiratory failure, unspecified whether with hypoxia or hypercapnia Status: Acute (2) Pneumonia: Qualifiers: Pneumonia type: due to unspecified organism Laterality: left Lung location: lower lobe of lung Qualified Code(s): J18.9 - Pneumonia, unspecified organism Code(s): J18.9 - Pneumonia, unspecified organism Status: Acute DS: Summary Hospital Course Hospital Course: 74-year-old female past medical history of nonverbal, thyroid disorder, chronic indwelling Gonsalez catheter, per disease and hypertension who resides in custodial presents the hospital shortness of breath. HPI is limited as patient lives at custodial is nonverbal. Code status confirmed with family do not intubate, no CPR okay for central line and vasopressors. Lab work in the ED shows leukocytosis at 23.9, ABG shows pH is 7.48, pCO2 29, PO2 of 158, bicarb of 21.7 lactic acid 3.8, troponin of 0.527, proBNP of 256, influenza A/B, RSV, COVID negative. UA pending. Chest x-ray showing cardiomegaly with pulmonary edema, atypical past season right chest suggestive of mass, and right upper lobe pneumonia. CT pending. Patient started on levofloxacin and Zosyn with IV fluid bolus of 2 L. Patient does not appear to be on diuretics or have a history of CHF. Patient meeting severe sepsis criteria being admitted for pneumonia and UTI with respiratory failure. Patient was managed for acute hypoxemic respiratory failure from pneumonia, she was initially on BiPAP and now trended down to nasal cannula oxygen 2 liters. Also managed for pneumonia and sepsis, Started on Zosyn, Levaquin and Vancomycin. eventually transitioned to Augmentin and Doxycycline, discharged on 3 day more days of Augmentin and Doxycycline. Cultures negative so far. Also managed for cardiomyopathy and NSTEMI, EF 30-35% and troponin was elevated, cardiology was consultd and discussed cardiac cath with son and he declined procedure. Cardiology recommended medical treatment, continuing her Plavix, Aspirin and Metoprolol. Jardiance added. Also managed for Afib,paroxysmal however they recommended against anticoagulation due to high risk of bleeding. now in Sinus rhythm Patient on tube feeding and gonsalez. F/u [facility] PCP in 3-5 days F/u with Cardiology as instructed Time Spent with Patient Time attestation: Total time spent providing and/or coordinating discharge services: DS: Data Data Completed and Pending Labs on day of discharge: Labs from last 24 hours 04/03/25 04/03/25 04/03/25 11:20 05:50 05:14 WBC 10.4 H RBC 3.45 L Hgb 10.8 L Hct 33.8 L MCV 98.0 MCH 31.3 MCHC 32.0 RDW 13.2 Plt Count 235 MPV 9.9 Immature Gran % (Auto) 1.0 H Neut % (Auto) 74.0 H Lymph % (Auto) 15.1 L [place] % (Auto) 6.7 Eos % (Auto) 2.4 Baso % (Auto) 0.8 Lymph # (Auto) 1.57 [place] # (Auto) 0.7 H Eos # (Auto) 0.3 Baso # (Auto) 0.1 Abs Immat Gran (auto) 0.10 H Absolute Neuts (auto) 7.7 H Absolute Nucleated RBC 0.000 Nucleated RBC % 0.0 Sodium 146 H Potassium 3.1 L Chloride 108 H Carbon Dioxide 30 Anion Gap 8 BUN 19 H Creatinine 0.51 L Estim Creat Clear Calc 71 Estimated GFR > 60 Glucose 137 H POC Capillary Glucose 137 H 123 H Calcium 8.6 Magnesium 2.0 Total Bilirubin 0.4 AST 22 ALT 17 Alkaline Phosphatase 80 Total Protein 6.4 Albumin 3.4 L 04/03/25 04/02/25 00:39 18:18 WBC RBC Hgb Hct MCV MCH MCHC RDW Plt Count MPV Immature Gran % (Auto) Neut % (Auto) Lymph % (Auto) [place] % (Auto) Eos % (Auto) Baso % (Auto) Lymph # (Auto) [place] # (Auto) Eos # (Auto) Baso # (Auto) Abs Immat Gran (auto) Absolute Neuts (auto) Absolute Nucleated RBC Nucleated RBC % Sodium Potassium Chloride Carbon Dioxide Anion Gap BUN Creatinine Estim Creat Clear Calc Estimated GFR Glucose POC Capillary Glucose 116 H 99 Calcium Magnesium Total Bilirubin AST ALT Alkaline Phosphatase Total Protein Albumin Preliminary micro results at discharge 03/29/25 18:38 Blood Culture - Preliminary Blood 03/29/25 18:38 Blood Culture - Preliminary Blood Discharge Plan Discharge Attending physician on discharge: Estephanie Kinney Consulting providers: Sylvia Damian; Brandyn Overton Discharging Clinician: Estephanie Kinney Anticipated Discharge Date/Time: 04/03/25 14:00 Patient Disposition: NH Long-Term/Asst Living Activity: as tolerated Diet: as tolerated and tube feeding Patient Instructions: Antibiotic Form Patient Language: Estonian Stand Alone Forms: General Discharge Information Follow-up/Referrals: Brandyn Overton MD [Physician] - (F/u with cardiology as instructed ) PHYSICIAN NOT ON STAFF,NONSTAFF [Primary Care Provider] - (F/u with PCP in 3-5 days ) Discharge Medications: New empagliflozin 10 mg tablet 10 mg PO DAILY 30 Days Qty: 30 1RF amoxicillin 875 mg tablet 875 mg PO Q12H 3 Days Qty: 6 0RF doxycycline hyclate 100 mg tablet 100 mg PO BID 3 Days Qty: 6 0RF Continued atorvastatin 40 mg tablet 40 mg feeding tube HS clopidogrel 75 mg tablet 75 mg feeding tube DAILY famotidine 20 mg tablet 20 mg feeding tube BID acetaminophen 160 mg/5 mL Elixir 320 mg feeding tube Q6H PRN (Reason: Fever) methimazole 10 mg tablet 10 mg feeding tube DAILY carbidopa-levodopa 25-100 mg tablet 2 tablet feeding tube TID sertraline 50 mg tablet 50 mg feeding tube DAILY levetiracetam 100 mg/mL solution 500 mg feeding tube Q12H Rx Instructions: 100 mg/ml- 5 ml BID metoprolol tartrate 25 mg tablet 25 mg feeding tube Q12H [id number]-[id number]-ctnp-vitamin K 18 mg iron-25 mcg Tablet 1 tablet PO DAILY Patient Comments: TAKES SIMILAR THROUGH FEEDING TUBE Date of admission: 03/30/25 07:09 Primary Care Provider: PHYSICIAN NOT ON STAFF,NONSTAFF Admitting Provider: Sukhdeep Schmid Attending physician on admission: Sukhdeep Schmid Condition: Stable
== END 2025-04-03 16:45 | DRG 871 ==
LOC: ANHED 17:33 → ANHIMU 18:33 → ANH3MEDSUR 04-03 14:12 → ANHIMU 04-04 10:26
PROVIDERS: Internal Medicine Interventional Cardiology; Nurse Practitioner Family; Nurse Practitioner Gerontology; Admitting Provider Internal Medicine; Emergency Provider Emergency Medicine; Visit Provider Internal Medicine
DX: A41.9 Sepsis, unspecified organism (principal); I21.A1 Myocardial infarction type 2; R65.21 Severe sepsis with septic shock; J18.9 Pneumonia, unspecified organism; J96.01 Acute respiratory failure with hypoxia; J96.02 Acute respiratory failure with hypercapnia; I50.33 Acute on chronic diastolic (congestive) heart failure; N39.0 Urinary tract infection, site not specified; T83.511A Infection and inflammatory reaction due to indwelling urethral catheter, initial encounter; K86.89 Other specified diseases of pancreas; N85.8 Other specified noninflammatory disorders of uterus; I48.0 Paroxysmal atrial fibrillation; G20.A1 Parkinson's disease without dyskinesia, without mention of fluctuations; I11.0 Hypertensive heart disease with heart failure; I50.9 Heart failure, unspecified; I25.5 Ischemic cardiomyopathy; R56.9 Unspecified convulsions; E07.9 Disorder of thyroid, unspecified; Z93.1 Gastrostomy status; Z86.73 Personal history of transient ischemic attack (TIA), and cerebral infarction without residual deficits; Z51.5 Encounter for palliative care
CPT/HCPCS: 36415; 36600; 71045; 71275; 80048; 80053; 80202; 81001; 82375; 82805; 82948; 83036; 83050; 83605; 83690; 83735; 83880; 84145; 84443; 84484; 85018; 85025; 85027; 85610; 85730; 87040; 87086; 87637; 87641; 93005; 94002; 94003; 94640; 96361; 96365; 96366; 96367; 99285; A9270; C8929; G0378; J1650; J1938; J1956; J2270; J2470; J2543; J3373; J3480; J7030; J7040; J7070; P9047; Q9957; Q9967

== ENCOUNTER 2025-04-05 12:10 | Inpatient (IN) | payer MEDICARE, SELFPAY ==
[2025-04-05] VITALS (11 sets, daily range): BP systolic 75–110; BP diastolic 35–71; PULSE 64–90; RESP 20–33; TEMP 37.1–37.8; O2SAT 92–100; BMI 22.6
--- NOTE | ~2025-04-05 | XR_ITS ---
CHEST RADIOGRAPH CLINICAL HISTORY: AMS . COMPARISON: 04/01/2025 TECHNIQUE: Single portable view of the chest. Examination is significantly limited, likely secondary to patient contracture with the right upper ex tremity projecting over the right lung, precluding adequate evaluation. FINDINGS Uncoiling of the thoracic aorta is identified, altering the contour of the cardiomediastinal silhouet te. The remainder of the cardiomediastinal silhouette is otherwise unremarkable. The left hemithorax is clear. Redemonstration of a right-sided pleural effusion, moderate in size. Limited evaluation of the remainder of the right hemithorax secondary to patient's right upper extrem ity projecting over the right lung. IMPRESSION: Right-sided pleural effusion, as detailed above. Reviewed, dictated and finalized at location A.
--- NOTE | ~2025-04-05 | CT_ITS ---
CLINICAL INDICATION: Patient recently hospitalized for shortness of breath and sepsis with urinary tr act infection. Presenting today with shortness of breath, recurrent leukocytosis and lactic acidosis COMPARISON: Reference is made to a CTA of the chest dated 04/01/2024. TECHNIQUE: Multiple contiguous axial images of the abdomen and pelvis were performed following the ad ministration of with 100 mL Omnipaque-350 intravenous contrast The dose-length product (DLP) was 455.87 mGy-cm. Automated exposure control and iterative reconstruction technique were employed. FINDINGS/OBSERVATIONS: Visualized lower thorax: Redemonstration of a right-sided pleural effusion with adjacent compressive atelectasis, decreased in size from 04/01/2024. Remaining bilateral lung bases are unremarkable. The heart is enlarged, without pericardial effusion. Liver: The liver demonstrates homogeneous enhancement and is not enlarged. Gallbladder and biliary system: The gallbladder is only minimally distended, and otherwise unremarkable. Pancreas: Within the proximal body of the pancreas is a focus of soft tissue attenuation measuring 3. 3 x 2.5 x 3.6 cm (anterior to posterior x medial to lateral x cranial to caudal dimension) for which a malignancy is suspected. This focus splays the gastroduodenal artery and the common hepatic artery, likely enveloping both. The celiac axis demonstrates a high-grade stenosis with poststenotic dilatation. The superior mesenteric artery is patent along its course and not associated with the pancreatic mass . The portal vein and superior mesenteric vein are both patent, and appear to be free of surrounding di sease. The remainder of the pancreas enhances homogeneously without ductal dilatation. Atrophy of the distal pancreas is present. Spleen: The spleen enhances homogeneously and is not enlarged. Kidneys: The bilateral kidneys enhance symmetrically without hydronephrosis or renal calculi. Adrenal glands: Unremarkable. Gastrointestinal tract: Percutaneous gastrostomy tube within the mid to distal stomach. Fecal stasis within the distal colon. Edematous mural thickening within the rectum with surrounding inflammatory change, consistent with [place]'s history and presentation. Appendix: The air-filled appendix is of normal caliber (axial series, images 106 through 115) Vasculature: As above. Lymph nodes: No pathologically enlarged or morphologically suspicious lymph nodes within the retroperitoneum or at the root of the mesentery. Pelvic structures: The bladder is decompressed with a Larsen catheter. Redemonstration of a 2.7 cm bladder calculus extending to the right of midline The uterus is anteverted and anteflexed and significantly enlarged (and hypervascular) for a patient of this age. Body wall and musculoskeletal: Age-appropriate degenerative disease within the lower thoracic and lumbosacral spines. IMPRESSION: 3.6 cm mass within the proximal body of the pancreas, with distal pancreatic atrophy which represents a primary pancreatic malignancy until proven otherwise. Additional findings within the grossly enlarged and hypervascular uterus, for which malignancy is als o suspected. Edematous mural thickening within the rectum, consistent with patient's presentation and history. Decreased right-sided pleural effusion with adjacent compressive atelectasis, when compared with prio r study on 04/01/2025. Reviewed, dictated and finalized at location A. IMPRESSION: 3.6 cm mass within the proximal body of the pancreas, with distal pancreatic at rophy which represents a primary pancreatic malignancy until proven otherwise. Additional findings within the grossly enlarged and hypervascular uterus, for w hich malignancy is also suspected. Edematous mural thickening within the rectum, consistent with patient's present ation and history. Decreased right-sided pleural effusion with adjacent compressive atelectasis, w hen compared with prior study on 04/01/2025.
--- NOTE | 2025-04-05 12:32 | ECG_ITS ---
Test Date: 2025-04-05 12:50:16 Measurements Intervals [place] Rate: 79 P: 65 IA: 132 QRS: 44 QRSD: 102 T: 188 QT: 454 QTc: 521 Interpretive Statements SINUS RHYTHM MODERATE T-WAVE ABNORMALITY, CONSIDER ANTEROLATERAL ISCHEMIA [-0.1+ mV T-WAVE IN V3-V6] Electronically Signed On 04-05-2025 22:31:47 CDT by Genaro Manzano M.D.
--- NOTE | 2025-04-05 13:14 | PC.NURSE ---
multiple RNS made multipal attempts at IV access and lab draw, no success. Yao from vascular access at bedside at this time
[2025-04-05 13:38] LABS: Hematocrit 34.6 % (37.0-47.0); Hemoglobin 11.1 g/dL (12.0-15.0); Mean Corpuscular HGB Conc 32.1 g/dl (32-36); Mean Corpuscular Hemoglobin 31.4 pg (26-34); Mean Corpuscular Volume 97.7 fl (80-100); Platelet Count Result 225 k/mm3 (150-375); Red Blood Count 3.54 M/mm3 (4.2-5.4); White Blood Count 23.3 K/mm3 (4.5-10.0)
[2025-04-05 14:02] LABS: INR 1.0; Partial Thromboplastin Time 26.9 Seconds (22.3-36.8); Prothrombin Time 13.5 Seconds (11.1-14.7)
[2025-04-05 14:30] LABS: Alanine Aminotransferase 14 U/L (6-35); Albumin Level 3.5 g/dL (3.5-5.1); Alkaline Phosphatase 71 U/L (38-126); Anion Gap 11 mmol/L (4-12); Aspartate Amino Transferase 35 U/L (14-36); Bilirubin,Total 0.4 mg/dL (0.2-1.3); Blood Urea Nitrogen 18 mg/dL (7-17); CRP 1.8 mg/dL (<1.0); Calcium 8.7 mg/dL (8.4-10.2); Carbon Dioxide 27 mmol/L (22-30); Chloride 104 mmol/L (98-107); Estimated CRCL calculation 89 ml/min; Estimated Glomerular Filt Rate > 60; Glucose 106 mg/dL (65-110); Potassium 3.7 mmol/L (3.4-5.0); Sodium 142 mmol/L (137-145); Total Protein 6.9 g/dL (6.3-8.2)
[2025-04-05 14:40] LABS: Band Neutrophils Percent 3 % (0-6); Lymphocytes Absolute Manual 0.46 K/mm3 (1.1-4.5); Lymphocytes Percent Manual 2.0 % (18-44); Monocytes Absolute Manual 0.93 K/mm3 (0.1-0.90); Monocytes Percent Manual 4 % (3-9); Neutrophils Absolute Manual 21.90 K/mm3 (1.3-6.7); Neutrophils Percent Manual 91 % (46-73); Total Cells Counted 100
[2025-04-05 14:41] LABS: Hypochromasia 1+; Schistocytes None Seen
[2025-04-05] MEDS: SODIUM CHLORIDE 0.9% IV 1,000 ML 999 ML IV CONT ×2 (15:20)
--- NOTE | 2025-04-05 15:32 | PC.NURSE ---
catheter exchanged per policy
[2025-04-05 16:05] LABS: Add Urine Microscopic? YES; Appearance Urine Cloudy (Clear); Glucose Urine UA 2+ mg/dL (Negative); Leukocyte Esterase Ur 2+ LEU/UL (Negative); Need Manual Microscopic Reviewed; Nitrate Urine Negative (Negative); Specific Grav Ur 1.039 (1.001-1.035)
[2025-04-05] MEDS: PIPERACILLIN/TAZOBACTAM SOD 3.375 GM in SODIUM CHLORIDE 0.9% IV 50 ML 100 ML IVPB (16:21)
--- NOTE | 2025-04-05 16:50 | ED_ITS ---
HPI - General Adult General Chief complaint: Shortness of Breath/Dyspnea Stated complaint: resp distress Time Seen by Provider: 04/05/25 12:21 History of Present Illness HPI narrative: Patient is a 74-year-old female who presents to the ER with possible respiratory distress. Apparently patient had profound hypoxia in the field. Patient has history of CVA and is contracted. She was just discharged from hospital couple days ago after having pneumonia. No history can be provided by patient. Related Data Home Medications ?Medication ?Instructions ?Recorded ?Confirmed ?Last Taken ?Type acetaminophen 160 mg/5 mL oral 320 mg feeding tube Q6H PRN Fever 08/12/24 03/29/25 Unknown History elixir atorvastatin 40 mg tablet 40 mg feeding tube HS 08/12/24 03/29/25 Unknown History carbidopa 25 mg-levodopa 100 mg 2 tablet feeding tube TID 08/12/24 03/29/25 Unknown History tablet clopidogrel 75 mg tablet 75 mg feeding tube DAILY 08/12/24 03/29/25 Unknown History famotidine 20 mg tablet 20 mg feeding tube BID 08/12/24 03/29/25 Unknown History levetiracetam 100 mg/mL oral 500 mg feeding tube Q12H 08/12/24 03/29/25 Unknown History solution methimazole 10 mg tablet 10 mg feeding tube DAILY 08/12/24 03/29/25 Unknown History metoprolol tartrate 25 mg tablet 25 mg feeding tube Q12H 08/12/24 03/29/25 Unknown History multivitamin s-mibdixjf-qpwwggg 1 tablet PO DAILY 08/12/24 03/29/25 Unknown History fumarate 18 mg-vitamin K 25 mcg tablet sertraline 50 mg tablet 50 mg feeding tube DAILY 08/12/24 03/29/25 Unknown History Allergies Allergy/AdvReac Type Severity Reaction Status Date / Time cephalexin Allergy Unknown Verified 04/02/25 08:37 Sulfa (Sulfonamide Allergy Unknown Verified 10/18/24 07:18 Antibiotics) Review of Systems 2 Review of Systems: ROS unobtainable: Yes unobtainable due to mental status PMFSH Past Medical History Medical History (Updated 04/05/25 @ 16:56 by Gavin Tijerina MD) Bladder stone Thyroid disorder Listed as hypothyroidism in [place] paperwork, however is on methimazole Nonverbal Chronic indwelling Larsen catheter History of supraventricular tachycardia Sepsis Parkinson disease Hypertension Surgical History Surgical History S/P percutaneous endoscopic gastrostomy (PEG) tube placement History of brain surgery Social History Social History Smoking status: Never smoker Alcohol intake: never Substance use: unknown Do You Feel Safe in your Home?: Yes Lack of Transportation: No Lack of Food: Never True Current Housing: I Have Housing Concerned About Future Housing: No Difficulty Paying Gas/Electric Bills: No Difficulty Paying for Meds: No Currently Unemployed: No Education: Bachelor's Degree Difficulty w/ Childcare or Family Care: No Spiritual care concerns: No Exam 2 Narrative: GENERAL: Chronically ill-appearing, well-nourished, and in no acute distress. HEAD: Normocephalic, atraumatic. ENT: Dry mucous membranes. NECK: Supple. CHEST: Clear to auscultation. No respiratory distress. HEART: Regular rate and rhythm. Normal peripheral pulses. ABDOMEN: Soft, nontender, nondistended. Feeding tube in epigastrium. EXTREMITIES: Right upper extremity flex flexed in contracted. Plantar flexion bilateral lower extremities. No deformity. SKIN: Warm, dry, no rash. NEURO: Awake alert. Contractures of the extremities. Course Course Emergency Course: Patient with 2 L IV fluid bolus. Zosyn started for broad-spectrum antibiotics. Blood pressure improving 108/64. Urinalysis with evidence of infection. Previous UA shows Proteus infection. Patient allergic to cephalexin, started on Zosyn. CT scan with concerns for malignancy. Patient accepted by the hospitalist service. Vital Signs Vital signs: Vital Signs Temperature 100.0 F H 04/05/25 12:27 Pulse Rate 90 04/05/25 12:27 Respiratory Rate 33 H 04/05/25 12:27 Blood Pressure 92/55 L 04/05/25 12:27 Pulse Oximetry 98 04/05/25 12:27 Oxygen Delivery Non-Rebreather Mask 04/05/25 12:27 Oxygen Flow Rate 15 04/05/25 12:27 Temperature 100.0 F H 04/05/25 12:27 Pulse Rate 86 04/05/25 17:54 Respiratory Rate 29 H 04/05/25 17:54 Blood Pressure 110/71 04/05/25 17:54 Pulse Oximetry 98 04/05/25 17:54 Oxygen Delivery Non-Rebreather Mask 04/05/25 13:16 Oxygen Flow Rate 15 04/05/25 13:16 Medical Decision Making Vital Signs Vital Signs: Vital Signs Temperature 100.0 F H 04/05/25 12:27 Pulse Rate 90 04/05/25 12:27 Respiratory Rate 33 H 04/05/25 12:27 Blood Pressure 92/55 L 04/05/25 12:27 Pulse Oximetry 98 04/05/25 12:27 Oxygen Delivery Non-Rebreather Mask 04/05/25 12:27 Oxygen Flow Rate 15 04/05/25 12:27 Temperature 100.0 F H 04/05/25 12:27 Pulse Rate 86 04/05/25 17:54 Respiratory Rate 29 H 04/05/25 17:54 Blood Pressure 110/71 04/05/25 17:54 Pulse Oximetry 98 04/05/25 17:54 Oxygen Delivery Non-Rebreather Mask 04/05/25 13:16 Oxygen Flow Rate 15 04/05/25 13:16 Lab Data 04/05/25 13:32 04/05/25 13:32 Labs: Lab Results 04/05/25 04/05/25 04/05/25 Range/Units 13:31 13:32 15:35 WBC 23.3 H (4.5-10.0) K/mm3 RBC 3.54 L (4.2-5.4) M/mm3 Hgb 11.1 L (12.0-15.0) g/dL Hct 34.6 L (37.0-47.0) % MCV 97.7 (80-100) fl MCH 31.4 (26-34) pg MCHC 32.1 (32-36) g/dl RDW 13.2 (11.5-14.5) % Plt Count 225 (150-375) k/mm3 MPV 10.0 (7.4-10.4) fl Immature Gran % (Auto) Not Reportable Neut % (Auto) Not Reportable Lymph % (Auto) Not Reportable [place] % (Auto) Not Reportable Eos % (Auto) Not Reportable Baso % (Auto) Not Reportable Lymph # (Auto) Not Reportable [place] # (Auto) Not Reportable Eos # (Auto) Not Reportable Baso # (Auto) Not Reportable Abs Immat Gran (auto) Not Reportable Absolute Neuts (auto) Not Reportable Absolute Nucleated RBC Not Reportable Total Counted 100 Neutrophils % (Manual) 91 H (46-73) % Band Neutrophils % 3 (0-6) % Lymphocytes % (Manual) 2.0 L (18-44) % Monocytes % (Manual) 4 (3-9) % Nucleated RBC % Not Reportable Abs Neuts (Manual) 21.90 H (1.3-6.7) K/mm3 Abs Lymphs (Manual) 0.46 L (1.1-4.5) K/mm3 Abs Monocytes (Manual) 0.93 H (0.1-0.90) K/mm3 Platelet Estimate Adequate (Adequate) Hypochromasia 1+ Schistocytes None seen PT 13.5 (11.1-14.7) Seconds INR 1.0 APTT 26.9 (22.3-36.8) Seconds Sodium 142 (137-145) mmol/L Potassium 3.7 (3.4-5.0) mmol/L Chloride 104 (98-107) mmol/L Carbon Dioxide 27 (22-30) mmol/L Anion Gap 11 (4-12) mmol/L BUN 18 H (7-17) mg/dL Creatinine 0.43 L (0.7-1.0) mg/dL Estim Creat Clear Calc 89 ml/min Estimated GFR > 60 (59 - ) Glucose 106 (65-110) mg/dL Lactic Acid 2.4 H (0.7-2.0) mmol/L Calcium 8.7 (8.4-10.2) mg/dL Total Bilirubin 0.4 (0.2-1.3) mg/dL AST 35 (14-36) U/L ALT 14 (6-35) U/L Alkaline Phosphatase 71 (38-126) U/L C-Reactive Protein 1.8 H (<1.0) mg/dL Total Protein 6.9 (6.3-8.2) g/dL Albumin 3.5 (3.5-5.1) g/dL Urine Color Yellow (Yellow) Urine Appearance Cloudy H (Clear) Urine pH 6.5 (5.0-9.0) Ur Specific [place] 1.039 H (1.001-1.035) Urine Protein 1+ H (Negative) mg/dL Urine Glucose (UA) 2+ H (Negative) mg/dL Urine Ketones Negative (Negative) mg/dL Ur Blood (Man) Negative (Negative) Urine Nitrate Negative (Negative) Urine Bilirubin Negative (Negative) Urine Urobilinogen 0.2 (<2.0) mg/dL Add Ur Microanalysis Reviewed Leukocyte Esterase Rfl 2+ H (Negative) BARBER/UL Urine RBC 11-20 H (0-2) /hpf Urine WBC >100 H (0-3) /hpf Ur Squamous Epith Cells Moderate (Few) /hpf Urine Bacteria 4+ H /hpf Urine Casts 3-5 Imaging Data Radiologist's impression: ITS Impressions Chest X-Ray 04/05/25 14:48 IMPRESSION: Right-sided pleural effusion, as detailed above. Abdomen/Pelvis CT 04/05/25 16:08 IMPRESSION: 3.6 cm mass within the proximal body of the pancreas, with distal pancreatic atrophy which represents a primary pancreatic malignancy until proven otherwise. Additional findings within the grossly enlarged and hypervascular uterus, for which malignancy is also suspected. Edematous mural thickening within the rectum, consistent with patient's presentation and history. Decreased right-sided pleural effusion with adjacent compressive atelectasis, when compared with prior study on 04/01/2025. ECG Data EKG #1: ECG completion date: 04/05/25 ECG completion time: 12:50 EKG Interpretation: normal rate (79), sinus rhythm, non-specific ST changes, normal QRS and normal QT Critical Care Time Critical Care Time Critical Care Time: Yes Total Critical Care Time: 35 Discharge Plan Discharge Clinical Impression: Acute UTI, Mass of head of pancreas Patient Disposition: Still a Patient Condition: Serious
[2025-04-05] MEDS: SODIUM CHLORIDE 0.9% IV 1,000 ML 125 ML IV CONT (17:53)
--- NOTE | 2025-04-05 18:03 | P.HP_ITS ---
H&P: HPI History of Present Illness Date/Time: 04/05/25 18:03 Chief Complaint: Altered mental status Narrative: 74-year-old female past medical history of a debilitating stroke, nonverbal, peg tube, chronic indwelling Larsen catheter, and hypertension presents the hospital with altered mental status. HPI is limited as patient is nonverbal. HPI gathered from chart review. Patient was recently admitted to the hospital on 03/29/2025 for sepsis secondary to pneumonia. She also had a echocardiogram on the hospital which showed a EF of 30-35% and she diuretics while she was here. Apparently patient was brought here for respiratory distress and was found to be hypoxic. Lab work in the ED shows leukocytosis at 23.3, anemia 11.1 which is around baseline, BUN of 18, creatinine of 0.43, GFR over 60, lactic acid 2.2, C- reactive protein 1.8, UA is cloudy 2+ leukocyte esterase over 100 wbc's under squamous cell and 4+ bacteria. Chest x-ray shows right-sided pleural effusion. CT abdomen pelvis show 3.6 cm mass within the proximal body of the pancreas, with distal pancreatic atrophy which represents a primary pancreatic malignancy until proven otherwise. Additional findings within the grossly enlarged and hypervascular uterus, for which malignancy is also suspected. EKG shows sinus rhythm. Patient was placed on 3 L nasal cannula. Review of Systems Review of Systems: ROS unobtainable: Yes unobtainable due to medical condition and unobtainable due to mental status [facility] Past Medical History Medical History (Updated 04/05/25 @ 19:12 by Nilsa Mercedes, BEATRIZ) Bladder stone Thyroid disorder Listed as hypothyroidism in [place] paperwork, however is on methimazole Nonverbal Chronic indwelling Larsen catheter History of supraventricular tachycardia Sepsis Parkinson disease Hypertension Surgical History Surgical History S/P percutaneous endoscopic gastrostomy (PEG) tube placement History of brain surgery Social History Social History Smoking status: Never smoker Second hand tobacco smoke exposure: No Alcohol intake: never Substance use: unknown Do You Feel Safe in your Home?: Yes Lack of Transportation: No Lack of Food: Never True Current Housing: I Have Housing Concerned About Future Housing: No Difficulty Paying Gas/Electric Bills: No Difficulty Paying for Meds: No Currently Unemployed: No Education: Bachelor's Degree Difficulty w/ Childcare or Family Care: No Spiritual care concerns: No Meds Home Medications and Allergies Home Medications ?Medication ?Instructions ?Recorded ?Confirmed ?Type acetaminophen 160 mg/5 mL oral 320 mg feeding tube Q6H PRN Fever 08/12/24 04/05/25 History elixir atorvastatin 40 mg tablet 40 mg feeding tube HS 08/12/24 04/05/25 History carbidopa 25 mg-levodopa 100 mg 2 tablet feeding tube TID 08/12/24 04/05/25 History tablet clopidogrel 75 mg tablet 75 mg feeding tube DAILY 08/12/24 04/05/25 History famotidine 20 mg tablet 20 mg feeding tube BID 08/12/24 04/05/25 History levetiracetam 100 mg/mL oral 500 mg feeding tube Q12H 08/12/24 04/05/25 History solution methimazole 10 mg tablet 10 mg feeding tube DAILY 08/12/24 04/05/25 History metoprolol tartrate 25 mg tablet 25 mg feeding tube Q12H 08/12/24 04/05/25 History multivitamin z-akkitixz-wpqbjld 1 tablet PO DAILY 08/12/24 04/05/25 History fumarate 18 mg-vitamin K 25 mcg tablet sertraline 50 mg tablet 25 mg feeding tube DAILY 08/12/24 04/05/25 History amoxicillin 875 mg tablet 875 mg PO Q12H 3 days #6 tabs 04/03/25 04/05/25 Rx doxycycline hyclate 100 mg tablet 100 mg feeding tube Q12H 04/05/25 04/05/25 History empagliflozin 10 mg tablet 10 mg feeding tube DAILY 04/05/25 04/05/25 History furosemide 40 mg tablet (Lasix) 40 mg feeding tube DAILY 04/05/25 04/05/25 History guaifenesin 200 mg tablet 200 mg PO TID 04/05/25 04/05/25 History nystatin 100,000 unit/gram topical 1 applic topical DAILY 04/05/25 04/05/25 History cream Allergies Allergy/AdvReac Type Severity Reaction Status Date / Time cephalexin Allergy Unknown Verified 04/02/25 08:37 Sulfa (Sulfonamide Allergy Unknown Verified 10/18/24 07:18 Antibiotics) Vital Signs Vital Signs - 24 hr 04/05/25 12:27 04/05/25 12:33 04/05/25 12:33 Temperature 100.0 F H Pulse Rate 90 86 Respiratory Rate 33 H 20 Blood Pressure 92/55 L 92/55 L Pulse Oximetry 98 100 100 Oxygen Delivery Non-Rebreather Mask Non-Rebreather Mask Oxygen Flow Rate 15 15 04/05/25 13:16 04/05/25 17:54 Temperature Pulse Rate 86 Respiratory Rate 29 H Blood Pressure 110/71 Pulse Oximetry 98 98 Oxygen Delivery Non-Rebreather Mask Oxygen Flow Rate 15 Exam Narrative: General: Chronically-ill, HEENT: normocephalic, atraumatic. Mucous membranes moist. EOMI, PERRLA, bilateral sclera anicteric, no conjunctival injection. Neck supple without JVD, lymphadenopathy, or bruit. Respiratory: clear to ascultation bilaterally. No rales/rhonic/wheezes. Tachypneic Cardiovascular: Regular rate and rhythm, normal S1-S2 upon ascultation. No murmurs, rubs, or clicks. PMI is nondisplaced, capillary refill less than 3 second. Abdomen: Soft, round, no pulsatile masses, nondistended and nontender. No rebound, no guarding. Peg tube Extremities: No cyanosis, clubbing, or edema present. Pulses are palpable 2/2. Contracted Neuro: Alert and orientated x 0. PERRLA. Cranial nerves 2-12 intact without focal deficit. Skin: Warm, dry, and intact, without rash, erythema, or lesion. Psych: Unable to assess H&P: Results Labs Labs: Short CBC 04/05/25 Range/Units 13:32 WBC 23.3 H (4.5-10.0) K/mm3 Hgb 11.1 L (12.0-15.0) g/dL Hct 34.6 L (37.0-47.0) % Plt Count 225 (150-375) k/mm3 BMP 04/05/25 13:32 Sodium 142 Potassium 3.7 Chloride 104 Carbon Dioxide 27 BUN 18 H Creatinine 0.43 L Glucose 106 Calcium 8.7 Liver Function 04/05/25 Range/Units 13:32 Total Bilirubin 0.4 (0.2-1.3) mg/dL AST 35 (14-36) U/L ALT 14 (6-35) U/L Alkaline Phosphatase 71 (38-126) U/L Albumin 3.5 (3.5-5.1) g/dL Urine 04/05/25 Range/Units 15:35 Urine Color Yellow (Yellow) Urine Appearance Cloudy H (Clear) Urine pH 6.5 (5.0-9.0) Ur Specific [place] 1.039 H (1.001-1.035) Urine Protein 1+ H (Negative) mg/dL Urine Glucose (UA) 2+ H (Negative) mg/dL Assessment and Plan Assessment and plan (1) Pleural effusion: Code(s): J90 - Pleural effusion, not elsewhere classified Status: Acute Assessment and Plan: Patient may benefit from a thoracentesis Will hold Plavix and VTE (2) Acute respiratory failure: Code(s): J96.00 - Acute respiratory failure, unspecified whether with hypoxia or hypercapnia Status: Acute Assessment and Plan: Could be secondary to above versus pneumonia versus other Wean oxygen as able Blood cultures pending IV Zosyn (3) Heart failure with reduced ejection fraction due to cardiomyopathy: Code(s): I50.20 - Unspecified systolic (congestive) heart failure; I42.9 - Cardiomyopathy, unspecified Status: Acute Assessment and Plan: Echo showing cardiomyopathy LVEF 30-35% with the mid anterior wall, mid anterior septal and mid inferior lateral wall oral hypokinetic with severe pulmonary hypertension estimated at 68 mmHg. Patient was given to use fluids in the emergency room Monitor for fluid overload stop IVF Continue Jardiance, Lasix, metoprolol (4) Acute UTI: Code(s): N39.0 - Urinary tract infection, site not specified Status: Acute Assessment and Plan: UA suspicious of urinary tract infection previous culture grew Proteus mirabilis and previous blood cultures with E coli per sensitivities patient on IV Zosyn for coverage, patient has chronic indwelling catheter. Culture and sensitivity pending IV Zosyn (5) Pancreatic mass: Code(s): K86.89 - Other specified diseases of pancreas Status: Acute Assessment and Plan: GI consulted pending recommendations (6) Uterine mass: Code(s): N85.8 - Other specified noninflammatory disorders of uterus Status: Acute Assessment and Plan: Ob consulted pending recommendations (7) Hypertension: Code(s): I10 - Essential (primary) hypertension Status: Acute Assessment and Plan: Does not appear to be on blood pressure meds (8) Uses feeding tube: Code(s): Z97.8 - Presence of other specified devices Status: Acute Assessment and Plan: continuous at a rate of 45 with 150 free fluid flushes will adjust as needed Jevity 1.2 Accu-Cheks q.6 with SSI (9) Seizure: Code(s): R56.9 - Unspecified convulsions Status: Acute Assessment and Plan: Continue Keppra (10) Thyroid disorder: Code(s): E07.9 - Disorder of thyroid, unspecified Status: Acute Assessment and Plan: Continue methimazole Quality VTE Prophylaxis VTE prophylaxis: mechanical ordered If No VTE Prophylaxis Answer both mechanical and pharmacologic: Reason no pharmacologic proph: medical contraindication Hospitalist MIPS Advance Care Plan I have confirmed that the patient's Advanced Care Plan is present, code status is documented, or surrogate decision maker is listed in patient medical record.: Yes Medication Reconciliation I have utilized all available resources to obtain, update and review the patients current medications (includes all prescriptions, OTC, herbals, cannabis, and nutritional supplements).: Yes
--- NOTE | 2025-04-05 20:04 | ADMGEN ---
This patient, Ivon Andersen, was admitted to IMU Room 207-01 via bed with one RN and no issues. Patient/family oriented to hospital policies and general routines including ID bracelet, bed and alarms, visiting hours, pain management, procedures, bathroom and other care routines, personal items, smoking policy, room service/diet, and visiting hours. Information on how to activate the Rapid Response Team has been discussed. Patient/Family are encouraged to report perceived risks to care and to ask questions if they do not understand what they are told or what they should do.
[2025-04-05] MEDS: IPRATROPIUM 0.5 MG/ALBUTEROL SULFATE 2.5 MG AMPUL.NEB 3 ML INHALATION (21:04)
[2025-04-05] MEDS: levETIRAcetam ORAL SOL 500 MG/5 ML UDC FEED TUBE (22:57)
[2025-04-05] MEDS: ALBUMIN HUMAN 25% 25 GM/100 ML 100 ML IVPB (23:21)
--- NOTE | 2025-04-05 23:27 | PM.CCN ---
Critical Care Event Note Summary Code activated: No Narrative: Called by nursing for patient being tachypneic, using accessory muscles, hypoxic, unable to diurese due to patient having a blood pressure of 80s/40s, EF of 30%. BiPAP and albumin ordered. Son David the POA was called and updated about CT scan with mass in the body of the pancreas and and uterine mass in addition with hypertension, respiratory distress EF of 30 presents, severe stroke leaving the patient bed-bound and nonverbal. That is than the best discharge the patient to no longer pursue medical management, and the son agrees and will make the patient comfort care. Critical Care Time Critical Care Time: Yes Total Critical Care Time: 45 minutes Due to a high probability of clinically significant, life threatening deterioration, the patient required my highest level of preparedness to intervene emergently and I personally spent this critical care time directly and personally managing the patient. This critical care time included obtaining a history; examining the patient; pulse oximetry; ordering and review of studies; arranging urgent treatment with development of a management plan; evaluation of patient's response to treatment; frequent reassessment; and discussions with other providers. It was exclusive of separately billable procedures and treating other patients and teaching time. Please see Assessment and Plan section and the rest of the note for further information on patient assessment and treatment. This case had a high probability of a clinically significant, sudden, or life threatening deterioration of this patient's condition which required my full and direct attention, intervention and personal management. Critical care time: 30 - 74 mins
[2025-04-05] MEDS: WATER FOR IRRIGATION, STERILE 1,000 ML BOTTLE 1000 ML (23:33)
[2025-04-06 00:18] VITALS: O2SAT 96
--- NOTE | 2025-04-06 01:18 | PC.NURSE ---
This patient, Ivon Andersen, was transferred to [facility] on 04/06/25 at 0118 with one nurse and one tech via bed and no issues. Personal belongings sent with patient. Report given to Yesenia BENAVIDES. Appropriate documentation sent with patient.
--- NOTE | 2025-04-06 01:29 | PC.NURSE ---
Left voicemail to KESHA David Andersen, son, that pt was moved to a medical floor.
[2025-04-06] MEDS: PIPERACILLIN/TAZOBACTAM SOD 3.375 GM in SODIUM CHLORIDE 0.9% IV 50 ML 100 ML IVPB ×4 (01:55→18:00)
[2025-04-06] MEDS: MORPHINE SULFATE (*CRX) 2 MG/ML INJ IV PUSH ×2 (02:32→18:07)
[2025-04-06] MEDS: LORazepam INJ (*CRX) 2 MG/ML VIAL IV PUSH (02:51)
[2025-04-06 08:00] VITALS: BP 134/71; PULSE 90; RESP 30; TEMP 35.8; O2SAT 91
[2025-04-06] MEDS: levETIRAcetam ORAL SOL 500 MG/5 ML UDC FEED TUBE ×2 (09:04→21:29)
[2025-04-06] MEDS: CARBIDOPA/LEVODOPA 25/100 MG TABLET 2 TABLET FEED TUBE ×3 (09:04→17:59)
--- NOTE | 2025-04-06 11:53 | P.PNIM_ITS ---
Progress Note: A&P Assessment and Plan (1) Pleural effusion: Code(s): J90 - Pleural effusion, not elsewhere classified Status: Acute Assessment and Plan: Patient may benefit from a thoracentesis Will hold Plavix and VTE (2) Acute respiratory failure: Code(s): J96.00 - Acute respiratory failure, unspecified whether with hypoxia or hypercapnia Status: Acute Assessment and Plan: Could be secondary to above versus pneumonia versus other Wean oxygen as able Blood cultures pending IV Zosyn (3) Heart failure with reduced ejection fraction due to cardiomyopathy: Code(s): I50.20 - Unspecified systolic (congestive) heart failure; I42.9 - Cardiomyopathy, unspecified Status: Acute Assessment and Plan: Echo showing cardiomyopathy LVEF 30-35% with the mid anterior wall, mid anterior septal and mid inferior lateral wall oral hypokinetic with severe pulmonary hypertension estimated at 68 mmHg. Patient was given to use fluids in the emergency room Monitor for fluid overload stop IVF Continue Jardiance, Lasix, metoprolol (4) Acute UTI: Code(s): N39.0 - Urinary tract infection, site not specified Status: Acute Assessment and Plan: UA suspicious of urinary tract infection previous culture grew Proteus mirabilis and previous blood cultures with E coli per sensitivities patient on IV Zosyn for coverage, patient has chronic indwelling catheter. Culture and sensitivity pending IV Zosyn (5) Pancreatic mass: Code(s): K86.89 - Other specified diseases of pancreas Status: Acute Assessment and Plan: GI consulted pending recommendations (6) Uterine mass: Code(s): N85.8 - Other specified noninflammatory disorders of uterus Status: Acute Assessment and Plan: Ob consulted pending recommendations (7) Hypertension: Code(s): I10 - Essential (primary) hypertension Status: Acute Assessment and Plan: Does not appear to be on blood pressure meds (8) Uses feeding tube: Code(s): Z97.8 - Presence of other specified devices Status: Acute Assessment and Plan: continuous at a rate of 45 with 150 free fluid flushes will adjust as needed Jevity 1.2 Accu-Cheks q.6 with SSI (9) Seizure: Code(s): R56.9 - Unspecified convulsions Status: Acute Assessment and Plan: Continue Keppra (10) Thyroid disorder: Code(s): E07.9 - Disorder of thyroid, unspecified Status: Acute Assessment and Plan: Continue methimazole Plan Discussed with David Nathaly about goals of care and he decided to transition to comfort care. jewelry sales coordinator has been consulted about hospice discharge Subjective Date/time seen: 04/06/25 11:53 Interval history: Comfortable at bedside Review of Systems Review of Systems: ROS unobtainable: Yes unobtainable due to medical condition and unobtainable due to mental status Exam Narrative: General: Chronically-ill, HEENT: normocephalic, atraumatic. Mucous membranes moist. EOMI, PERRLA, bilateral sclera anicteric, no conjunctival injection. Neck supple without JVD, lymphadenopathy, or bruit. Respiratory: clear to ascultation bilaterally. No rales/rhonic/wheezes. Tachypneic Cardiovascular: Regular rate and rhythm, normal S1-S2 upon ascultation. No murmurs, rubs, or clicks. PMI is nondisplaced, capillary refill less than 3 second. Abdomen: Soft, round, no pulsatile masses, nondistended and nontender. No rebound, no guarding. Peg tube Extremities: No cyanosis, clubbing, or edema present. Pulses are palpable 2/2. Contracted Neuro: Alert and orientated x 0. PERRLA. Cranial nerves 2-12 intact without focal deficit. Skin: Warm, dry, and intact, without rash, erythema, or lesion. Psych: Unable to assess Objective Data Vital Signs Vital Signs: Vital Signs - 24 hr 04/05/25 12:27 04/05/25 12:33 04/05/25 12:33 Temperature 100.0 F H Pulse Rate 90 86 Respiratory Rate 33 H 20 Blood Pressure 92/55 L 92/55 L Pulse Oximetry 98 100 100 Oxygen Delivery Non-Rebreather Mask Non-Rebreather Mask Oxygen Flow Rate 15 15 04/05/25 13:16 04/05/25 17:54 04/05/25 20:00 Temperature Pulse Rate 86 Respiratory Rate 29 H Blood Pressure 110/71 Pulse Oximetry 98 98 100 Oxygen Delivery Non-Rebreather Mask Nasal Cannula Oxygen Flow Rate 15 4 04/05/25 20:00 04/05/25 21:07 04/05/25 21:08 Temperature Pulse Rate 64 74 Respiratory Rate 24 H Blood Pressure Pulse Oximetry 96 Oxygen Delivery Nasal Cannula Oxygen Flow Rate 3 04/05/25 21:11 04/05/25 21:15 04/05/25 21:45 Temperature 98.8 F Pulse Rate 72 74 Respiratory Rate 24 H 24 H Blood Pressure 102/65 Pulse Oximetry 100 92 Oxygen Delivery High Flow Nasal Cannula Oxygen Flow Rate 8 04/05/25 22:50 04/06/25 00:18 Temperature Pulse Rate Respiratory Rate Blood Pressure 75/35 L Pulse Oximetry 96 Oxygen Delivery High Flow Nasal Cannula Oxygen Flow Rate 2 Intake/Output Intake/Output: Intake & Output 04/03/25 04/04/25 04/05/25 04/06/25 23:59 23:59 23:59 23:59 Intake Total 2049 1200 Output Total 900 Balance 0 300 Meds/Results Medications: Active Medications Generic Name Dose Route Start Last Admin Trade Name Freq PRN Reason Stop Dose Admin Acetaminophen 650 mg 04/05/25 22:27 Acetaminophen Elixir 325 Mg/10.15 Ml Udc FEED TUBE Q6H PRN Fever Atropine Sulfate 1 - 2 drop 04/05/25 23:25 Atropine Sulfate 1% Ophth Soln 5 Ml Bottle SUBLINGUAL Q4H PRN Secretions Carbidopa/Levodopa 2 tablet 04/06/25 08:00 04/06/25 09:04 Carbidopa/Levodopa 25/100 Mg Tablet FEED TUBE 2 tablet TIDWM ALENA Administration Piperacillin Sod/Tazobactam 50 mls @ 100 mls/hr 04/06/25 08:00 04/06/25 09:48 Sod 3.375 gm/ Sodium Chloride IVPB Infused Q6HR ALENA Infusion Levetiracetam 500 mg 04/05/25 22:15 04/06/25 09:04 Levetiracetam Oral Moira 500 Mg/5 Ml Udc FEED TUBE 500 mg Q12HR ALENA Administration Lorazepam 2 mg 04/05/25 23:25 04/06/25 02:51 Lorazepam Inj (*Crx) 2 Mg/Ml Vial IV PUSH 2 mg Q2H PRN Administration Anxiety/Comfort Morphine Sulfate 2 mg 04/05/25 23:25 04/06/25 02:32 Morphine Sulfate (*Crx) 2 Mg/Ml Inj IV PUSH 2 mg Q30M PRN Administration COMFORT Radiology Results: ITS Impressions Chest X-Ray 04/05/25 14:48 IMPRESSION: Right-sided pleural effusion, as detailed above. Abdomen/Pelvis CT 04/05/25 16:08 IMPRESSION: 3.6 cm mass within the proximal body of the pancreas, with distal pancreatic atrophy which represents a primary pancreatic malignancy until proven otherwise. Additional findings within the grossly enlarged and hypervascular uterus, for which malignancy is also suspected. Edematous mural thickening within the rectum, consistent with patient's presentation and history. Decreased right-sided pleural effusion with adjacent compressive atelectasis, when compared with prior study on 04/01/2025. Labs Labs: Laboratory Results - last 24 hr 04/05/25 04/05/25 04/05/25 13:31 13:32 15:35 WBC 23.3 H RBC 3.54 L Hgb 11.1 L Hct 34.6 L MCV 97.7 MCH 31.4 MCHC 32.1 RDW 13.2 Plt Count 225 MPV 10.0 Immature Gran % (Auto) Not Reportable Neut % (Auto) Not Reportable Lymph % (Auto) Not Reportable [place] % (Auto) Not Reportable Eos % (Auto) Not Reportable Baso % (Auto) Not Reportable Lymph # (Auto) Not Reportable [place] # (Auto) Not Reportable Eos # (Auto) Not Reportable Baso # (Auto) Not Reportable Abs Immat Gran (auto) Not Reportable Absolute Neuts (auto) Not Reportable Absolute Nucleated RBC Not Reportable Total Counted 100 Neutrophils % (Manual) 91 H Band Neutrophils % 3 Lymphocytes % (Manual) 2.0 L Monocytes % (Manual) 4 Nucleated RBC % Not Reportable Abs Neuts (Manual) 21.90 H Abs Lymphs (Manual) 0.46 L Abs Monocytes (Manual) 0.93 H Platelet Estimate Adequate Hypochromasia 1+ Schistocytes None seen PT 13.5 INR 1.0 APTT 26.9 Sodium 142 Potassium 3.7 Chloride 104 Carbon Dioxide 27 Anion Gap 11 BUN 18 H Creatinine 0.43 L Estim Creat Clear Calc 89 Estimated GFR > 60 Glucose 106 Lactic Acid 2.4 H Calcium 8.7 Total Bilirubin 0.4 AST 35 ALT 14 Alkaline Phosphatase 71 C-Reactive Protein 1.8 H Total Protein 6.9 Albumin 3.5 Urine Color Yellow Urine Appearance Cloudy H Urine pH 6.5 Ur Specific [place] 1.039 H Urine Protein 1+ H Urine Glucose (UA) 2+ H Urine Ketones Negative Ur Blood (Man) Negative Urine Nitrate Negative Urine Bilirubin Negative Urine Urobilinogen 0.2 Add Ur Microanalysis Reviewed Leukocyte Esterase Rfl 2+ H Urine RBC 11-20 H Urine WBC >100 H Ur Squamous Epith Cells Moderate Urine Bacteria 4+ H Urine Casts 3-5 04/05/25 21:17 WBC RBC Hgb Hct MCV MCH MCHC RDW Plt Count MPV Immature Gran % (Auto) Neut % (Auto) Lymph % (Auto) [place] % (Auto) Eos % (Auto) Baso % (Auto) Lymph # (Auto) [place] # (Auto) Eos # (Auto) Baso # (Auto) Abs Immat Gran (auto) Absolute Neuts (auto) Absolute Nucleated RBC Total Counted Neutrophils % (Manual) Band Neutrophils % Lymphocytes % (Manual) Monocytes % (Manual) Nucleated RBC % Abs Neuts (Manual) Abs Lymphs (Manual) Abs Monocytes (Manual) Platelet Estimate Hypochromasia Schistocytes PT INR APTT Sodium Potassium Chloride Carbon Dioxide Anion Gap BUN Creatinine Estim Creat Clear Calc Estimated GFR Glucose Lactic Acid 1.4 Calcium Total Bilirubin AST ALT Alkaline Phosphatase C-Reactive Protein Total Protein Albumin Urine Color Urine Appearance Urine pH Ur Specific [place] Urine Protein Urine Glucose (UA) Urine Ketones Ur Blood (Man) Urine Nitrate Urine Bilirubin Urine Urobilinogen Add Ur Microanalysis Leukocyte Esterase Rfl Urine RBC Urine WBC Ur Squamous Epith Cells Urine Bacteria Urine Casts Quality VTE Prophylaxis VTE prophylaxis: mechanical ordered
[2025-04-06] MEDS: VANCOMYCIN 1,750 MG/NS 500 ML 1,750 MG/500 ML BAG 250 MG IVPB (13:32)
[2025-04-06 17:13] LABS: MRSA (PCR) NOT DETECTED (NOT DETECTE)
[2025-04-06 20:00] VITALS: BP 122/70; PULSE 52; RESP 20; TEMP 37.1; O2SAT 95
[2025-04-07] MEDS: PIPERACILLIN/TAZOBACTAM SOD 3.375 GM in SODIUM CHLORIDE 0.9% IV 50 ML 100 ML IVPB ×3 (00:29→13:16)
[2025-04-07] MEDS: VANCOMYCIN 1,250 MG/NS 250 ML 1,250 MG/250 ML BAG 166.67 MG IVPB (01:45)
[2025-04-07 06:56] LABS: Estimated CRCL calculation 79 ml/min; Estimated Glomerular Filt Rate > 60
[2025-04-07 08:00] VITALS: BP 159/100; PULSE 96; RESP 28; TEMP 37.2; O2SAT 90
[2025-04-07] MEDS: CARBIDOPA/LEVODOPA 25/100 MG TABLET 2 TABLET FEED TUBE ×2 (09:57→13:16)
[2025-04-07] MEDS: levETIRAcetam ORAL SOL 500 MG/5 ML UDC FEED TUBE (09:57)
[2025-04-07] MEDS: MORPHINE SULFATE (*CRX) 2 MG/ML INJ IV PUSH (13:15)
[2025-04-07 13:25] VITALS: RESP 36; O2SAT 91
--- NOTE | 2025-04-07 13:42 | PCRCNOTE ---
1325: RT called to room for audibly coarse breath sounds; SpO2: 88% on 3 L/min high flow nasal cannula, increased to 10 L/min; RT performed Nasotracheal Suction with 14Fr open suction catheter via Left nare for copious amount of thick, frothy, white secretions with spontaneous coughing during process; desaturation to low 70's observed via finger pulse oximeter on Left #1 index (Right arm contracted); finished much less coarse, SpO2 increased to 91%, Flow decreased to 5 L/min; will return to reassess; RN present.
--- NOTE | 2025-04-07 13:51 | P.PNIM_ITS ---
Progress Note: A&P Assessment and Plan (1) Pleural effusion: Code(s): J90 - Pleural effusion, not elsewhere classified Status: Acute Assessment and Plan: Patient may benefit from a thoracentesis Will hold Plavix and VTE (2) Acute respiratory failure: Code(s): J96.00 - Acute respiratory failure, unspecified whether with hypoxia or hypercapnia Status: Acute Assessment and Plan: Could be secondary to above versus pneumonia versus other Wean oxygen as able Blood cultures pending IV Zosyn (3) Heart failure with reduced ejection fraction due to cardiomyopathy: Code(s): I50.20 - Unspecified systolic (congestive) heart failure; I42.9 - Cardiomyopathy, unspecified Status: Acute Assessment and Plan: Echo showing cardiomyopathy LVEF 30-35% with the mid anterior wall, mid anterior septal and mid inferior lateral wall oral hypokinetic with severe pulmonary hypertension estimated at 68 mmHg. Patient was given to use fluids in the emergency room Monitor for fluid overload stop IVF Continue Jardiance, Lasix, metoprolol (4) Acute UTI: Code(s): N39.0 - Urinary tract infection, site not specified Status: Acute Assessment and Plan: UA suspicious of urinary tract infection previous culture grew Proteus mirabilis and previous blood cultures with E coli per sensitivities patient on IV Zosyn for coverage, patient has chronic indwelling catheter. Culture and sensitivity pending IV Zosyn (5) Pancreatic mass: Code(s): K86.89 - Other specified diseases of pancreas Status: Acute Assessment and Plan: GI consulted pending recommendations (6) Uterine mass: Code(s): N85.8 - Other specified noninflammatory disorders of uterus Status: Acute Assessment and Plan: Ob consulted pending recommendations (7) Hypertension: Code(s): I10 - Essential (primary) hypertension Status: Acute Assessment and Plan: Does not appear to be on blood pressure meds (8) Uses feeding tube: Code(s): Z97.8 - Presence of other specified devices Status: Acute Assessment and Plan: continuous at a rate of 45 with 150 free fluid flushes will adjust as needed Jevity 1.2 Accu-Cheks q.6 with SSI (9) Seizure: Code(s): R56.9 - Unspecified convulsions Status: Acute Assessment and Plan: Continue Keppra (10) Thyroid disorder: Code(s): E07.9 - Disorder of thyroid, unspecified Status: Acute Assessment and Plan: Continue methimazole Plan Discussed with David Nathaly about goals of care and he decided to transition to comfort care. education and outreach coordinator has been consulted about hospice discharge Subjective Date/time seen: 04/07/25 13:51 Interval history: Comfortable at bedside awaiting hospice placement Review of Systems Review of Systems: ROS unobtainable: Yes unobtainable due to medical condition and unobtainable due to mental status Exam Narrative: General: Chronically-ill, HEENT: normocephalic, atraumatic. Mucous membranes moist. EOMI, PERRLA, bilatera l sclera anicteric, no conjunctival injection. Neck supple without JVD, lymphadenopathy, or bruit. Respiratory: clear to ascultation bilaterally. No rales/rhonic/wheezes. Tachypneic Cardiovascular: Regular rate and rhythm, normal S1-S2 upon ascultation. No murmurs, rubs, or clicks. PMI is nondisplaced, capillary refill less than 3 second. Abdomen: Soft, round, no pulsatile masses, nondistended and nontender. No rebound, no guarding. Peg tube Extremities: No cyanosis, clubbing, or edema present. Pulses are palpable 2/2. Contracted Neuro: Alert and orientated x 0. PERRLA. Cranial nerves 2-12 intact without focal deficit. Skin: Warm, dry, and intact, without rash, erythema, or lesion. Psych: Unable to assess Objective Data Vital Signs Vital Signs: Vital Signs - 24 hr 04/06/25 20:00 04/07/25 07:45 04/07/25 13:25 Temperature 98.8 F Pulse Rate 52 L Respiratory Rate 20 36 H Blood Pressure 122/70 Pulse Oximetry 95 Oxygen Delivery High Flow Nasal Cannula Oxygen Flow Rate 2 Intake/Output Intake/Output: Intake & Output 04/04/25 04/05/25 04/06/25 04/07/25 23:59 23:59 23:59 23:59 Intake Total 0 2228 100 Output Total 1450 325 Balance 2049 778 -225 Meds/Results Medications: Active Medications Generic Name Dose Route Start Last Admin Trade Name Freq PRN Reason Stop Dose Admin Acetaminophen 650 mg 04/05/25 22:27 Acetaminophen Elixir 325 Mg/10.15 Ml Udc FEED TUBE Q6H PRN Fever Atropine Sulfate 1 - 2 drop 04/05/25 23:25 Atropine Sulfate 1% Ophth Soln 5 Ml Bottle SUBLINGUAL Q4H PRN Secretions Carbidopa/Levodopa 2 tablet 04/06/25 08:00 04/07/25 13:16 Carbidopa/Levodopa 25/100 Mg Tablet FEED TUBE 2 tablet TIDWM ALENA Administration Piperacillin Sod/Tazobactam 50 mls @ 100 mls/hr 04/06/25 08:00 04/07/25 13:16 Sod 3.375 gm/ Sodium Chloride IVPB 100 mls/hr Q6HR ALENA Administration Vancomycin HCl 1,250 mg in 250 mls @ 166.667 mls/hr 04/07/25 20:00 Vancomycin 1,250 Mg/Ns 250 Ml IVPB Q18H ALENA Levetiracetam 500 mg 04/05/25 22:15 04/07/25 09:57 Levetiracetam Oral Moira 500 Mg/5 Ml Udc FEED TUBE 500 mg Q12HR ALENA Administration Lorazepam 2 mg 04/05/25 23:25 04/06/25 02:51 Lorazepam Inj (*Crx) 2 Mg/Ml Vial IV PUSH 2 mg Q2H PRN Administration Anxiety/Comfort Morphine Sulfate 2 mg 04/05/25 23:25 04/07/25 13:15 Morphine Sulfate (*Crx) 2 Mg/Ml Inj IV PUSH 2 mg Q30M PRN Administration COMFORT Radiology Results: ITS Impressions Chest X-Ray 04/05/25 14:48 IMPRESSION: Right-sided pleural effusion, as detailed above. Abdomen/Pelvis CT 04/05/25 16:08 IMPRESSION: 3.6 cm mass within the proximal body of the pancreas, with distal pancreatic atrophy which represents a primary pancreatic malignancy until proven otherwise. Additional findings within the grossly enlarged and hypervascular uterus, for which malignancy is also suspected. Edematous mural thickening within the rectum, consistent with patient's presentation and history. Decreased right-sided pleural effusion with adjacent compressive atelectasis, when compared with prior study on 04/01/2025. Labs Labs: Laboratory Results - last 24 hr 04/06/25 04/07/25 15:56 06:10 Creatinine 0.49 L Estim Creat Clear Calc 79 Estimated GFR > 60 Nasal MRSA (PCR) Not detected Quality VTE Prophylaxis VTE prophylaxis: mechanical ordered
--- NOTE | 2025-04-08 11:51 | P.DS_ITS ---
DS: Admitting Diagnosis Discharge Date 04/07/25 Admitting Diagnosis Altered mental status DS: Discharge Diagnosis Discharge Diagnosis (1) Acute respiratory failure: Code(s): J96.00 - Acute respiratory failure, unspecified whether with hypoxia or hypercapnia Status: Acute (2) Uterine mass: Code(s): N85.8 - Other specified noninflammatory disorders of uterus Status: Acute (3) Pancreatic mass: Code(s): K86.89 - Other specified diseases of pancreas Status: Acute DS: Summary Hospital Course Hospital Course: 74-year-old female past medical history of a debilitating stroke, nonverbal, peg tube, chronic indwelling Larsen catheter, and hypertension presents the hospital with altered mental status. HPI is limited as patient is nonverbal. HPI gathered from chart review. Patient was recently admitted to the hospital on 03/29/2025 for sepsis secondary to pneumonia. She also had a echocardiogram on the hospital which showed a EF of 30-35% and she diuretics while she was here. Apparently patient was brought here for respiratory distress and was found to be hypoxic. Lab work in the ED shows leukocytosis at 23.3, anemia 11.1 which is around baseline, BUN of 18, creatinine of 0.43, GFR over 60, lactic acid 2.2, C- reactive protein 1.8, UA is cloudy 2+ leukocyte esterase over 100 wbc's under squamous cell and 4+ bacteria. Chest x-ray shows right-sided pleural effusion. CT abdomen pelvis show 3.6 cm mass within the proximal body of the pancreas, with distal pancreatic atrophy which represents a primary pancreatic malignancy until proven otherwise. Additional findings within the grossly enlarged and hypervascular uterus, for which malignancy is also suspected. EKG shows sinus rhythm. Patient was placed on 3 L nasal cannula. Given patient's clinical condition and prognosis, i called her son David Andersen about goals of care and eventually decided to go comfort care. Hospice was consulted and patient was transferred to hospice care. F/u with hospice care. Time Spent with Patient Time attestation: Total time spent providing and/or coordinating discharge services: DS: Data Data Completed and Pending Labs on day of discharge: Preliminary micro results at discharge 04/05/25 13:32 Blood Culture - Preliminary Blood Discharge Plan Discharge Patient Disposition: Hospice [facility] Inpatient Patient Instructions: Urinary Tract Infection in Older Adults (GEN) Patient Language: Tamaz[place] Date of admission: 04/05/25 18:41 Primary Care Provider: UNKNOWN,DOCTOR Admitting Provider: Estephanie Kinney Attending physician on admission: Estephanie Kinney Condition: Serious
== END 2025-04-07 15:24 | disposition hospice, inpatient (51) | DRG 189 ==
LOC: ANHED 16:56 → ANHIMU 18:16 → ANH3MEDSUR 04-06 01:18
PROVIDERS: Admitting Provider Internal Medicine; Emergency Provider Emergency Medicine; Visit Provider Internal Medicine
DX: J96.01 Acute respiratory failure with hypoxia (principal); C25.9 Malignant neoplasm of pancreas, unspecified; I50.20 Unspecified systolic (congestive) heart failure; I69.321 Dysphasia following cerebral infarction; Z93.1 Gastrostomy status; I11.0 Hypertensive heart disease with heart failure; G20.A1 Parkinson's disease without dyskinesia, without mention of fluctuations; N85.8 Other specified noninflammatory disorders of uterus; Z74.01 Bed confinement status; Z79.02 Long term (current) use of antithrombotics/antiplatelets
CPT/HCPCS: 36415; 71045; 74177; 80053; 81001; 82565; 83605; 85025; 85610; 85730; 86140; 87040; 87641; 93005; 94640; 96361; 96365; 96375; 99285; A9270; G0378; J2060; J2270; J2543; J3373; J7030; P9047; Q9967

== ENCOUNTER 2025-04-07 15:25 | HOS | payer OTHER, MEDICARE, SELFPAY ==
--- NOTE | 2025-04-07 16:52 | P.HP_ITS ---
H&P: HPI History of Present Illness Date/Time: 04/07/25 16:52 Chief Complaint: Altered mental status Narrative: 74-year-old female past medical history of a debilitating stroke, nonverbal, peg tube, chronic indwelling Larsen catheter, and hypertension presents the hospital with altered mental status. HPI is limited as patient is nonverbal. HPI gathered from chart review. Patient was recently admitted to the hospital on 03/29/2025 for sepsis secondary to pneumonia. She also had a echocardiogram on the hospital which showed a EF of 30-35% and she diuretics while she was here. Apparently patient was brought here for respiratory distress and was found to be hypoxic. Lab work in the ED shows leukocytosis at 23.3, anemia 11.1 which is around baseline, BUN of 18, creatinine of 0.43, GFR over 60, lactic acid 2.2, C- reactive protein 1.8, UA is cloudy 2+ leukocyte esterase over 100 wbc's under squamous cell and 4+ bacteria. Chest x-ray shows right-sided pleural effusion. CT abdomen pelvis show 3.6 cm mass within the proximal body of the pancreas, with distal pancreatic atrophy which represents a primary pancreatic malignancy until proven otherwise. Additional findings within the grossly enlarged and hypervascular uterus, for which malignancy is also suspected. EKG shows sinus rhythm. Patient was placed on 3 L nasal cannula. There was a rapid response called on 04/05/2025 for hypotension, plans were made to change to comfort care after hospital staff talked with the family. Today, 04[facility]07/2025, [facility] I saw the patient via telehealth with the assistance of Mary Simeon RN. Review of Systems Review of Systems: ROS unobtainable: Yes unobtainable due to medical condition and unobtainable due to mental status PMFSH Past Medical History Medical History (Updated 04/07/25 @ 16:59 by Carolann Rivera DO) Bladder stone Thyroid disorder Listed as hypothyroidism in [place] paperwork, however is on methimazole Nonverbal Chronic indwelling Larsen catheter History of supraventricular tachycardia Sepsis Parkinson disease Hypertension Surgical History Surgical History S/P percutaneous endoscopic gastrostomy (PEG) tube placement History of brain surgery Social History Social History Smoking status: Never smoker Second hand tobacco smoke exposure: No Alcohol intake: never Substance use: unknown Do You Feel Safe in your Home?: Yes Lack of Transportation: No Lack of Food: Never True Current Housing: I Have Housing Concerned About Future Housing: No Difficulty Paying Gas/Electric Bills: No Difficulty Paying for Meds: No Currently Unemployed: No Education: Bachelor's Degree Difficulty w/ Childcare or Family Care: No Spiritual care concerns: No Meds Home Medications and Allergies Home Medications ?Medication ?Instructions ?Recorded ?Confirmed ?Type acetaminophen 160 mg/5 mL oral 320 mg feeding tube Q6H PRN Fever 08/12/24 04/05/25 History elixir atorvastatin 40 mg tablet 40 mg feeding tube HS 08/12/24 04/05/25 History carbidopa 25 mg-levodopa 100 mg 2 tablet feeding tube TID 08/12/24 04/05/25 History tablet clopidogrel 75 mg tablet 75 mg feeding tube DAILY 08/12/24 04/05/25 History famotidine 20 mg tablet 20 mg feeding tube BID 08/12/24 04/05/25 History levetiracetam 100 mg/mL oral 500 mg feeding tube Q12H 08/12/24 04/05/25 History solution methimazole 10 mg tablet 10 mg feeding tube DAILY 08/12/24 04/05/25 History metoprolol tartrate 25 mg tablet 25 mg feeding tube Q12H 08/12/24 04/05/25 History multivitamin i-[id number]-rnysbqh 1 tablet PO DAILY 08/12/24 04/05/25 History fumarate 18 mg-vitamin K 25 mcg tablet sertraline 50 mg tablet 25 mg feeding tube DAILY 08/12/24 04/05/25 History amoxicillin 875 mg tablet 875 mg PO Q12H 3 days #6 tabs 04/03/25 04/05/25 Rx doxycycline hyclate 100 mg tablet 100 mg feeding tube Q12H 04/05/25 04/05/25 History empagliflozin 10 mg tablet 10 mg feeding tube DAILY 04/05/25 04/05/25 History furosemide 40 mg tablet (Lasix) 40 mg feeding tube DAILY 04/05/25 04/05/25 History guaifenesin 200 mg tablet 200 mg PO TID 04/05/25 04/05/25 History nystatin 100,000 unit/gram topical 1 applic topical DAILY 04/05/25 04/05/25 History cream Allergies Allergy/AdvReac Type Severity Reaction Status Date / Time cephalexin Allergy Unknown Verified 04/02/25 08:37 Sulfa (Sulfonamide Allergy Unknown Verified 10/18/24 07:18 Antibiotics) Exam Const: General: patient obtunded HENMT: Head: normal to inspection Resp: Effort & Inspection: normal respiratory effort Skin: General skin exam: normal color and no rashes or lesions noted Extrem: Right lower extremity: edema Left lower extremity: edema Assessment and Plan Assessment and plan (1) Hospice care: Code(s): Z51.5 - Encounter for palliative care Status: Acute Assessment and Plan: Admit to [facility]. She has been tachypneic and diaphoretic, requiring IV morphine. -start morphone drip -prn ativan and breakthrough Morphine (2) Heart failure with reduced ejection fraction due to cardiomyopathy: Code(s): I50.20 - Unspecified systolic (congestive) heart failure; I42.9 - Cardiomyopathy, unspecified Status: Acute Assessment and Plan: Echo showing cardiomyopathy LVEF 30-35% with the mid anterior wall, mid anterior septal and mid inferior lateral wall oral hypokinetic with severe pulmonary hypertension estimated at 68 mmHg. Patient was given to use fluids in the emergency room Monitor for fluid overload stop IVF Continue Jardiance, Lasix, metoprolol (3) Pleural effusion: Code(s): J90 - Pleural effusion, not elsewhere classified Status: Acute (4) Acute respiratory failure: Code(s): J96.00 - Acute respiratory failure, unspecified whether with hypoxia or hyperca pnia Status: Acute Assessment and Plan: Secondary to HFrEF vs pneumonia. Had pneumonia last week with sepsis. (5) Acute UTI: Code(s): N39.0 - Urinary tract infection, site not specified Status: Acute Assessment and Plan: Treated with Zosyn (6) Pancreatic mass: Code(s): K86.89 - Other specified diseases of pancreas Status: Acute Assessment and Plan: Radiology notes malignancy until proven otherwise. No biopsy planned. (7) Uterine mass: Code(s): N85.8 - Other specified noninflammatory disorders of uterus Status: Acute (8) Hypertension: Code(s): I10 - Essential (primary) hypertension Status: Acute (9) Uses feeding tube: Code(s): Z97.8 - Presence of other specified devices Status: Acute Assessment and Plan: Tube feeds will be discontinued as she is end of life. (10) Seizure: Code(s): R56.9 - Unspecified convulsions Status: Acute Assessment and Plan: Continue Keppra (11) Thyroid disorder: Code(s): E07.9 - Disorder of thyroid, unspecified Status: Acute
[2025-04-07] MEDS: MORPHINE SULFATE INJ (*CRX) 50 MG in SODIUM CHLORIDE 0.9% IV 95 ML IV CONT (17:44)
[2025-04-07 21:00] VITALS: BP 112/69; PULSE 70; RESP 16; TEMP 36.6; O2SAT 100
[2025-04-07] MEDS: LORazepam INJ (*CRX) 2 MG/ML VIAL 1 MG IV PUSH (21:14)
[2025-04-08] MEDS: LORazepam INJ (*CRX) 2 MG/ML VIAL 1 MG IV PUSH ×3 (01:31→21:10)
[2025-04-08] MEDS: ARTIFICIAL TEARS OPHTH SOLN 15 ML BOTTLE 1 DROP EACH EYE ×3 (05:57→21:12)
[2025-04-08 08:00] VITALS: BP 129/59; PULSE 60; RESP 12; TEMP 36.5; O2SAT 100
[2025-04-08 08:35] VITALS: O2SAT 97
--- NOTE | 2025-04-08 09:26 | PCDIET ---
MST nutrition screen. Pt is on hospice care. No nutrition recommendations.
[2025-04-08] MEDS: MORPHINE SULFATE INJ (*CRX) 50 MG in SODIUM CHLORIDE 0.9% IV 95 ML IV CONT (15:44)
--- NOTE | 2025-04-08 19:29 | WPDPN ---
Progress Note: A&P Assessment and Plan (1) Hospice care: Code(s): Z51.5 - Encounter for palliative care Status: Acute Assessment and Plan: Continue morphine drip, she continues to qualify for GIP based on need for IV morphine, also required IV ativan for seizure control. (2) Seizure: Code(s): R56.9 - Unspecified convulsions Status: Acute Assessment and Plan: Will schedule ativan 1 mg IV q6h for seizure prevention. (3) Acute respiratory failure: Code(s): J96.00 - Acute respiratory failure, unspecified whether with hypoxia or hypercapnia Status: Acute Subjective Date/time seen: 04/08/25 19:29 Interval history: 74 yo female on hospice GIP for respiratory failure, CHF, pancreatic and uterine masses. Staff reports she had a seizure last night for which they gave ativan which was effective in stopping the seizure. I saw her via telehealth with the assistance of Mike Cook RN. She appeared comfortable, unresponsive. On morphine drip at 1 mg/hr. at bedside. Review of Systems Review of Systems: ROS unobtainable: Yes unobtainable due to medical condition and unobtainable due to mental status Exam Const: General: no acute distress and patient obtunded Resp: Effort & Inspection: normal respiratory effort Other: On O2 at 5 liters via nc Objective Data Vital Signs Vital Signs: Vital Signs - 24 hr 04/07/25 20:00 04/07/25 21:00 04/08/25 08:00 Temperature 36.6 C 36.5 C Pulse Rate 70 60 Respiratory Rate 16 12 Blood Pressure 112/69 129/59 L Pulse Oximetry 100 100 Oxygen Delivery Nasal Cannula Oxygen Flow Rate 2 04/08/25 08:00 04/08/25 08:35 Temperature Pulse Rate Respiratory Rate Blood Pressure Pulse Oximetry 97 Oxygen Delivery Nasal Cannula Nasal Cannula Oxygen Flow Rate 2 5 Intake/Output Intake/Output: Intake & Output 04/05/25 04/06/25 04/07/25 04/08/25 23:59 23:59 23:59 23:59 Intake Total 44 Output Total 375 Balance -331 Meds/Results Medications: Active Medications Generic Name Dose Route Start Last Admin Trade Name Freq PRN Reason Stop Dose Admin Acetaminophen 650 mg 04/07/25 15:50 Acetaminophen 650 Mg Suppository RECTAL Q4H PRN Fever Artificial Tears 1 drop 04/07/25 22:00 04/08/25 14:47 Artificial Tears Ophth Soln 15 Ml Bottle EACH EYE 1 drop Q8HR ALENA Administration Artificial Tears 1 drop 04/07/25 15:53 Artificial Tears Ophth Soln 15 Ml Bottle EACH EYE PRN PRN Dry Eye(s) Bisacodyl 10 mg 04/07/25 15:50 Bisacodyl 10 Mg Suppository RECTAL DAILY PRN Constipation Glycopyrrolate 0.1 mg 04/07/25 15:50 Glycopyrrolate Inj (*Sp) 0.2 Mg/Ml Vial IV PUSH Q4H PRN EXCESS secretions Morphine Sulfate 50 mg/ Sodium 100 mls @ 2 mls/hr 04/07/25 15:50 04/08/25 15:44 Chloride IV CONT 1 mg/hr .Q24H ALENA 2 mls/hr Administration 1 MG/HR Lorazepam 1 mg 04/08/25 15:00 04/08/25 15:46 Lorazepam Inj (*Crx) 2 Mg/Ml Vial IV PUSH 1 mg Q6H ALENA Administration Lorazepam 1 mg 04/08/25 14:57 Lorazepam Inj (*Crx) 2 Mg/Ml Vial IV PUSH Q1H PRN Anxiety Morphine Sulfate 2 mg 04/07/25 15:50 Morphine Sulfate (*Crx) 2 Mg/Ml Inj IV PUSH Q2H PRN Pain Prochlorperazine Edisylate 10 mg 04/07/25 15:52 Prochlorperazine Edisylate 10 Mg/2 Ml Vial IV PUSH Q4H PRN Nausea And Vomiting
[2025-04-08 20:00] VITALS: BP 115/53; PULSE 69; RESP 18; TEMP 37.2; O2SAT 99
[2025-04-09] MEDS: LORazepam INJ (*CRX) 2 MG/ML VIAL 1 MG IV PUSH ×3 (03:23→14:03)
[2025-04-09 08:00] VITALS: BP 121/43; PULSE 60; RESP 18; TEMP 36; O2SAT 100
[2025-04-09] MEDS: ARTIFICIAL TEARS OPHTH SOLN 15 ML BOTTLE 1 DROP EACH EYE ×2 (13:58→22:33)
--- NOTE | 2025-04-09 14:22 | P.PN_ITS ---
Progress Note: A&P Assessment and Plan (1) Hospice care: Code(s): Z51.5 - Encounter for palliative care Status: Acute Assessment and Plan: Stop IV morphine drip and IV ativan, start roxanol 10 mg po and ativan 1 mg po q 4 hours. Prn doses of po and IV will be available. Start discharge planning, if stable could go back to [facility] tomorrow. Family is aware and understand. (2) Seizure: Code(s): R56.9 - Unspecified convulsions Status: Acute Assessment and Plan: Ativan 1 mg q 4 hours scheduled for seizure prevention. (3) Acute respiratory failure: Code(s): J96.00 - Acute respiratory failure, unspecified whether with hypoxia or hypercapnia Status: Acute Assessment and Plan: On 5 L oxygen via nc. Subjective Date/time seen: 04/09/25 14:22 Interval history: 74 yo female on hospice GIP for respiratory failure, CHF, pancreatic and uterine masses. I saw her via telehealth with the assistance of Mike Cook RN. She appeared comfortable, unresponsive. On morphine drip at 1 mg/hr. at bedside. She had a seizure a couple of days ago so we scheduled ativan in addition to her morphine drip at 1 mg/hour. The past 24 hours she has not required any prn medication for pain or restlessness or seizures. Review of Systems Review of Systems: ROS unobtainable: Yes unobtainable due to medical condition and unobtainable due to mental status Exam Const: General: patient obtunded Resp: Effort & Inspection: normal respiratory effort Skin: Other: No peripheral edema, no mottling Objective Data Vital Signs Vital Signs: Vital Signs - 24 hr 04/08/25 20:00 04/08/25 20:00 04/09/25 08:00 Temperature 37.2 C 36.0 C L Pulse Rate 69 60 Respiratory Rate 18 18 Blood Pressure 115/53 L 121/43 L Pulse Oximetry 99 100 Oxygen Delivery Nasal Cannula Oxygen Flow Rate 2 04/09/25 10:00 Temperature Pulse Rate Respiratory Rate Blood Pressure Pulse Oximetry Oxygen Delivery Nasal Cannula Oxygen Flow Rate 5 Intake/Output Intake/Output: Intake & Output 04/06/25 04/07/25 04/08/25 04/09/25 23:59 23:59 23:59 23:59 Intake Total 44 0 Output Total 375 225 Balance -331 -225 Meds/Results Medications: Active Medications Generic Name Dose Route Start Last Admin Trade Name Freq PRN Reason Stop Dose Admin Acetaminophen 650 mg 04/07/25 15:50 Acetaminophen 650 Mg Suppository RECTAL Q4H PRN Fever Artificial Tears 1 drop 04/07/25 22:00 04/09/25 13:58 Artificial Tears Ophth Soln 15 Ml Bottle EACH EYE 1 drop Q8HR ALENA Administration Artificial Tears 1 drop 04/07/25 15:53 Artificial Tears Ophth Soln 15 Ml Bottle EACH EYE PRN PRN Dry Eye(s) Bisacodyl 10 mg 04/07/25 15:50 Bisacodyl 10 Mg Suppository RECTAL DAILY PRN Constipation Glycopyrrolate 0.1 mg 04/07/25 15:50 Glycopyrrolate Inj (*Sp) 0.2 Mg/Ml Vial IV PUSH Q4H PRN EXCESS secretions Morphine Sulfate 50 mg/ Sodium 100 mls @ 2 mls/hr 04/07/25 15:50 04/08/25 15:44 Chloride IV CONT 1 mg/hr .Q24H ALENA 2 mls/hr Administration 1 MG/HR Lorazepam 1 mg 04/08/25 15:00 04/09/25 14:03 Lorazepam Inj (*Crx) 2 Mg/Ml Vial IV PUSH 1 mg Q6H ALENA Administration Lorazepam 1 mg 04/08/25 14:57 Lorazepam Inj (*Crx) 2 Mg/Ml Vial IV PUSH Q1H PRN Anxiety Morphine Sulfate 2 mg 04/07/25 15:50 Morphine Sulfate (*Crx) 2 Mg/Ml Inj IV PUSH Q2H PRN Pain Prochlorperazine Edisylate 10 mg 04/07/25 15:52 Prochlorperazine Edisylate 10 Mg/2 Ml Vial IV PUSH Q4H PRN Nausea And Vomiting
[2025-04-09] MEDS: LORazepam (*CRX) 1 MG TABLET PO ×2 (17:26→22:32)
[2025-04-09] MEDS: MORPHINE SULFATE ORAL CONC SOL (*CRX) 10 MG/0.5 ML SYRINGE SUBLINGUAL ×2 (17:27→22:32)
[2025-04-09 19:59] VITALS: BP 107/50; PULSE 75; RESP 18; TEMP 36.1; O2SAT 95
[2025-04-10] MEDS: LORazepam (*CRX) 1 MG TABLET PO ×4 (02:04→16:08)
[2025-04-10] MEDS: MORPHINE SULFATE ORAL CONC SOL (*CRX) 10 MG/0.5 ML SYRINGE SUBLINGUAL ×4 (02:04→16:08)
[2025-04-10 08:00] VITALS: PULSE 75; RESP 18; O2SAT 95
[2025-04-10] MEDS: ARTIFICIAL TEARS OPHTH SOLN 15 ML BOTTLE 1 DROP EACH EYE (12:08)
[2025-04-10 14:00] VITALS: BP 135/70; PULSE 73; RESP 20; TEMP 36.3; O2SAT 100
--- NOTE | 2025-04-10 15:24 | P.DS_ITS ---
DS: Admitting Diagnosis Discharge Date 04/10/2025 Admitting Diagnosis Acute respiratory failure due to pneumonia DS: Discharge Diagnosis Discharge Diagnosis (1) Hospice care: Code(s): Z51.5 - Encounter for palliative care Status: Acute (2) Respiratory failure: Code(s): J96.90 - Respiratory failure, unspecified, unspecified whether with hypoxia or hypercapnia Status: Acute (3) Heart failure with reduced ejection fraction due to cardiomyopathy: Code(s): I50.20 - Unspecified systolic (congestive) heart failure; I42.9 - Cardiomyopathy, unspecified Status: Acute (4) Ischemic cardiomyopathy: Code(s): I25.5 - Ischemic cardiomyopathy Status: Acute (5) Pneumonia: Code(s): J18.9 - Pneumonia, unspecified organism Status: Acute DS: Summary Hospital Course Hospital Course: Mrs. Andersen was admitted to inpatient hospice service due to respiratory failure with dyspnea due to pneumonia. Medications were titrated to comfort. She was transitioned to SL meds and tolerated well, remaining comfortable, though unable to eat, drink, or swallow meds. She was discharged back to her fpc bed for ongoing hospice care. Hx and exam were completed via telehealth with pharmacy delivery driver at bedside. Time Spent with Patient Time attestation: Total time spent providing and/or coordinating discharge services: Exam Narrative: Unresponsive. Resting comfortably. Discharge Plan Discharge Discharging Clinician: Pako Robertson Patient Disposition: Hospice - Medical Facility Activity: as tolerated Diet: as tolerated Patient Language: Congolese Stand Alone Forms: General Discharge Information, [facility] Discharge Discharge Medications: New lorazepam 1 mg Tablet 1 mg PO Q4HR Qty: 20 0RF morphine concentrate 100 mg/5 mL (20 mg/mL) solution 10 mg sublingual Q4H Qty: 15 0RF Rx Instructions: 10 mg (0.5 mL) SL q 4 hours and 10 mg SL q 1 hour prn pain bisacodyl 10 mg Suppository 10 mg RECTAL DAILY PRN (Reason: Constipation) Qty: 4 0RF Artificial Tears([id number]) 1-0.2-0.2 % Drops 1 drp EACH EYE PRN PRN (Reason: Dry Eye(S)) Qty: 5 0RF hyoscyamine sulfate 0.125 mg tablet, sublingual 0.125 mg sublingual Q6H PRN (Reason: secretions) Qty: 4 0RF Date of admission: 04/07/25 15:25 Primary Care Provider: PHYSICIAN,CHIEF TELEPHONE OPERATOR Admitting Provider: Carolann Rivera Attending physician on admission: Carolann Rivera Condition: Terminal
== END 2025-04-10 18:00 | disposition hospice, home (50) | DRG 951 ==
PROVIDERS: Admitting Provider Internal Medicine Adolescent Medicine; Visit Provider Internal Medicine
DX: Z51.5 Encounter for palliative care (principal); I50.21 Acute systolic (congestive) heart failure; J96.00 Acute respiratory failure, unspecified whether with hypoxia or hypercapnia; J18.9 Pneumonia, unspecified organism; I42.9 Cardiomyopathy, unspecified; G20.A1 Parkinson's disease without dyskinesia, without mention of fluctuations; E07.9 Disorder of thyroid, unspecified; Z93.1 Gastrostomy status; K86.89 Other specified diseases of pancreas; N85.8 Other specified noninflammatory disorders of uterus; D64.9 Anemia, unspecified; D72.829 Elevated white blood cell count, unspecified
CPT/HCPCS: A9270; J2060; J2270